=== PATIENT | female | born 1990 | race Caucasian/White ===

== ENCOUNTER 2023-02-01 15:27 | Outpatient (OUT) | payer BC, SELFPAY ==
--- NOTE | 2023-02-01 15:45 | XR_ITS ---
[address] [address] Patient Name: ELENI MATA MRN: [id number] date: 1990 Sex: F Assigned Patient Location: RAD Current Patient Location: [facility] Accession/Order Number: [id number] Exam Date: 02/01/2023 15:32 Report Date: 02/01/2023 16:05 At the request of: ROBERTO HICKMAN Procedure: XR ankle RT min 3V PROCEDURE: XR ankle RT min 3V DATE: 02/01/2023 2:32 PM CDT COMPARISONS: None CLINICAL INDICATION: Ankle Injury, S99.919A FINDINGS: There is no evidence of fractures or other osseous abnormalities. The ankle mortise is intact. IMPRESSION: Right ankle radiographs show no evidence of abnormalities. Electronically authenticated by: MADHURI DOMINGUEZ Date: 02/01/2023 16:05
--- NOTE | 2023-02-01 15:45 | XR_ITS ---
[address] [address] Patient Name: ELENI MATA MRN: [id number] date: 1990 Sex: F Assigned Patient Location: RAD Current Patient Location: [facility] Accession/Order Number: [id number] Exam Date: 02/01/2023 15:32 Report Date: 02/01/2023 16:06 At the request of: ROBERTO HICKMAN Procedure: XR foot RT min 3V PROCEDURE: XR foot RT min 3V DATE: 02/01/2023 2:32 PM CDT COMPARISONS: None CLINICAL INDICATION: Foot Injury, M99.929A FINDINGS: There is no evidence of fractures or other osseous abnormalities. IMPRESSION: Right foot radiographs show no evidence of abnormalities. Electronically authenticated by: MADHURI DOMINGUEZ Date: 02/01/2023 16:06
== END 2023-02-01 15:28 ==
PROVIDERS: PCP Nurse Practitioner; Visit Provider Nurse Practitioner
DX: S99.921A Unspecified injury of right foot, initial encounter (principal); S99.911A Unspecified injury of right ankle, initial encounter
CPT/HCPCS: 73610; 73630

== ENCOUNTER 2023-05-31 20:55 | Outpatient (REF) | payer OTHER, SELFPAY ==
[2023-06-05 15:08] LABS: Age Gdln ACOG Testing Note (.); HPV Aptima Negative (Negative); IGP, Aptima HPV, rfx 16/18,45 Note (.)
== END 2023-05-31 20:56 | disposition home or self-care (01) ==
LOC: LAB 20:55
PROVIDERS: PCP Nurse Practitioner; Visit Provider Obstetrics & Gynecology
DX: Z12.4 Encounter for screening for malignant neoplasm of cervix (principal)
CPT/HCPCS: 87624; G0145

== ENCOUNTER 2023-06-08 10:06 | Outpatient (OUT) | payer OTHER, SELFPAY ==
--- NOTE | 2023-06-08 10:14 | US_ITS ---
[address] [address] Patient Name: ELENI MATA MRN: [id number] date: 1990 Sex: F Assigned Patient Location: US Current Patient Location: [place] Accession/Order Number: [id number] Exam Date: 06/08/2023 10:20 Report Date: 06/08/2023 13:01 At the request of: FABIOLA YANCEY Procedure: US pelvis transvaginal EXAMINATION: US pelvis transvaginal HISTORY: Abnormal Uterine Bleeding COMPARISON: Ultrasound pelvis 11/13/2021 TECHNIQUE: Transabdominal and/or transvaginal sonographic examination was performed as indicated by examination type. FINDINGS: UTERUS: Normal size and appearance. Uterus size: 8.0 x 5.5 x 3.7 cm ENDOMETRIUM: Normal homogeneous appearance. Endometrial thickness: 5 mm RIGHT OVARY: Contains multiple small peripherally located follicles. Duplex Doppler demonstrates normal waveform and flow; resistive index 0.6. Ovary size: 3.5 x 2.4 x 2.2 cm LEFT OVARY: Contains several small peripherally located follicles. Duplex Doppler demonstrates normal waveform and flow; resistive index 0.6. Ovary size: 3.9 x 2.6 x 2.4 cm CUL-DE-SAC: Unremarkable. No significant free fluid. BLADDER: Unremarkable. OTHER: None. US/US pelvis transvaginal IMPRESSION: 1. No abnormal or overtly suspicious findings. 2. Both ovaries contain multiple small peripherally located follicles; nonspecific but this can be seen with polycystic ovarian syndrome. Electronically authenticated by: MARK HAYES Date: 06/08/2023 13:01
[2023-06-08 11:11] LABS: Basophils Absolute Auto 0.1 10^3/uL (0.0-0.1); Basophils Percent Auto 1.3 % (0.2-2.0); Eosinophils Absolute Auto 0.2 10^3/uL (0.0-0.7); Eosinophils Percent Auto 2.3 % (0.9-7.0); Hematocrit 41.1 % (36.0-48.0); Hemoglobin 13.1 g/dL (12.0-16.0); Immature Granulocytes Abs Auto 0.02 10^3/uL (0.00-0.03); Immature Granulocytes Pct Auto 0.3 % (0.0-0.5); Lymphocytes Absolute Auto 2.4 10^3/uL (1.2-3.8); Lymphocytes Percent Auto 33.7 % (20.5-60.0); Mean Corpuscular HGB Conc 31.9 g/dL (29.9-35.2); Mean Corpuscular Hemoglobin 27.5 pg (26.7-34.0); Mean Corpuscular Volume 86.2 fL (81.0-99.0); Mean Platelet Volume 9.9 fL (9.5-13.5); Monocytes Absolute Auto 0.4 10^3/uL (0.3-0.8); Monocytes Percent Auto 5.7 % (1.7-12.0); Neutrophils Percent Auto 56.7 % (43.0-75.0); Platelet Count 341 10^3/uL (150-450); Red Blood Count 4.77 10^6/uL (4.20-5.40); Red Cell Distribution Width 11.9 % (11.0-15.0)
[2023-06-08 11:33] LABS: HCG Quantitative <1 mIU/mL; Thyroid Stimulating Hormone 2.294 uIU/mL (0.358-3.740)
[2023-06-08 11:37] LABS: Estimated Average Glucose 103 mg/dL; Glycohemoglobin A1C 5.2 % (4.5-6.2)
[2023-06-08 11:53] LABS: Free T4 1.04 ng/dL (0.76-1.46)
[2023-06-09 08:12] LABS: FSH 5.8 mIU/mL (.); Luteinizing Hormone(LH) 12.6 mIU/mL (.)
[2023-06-14 05:07] LABS: DHEA, Serum 333 ng/dL (31-701)
== END 2023-06-08 10:07 | disposition home or self-care (01) ==
LOC: US 10:06
PROVIDERS: PCP Nurse Practitioner; Visit Provider Obstetrics & Gynecology
DX: N93.9 Abnormal uterine and vaginal bleeding, unspecified (principal)
CPT/HCPCS: 36415; 76830; 82626; 82627; 83001; 83002; 83036; 84439; 84443; 84702; 85025

== ENCOUNTER 2024-01-30 12:24 | Outpatient (RCR) | payer OTHER, SELFPAY ==
[2024-01-30 13:16] LABS: HCG Quantitative 5436 mIU/mL
[2024-02-02 15:11] LABS: HCG Quantitative 9333 mIU/mL
[2024-02-05 13:28] LABS: HCG Quantitative 14032 mIU/mL
== END 2024-02-11 23:59 | disposition home or self-care (01) ==
LOC: LAB 12:24
PROVIDERS: PCP Nurse Practitioner; Visit Provider Obstetrics & Gynecology
DX: Z87.59 Personal history of other complications of pregnancy, childbirth and the puerperium (principal)
CPT/HCPCS: 36415; 84702

== ENCOUNTER 2024-02-04 20:38 | Emergency (ER) | payer OTHER, SELFPAY ==
[2024-02-04 20:44] VITALS: BP 120/82; PULSE 88; O2SAT 100; BMI 26.6
--- OUTSIDE RECORDS SUMMARY | 2024-02-04 20:48 | XMS_ITS ---
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 Name Role Phone BC, DR HICKS Consulting Unavailable MARSH, DR SAKINA Sosa Primary Care Unavailable BC, DR HICKS Attending Unavailable BC, DR HICKS Admitting Unavailable Zieber, DR Winston Consulting Unavailable SAMIR, DR FELIPA Monzon Consulting Unavailable BC, DR HICKS Attending Unavailable BC, DR HICKS Admitting Unavailable MARSH, DR SAKINA Sosa Primary Care Unavailable BC, DR HICKS Consulting Unavailable AGUBOSIM, CASSI Consulting Unavailable KIERA, CHRIS Consulting Unavailable BC, DR HICKS Consulting Unavailable LAUREN, DR SAKINA Sosa Primary Care Unavailable BC, DR HICKS Attending Unavailable BC, DR HICKS Admitting Unavailable BC, DR HICKS Consulting Unavailable MARSH, DR SAKINA Sosa Primary Care Unavailable BC, DR HICKS Attending Unavailable BC, DR HICKS Admitting Unavailable BC, DR HICKS Consulting Unavailable MARSH, DR SAKINA Sosa Primary Care Unavailable BC, DR HICKS Attending Unavailable BC, DR HICKS Admitting Unavailable BC, DR HICKS Consulting Unavailable LAUREN, DR SAKINA Sosa Primary Care Unavailable BC, DR HICKS Attending Unavailable BC, DR HICKS Admitting Unavailable BC, DR HICKS Consulting Unavailable MARSH, DR SAIKNA Sosa Primary Care Unavailable BC, DR HICKS Attending Unavailable BC, DR HICKS Admitting Unavailable BC, DR HICKS Consulting Unavailable LAUREN, DR SAKINA Sosa Primary Care Unavailable BC, DR HICKS Attending Unavailable BC, DR HICKS Admitting Unavailable BC, DR HICKS Consulting Unavailable LAUREN, DR SAKINA Sosa Primary Care Unavailable BC, DR HICKS Attending Unavailable BC, DR HICKS Admitting Unavailable BC, DR HICKS Consulting Unavailable MARSH, DR SAKINA Sosa Primary Care Unavailable BC, DR HICKS Attending Unavailable BC, DR FABIOLA Admitting Unavailable Tessy Cornell Attending Unavailable Allergies Allergy Classification Reported Allergen(s) Allergy Type Date of Onset Reaction(s) Facility (1 source) No Known Medication Allergies; Translations: [No Known Medication Allergies] Propensity to adverse reactions (disorder) [facility] Repository Encounters Encounter Date Encounter Type Care Provider Facility Start: 01-31-2023 End: 02-01-2023 ambulatory Tessy Cornell Facility:[facility] Start: 01-31-2023 ambulatory Tessy Cornell Facility:[facility] [place] Start: 05-25-2022 End: 05-25-[address] FABIOLA GANDHI Facility:[facility] Start: 12-09-2021 End: 12-10-[address] FABIOLA GANDHI Facility:[facility] Start: 11-29-2021 End: 11-30-[address] FABIOLA GANDHI Facility:[facility] Start: 11-23-2021 End: 11-24-[address] FABIOLA GANDHI Facility:[facility] Start: 11-13-2021 End: 11-14-[address] FABIOLA GANDHI Facility:[facility] Start: 11-12-2021 End: 11-13-[address] FABIOLA GANDHI Facility:[facility] Start: 11-08-2021 End: 11-09-[address] FABIOLA GANDHI Facility:[facility] Start: 11-06-2021 End: 11-06-[address] FABIOLA GANDHI Facility:[facility] Start: 11-03-2021 End: 11-04-[address] FABIOLA GANDHI Facility:[facility] Start: 10-30-2021 End: 10-30-[address] FELIPA NASH Facility:[facility] Payers Date Payer Category Payer Unknown [id number] 2.16.84 [id number] 1990 Unknown [id number] 2.16.84 [id number] 1990 Unknown [id number] 2.16.84 [id number] 1990 Unknown [id number] 2.16.84 [id number] 1990 Unknown [id number] 2.16.84 [id number] 1990 Unknown [id number] 2.16.84 [id number] 1990 Unknown [id number] 2.16.84 [id number] 1990 Unknown [id number] 2.16.84 [id number] 1990 Unknown [id number] 2.16.84 [id number] 1990 Unknown [id number] 2.16.84 [id number] 1990 Unknown [id number] 2.16.8 [id number] 1957 Unknown [id number] Unknown [id number] Problems Active Problems Problem Classification Problem Date Documented Date Episodic/Chronic Immunizations and screening for infectious disease (1 source) Encounter for screening for human papillomavirus (HPV); Translations: [ENC SCREENING HUMAN PAPILLOMAVIRUS] Onset: 05-26-2022 Episodic Other endocrine disorders (1 source) Polycystic ovarian syndrome; Translations: [POLYCYSTIC OVARIAN SYNDROME] Onset: 11-11-2021 Chronic Other screening for suspected conditions (not mental disorders or infectious disease) (4 sources) Encounter for screening for malignant neoplasm of cervix; Translations: [ENC SCREENING MALIG NEOPLASM CERV] Onset: 05-25-2022 Episodic Unclassified (1 source) CONTACT W/AND (SUSP) EXPOS COVID-19; Translations: [CONTACT W/AND (SUSP) EXPOS COVID-19] Onset: 11-11-2021 Past or Other Problems Problem Classification Problem Date Documented Date Episodic/Chronic Abdominal pain (4 sources) Right lower quadrant pain; Translations: [Pelvic and perineal pain] Onset: 10-30-2021 Episodic Deficiency and other anemia (1 source) Anemia, unspecified; Translations: [ANEMIA UNSPECIFIED] Onset: 11-11-2021 Episodic Ovarian cyst (1 source) Unspecified ovarian cyst, right side; Translations: [UNSPECIFIED OVARIAN CYST RIGHT SIDE] Onset: 11-17-2021 Episodic Residual codes; unclassified (4 sources) Other specified postprocedural states; Translations: [OTH SPECIFIED POSTPROCEDURAL STATES] Onset: 12-09-2021 Episodic Residual codes; unclassified (5 sources) Personal history of other complications of , childbirth and the puerperium; Translations: [PERS HX OTH COMP PG CHILDBIRTH AND PP] Onset: 11-13-2021 Episodic Results Test Name Value Interpretation Reference Range Facil ity RAD - Ultrasound Reporton RAD - Ultrasound Report [id number] 0TIFF [facility] RAD - MISCon 02-02-2023 RAD - MISC [id number]#1.00 CD:127 [facility] RAD - MISC [id number]. 00CD:127 [facility] Ambulatory Visit Summaryon 0 01-31-2023 Ambulatory Visit Summary ELENI MATA :1990 Visit Date:01/31/2023 Ambulatory Visit Instructions Your Diagnosis BMI 26.0-26.9,adult Non-smoker Your Care Team Attending Physician - Tessy Salinas Primary Care Physician - Cassi Green MD Discharge Vitals Heart Rate (Peripheral) 80 Respiratory Rate 18 Blood Pressure 124/88 Height 161.5 cm Height 64 in Weight 67.9 kg Weight 149.38 lb BMI 26.03 Allergies No Known Medication Allergies [facility] Family Medicine Office/Clini c Noteon 01-31-2023 Family Medicine Office/Clinic Note Chief Complaint Establish care HPI Staff Haider is a 32 year old female presenting with establish care Establish Care: History: Any previous diagnosis: no History of seeing any specialist: no When was your last doctors visit: Last provider: Dr Marsh Any recent labs: no Health Maintenance UTD: Colonoscopy: no Mammogram: no Pelvic/Pap: Acute: Current issues/complaints: Right foot pain Started having pain the her right foot a couple of days ago. Right outside foot with pain radiating up to the top part of the foot. Pain only happens when patient is walking or standing. Pain is aching and sharp, pain is 8/10. No other the counter medications taken, attempted to soak her foot but did not help. Claims no injury happen, states that she did jump off of a swing. When patient landed she did not feel any pain. History of Present Illness pt presets today with right foot pain that radiates to her ankle Review of Systems PHQ Score Initial Depression Screen Score: 0 ROS - Provider Constitutional: no fever, no chills, no sweats, no fatigue Respiratory: no shortness of breath, no cough, no orthopnea, no wheezing. Cardiovascular: no chest pain, no palpitations, no edema. Neurologic: no headache, no dizziness, no numbness, no weakness. musculoskeletal: right foot pain that goes to ankle Physical Exam Vitals & Measurements HR: 80(Peripheral) RR: 18 BP: 124/88 SpO2: 99% HT: 64 in HT: 161.5 cm WT: 67.9 kg WT: 149.38 lb BMI: 26.03 General: alert, no acute distress ENMT: oral mucosa moist, no pharyngeal erythema or exudate Cardiovascular: regular rate and rhythm, normal peripheral perfusion Respiratory: Lungs CTA, respirations non labored Extremities: no deformity, mild trauma right foot pain starts at bottom of foot radiates up to anlkle Neurological: oriented x 4, LOC appropriate for age, CN II-XII intact, motor strength equal & normal bilaterally, speech normal Assessment/Plan 1. Ankle injury (S99.919A: Unspecified injury of unspecified ankle, initial encounter) pt presents today with right foot pain. starts at bottom of her foot and radiates up to her ankle. she was on a swing on Monday and jumped off of it and landed funny. she now has pain when on her feet too long. no swelling noted on exam. but foot is tender to touch. will order x ray and meds. will notify pt of results when they are in. will refer to Dr. Townsend if needed all questions answered. RTC as needed 2. Foot injury (S99.929A: Unspecified injury of unspecified foot, initial encounter) see above 3. BMI 26.0-26.9,adult (Z68.26: Body mass index [BMI] 26.0-26.9, adult) BMI education complete Ordered: methylPREDNISolone, = 1 packet(s), Oral, As Directed, as directed on package labeling, X 6 day(s), # 21 tab(s), Refills(s) 0, Pharmacy: [facility]/pharmacy #[id number], 161.5, cm, 01/31/23 14:55:00 EDT, Height/Length Dosing, 67.9, kg, 01/31/23 14:55:00 EDT, Weight Dosing naproxen, 500 mg = 1 tab(s), Oral, BID, # 30 tab(s), Refills(s) 0, Pharmacy: [facility]/pharmacy #[id number], 161.5, cm, 01/31/23 14:55:00 EDT, Height/Length Dosing, 67.9, kg, 01/31/23 14:55:00 EDT, Weight Dosing 4. Non-smoker (Z78.9: Other specified health status) continue not smoking Ordered: methylPREDNISolone, = 1 packet(s), Oral, As Directed, as directed on package labeling, X 6 day(s), # 21 tab(s), Refills(s) 0, Pharmacy: [facility]/pharmacy #[id number], 161.5, cm, 01/31/23 14:55:00 EDT, Height/Length Dosing, 67.9, kg, 01/31/23 14:55:00 EDT, Weight Dosing naproxen, 500 mg = 1 tab(s), Oral, BID, # 30 tab(s), Refills(s) 0, Pharmacy: [facility]/pharmacy #[id number], 161.5, cm, 01/31/23 14:55:00 EDT, Height/Length Dosing, 67.9, kg, 01/31/23 14:55:00 EDT, Weight Dosing Follow-up No qualifying data available Problem List/Past Medical History Ongoing Ankle injury Foot injury Historical No qualifying data Medications Medrol 4 mg Tab, 1 packet(s), Oral, As Directed naproxen 500 mg oral enteric coated tablet, 500 mg= 1 tab(s), Oral, BID Allergies No Known Medication Allergies Social History Tobacco - No Risk, 01/31/2023 Former smoker, quit more than 30 days ago Tobacco Use:. Cigarettes, Household tobacco concerns: No., 01/31/2023 Family History Family history is negative Normal [facility] Comment on above: Result Comment: Elec tronically Signed By: Aneta SHULTZ, Tessy Gandhi\.br\Date and Time Signed: 01/31/23 15:15 EDT PAP ACOG PANEL 2: 21 to 29on 06-01-2022 . . Normal [facility] Comment on above: Performed By: #### P REGQNT #### [facility] [address] [address] [address] Ed Amaral Age Gdln ACOG Testing - [facility] Comment on above: Performed By: #### P REGQNT #### [facility] [address] [address] [address] Ed Amaral DIAGNOSIS: Comment [facility] Comment on above: Result Comment: NEGA TIVE FOR INTRAEPITHELIAL LESION OR MALIGNANCY. Performed By: #### P REGQNT #### [facility] [address] [address] [address] Ed Amaral Methodology: Comment [facility] Comment on above: Result Comment: This liquid based ThinPrep(R) pap test was screened with the use of an image guided system. Performed By: #### P REGQNT #### [facility] [address] [address] [address] Ed Amaral Note: Comment [facility] Comment on above: Result Comment: The Pap smear is a screening test designed to aid in the detection of premalignant and malignant conditions of the uterine cervix. It is not a diagnostic procedure and should not be used as the sole means of detecting cervical cancer. Both false-positive and false-negative reports do occur. . Performed By: #### P REGQNT #### [facility] [address] [address] [address] Ed Amaral Performed by: Comment Normal [facility] Comment on above: Result Comment: Ignacio Pleitez, Marine Water Tender (ASCP) Performed By: #### P REGQNT #### [facility] [address] [place] [address] Dr. Ed Amaral Reflex Criteria: Comment Normal [facility] Comment on above: Result Comment: The HPV DNA reflex criteria were not met with this specimen result therefore, no HPV testing was performed. . Performed By: #### P REGQNT #### [facility] [address] [place] [address] Dr. Ed Amaral Specimen adequacy: Comment Normal [facility] Comment on above: Result Comment: Sati sfactory for evaluation. Endocervical and/or squamous metaplastic cells (endocervical component) are present. Performed By: #### P REGQNT #### [facility] [address] [place] [address] Dr. Ed Amaral PREG QUANT HCGon 12-09-2021 HCG QUANT 2 mIU/mL [facility] Comment on above: Performed By: #### P REGQNT #### [facility] [address] [place] [address] Dr. Ed Amaral HCG RANGE SEE BELOW [facility] Comment on above: Result Comment: 5-50 0-1 WEEK 40-300 1-2 WEEKS 100-1,000 2-3 WEEKS 500-6,000 3-4 WEEKS 5,000-200,000 1-2 MONTHS 10,000-100,000 2-3 MONTHS 3,000-50,000 2ND TRIMESTER 1,000-50,000 3RD TRIMESTER Performed By: #### P REGQNT #### [facility] [address] [place] [address] Dr. Ed Amaral PREG QUANT HCGon 11-29-2021 HCG QUANT 83 mIU/mL [facility] Comment on above: Performed By: #### P REGQNT #### [facility] [address] [place] [address] Dr. Ed Amaral HCG RANGE SEE BELOW [facility] Comment on above: Result Comment: 5-50 0-1 WEEK 40-300 1-2 WEEKS 100-1,000 2-3 WEEKS 500-6,000 3-4 WEEKS 5,000-200,000 1-2 MONTHS 10,000-100,000 2-3 MONTHS 3,000-50,000 2ND TRIMESTER 1,000-50,000 3RD TRIMESTER Performed By: #### P REGQNT #### [facility] [address] [address] [address] Ed Amaral PREG QUANT HCGon 11-23-2021 HCG QUANT 80 mIU/mL Normal [facility] Comment on above: Performed By: #### P REGQNT #### [facility] [address] [address] [address] Ed Amaral HCG RANGE SEE BELOW Normal [facility] Comment on above: Result Comment: 5-50 0-1 WEEK 40-300 1-2 WEEKS 100-1,000 2-3 WEEKS 500-6,000 3-4 WEEKS 5,000-200,000 1-2 MONTHS 10,000-100,000 2-3 MONTHS 3,000-50,000 2ND TRIMESTER 1,000-50,000 3RD TRIMESTER Performed By: #### P REGQNT #### [facility] [address] [address] [address] Ed Amaral US PELVIS AND TRANSVAGon US PELVIS AND TRANSVAG EXAMINATION: US PELVIS AND TRANSVAG HISTORY: History of complication of , childbirth and/or puerperium COMPARISON: Ultrasound transvaginal 10/29/2021 TECHNIQUE: Transabdominal and transvaginal sonographic examination. FINDINGS: UTERUS: Normal size and appearance. Uterus size: 8.4 x 4.6 x 3.7 cm ENDOMETRIUM: Normal homogeneous appearance. Endometrial thickness: 4 mm RIGHT OVARY: Contains several small follicles and a 1.4 cm round hypoechoic/heterogeneo us structure likely representing a hemorrhagic cyst. Adjacent to the ovary is a 1.1 cm anechoic simple appearing cyst. Duplex Doppler demonstrates normal waveform and flow; resistive index 0.57. Ovary size: 3.6 x 2.8 x 2.1 cm LEFT OVARY: Normal size and appearance. Duplex Doppler demonstrates normal waveform and flow; resistive index 0.51. Ovary size: 3.5 x 2.4 x 2.3 cm CUL-DE-SAC: Unremarkable. No significant free fluid. BLADDER: Unremarkable. OTHER: None. IMPRESSION: 1. No ultrasound evidence of intrauterine or ectopic . Follow-up should be based on beta hCG levels. 2. Small complex cyst within right ovary, and adjacent cysts likely exophytic simple cyst. Electronically authenticated by: MARK FERMINOMARJAELYN Date: 2021-11-16 07:02 Normal [facility] PREG QUANT HCGon 11-12-2021 HCG QUANT 236 mIU/mL Normal [facility] Comment on above: Performed By: #### P REGQNT #### [facility] [address] [address] [address] Ed Amaral HCG RANGE SEE BELOW Normal [facility] Comment on above: Result Comment: 5-50 0-1 WEEK 40-300 1-2 WEEKS 100-1,000 2-3 WEEKS 500-6,000 3-4 WEEKS 5,000-200,000 1-2 MONTHS 10,000-100,000 2-3 MONTHS 3,000-50,000 2ND TRIMESTER 1,000-50,000 3RD TRIMESTER Performed By: #### P REGQNT #### [facility] [address] [place] [address] Dr. Ed Amaral PREG QUANT HCGon 11-08-2021 HCG QUANT 335 mIU/mL Normal [facility] Comment on above: Performed By: #### P REGQNT #### [facility] [address] [place] [address] Dr. Ed Amaral HCG RANGE SEE BELOW Normal [facility] Comment on above: Result Comment: 5-50 0-1 WEEK 40-300 1-2 WEEKS 100-1,000 2-3 WEEKS 500-6,000 3-4 WEEKS 5,000-200,000 1-2 MONTHS 10,000-100,000 2-3 MONTHS 3,000-50,000 2ND TRIMESTER 1,000-50,000 3RD TRIMESTER Performed By: #### P REGQNT #### [facility] [address] [address] [address] Ed Amaral PREG QUANT HCGon 11-06-2021 HCG QUANT 324 mIU/mL Normal [facility] Comment on above: Performed By: #### P REGQNT #### [facility] [address] [place] [address] Dr. Ed Amaral HCG RANGE SEE BELOW Normal [facility] Comment on above: Result Comment: 5-50 0-1 WEEK 40-300 1-2 WEEKS 100-1,000 2-3 WEEKS 500-6,000 3-4 WEEKS 5,000-200,000 1-2 MONTHS 10,000-100,000 2-3 MONTHS 3,000-50,000 2ND TRIMESTER 1,000-50,000 3RD TRIMESTER Performed By: #### P REGQNT #### [facility] [address] [place] [address] Dr. Ed Amaral PREG QUANT HCGon 11-03-2021 HCG QUANT 189 mIU/mL Normal [facility] Comment on above: Performed By: #### P REGQNT #### [facility] [address] [place] [address] Dr. Ed Amaral HCG RANGE SEE BELOW Normal [facility] Comment on above: Result Comment: 5-50 0-1 WEEK 40-300 1-2 WEEKS 100-1,000 2-3 WEEKS 500-6,000 3-4 WEEKS 5,000-200,000 1-2 MONTHS 10,000-100,000 2-3 MONTHS 3,000-50,000 2ND TRIMESTER 1,000-50,000 3RD TRIMESTER Performed By: #### P REGQNT #### [facility] [address] [place] [address] Dr. Ed Amaral CBC AUTO DIFFon 10-30-2021 BASO # 0.1 103/ul Normal 0.0-0.1 [facility] Comment on above: Performed By: #### C BC #### [facility] [address] [place] [address] Dr. Ed Amaral BASO # 0.1 103/ul Normal 0.0-0.1 [facility] Comment on above: Performed By: #### C BC #### [facility] [address] [place] [address] Dr. Ed Amaral Basophils/100 WBC (Bld) 0.8 % Normal 0.2-2.0 [facility] Comment on above: Performed By: #### C BC #### [facility] [address] [place] [address] Dr. Ed Amaral Basophils/100 WBC (Bld) 0.9 % Normal 0.2-2.0 [facility] Comment on above: Performed By: #### C BC #### [facility] [address] [place] [address] Dr. Ed Amaral EO # 0.2 103/ul Normal 0.0-0.7 [facility] Comment on above: Performed By: #### C BC #### [facility] [address] [place] [address] Dr. Ed Amaral EO # 0.1 103/ul Normal 0.0-0.7 [facility] Comment on above: Performed By: #### C BC #### [facility] [address] [place] [address] Dr. Ed Amaral Eosinophils/100 WBC (Bld) 2.1 % Normal 0.9-7.0 [facility] Comment on above: Performed By: #### C BC #### [facility] [address] [place] [address] Dr. Ed Amaral Eosinophils/100 WBC (Bld) 0.8 % Critically low 0.9-7.0 [facility] Comment on above: Performed By: #### C BC #### [facility] [address] [place] [address] Dr. Ed Amaral Erythrocyte distribution width (RBC) [Ratio] 12.2 % Normal 11.0-15.0 [facility] Comment on above: Performed By: #### C BC #### [facility] [address] [place] [address] Dr. Ed Amaral Erythrocyte distribution width (RBC) [Ratio] 12.2 % Normal 11.0-15.0 [facility] Comment on above: Performed By: #### C BC #### [facility] [address] [place] [address] Dr. Ed Amaral Hematocrit (Bld) [Volume fraction] 39.2 % Normal 36.0-48.0 [facility] Comment on above: Performed By: #### C BC #### [facility] [address] [place] [address] Dr. Ed Amaral Hematocrit (Bld) [Volume fraction] 35.3 % Critically low 36.0-48.0 [facility] Comment on above: Performed By: #### C BC #### [facility] [address] [place] [address] Dr. Ed Amaral Hemoglobin (Bld) [Mass/Vol] 12.8 g/dL Normal 12.0-16.0 [facility] Comment on above: Performed By: #### C BC #### [facility] [address] [place] [address] Dr. Ed Amaral Hemoglobin (Bld) [Mass/Vol] 11.5 g/dL Critically low 12.0-16.0 [facility] Comment on above: Performed By: #### C BC #### [facility] [address] [place] [address] Dr. Ed Amaral IG # 0.03 10e3/ul Normal 0.00-0.03 [facility] Comment on above: Performed By: #### C BC #### [facility] [address] [place] [address] Dr. Ed Amaral IG # 0.01 10e3/ul Normal 0.00-0.03 [facility] Comment on above: Performed By: #### C BC #### [facility] [address] [place] [address] Dr. Ed Amaral IG % 0.3 % Normal 0.0-0.5 [facility] Comment on above: Performed By: #### C BC #### [facility] [address] [place] [address] Dr. Ed Amaral IG % 0.1 % Normal 0.0-0.5 [facility] Comment on above: Performed By: #### C BC #### [facility] [address] [place] [address] Dr. Ed Amaral LYMPH # 4.5 103/ul Critically high 1.2-3.8 [facility] Comment on above: Performed By: #### C BC #### [facility] [address] [place] [address] Dr. Ed mAaral LYMPH # 2.5 103/ul Normal 1.2-3.8 [facility] Comment on above: Performed By: #### C BC #### [facility] [address] [address] [address] Ed Amaral Lymphocytes/100 WBC (Bld) 40.5 % Normal 20.5-60.0 [facility] Comment on above: Performed By: #### C BC #### [facility] [address] [place] [address] Dr. Ed Amaral Lymphocytes/100 WBC (Bld) 32.4 % Normal 20.5-60.0 [facility] Comment on above: Performed By: #### C BC #### [facility] [address] [place] [address] Dr. Ed Amaral MANUAL DIFF REQ NO Normal [facility] Comment on above: Performed By: #### C BC #### [facility] [address] [place] [address] Dr. Ed Amaral MANUAL DIFF REQ NO Normal [facility] Comment on above: Performed By: #### C BC #### [facility] [address] [place] [address] Dr. Ed Amaral MCH (RBC) [Entitic mass] 27.6 pg Normal 26.7-34.0 [facility] Comment on above: Performed By: #### C BC #### [facility] [address] [place] [address] Dr. Ed Amaral MCH (RBC) [Entitic mass] 27.4 pg Normal 26.7-34.0 [facility] Comment on above: Performed By: #### C BC #### [facility] [address] [place] [address] Dr. Ed Amaral MCHC (RBC) [Mass/Vol] 32.7 g/dL Normal 29.9-35.2 [facility] Comment on above: Performed By: #### C BC #### [facility] [address] [place] [address] Dr. Ed VAZQUEZC (RBC) [Mass/Vol] 32.6 g/dL Normal 29.9-35.2 [facility] Comment on above: Performed By: #### C BC #### [facility] [address] [address] [address] Ed Amaral MCV (RBC) [Entitic vol] 84.7 fL Normal 81.0-99.0 [facility] Comment on above: Performed By: #### C BC #### [facility] [address] [place] [address] Dr. Ed Amaral MCV (RBC) [Entitic vol] 84.0 fL Normal 81.0-99.0 [facility] Comment on above: Performed By: #### C BC #### [facility] [address] [place] [address] Dr. Ed Amaral MONO # 0.7 103/ul Normal 0.3-0.8 [facility] Comment on above: Performed By: #### C BC #### [facility] [address] [place] [address] Dr. Ed Amaral MONO # 0.5 103/ul Normal 0.3-0.8 [facility] Comment on above: Performed By: #### C BC #### [facility] [address] [place] [address] Dr. Ed Amaral Monocytes/100 WBC (Bld) 6.2 % Normal 1.7-12.0 [facility] Comment on above: Performed By: #### C BC #### [facility] [address] [place] [address] Dr. Ed Amaral Monocytes/100 WBC (Bld) 5.9 % Normal 1.7-12.0 [facility] Comment on above: Performed By: #### C BC #### [facility] [address] [place] [address] Dr. Ed Amaral NEUT # 5.6 103/ul Normal 1.4-6.5 [facility] Comment on above: Performed By: #### C BC #### [facility] [address] [place] [address] Dr. Ed Amaral NEUT # 4.5 103/ul Normal 1.4-6.5 [facility] Comment on above: Performed By: #### C BC #### [facility] [address] [place] [address] Dr. Ed Amaral Neutrophils/100 WBC (Bld) 50.1 % Normal 43.0-75.0 [facility] Comment on above: Performed By: #### C BC #### [facility] [address] [place] [address] Dr. Ed Amaral Neutrophils/100 WBC (Bld) 59.9 % Normal 43.0-75.0 [facility] Comment on above: Performed By: #### C BC #### [facility] [address] [place] [address] Dr. Ed Amaral Platelet mean volume (Bld) [Entitic vol] 9.9 fL Normal 9.5-13.5 [facility] Comment on above: Performed By: #### C BC #### [facility] [address] [place] [address] Dr. Ed Amaral Platelet mean volume (Bld) [Entitic vol] 9.8 fL Normal 9.5-13.5 [facility] Comment on above: Performed By: #### C BC #### [facility] [address] [place] [address] Dr. Ed mAaral PLT 359 103/ul Normal 150-450 [facility] Comment on above: Performed By: #### C BC #### [facility] [address] [place] [address] Dr. Ed Amaral PLT 277 103/ul Normal 150-450 [facility] Comment on above: Performed By: #### C BC #### [facility] [address] [place] [address] Dr. Ed Amaral RBC 4.63 106/ul Normal 4.20-5.40 [facility] Comment on above: Performed By: #### C BC #### [facility] [address] [place] [address] Dr. Ed Amaral RBC 4.20 106/ul Normal 4.20-5.40 [facility] Comment on above: Performed By: #### C BC #### [facility] [address] [place] [address] Dr. Ed Amaral WBC 11.1 103/ul Critically high 4.0-11.0 [facility] Comment on above: Performed By: #### C BC #### [facility] [address] [place] [address] Dr. Ed Amaral WBC 7.6 103/ul Normal 4.0-11.0 [facility] Comment on above: Performed By: #### C BC #### [facility] [address] [place] [address] Dr. Ed Amaral CULTURE URINEon 10-30-2021 CULTURE URINE Culture Observations : LIGHT GROWTH OF MIXED GENITAL MYRA. NO POTENTIAL PATHOGENS SEEN. Normal [facility] Comment on above: Performed By: #### P REGQNT #### [facility] [address] [place] [address] Dr. Ed Amaral [facility]12 SARS-CoV-2 (COVID-19) RNA NHAUM+probe Ql (Unsp spec) Not detected Normal NOT DETECTED [facility] Comment on above: Result Comment: When diagnostic testing is negative, the possibility of a false negative should be considered in the context of a patient's recent exposures and the presence of clinical signs and symptoms consistent with SARS-CoV-2. This test is not yet approved or cleared by the [place] FDA. When there are no FDA-approved or cleared tests available, and other criteria are met, FDA can make tests available under an emergency access mechanism called an Emergency Use Authorization (EUA). The EUA for this test is supported by the Learning Coordinator of Health and Human Service's declaration that circumstances exist to justify the emergency use of in vitro diagnostics for the detection and/or diagnosis of the virus that causes COVID-19. This EUA will remain in effect for the duration of the COVID-19 declaration justifying emergency of IVDs, unless it is terminated or revoked by the FDA (after which the test may no longer be used). Performed By: #### P REGQNT #### [facility] [address] [place] [address] Dr. Ed Amaral ER URINE PROFILEon Bilirubin Ql (U) Negative Normal NEGATIVE [facility] Comment on above: Performed By: #### P REGQNT #### [facility] [address] [address] [address] Ed Amaral Clarity (U) CLEAR Normal CLEAR [facility] Comment on above: Performed By: #### P REGQNT #### [facility] [address] [address] [address] Ed Amaral Color (U) LT. YELLOW Normal YELLOW [facility] Comment on above: Performed By: #### P REGQNT #### [facility] [address] [address] [address] Ed OROURKE A micrscopic examination will be performed if indicated. Normal [facility] Comment on above: Performed By: #### P REGQNT #### [facility] [address] [place] [address] Dr. Ed Amaral Glucose Ql (U) Negative Normal NEGATIVE [facility] Comment on above: Performed By: #### P REGQNT #### [facility] [address] [place] [address] Dr. Ed Amaral Hemoglobin Ql (U) Negative Normal NEGATIVE [facility] Comment on above: Performed By: #### P REGQNT #### [facility] [address] [place] [address] Dr. Ed Amaral Ketones Ql (U) Negative Normal NEGATIVE [facility] Comment on above: Performed By: #### P REGQNT #### [facility] [address] [address] [address] Ed Amaral LEUKOCYTES Negative Normal NEGATIVE [facility] Comment on above: Performed By: #### P REGQNT #### [facility] [address] [address] [address] Ed Amaral Nitrite Ql (U) Positive Abnormal NEGATIVE [facility] Comment on above: Performed By: #### P REGQNT #### [facility] [address] [place] [address] Dr. Ed Amaral pH (U) 5.5 [pH] Normal 5-9 [facility] Comment on above: Performed By: #### P REGQNT #### [facility] [address] [address] [address] Ed Amaral SPEC GRAVITY 1.005 Normal 1.005-<=1.025 [facility] Comment on above: Performed By: #### P REGQNT #### [facility] [address] [place] [address] Dr. Ed Amaral UA PROTEIN Negative Normal NEGATIVE/ TRACE [facility] Comment on above: Performed By: #### P REGQNT #### [facility] [address] [place] [address] Dr. Ed Amaral UR MICRO IND INDICATED Normal [facility] Comment on above: Performed By: #### P REGQNT #### [facility] [address] [place] [address] Dr. Ed Amaral Urobilinogen Qn (U) 0.2 {Michela'U}/dL Normal 0.2 - 1.0 [facility] Comment on above: Performed By: #### P REGQNT #### [facility] [address] [place] [address] Dr. Ed Amaral LACTATE/LACTIC ACIDon 2021 Lactate [Moles/Vol] 0.9 mmol/L Normal 0.7-2.0 [facility] Comment on above: Performed By: #### L ACT #### [facility] [address] [place] [address] Dr. Ed Amaral PREG QUANT HCGon 10-30-2021 HCG QUANT 150 mIU/mL Normal [facility] Comment on above: Performed By: #### P REGQNT #### [facility] [address] [place] [address] Dr. Ed Amaral HCG QUANT 112 mIU/mL Normal [facility] Comment on above: Performed By: #### P REGQNT #### [facility] [address] [place] [address] Dr. Ed Amaral HCG RANGE SEE BELOW Normal [facility] Comment on above: Result Comment: 5-50 0-1 WEEK 40-300 1-2 WEEKS 100-1,000 2-3 WEEKS 500-6,000 3-4 WEEKS 5,000-200,000 1-2 MONTHS 10,000-100,000 2-3 MONTHS 3,000-50,000 2ND TRIMESTER 1,000-50,000 3RD TRIMESTER Performed By: #### P REGQNT #### [facility] [address] [place] [address] Dr. Ed Amaral HCG RANGE SEE BELOW Normal [facility] Comment on above: Result Comment: 5-50 0-1 WEEK 40-300 1-2 WEEKS 100-1,000 2-3 WEEKS 500-6,000 3-4 WEEKS 5,000-200,000 1-2 MONTHS 10,000-100,000 2-3 MONTHS 3,000-50,000 2ND TRIMESTER 1,000-50,000 3RD TRIMESTER Performed By: #### P REGQNT #### [facility] [address] [place] [address] Dr. Ed Amaral URon 10-30-2021 , QUAL Positive Abnormal NEGATIVE [facility] Comment on above: Performed By: #### P REGQNT #### [facility] [address] [place] [address] Dr. Ed Amaral PROF 14(COMP METB)on 022 Albumin [Mass/Vol] 4.3 g/dL Normal 3.4-5.0 [facility] Comment on above: Performed By: #### C MP #### [facility] [address] [place] [address] Dr. Ed Amaral Albumin/Globulin [Mass ratio] 1.4 {ratio} Normal [facility] Comment on above: Performed By: #### C MP #### [facility] [address] [place] [address] Dr. Ed Amaral ALP [Catalytic activity/Vol] 69 U/L Normal 46-116 [facility] Comment on above: Performed By: #### C MP #### [facility] [address] [place] [address] Dr. Ed Amaral ALT [Catalytic activity/Vol] 11 U/L Critically low 14-59 [facility] Comment on above: Performed By: #### C MP #### [facility] [address] [address] [address] Ed Amaral Anion gap [Moles/Vol] 12.5 mmol/L Normal [facility] Comment on above: Performed By: #### C MP #### [facility] [address] [address] [address] Ed Amaral AST [Catalytic activity/Vol] 9 U/L Critically low 15-37 [facility] Comment on above: Performed By: #### C MP #### [facility] [address] [address] [address] Ed Amaral Bilirubin [Mass/Vol] 0.8 mg/dL Normal 0.2-1.3 [facility] Comment on above: Performed By: #### C MP #### [facility] [address] [place] [address] Dr. Ed Amaral Calcium [Mass/Vol] 8.8 mg/dL Normal 8.5-10.1 [facility] Comment on above: Performed By: #### C MP #### [facility] [address] [place] [address] Dr. Ed Amaral Chloride [Moles/Vol] 103 mmol/L Normal 98-107 [facility] Comment on above: Performed By: #### C MP #### [facility] [address] [place] [address] Dr. Ed Amaral CO2 [Moles/Vol] 25.9 mmol/L Normal 22.0-30.0 [facility] Comment on above: Performed By: #### C MP #### [facility] [address] [place] [address] Dr. Ed Amaral Creatinine [Mass/Vol] 0.82 mg/dL Normal 0.52-1.04 [facility] Comment on above: Performed By: #### C MP #### [facility] [address] [address] [address] Ed Amaral EGFR-AF [place] >60 Normal >=60 [facility] Comment on above: Performed By: #### C MP #### [facility] [address] [place] [address] Dr. Ed Amaral EGFR-NON AF [place] >60 Normal >=60 [facility] Comment on above: Performed By: #### C MP #### [facility] [address] [address] [address] Ed Amaral Globulin (S) [Mass/Vol] 3.1 g/dL Normal [facility] Comment on above: Performed By: #### C MP #### [facility] [address] [address] [address] Ed Amaral Glucose [Mass/Vol] 108 mg/dL Critically high 74-106 T [facility] Comment on above: Performed By: #### C MP #### [facility] [address] [address] [address] Ed Amaral Potassium [Moles/Vol] 3.4 mmol/L Normal 3.4-5.0 [facility] Comment on above: Performed By: #### C MP #### [facility] [address] [address] [address] Ed Amaral Protein [Mass/Vol] 7.4 g/dL Normal 6.1-8.2 [facility] Comment on above: Performed By: #### C MP #### [facility] [address] [place] [address] Dr. Ed Amaral Sodium [Moles/Vol] 138 mmol/L Normal 137-145 [facility] Comment on above: Performed By: #### C MP #### [facility] [address] [address] [address] Ed Amaral Urea nitrogen [Mass/Vol] 12.0 mg/dL Normal 7.0-18.0 [facility] Comment on above: Performed By: #### C MP #### [facility] [address] [address] [address] Ed Amaral Urea nitrogen/Creatinin e [Mass ratio] 14.6 mg/mg Normal [facility] Comment on above: Performed By: #### C MP #### [facility] [address] [address] [address] Ed Amaral TYPE AND SCREENon 10-30-2021 TYPE AND SCREEN Negative Normal [facility] Comment on above: Performed By: #### P REGQNT #### [facility] [address] [address] [address] Ed Amaral URINE MICROSCOPIC ONLYon BACTERIA NONE SEEN Normal NONE SEEN [facility] Comment on above: Performed By: #### P REGQNT #### [facility] [address] [address] [address] Ed Amaral Bacteria identified Cx Nom (U) INDICATED Normal [facility] Comment on above: Performed By: #### P REGQNT #### [facility] [address] [address] [address] Ed Amaral CAST NONE SEEN Normal NONE SEEN [facility] Comment on above: Performed By: #### P REGQNT #### [facility] [address] [place] [address] Dr. Ed Amaral Crystals LM Nom (Urine sed) NONE SEEN Normal NONE SEEN [facility] Comment on above: Performed By: #### P REGQNT #### [facility] [address] [place] [address] Dr. Ed Amaral Epithelial cells LM Ql (Urine sed) RARE Normal NONE SEEN /RARE [facility] Comment on above: Performed By: #### P REGQNT #### [facility] [address] [place] [address] Dr. Ed Amaral MUCOUS NONE SEEN Normal NONE SEEN [facility] Comment on above: Performed By: #### P REGQNT #### [facility] [address] [address] [address] Ed Amaral RBC NONE SEEN Abnormal 0-2 [facility] Comment on above: Performed By: #### P REGQNT #### [facility] [address] [place] [address] Dr. Ed Amaral WBC NONE SEEN Normal NONE SEEN [facility] Comment on above: Performed By: #### P REGQNT #### [facility] [address] [place] [address] Dr. Ed Amaral US APPENDIXon 10-30-2021 US APPENDIX EXAM: US APPENDIX HISTORY: Pain COMPARISON: None. TECHNIQUE: Ultrasound evaluation of the right lower quadrant was performed for evaluation of appendicitis. FINDINGS: Free fluid is seen within the right lower quadrant. What appears to be a normal appendix is seen. IMPRESSION: 1. What appears to be a normal appendix is seen. 2. Free fluid within the right lower quadrant. Electronically authenticated by: Celia VILLAGRAN Date: 2021-10-30 00:28 Normal [facility] US PREG TVon 10-30-2021 US PREG TV EXAM: US PREG TV HISTORY: Pain COMPARISON: None. TECHNIQUE: Transvaginal ultrasound of the pelvis was performed using Duplex Doppler. FINDINGS: No intrauterine gestational sac is seen. The right ovary measures up to 3.7 x 2.4 x 2.8 cm, and the left ovary measures up to 3.9 x 2.1 x 2.1 cm. There is a small cystic area within the right ovary, possibly representing a corpus luteal cyst of . Blood flow is noted in both ovaries. There is a moderate amount of complex free fluid in the pelvis. IMPRESSION: 1. No intrauterine gestational sac is seen. There is a moderate amount of complex free fluid in the pelvis. These findings could represent a ruptured ectopic . Recommend follow-up beta hCG and serial ultrasound examinations as clinically indicated. 2. A suspected corpus luteal cyst is seen within the right ovary. The findings were discussed with Dr. Nash by Dr. Villagran at 12:24 AM on 10/30/2021. 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 PREOPERATIVE DIAGNOSIS: Pelvis pain, suspect ectopic . POSTOPERATIVE DIAGNOSIS: Pelvis pain, suspect ectopic . ANESTHESIA: General. SURGEON: Fabiola Gandhi D.O. APPLE THINNER: ERMA Frias URINE OUTPUT: Yellow and clear. BLOOD LOSS: 500 mL. FINDINGS: Products of conception as well as blood products in the patient's abdomen, approximately 500 mL. Normal appearing ovaries, uterus and tubes. PROCEDURE: Patient was taken back to the Operating Room where she was placed in dorsal lithotomy position after given general anesthesia. The patient was prepped and draped in normal sterile fashion. A sponge stick was placed into the patient's vagina. Attention was turned to the patient's abdomen, where a small umbilical incision was made. The fascia was tented using Daysi clamps and the fascia was entered sharply. Confirmation of intra-abdominal placement of the 10 mm port was confirmed under direct visualization using a laparoscope. The patient's abdomen was then insufflated using CO2 gas with approximately 4 liters. A second port was placed lt laterally, this was done under direct visualization with a 5 mm port. Survey of the patient's abdomen demonstrated normal liver and gallbladder. Survey of the patient's pelvic anatomy demonstrated normal appearing ovaries and tubes as well as normal appearing uterus, however it appears products of conception was expelled from the end of the rt tube as it was adjacent and superior to the tube. a total of 500ml of blood and poc were removed from the pelvis. No endometrial implants could be noted, no evidence of any pelvic disease was seen, normal appearing pelvic cavity. All instruments were removed from the patient's abdomen. The patient's abdomen was insufflated using CO2 gas. The patient tolerated the procedure well. Sponge stick was removed from the patient's vagina. The patient's infraumbilical fascia was closed using #0 Vicryl on a GI needle. The patient's skin was closed suprapubically and infraumbilically using 4-0 Vicryl. The patient tolerated the procedure well. Sponge, lap and needle counts were correct x 2. The patient taken to Recovery Room in stable condition. : Electronically Authenticated and Edited by: Fabiola Gandhi DO on 11/02/2021 07:58 AM EDT [facility] Signed and Approved by: DR FABIOLA GANDHI . 11/02/2021 07:58:00 [facility] Summary Purpose Family History No Family History Records FoundNo Family History Records Found Advance Directives No Advanced Directives Records FoundNo Advanced Directives Records Found Additional Source Comments INFORMATION SOURCE (unrecogn ized section and content) DATE CREATED AUTHOR 06/06/2022 [facility] DATE CREATED AUTHOR AUTHOR'S RYAN DRAKE 06/16/2023 [facility] FOR RECORDS PERTAINING TO PATIENTS WHO ARE OR HAVE BEEN ENROLLED IN A CHEMICAL DEPENDENCY/SUBSTANCEABUSE PROGRAM, SOME INFORMATION MAY BE OMITTED. This clinical summary was aggregated from multiple sources. Caution should be exercised in using it in the provision of clinical care. This summary normalizes information from multiple sources, and as a consequence, information in this document may materially change the coding, format and clinical context of patient data. In addition, data may be omitted in some cases. CLINICAL DECISIONS SHOULD BE BASED ON THE PRIMARY CLINICAL RECORDS. [facility] [place], [facility]. provides no warranty or guarantee of the accuracy or completeness of information in this document.
== END 2024-02-04 21:36 | disposition left against medical advice (07) ==
PROVIDERS: Emergency Provider Internal Medicine; PCP Nurse Practitioner
DX: Z53.21 Procedure and treatment not carried out due to patient leaving prior to being seen by health care provider (principal)

== ENCOUNTER 2024-02-07 12:46 | Outpatient (OUT) | payer OTHER, SELFPAY ==
--- NOTE | 2024-02-07 12:48 | US_ITS ---
[address] [address] Patient Name: ELENI MATA MRN: [id number] date: 1990 Sex: F Assigned Patient Location: [facility] Current Patient Location: [facility] Accession/Order Number: [id number] Exam Date: 02/07/2024 12:49 Report Date: 02/07/2024 14:03 At the request of: FABIOLA YANCEY Procedure: US OB transvaginal EXAMINATION: US OB transvaginal HISTORY: MISSED MENSES, VIABILITY COMPARISON: No relevant comparison available. FINDINGS: Mcnally intrauterine gestation Gestational sac: 1.26 cm, 5 weeks 3 days CRL: 0.63 cm, 6 weeks 3 days Yolk sac: 2.4 mm Heart rate: 129 beats minute Cervix: Closed, 3.3 cm The uterus is normal, anteverted, anteflexed The ovaries are normal Clinical age: 16 weeks 3 days Clinical MYNOR: 07/21/2024 Ultrasound age: 6 weeks 3 days Ultrasound MYNOR: 09/29/2024 US/US OB transvaginal IMPRESSION: Viable mcnally intrauterine gestation measuring 6 weeks 3 days Electronically authenticated by: MATHIEU PEREZ Date: 02/07/2024 14:03
== END 2024-02-07 12:47 | disposition home or self-care (01) ==
LOC: NOMS 12:47
PROVIDERS: PCP Nurse Practitioner; Visit Provider Obstetrics & Gynecology
DX: Z34.91 Encounter for supervision of normal pregnancy, unspecified, first trimester (principal); Z3A.01 Less than 8 weeks gestation of pregnancy; N92.6 Irregular menstruation, unspecified
CPT/HCPCS: 76817

== ENCOUNTER 2024-03-14 12:58 | Outpatient (OUT) | payer OTHER, SELFPAY ==
[2024-03-14 13:36] LABS: Basophils Absolute Auto 0.1 10^3/uL (0.0-0.1); Basophils Percent Auto 0.6 % (0.2-2.0); Eosinophils Absolute Auto 0.3 10^3/uL (0.0-0.7); Eosinophils Percent Auto 2.7 % (0.9-7.0); Hematocrit 38.5 % (36.0-48.0); Hemoglobin 12.6 g/dL (12.0-16.0); Immature Granulocytes Abs Auto 0.07 10^3/uL (0.00-0.03); Immature Granulocytes Pct Auto 0.7 % (0.0-0.5); Lymphocytes Absolute Auto 2.2 10^3/uL (1.2-3.8); Lymphocytes Percent Auto 23.2 % (20.5-60.0); Mean Corpuscular HGB Conc 32.7 g/dL (29.9-35.2); Mean Corpuscular Hemoglobin 27.4 pg (26.7-34.0); Mean Corpuscular Volume 83.7 fL (81.0-99.0); Mean Platelet Volume 10.1 fL (9.5-13.5); Monocytes Absolute Auto 0.5 10^3/uL (0.3-0.8); Monocytes Percent Auto 5.3 % (1.7-12.0); Neutrophils Absolute Auto 6.4 10^3/uL (1.4-6.5); Neutrophils Percent Auto 67.5 % (43.0-75.0); Platelet Count 300 10^3/uL (150-450); Red Cell Distribution Width 12.4 % (11.0-15.0); White Blood Count 9.5 10^3/uL (4.0-11.0)
[2024-03-14 15:59] LABS: Estimated Average Glucose 97 mg/dL
[2024-03-15 06:10] LABS: HBsAg Screen Negative (Negative); HCV Ab Non Reactive (Non Reactive); HIV Ab/p24 Ag Screen Non Reactive (Non Reactive); Rubella Antibodies, IgG <0.90 index (Immune >0.99)
[2024-03-15 11:09] LABS: Rapid Plasma Reagin, Quant Non Reactive titer (NonRea<1:1)
== END 2024-03-14 12:59 | disposition home or self-care (01) ==
LOC: LAB 12:58
PROVIDERS: PCP Nurse Practitioner; Visit Provider Obstetrics & Gynecology
DX: O09.299 Supervision of pregnancy with other poor reproductive or obstetric history, unspecified trimester (principal); Z3A.00 Weeks of gestation of pregnancy not specified
CPT/HCPCS: 36415; 83036; 85025; 86592; 86762; 86803; 86850; 86900; 86901; 87086; 87340; 87389

== ENCOUNTER 2024-04-03 11:12 | Outpatient (OUT) | payer OTHER, SELFPAY ==
--- NOTE | 2024-04-03 11:14 | US_ITS ---
[address] [address] Patient Name: ELENI MATA MRN: [id number] date: 1990 Sex: F Assigned Patient Location: [facility] Current Patient Location: [facility] Accession/Order Number: [id number] Exam Date: 04/03/2024 11:14 Report Date: 04/03/2024 11:52 At the request of: FABIOLA YANCEY Procedure: US OB transvaginal EXAMINATION: US OB transvaginal HISTORY: BLEEDING IN EARLY COMPARISON: Ultrasound OB transvaginal 02/07/2024 FINDINGS: GESTATIONAL SAC: Present and normal appearing. YOLK SAC: Absent POLE: Present and normal appearing. CARDIAC: 166 bpm UTERUS: Subchorionic hematoma, 4.5 x 3.3 x 3.1 cm OVARIES: Right: Not seen. Left: Not seen. CERVIX: Not evaluated. CUL-DE-SAC: Normal. OTHER: None. AGE BY LMP: 14 weeks 3 days [facility] BY LMP: 09/29/2024 AGE BY US CRL: 14 weeks 5 days [facility] BY US CRL: 09/27/2024 US/US OB transvaginal IMPRESSION: 1. Single live intrauterine 14 weeks 5 days by today's ultrasound. 2. Prominent subchorionic hematoma. Otherwise no findings to suggest impending . Electronically authenticated by: MARK HAYES Date: 04/03/2024 11:52
--- OUTSIDE RECORDS SUMMARY | 2024-04-03 11:37 | XMS_ITS | CCD ---
Author Organization [facility] Care Team Providers Care Technical Services Coordinator Name Role Phone BC, DR HICKS Consulting Unavailable LAUREN, DR SAKINA Sosa Primary Care Unavailable BC, DR HICKS Attending Unavailable BC, DR HICKS Admitting Unavailable Zieber, DR Winston Consulting Unavailable SAMIR, DR FELIPA Monzon Consulting Unavailable CB, DR HICKS Attending Unavailable BC, DR HICKS Admitting Unavailable MARSH, DR SAKINA Sosa Primary Care Unavailable BC, DR HICKS Consulting Unavailable AGUBOSIM, CASSI Consulting Unavailable CHRIS VILLAGRAN Consulting Unavailable BC, DR HICKS Consulting Unavailable [...] DR SAKINA Sosa Primary Care Unavailable BC, FABIOLA Attending Unavailable DR FABIOLA GANDHI Admitting Unavailable Tessy Cornell Attending Unavailable Allergies Allergy Classification Reported Allergen(s) Allergy Type Date of Onset Reaction(s) Facility (1 source) No Known Medication Allergies; Translations: [No Known Medication Allergies] Propensity to adverse reactions (disorder) [facility] Repository Problems Active Problems Problem Classification Problem Date [...] - Ultrasound Reporton RAD - Ultrasound Report [id number] 0TIFF Normal [facility] RAD - MISCon 02-02-2023 [facility] [id number]:127 Normal [facility] [id number] CD:127 Normal [facility] Ambulatory Visit Summaryon 0 01-31-2023 Ambulatory Visit Summary MELIZA MATA :1990 Visit Date:01/31/2023 Ambulatory Visit Instructions Your Diagnosis BMI 26.0-26.9,adult Non-smoker Your Care Team Attending Physician - Tessy Salinas Primary Care Physician - Peter SHARMA, Cassi Ortega Vitals Heart Rate (Peripheral) 80 Respiratory Rate 18 Blood Pressure 124/88 Height 161.5 cm Height 64 in Weight 67.9 kg Weight 149.38 lb BMI 26.03 Allergies No Known Medication Allergies Normal [facility] Family Medicine Office/Clini c Noteon 01-31-2023 Family Medicine Office/Clinic Note Chief Complaint Establish care HPI Staff Meliza is a 32 year old female presenting [...] day(s), # 21 tab(s), Refills(s) 0, Pharmacy: [facility]/pharmacy #[id number], 161.5, cm, 01/31/23 14:55:00 EDT, Height/Length Dosing, 67.9, kg, 01/31/23 14:55:00 EDT, Weight Dosing naproxen, 500 mg = 1 tab(s), Oral, BID, # 30 tab(s), Refills(s) 0, Pharmacy: [facility]/pharmacy #[id number], 161.5, cm, 01/31/23 14:55:00 EDT, Height/Length Dosing, 67.9, kg, 01/31/23 14:55:00 EDT, Weight Dosing 4. Non-smoker (Z78.9: Other specified health status) continue not smoking Ordered: methylPREDNISolone, = 1 packet(s), Oral, As Directed, as directed on package labeling, X 6 day(s), # 21 tab(s), Refills(s) 0, Pharmacy: [facility]/pharmacy #[id number], 161.5, cm, 01/31/23 14:55:00 EDT, Height/Length Dosing, 67.9, kg, 01/31/23 14:55:00 EDT, Weight Dosing naproxen, 500 mg = 1 tab(s), Oral, BID, # 30 tab(s), Refills(s) 0, Pharmacy: [facility]/pharmacy #[id number], 161.5, cm, 01/31/23 14:55:00 EDT, Height/Length [...] Family History Family history is negative Normal [facility] Comment on above: Result Comment: Elec tronically Signed By: Tessy Salinas\.br\Date and Time Signed: 01/31/23 15:15 EDT PAP ACOG PANEL 2: 23 to 31on 06-01-2022 . . [facility] Comment on above: Performed By: #### P REGQNT #### [facility] [address] [address] [address] Ed Amaral Age Gdln ACOG Testing - [facility] Comment on above: Performed By: #### P REGQNT #### [facility] [address] [address] [address] Ed Amaral DIAGNOSIS: Comment Normal [facility] Comment on above: Result Comment: NEGA TIVE FOR INTRAEPITHELIAL LESION OR MALIGNANCY. Performed By: #### P REGQNT #### [facility] [address] [place] [address] Dr. Ed Amaral Methodology: Comment Normal [facility] Comment on above: Result Comment: This liquid based ThinPrep(R) pap test was screened with the use of an image guided system. Performed By: #### P REGQNT #### [facility] [address] [address] [address] Ed Amaral Note: Comment Normal [facility] Comment on above: Result Comment: The Pap smear is a screening test designed to aid in the detection of premalignant and malignant conditions of the uterine cervix. It is not a diagnostic procedure and should not be used as the sole means of detecting cervical cancer. Both false-positive and false-negative reports do occur. . Performed By: #### P REGQNT #### [facility] [address] [place] [address] Dr. Ed Amaral Performed by: Comment Normal [facility] Comment on above: Result Comment: Ignacio Pleitez, Flat Knitter (ASCP) Performed By: #### P REGQNT #### [facility] [address] [place] [address] Dr. Ed Amaral Reflex Criteria: Comment Normal [facility] Comment on above: Result Comment: The HPV DNA reflex criteria were not met with this specimen result therefore, no HPV testing was performed. . Performed By: #### P REGQNT #### [facility] [address] [address] [address] Ed Amaral Specimen adequacy: Comment Normal [facility] Comment on above: Result Comment: Sati sfactory for evaluation. Endocervical and/or squamous metaplastic cells (endocervical component) are present. Performed By: #### P REGQNT #### [facility] [address] [place] [address] Dr. Ed Amaral PREG QUANT HCGon 04-28-2022 HCG QUANT 2 mIU/mL Normal [facility] Comment on above: Performed By: #### P REGQNT #### [facility] [address] [place] [address] Dr. Ed Amaral HCG RANGE SEE BELOW Normal [facility] Comment on above: Result Comment: 50 0-1 WEEK 40-300 1-2 WEEKS 100-1,000 2-3 WEEKS 500-6,000 3-4 WEEKS 5,000-200,000 1-2 MONTHS 10,000-100,000 2-3 MONTHS 3,000-50,000 2ND TRIMESTER 1,000-50,000 3RD TRIMESTER Performed By: #### P REGQNT #### [facility] [address] [place] [address] Dr. Ed Amaral PREG QUANT HCGon 11-29-2021 HCG QUANT 83 mIU/mL Normal [facility] Comment on above: Performed By: #### P REGQNT #### [facility] [address] [place] [address] Dr. Ed Amaral HCG RANGE SEE BELOW Normal [facility] Comment on above: Result Comment: 50 0-1 WEEK 40-300 1-2 WEEKS 100-1,000 2-3 WEEKS 500-6,000 3-4 WEEKS 5,000-200,000 1-2 MONTHS 10,000-100,000 2-3 MONTHS 3,000-50,000 2ND TRIMESTER 1,000-50,000 3RD TRIMESTER Performed By: #### P REGQNT #### [facility] [address] [place] [address] Dr. Ed Amaral PREG QUANT HCGon 11-23-2021 HCG QUANT 80 mIU/mL Normal [facility] Comment on above: Performed By: #### P REGQNT #### [facility] [address] [place] [address] Dr. Ed Amaral HCG RANGE SEE BELOW Normal [facility] Comment on above: Result Comment: 5-50 0-1 WEEK 40-300 1-2 WEEKS 100-1,000 2-3 WEEKS 500-6,000 3-4 WEEKS 5,000-200,000 1-2 MONTHS 10,000-100,000 2-3 MONTHS 3,000-50,000 2ND TRIMESTER 1,000-50,000 3RD TRIMESTER Performed By: #### P REGQNT #### [facility] [address] [address] [address] Ed Amaral US PELVIS AND TRANSVAGon [...] exophytic simple cyst. Electronically authenticated by: MARK HAYES Date: 2021-11-16 07:02 Normal [facility] PREG QUANT HCGon 11-12-2021 HCG QUANT 236 mIU/mL Normal [facility] Comment on above: Performed By: #### P REGQNT #### [facility] [id number] Ed Amaral HCG RANGE SEE BELOW Normal [facility] Comment on above: Result Comment: 5-50 0-1 WEEK 40-300 1-2 WEEKS 100-1,000 2-3 WEEKS 500-6,000 3-4 WEEKS 5,000-200,000 1-2 MONTHS 10,000-100,000 2-3 MONTHS 3,000-50,000 2ND TRIMESTER 1,000-50,000 3RD TRIMESTER Performed By: #### P REGQNT #### [facility] [address] [place] [address] Dr. Ed Amaral PREG QUANT HCGon 11-08-2021 HCG QUANT 335 mIU/mL Normal [facility] Comment on above: Performed By: #### P REGQNT #### [facility] [address] [address] [address] Ed Amaral HCG RANGE SEE BELOW Normal [facility] Comment on above: Result Comment: 5-50 0-1 WEEK 40-300 1-2 WEEKS 100-1,000 2-3 WEEKS 500-6,000 3-4 WEEKS 5,000-200,000 1-2 MONTHS 10,000-100,000 2-3 MONTHS 3,000-50,000 2ND TRIMESTER 1,000-50,000 3RD TRIMESTER Performed By: #### P REGQNT #### [facility] [address] [place] [address] Dr. Ed Amaral PREG QUANT HCGon 11-06-2021 HCG QUANT 324 mIU/mL Normal [facility] Comment on above: Performed By: #### P REGQNT #### [facility] [address] [place] [address] Dr. Ed Amaral HCG RANGE SEE BELOW [facility] Comment on above: Result Comment: 50 0-1 WEEK 40-300 1-2 WEEKS 100-1,000 2-3 WEEKS 500-6,000 3-4 WEEKS 5,000-200,000 1-2 MONTHS 10,000-100,000 2-3 MONTHS 3,000-50,000 2ND TRIMESTER 1,000-50,000 3RD TRIMESTER Performed By: #### P REGQNT #### [facility] [address] [place] [address] Dr. Ed Amaral PREG QUANT HCGon 11-03-2021 HCG QUANT 189 mIU/mL Normal [facility] Comment on above: Performed By: #### P REGQNT #### [facility] [address] [place] [address] Dr. Ed Amaral HCG RANGE SEE BELOW Normal [facility] Comment on above: Result Comment: 5-50 0-1 WEEK 40-300 1-2 WEEKS 100-1,000 2-3 WEEKS 500-6,000 3-4 WEEKS 5,000-200,000 1-2 MONTHS 10,000-100,000 2-3 MONTHS 3,000-50,000 2ND TRIMESTER 1,000-50,000 3RD TRIMESTER Performed By: #### P REGQNT #### [facility] [address] [place] [address] Dr. Ed Amaral CBC AUTO DIFFon 10-30-2021 BASO # 0.1 103/ul Normal 0.0-0.1 [facility] Comment on above: Performed By: #### C BC #### [facility] [address] [place] [address] Dr. Ed Amaral Basophils/100 WBC (Bld) 0.9 % Normal 0.2-2.0 [facility] Comment on above: Performed By: #### C BC #### [facility] [address] [place] [address] Dr. Ed Amaral EO # 0.1 103/ul Normal 0.0-0.7 [facility] Comment on above: Performed By: #### C BC #### [facility] [address] [place] [address] Dr. Ed Amaral Eosinophils/100 WBC (Bld) 0.8 % Critically low 0.9-7.0 [facility] Comment on above: Performed By: #### C BC #### [facility] [address] [place] [address] Dr. Ed Amaral Erythrocyte distribution width (RBC) [Ratio] 12.2 % Normal 11.0-15.0 [facility] Comment on above: Performed By: #### C BC #### [facility] [address] [place] [address] Dr. Ed Amaral Hematocrit (Bld) [Volume fraction] 35.3 % Critically low 36.0-48.0 [facility] Comment on above: Performed By: #### C BC #### [facility] [address] [place] [address] Dr. Ed Amaral Hemoglobin (Bld) [Mass/Vol] 11.5 g/dL Critically low 12.0-16.0 [facility] Comment on above: Performed By: #### C BC #### [facility] [address] [place] [address] Dr. Ed Amaral IG # 0.01 10e3/ul Normal 0.00-0.03 [facility] Comment on above: Performed By: #### C BC #### [facility] [address] [place] [address] Dr. Ed Amaral IG % 0.1 % Normal 0.0-0.5 [facility] Comment on above: Performed By: #### C BC #### [facility] [address] [place] [address] Dr. Ed Amaral LYMPH # 2.5 103/ul Normal 1.2-3.8 [facility] Comment on above: Performed By: #### C BC #### [facility] [address] [place] [address] Dr. Ed Amaral Lymphocytes/100 WBC (Bld) 32.4 % Normal 20.5-60.0 [facility] Comment on above: Performed By: #### C BC #### [facility] [address] [place] [address] Dr. Ed Amaral MANUAL DIFF REQ NO Normal [facility] Comment on above: Performed By: #### C BC #### [facility] [address] [place] [address] Dr. Ed Amaral MCH (RBC) [Entitic mass] 27.4 pg Normal 26.7-34.0 [facility] Comment on above: Performed By: #### C BC #### [facility] [address] [place] [address] Dr. Ed Amaral MCHC (RBC) [Mass/Vol] 32.6 g/dL Normal 29.9-35.2 [facility] Comment on above: Performed By: #### C BC #### [facility] [address] [place] [address] Dr. Ed Amaral MCV (RBC) [Entitic vol] 84.0 fL Normal 81.0-99.0 [facility] Comment on above: Performed By: #### C BC #### [facility] [address] [place] [address] Dr. Ed Amaral MONO # 0.5 103/ul Normal 0.3-0.8 [facility] Comment on above: Performed By: #### C BC #### [facility] [address] [place] [address] Dr. Ed Amaral Monocytes/100 WBC (Bld) 5.9 % Normal 1.7-12.0 [facility] Comment on above: Performed By: #### C BC #### [facility] [address] [place] [address] Dr. Ed Amaral NEUT # 4.5 103/ul Normal 1.4-6.5 [facility] Comment on above: Performed By: #### C BC #### [facility] [address] [place] [address] Dr. Ed Amaral Neutrophils/100 WBC (Bld) 59.9 % Normal 43.0-75.0 [facility] Comment on above: Performed By: #### C BC #### [facility] [address] [place] [address] Dr. Ed Amaral Platelet mean volume (Bld) [Entitic vol] 9.8 fL Normal 9.5-13.5 [facility] Comment on above: Performed By: #### C BC #### [facility] [address] [place] [address] Dr. Ed Amaral PLT 277 103/ul Normal 150-450 [facility] Comment on above: Performed By: #### C BC #### [facility] [address] [place] [address] Dr. Ed Amaral RBC 4.20 106/ul Normal 4.20-5.40 [facility] Comment on above: Performed By: #### C BC #### [facility] [address] [place] [address] Dr. Ed Amaral WBC 7.6 103/ul Normal 4.0-11.0 [facility] Comment on above: Performed By: #### C BC #### [facility] [address] [address] [address] Ed Amaral BASO # 0.1 103/ul Normal 0.0-0.1 [facility] Comment on above: Performed By: #### C BC #### [facility] [address] [address] [address] Ed Amaral Basophils/100 WBC (Bld) 0.8 % Normal 0.2-2.0 [facility] Comment on above: Performed By: #### C BC #### [facility] [address] [address] [address] Ed Amaral EO # 0.2 103/ul Normal 0.0-0.7 [facility] Comment on above: Performed By: #### C BC #### [facility] [address] [place] [address] Dr. Ed Amaral Eosinophils/100 WBC (Bld) 2.1 % Normal 0.9-7.0 [facility] Comment on above: Performed By: #### C BC #### [facility] [address] [place] [address] Dr. Ed Amaral Erythrocyte distribution width (RBC) [Ratio] 12.2 % Normal 11.0-15.0 [facility] Comment on above: Performed By: #### C BC #### [facility] [address] [place] [address] Dr. Ed Amaral Hematocrit (Bld) [Volume fraction] 39.2 % Normal 36.0-48.0 [facility] Comment on above: Performed By: #### C BC #### [facility] [address] [place] [address] Dr. Ed Amaral Hemoglobin (Bld) [Mass/Vol] 12.8 g/dL Normal 12.0-16.0 [facility] Comment on above: Performed By: #### C BC #### [facility] [address] [place] [address] Dr. Ed Amaral IG # 0.03 10e3/ul Normal 0.00-0.03 [facility] Comment on above: Performed By: #### C BC #### [facility] [address] [place] [address] Dr. Ed Amaral IG % 0.3 % Normal 0.0-0.5 [facility] Comment on above: Performed By: #### C BC #### [facility] [address] [place] [address] Dr. Ed Amaral LYMPH # 4.5 103/ul Critically high 1.2-3.8 [facility] Comment on above: Performed By: #### C BC #### [facility] [address] [place] [address] Dr. Ed Amaral Lymphocytes/100 WBC (Bld) 40.5 % Normal 20.5-60.0 [facility] Comment on above: Performed By: #### C BC #### [facility] [address] [place] [address] Dr. Ed Amaral MANUAL DIFF REQ NO Normal [facility] Comment on above: Performed By: #### C BC #### [facility] [address] [place] [address] Dr. Ed Amaral MCH (RBC) [Entitic mass] 27.6 pg Normal 26.7-34.0 [facility] Comment on above: Performed By: #### C BC #### [facility] [address] [place] [address] Dr. Ed Amaral MCHC (RBC) [Mass/Vol] 32.7 g/dL Normal 29.9-35.2 [facility] Comment on above: Performed By: #### C BC #### [facility] [address] [place] [address] Dr. Ed Amaral MCV (RBC) [Entitic vol] 84.7 fL Normal 81.0-99.0 [facility] Comment on above: Performed By: #### C BC #### [facility] [address] [place] [address] Dr. Ed Amaral MONO # 0.7 103/ul Normal 0.3-0.8 [facility] Comment on above: Performed By: #### C BC #### [facility] [address] [place] [address] Dr. Ed Amaral Monocytes/100 WBC (Bld) 6.2 % Normal 1.7-12.0 [facility] Comment on above: Performed By: #### C BC #### [facility] [address] [place] [address] Dr. Ed Amaral NEUT # 5.6 103/ul Normal 1.4-6.5 [facility] Comment on above: Performed By: #### C BC #### [facility] [address] [place] [address] Dr. Ed Amaral Neutrophils/100 WBC (Bld) 50.1 % Normal 43.0-75.0 [facility] Comment on above: Performed By: #### C BC #### [facility] [address] [place] [address] Dr. Ed Amaral Platelet mean volume (Bld) [Entitic vol] 9.9 fL Normal 9.5-13.5 [facility] Comment on above: Performed By: #### C BC #### [facility] [address] [place] [address] Dr. Ed Amaral PLT 359 103/ul Normal 150-450 [facility] Comment on above: Performed By: #### C BC #### [facility] [address] [place] [address] Dr. Ed Amaral RBC 4.63 106/ul Normal 4.20-5.40 [facility] Comment on above: Performed By: #### C BC #### [facility] [address] [place] [address] Dr. Ed Amaral WBC 11.1 103/ul Critically high 4.0-11.0 [facility] Comment on above: Performed By: #### C BC #### [facility] [address] [place] [address] Dr. Ed Amaral CULTURE URINEon 10-30-2021 CULTURE URINE Culture Observations : LIGHT GROWTH OF MIXED GENITAL MYRA. NO POTENTIAL PATHOGENS SEEN. Normal [facility] Comment on above: Performed By: #### P REGQNT #### [facility] [address] [place] [address] Dr. Ed Amaral Covid-19 PCR (CVDTBH)on 10-12 SARS-CoV-2 (COVID-19) RNA NAHUM+probe Ql (Unsp spec) Not detected Normal NOT DETECTED [facility] Comment on above: Result Comment: When [...] for this test is supported by the [place] of [employer]'s declaration that [...] used). Performed By: #### P REGQNT #### [facility] [address] [place] [address] Dr. Ed Amaral ER URINE PROFILEon 2 Bilirubin Ql (U) Negative Normal NEGATIVE [facility] Comment on above: Performed By: #### P REGQNT #### [facility] [address] [place] [address] Dr. Ed Amaral Clarity (U) CLEAR Normal CLEAR [facility] Comment on above: Performed By: #### P REGQNT #### [facility] [address] [place] [address] Dr. Ed Amaral Color (U) LT. YELLOW Normal YELLOW [facility] Comment on above: Performed By: #### P REGQNT #### [facility] [address] [place] [address] Dr. Ed Amaral ERUAHD A micrscopic examination will be performed if indicated. Normal [facility] Comment on above: Performed By: #### P REGQNT #### [facility] [address] [address] [address] Ed Amaral Glucose Ql (U) Negative Normal NEGATIVE [facility] Comment on above: Performed By: #### P REGQNT #### [facility] [address] [address] [address] Ed Amaral Hemoglobin Ql (U) Negative Normal NEGATIVE [facility] Comment on above: Performed By: #### P REGQNT #### [facility] [address] [address] [address] Ed Amaral Ketones Ql (U) Negative Normal NEGATIVE [facility] Comment on above: Performed By: #### P REGQNT #### [facility] [address] [place] [address] Dr. Ed Amaral LEUKOCYTES Negative Normal NEGATIVE [facility] Comment on above: Performed By: #### P REGQNT #### [facility] [address] [place] [address] Dr. Ed Amaral Nitrite Ql (U) Positive Abnormal NEGATIVE [facility] Comment on above: Performed By: #### P REGQNT #### [facility] [address] [place] [address] Dr. Ed Amaral pH (U) 5.5 [pH] Normal 5-9 [facility] Comment on above: Performed By: #### P REGQNT #### [facility] [address] [place] [address] Dr. Ed Amaral SPEC GRAVITY 1.005 Normal 1.005-<=1.025 [facility] Comment on above: Performed By: #### P REGQNT #### [facility] [address] [place] [address] Dr. Ed Amaral UA PROTEIN Negative Normal NEGATIVE/ TRACE [facility] Comment on above: Performed By: #### P REGQNT #### [facility] [address] [place] [address] Dr. Ed Amaral UR MICRO IND INDICATED Normal [facility] Comment on above: Performed By: #### P REGQNT #### [facility] [address] [place] [address] Dr. Ed Amaral Urobilinogen Qn (U) 0.2 {Michela'U}/dL Normal 0.2 - 1.0 [facility] Comment on above: Performed By: #### P REGQNT #### [facility] [address] [place] [address] Dr. Ed Amaral LACTATE/LACTIC ACIDon 2021 Lactate [Moles/Vol] 0.9 mmol/L Normal 0.7-2.0 [facility] Comment on above: Performed By: #### L ACT #### [facility] [address] [place] [address] Dr. Ed Amaral PREG QUANT HCGon 10-30-2021 HCG QUANT 112 mIU/mL Normal [facility] Comment on above: Performed By: #### P REGQNT #### [facility] [address] [place] [address] Dr. Ed Amaral HCG RANGE SEE BELOW Normal [facility] Comment on above: Result Comment: 5-50 0-1 WEEK 40-300 1-2 WEEKS 100-1,000 2-3 WEEKS 500-6,000 3-4 WEEKS 5,000-200,000 1-2 MONTHS 10,000-100,000 2-3 MONTHS 3,000-50,000 2ND TRIMESTER 1,000-50,000 3RD TRIMESTER Performed By: #### P REGQNT #### [facility] [address] [place] [address] Dr. Ed Amaral HCG QUANT 150 mIU/mL Normal [facility] Comment on above: Performed By: #### P REGQNT #### [facility] [address] [place] [address] Dr. Ed Amaral HCG RANGE SEE BELOW Normal [facility] Comment on above: Result Comment: 5-50 0-1 WEEK 40-300 1-2 WEEKS 100-1,000 2-3 WEEKS 500-6,000 3-4 WEEKS 5,000-200,000 1-2 MONTHS 10,000-100,000 2-3 MONTHS 3,000-50,000 2ND TRIMESTER 1,000-50,000 3RD TRIMESTER Performed By: #### P REGQNT #### [facility] [address] [place] [address] Dr. Ed Amaral URon 10-30-2021 , QUAL Positive Abnormal NEGATIVE [facility] Comment on above: Performed By: #### P REGQNT #### [facility] [address] [place] [address] Dr. Ed Amaral PROF 14(COMP METB)on 022 Albumin [Mass/Vol] 4.3 g/dL Normal 3.4-5.0 [facility] Comment on above: Performed By: #### C MP #### [facility] [address] [place] [address] Dr. Ed Amaral Albumin/Globulin [Mass ratio] 1.4 {ratio} Normal [facility] Comment on above: Performed By: #### C MP #### [facility] [address] [place] [address] Dr. Ed Amaral ALP [Catalytic activity/Vol] 69 U/L Normal 46-116 [facility] Comment on above: Performed By: #### C MP #### [facility] [address] [place] [address] Dr. Ed Amaral ALT [Catalytic activity/Vol] 11 U/L Critically low 14-59 [facility] Comment on above: Performed By: #### C MP #### [facility] [address] [place] [address] Dr. Ed Amaral Anion gap [Moles/Vol] 12.5 mmol/L Normal [facility] Comment on above: Performed By: #### C MP #### [facility] [address] [place] [address] Dr. Ed Amaral AST [Catalytic activity/Vol] 9 U/L Critically low 15-37 [facility] Comment on above: Performed By: #### C MP #### [facility] [address] [place] [address] Dr. Ed Amaral Bilirubin [Mass/Vol] 0.8 mg/dL Normal 0.2-1.3 [facility] Comment on above: Performed By: #### C MP #### [facility] [address] [place], [place] [id number] Dr. Ed Amaral Calcium [Mass/Vol] 8.8 mg/dL Normal 8.5-10.1 [facility] Comment on above: Performed By: #### C MP #### [facility] [address] [place] [address] Dr. Ed Amaral Chloride [Moles/Vol] 103 mmol/L Normal 98-107 [facility] Comment on above: Performed By: #### C MP #### [facility] [address] [place] [address] Dr. Ed Amaral CO2 [Moles/Vol] 25.9 mmol/L Normal 22.0-30.0 [facility] Comment on above: Performed By: #### C MP #### [facility] [address] [place] [address] Dr. Ed Amaral Creatinine [Mass/Vol] 0.82 mg/dL Normal 0.52-1.04 [facility] Comment on above: Performed By: #### C MP #### [facility] [address] [place] [address] Dr. Ed Amaral EGFR-AF PRYDEINIG >60 Normal >=60 [facility] Comment on above: Performed By: #### C MP #### [facility] [address] [place] [address] Dr. Ed Amaral EGFR-NON AF PRYDEINIG >60 Normal >=60 [facility] Comment on above: Performed By: #### C MP #### [facility] [address] [place] [address] Dr. Ed Amaral Globulin (S) [Mass/Vol] 3.1 g/dL Normal [facility] Comment on above: Performed By: #### C MP #### [facility] [address] [place] [address] Dr. Ed Amaral Glucose [Mass/Vol] 108 mg/dL Critically high 74-106 [facility] Comment on above: Performed By: #### C MP #### [facility] [address] [place] [address] Dr. Ed Amaral Potassium [Moles/Vol] 3.4 mmol/L Normal 3.4-5.0 [facility] Comment on above: Performed By: #### C MP #### [facility] [address] [address] [address] Ed Amaral Protein [Mass/Vol] 7.4 g/dL Normal 6.1-8.2 [facility] Comment on above: Performed By: #### C MP #### [facility] [address] [address] [address] Ed Amaral Sodium [Moles/Vol] 138 mmol/L Normal 137-145 [facility] Comment on above: Performed By: #### C MP #### [facility] [address] [address] [address] Ed Amaral Urea nitrogen [Mass/Vol] 12.0 mg/dL Normal 7.0-18.0 [facility] Comment on above: Performed By: #### C MP #### [facility] [address] [place] [address] Dr. Ed Amaral Urea nitrogen/Creatinin e [Mass ratio] 14.6 mg/mg Normal [facility] Comment on above: Performed By: #### C MP #### [facility] [address] [place] [address] Dr. Ed Amaral TYPE AND SCREENon 10-30-2021 TYPE AND SCREEN Negative Normal [facility] Comment on above: Performed By: #### P REGQNT #### [facility] [address] [place] [address] Dr. Ed Amaral URINE MICROSCOPIC ONLYon BACTERIA NONE SEEN Normal NONE SEEN [facility] Comment on above: Performed By: #### P REGQNT #### [facility] [address] [address] [address] Ed Amaral Bacteria identified Cx Nom (U) INDICATED Normal [facility] Comment on above: Performed By: #### P REGQNT #### [facility] [address] [place] [address] Dr. Ed Amaral CAST NONE SEEN Normal NONE SEEN [facility] Comment on above: Performed By: #### P REGQNT #### [facility] [address] [address] [address] Ed Amaral Crystals LM Nom (Urine sed) NONE SEEN Normal NONE SEEN [facility] Comment on above: Performed By: #### P REGQNT #### [facility] [address] [place] [address] Dr. Ed Amaral Epithelial cells LM Ql (Urine sed) RARE Normal NONE SEEN /RARE [facility] Comment on above: Performed By: #### P REGQNT #### [facility] [address] [place] [address] Dr. Ed Amaral MUCOUS NONE SEEN Normal NONE SEEN [facility] Comment on above: Performed By: #### P REGQNT #### [facility] [address] [place] [address] Dr. Ed Amaral RBC NONE SEEN Abnormal 0-2 [facility] Comment on above: Performed By: #### P REGQNT #### [facility] [address] [place] [address] Dr. Ed Amaral WBC NONE SEEN Normal NONE SEEN [facility] Comment on above: Performed By: #### P REGQNT #### [facility] [address] [place] [address] Dr. Ed Amaral US APPENDIXon 10-30-2021 US [...] Celia VILLAGRAN Date: 2021-10-30 00:28 Normal [facility] US PREG TVon 10-30-2021 US PREG [...] by: Celia VILLAGRAN Date: 2021-10-30 00:32 Normal [facility] Encounters Encounter Date Encounter Type Care Provider Facility Start: 01-31-2023 End: 02-01-2023 [facility] Start: 01-31-[facility] Start: 05-25-2022 End: 05-25-[address] FABIOLA [...] Facility:[facility] Payers Date Payer Category Payer Unknown [id number] 2.16.84 [id number] 1992 Unknown [id number] 2.16.84 [id number] 1992 Unknown [id number] 2.16.84 [id number] 1992 Unknown [id number] 2.16.84 [id number] 1992 Unknown [id number] 2.16.84 [id number] 1992 Unknown [id number] 2.16.84 [id number] 1992 Unknown [id number] 2.16.84 [id number] 1992 Unknown [id number] 2.16.84 [id number] 1992 Unknown [id number] 2.16.84 [id number] 1992 Unknown [id number] 2.16.84 [id number] 1992 Unknown [id number] 2.16.8 [id number] 1959 Unknown [id number] Unknown [id number] Clinical Note 10-30-2021 Note Date & Type Note Facility 10-30-2021 Note The [place], [place] NAME: MELIZA MATA DATE OF : MEDICAL REC#: [id number] SURVEYING TEACHER: [id number] AMANDA WEAVER, TRANSADMIT DATE: 10/30/2021 01:50:00 PLUGGER DATE: 10/31/2021 23:00 DICTATING PHYSICIAN: FABIOLA GANDHI DICTATION DATE: 10/30/2021 11:00 OPERATIVE NOTE PROCEDURE: Diagnostic laparoscopy with removal of approximately 500 mL of blood, along with what we though was products of conception expulsed from the tube. PREOPERATIVE DIAGNOSIS: Pelvis pain, suspect ectopic . POSTOPERATIVE DIAGNOSIS: Pelvis pain, suspect ectopic . ANESTHESIA: General. SURGEON: Fabiola Gandhi D.O. FOOD EDITOR: ERMA Frias URINE OUTPUT: Yellow and clear. [...] Gandhi DO on 11/02/2021 07:58 AM EDT [facility] Signed and Approved by: DR FABIOLA GANDHI . 11/02/2021 07:58:00 [facility] Summary Purpose Family History No Family History Records FoundNo Family History Records Found Advance Directives No Advanced Directives Records FoundNo Advanced Directives Records Found Additional Source Comments INFORMATION SOURCE (unrecogn ized section and content) DATE CREATED AUTHOR 06/06/2022 [facility] g[facility] DATE CREATED AUTHOR 'S RYAN DRAKE 06/16/2023 [facility] FOR RECORDS PERTAINING TO PATIENTS WHO ARE [...] BE BASED ON THE PRIMARY CLINICAL RECORDS. [facility] [employer] [facility]. provides no warranty or guarantee of the accuracy or completeness of information in this document.
== END 2024-04-03 11:13 | disposition home or self-care (01) ==
LOC: NOMS 11:12
PROVIDERS: PCP Nurse Practitioner; Visit Provider Obstetrics & Gynecology
DX: O20.9 Hemorrhage in early pregnancy, unspecified (principal); Z87.59 Personal history of other complications of pregnancy, childbirth and the puerperium; Z3A.14 14 weeks gestation of pregnancy
CPT/HCPCS: 76817

== ENCOUNTER 2024-04-08 01:52 | Emergency (ER) | payer OTHER, SELFPAY ==
[2024-04-08 01:55] VITALS: BP 135/82; PULSE 125; TEMP 36.5; O2SAT 96; BMI 29.6
--- OUTSIDE RECORDS SUMMARY | 2024-04-08 02:01 | XMS_ITS | CCD ---
Author Organization [facility] Care Team Providers Care Foundry Superintendant Name Role Phone BC, DR HICKS Consulting [...] Medication Allergies] Propensity to adverse reactions (disorder) [facility] Repository Problems Active Problems Problem Classification [...] - Ultrasound Reporton RAD - Ultrasound Report [id number] 0TIFF Normal [facility] RAD - MISCon 02-02-2023 [facility] [id number]#1. 00CD:[address] [facility] [id number]#1.00 CD:127 Normal [facility] Ambulatory Visit Summaryon 0 01-31-2023 Ambulatory [...] 26.03 Allergies No Known Medication Allergies Normal [facility] Family Medicine Office/Clini c Noteon 01-31-2023 [...] day(s), # 21 tab(s), Refills(s) 0, Pharmacy: [facility]/pharmacy #[id number], 161.5, cm, 01/31/23 14:55:00 EDT, Height/Length Dosing, 67.9, kg, 01/31/23 14:55:00 EDT, Weight Dosing naproxen, 500 mg = 1 tab(s), Oral, BID, # 30 tab(s), Refills(s) 0, Pharmacy: [facility]/pharmacy #[id number], 161.5, cm, 01/31/23 14:55:00 EDT, Height/Length Dosing, 67.9, kg, 01/31/23 14:55:00 EDT, Weight Dosing 4. Non-smoker (Z78.9: Other specified health status) continue not smoking Ordered: methylPREDNISolone, = 1 packet(s), Oral, As Directed, as directed on package labeling, X 6 day(s), # 21 tab(s), Refills(s) 0, Pharmacy: [facility]/pharmacy #[id number], 161.5, cm, 01/31/23 14:55:00 EDT, Height/Length Dosing, 67.9, kg, 01/31/23 14:55:00 EDT, Weight Dosing naproxen, 500 mg = 1 tab(s), Oral, BID, # 30 tab(s), Refills(s) 0, Pharmacy: [facility]/pharmacy #[id number], 161.5, cm, 01/31/23 14:55:00 EDT, Height/Length [...] Family History Family history is negative Normal [facility] Comment on above: Result Comment: Elec tronically Signed By: Tessy Salinas\.br\Date and Time Signed: 01/31/23 15:15 EDT PAP ACOG PANEL 2: 23 to 31on 06-01-[address] [facility] Comment on above: Performed By: #### P REGQNT #### [facility] [address] [address] [address] Ed Amaral Age Gdln ACOG Testing - [facility] Comment on above: Performed By: #### P REGQNT #### [facility] [address] [address] [address] Ed Amaral DIAGNOSIS: Comment Normal [facility] Comment on above: Result Comment: NEGA TIVE FOR INTRAEPITHELIAL LESION OR MALIGNANCY. Performed By: #### P REGQNT #### [facility] [address] [place] [address] Dr. Ed Amaral Methodology: Comment Normal [facility] Comment on above: Result Comment: This liquid based ThinPrep(R) pap test was screened with the use of an image guided system. Performed By: #### P REGQNT #### [facility] [address] [address] [address] Ed Amaral Note: Comment Normal [facility] Comment on above: Result Comment: The Pap smear is a screening test designed to aid in the detection of premalignant and malignant conditions of the uterine cervix. It is not a diagnostic procedure and should not be used as the sole means of detecting cervical cancer. Both false-positive and false-negative reports do occur. . Performed By: #### P REGQNT #### [facility] [address] [place] [address] Dr. Ed Amaral Performed by: Comment Normal [facility] Comment on above: Result Comment: Ignacio Pleitez, Transmission Technician (ASCP) Performed By: #### P REGQNT #### [facility] [address] [place] [address] Dr. Ed Amaral Reflex Criteria: Comment Normal [facility] Comment on above: Result Comment: The HPV DNA reflex criteria were not met with this specimen result therefore, no HPV testing was performed. . Performed By: #### P REGQNT #### [facility] [address] [address] [address] Ed Amaral Specimen adequacy: Comment Normal [facility] Comment on above: Result Comment: Sati sfactory for evaluation. Endocervical and/or squamous metaplastic cells (endocervical component) are present. Performed By: #### P REGQNT #### [facility] [address] [place] [address] Dr. Ed Amaral PREG QUANT HCGon 04-28-2022 HCG QUANT 2 mIU/mL Normal [facility] Comment on above: Performed By: #### P REGQNT #### [facility] [address] [place] [address] Dr. Ed Amaral HCG RANGE SEE BELOW Normal [facility] Comment on above: Result Comment: 50 0-1 WEEK 40-300 1-2 WEEKS 100-1,000 2-3 WEEKS 500-6,000 3-4 WEEKS 5,000-200,000 1-2 MONTHS 10,000-100,000 2-3 MONTHS 3,000-50,000 2ND TRIMESTER 1,000-50,000 3RD TRIMESTER Performed By: #### P REGQNT #### [facility] [address] [place] [address] Dr. Ed Amaral PREG QUANT HCGon 11-29-2021 HCG QUANT 83 mIU/mL Normal [facility] Comment on above: Performed By: #### P REGQNT #### [facility] [address] [place] [address] Dr. Ed Amaral HCG RANGE SEE BELOW Normal [facility] Comment on above: Result Comment: 50 0-1 WEEK 40-300 1-2 WEEKS 100-1,000 2-3 WEEKS 500-6,000 3-4 WEEKS 5,000-200,000 1-2 MONTHS 10,000-100,000 2-3 MONTHS 3,000-50,000 2ND TRIMESTER 1,000-50,000 3RD TRIMESTER Performed By: #### P REGQNT #### [facility] [address] [place] [address] Dr. Ed Amaral PREG QUANT HCGon 11-23-2021 HCG QUANT 80 mIU/mL Normal [facility] Comment on above: Performed By: #### P REGQNT #### [facility] [address] [place] [address] Dr. Ed Amaral HCG RANGE SEE BELOW Normal [facility] Comment on above: Result Comment: 5-50 0-1 WEEK 40-300 1-2 WEEKS 100-1,000 2-3 WEEKS 500-6,000 3-4 WEEKS 5,000-200,000 1-2 MONTHS 10,000-100,000 2-3 MONTHS 3,000-50,000 2ND TRIMESTER 1,000-50,000 3RD TRIMESTER Performed By: #### P REGQNT #### [facility] [address] [address] [address] Ed Amaral US PELVIS AND TRANSVAGon [...] MARK HAYES Date: 2021-11-16 07:02 Normal [facility] PREG QUANT HCGon 11-12-2021 HCG QUANT 236 mIU/mL Normal [facility] Comment on above: Performed By: #### P REGQNT #### [facility] [address] [id number] Ed Amaral HCG RANGE SEE BELOW Normal [facility] Comment on above: Result Comment: 5-50 0-1 WEEK 40-300 1-2 WEEKS 100-1,000 2-3 WEEKS 500-6,000 3-4 WEEKS 5,000-200,000 1-2 MONTHS 10,000-100,000 2-3 MONTHS 3,000-50,000 2ND TRIMESTER 1,000-50,000 3RD TRIMESTER Performed By: #### P REGQNT #### [facility] [address] [place] [address] Dr. Ed Amaral PREG QUANT HCGon 11-08-2021 HCG QUANT 335 mIU/mL Normal [facility] Comment on above: Performed By: #### P REGQNT #### [facility] [address] [address] [address] Ed Amaral HCG RANGE SEE BELOW Normal [facility] Comment on above: Result Comment: 5-50 0-1 WEEK 40-300 1-2 WEEKS 100-1,000 2-3 WEEKS 500-6,000 3-4 WEEKS 5,000-200,000 1-2 MONTHS 10,000-100,000 2-3 MONTHS 3,000-50,000 2ND TRIMESTER 1,000-50,000 3RD TRIMESTER Performed By: #### P REGQNT #### [facility] [address] [place] [address] Dr. Ed Amaral PREG QUANT HCGon 11-06-2021 HCG QUANT 324 mIU/mL Normal [facility] Comment on above: Performed By: #### P REGQNT #### [facility] [address] [place] [address] Dr. Ed Amaral HCG RANGE SEE BELOW [facility] Comment on above: Result Comment: 50 0-1 WEEK 40-300 1-2 WEEKS 100-1,000 2-3 WEEKS 500-6,000 3-4 WEEKS 5,000-200,000 1-2 MONTHS 10,000-100,000 2-3 MONTHS 3,000-50,000 2ND TRIMESTER 1,000-50,000 3RD TRIMESTER Performed By: #### P REGQNT #### [facility] [address] [place] [address] Dr. Ed Amaral PREG QUANT HCGon 11-03-2021 HCG QUANT 189 mIU/mL Normal [facility] Comment on above: Performed By: #### P REGQNT #### [facility] [address] [place] [address] Dr. Ed Amaral HCG RANGE SEE BELOW Normal [facility] Comment on above: Result Comment: 5-50 0-1 WEEK 40-300 1-2 WEEKS 100-1,000 2-3 WEEKS 500-6,000 3-4 WEEKS 5,000-200,000 1-2 MONTHS 10,000-100,000 2-3 MONTHS 3,000-50,000 2ND TRIMESTER 1,000-50,000 3RD TRIMESTER Performed By: #### P REGQNT #### [facility] [address] [place] [address] Dr. Ed Amaral CBC AUTO DIFFon 10-30-2021 BASO # 0.1 103/ul Normal 0.0-0.1 [facility] Comment on above: Performed By: #### C BC #### [facility] [address] [place] [address] Dr. Ed Amaral Basophils/100 WBC (Bld) 0.9 % Normal 0.2-2.0 [facility] Comment on above: Performed By: #### C BC #### [facility] [address] [place] [address] Dr. Ed Amaral EO # 0.1 103/ul Normal 0.0-0.7 [facility] Comment on above: Performed By: #### C BC #### [facility] [address] [place] [address] Dr. Ed Amaral Eosinophils/100 WBC (Bld) 0.8 % Critically low 0.9-7.0 [facility] Comment on above: Performed By: #### C BC #### [facility] [address] [place] [address] Dr. Ed Amaral Erythrocyte distribution width (RBC) [Ratio] 12.2 % Normal 11.0-15.0 [facility] Comment on above: Performed By: #### C BC #### [facility] [address] [place] [address] Dr. Ed Amaral Hematocrit (Bld) [Volume fraction] 35.3 % Critically low 36.0-48.0 [facility] Comment on above: Performed By: #### C BC #### [facility] [address] [place] [address] Dr. Ed Amaral Hemoglobin (Bld) [Mass/Vol] 11.5 g/dL Critically low 12.0-16.0 [facility] Comment on above: Performed By: #### C BC #### [facility] [address] [place] [address] Dr. Ed Amaral IG # 0.01 10e3/ul Normal 0.00-0.03 [facility] Comment on above: Performed By: #### C BC #### [facility] [address] [place] [address] Dr. Ed Amaral IG % 0.1 % Normal 0.0-0.5 [facility] Comment on above: Performed By: #### C BC #### [facility] [address] [place] [address] Dr. Ed Amaral LYMPH # 2.5 103/ul Normal 1.2-3.8 [facility] Comment on above: Performed By: #### C BC #### [facility] [address] [place] [address] Dr. Ed Amaral Lymphocytes/100 WBC (Bld) 32.4 % Normal 20.5-60.0 [facility] Comment on above: Performed By: #### C BC #### [facility] [address] [place] [address] Dr. Ed Amaral MANUAL DIFF REQ NO Normal [facility] Comment on above: Performed By: #### C BC #### [facility] [address] [place] [address] Dr. Ed Amaral MCH (RBC) [Entitic mass] 27.4 pg Normal 26.7-34.0 [facility] Comment on above: Performed By: #### C BC #### [facility] [address] [place] [address] Dr. Ed Amaral MCHC (RBC) [Mass/Vol] 32.6 g/dL Normal 29.9-35.2 [facility] Comment on above: Performed By: #### C BC #### [facility] [address] [place] [address] Dr. Ed Amaral MCV (RBC) [Entitic vol] 84.0 fL Normal 81.0-99.0 [facility] Comment on above: Performed By: #### C BC #### [facility] [address] [place] [address] Dr. Ed Amaral MONO # 0.5 103/ul Normal 0.3-0.8 [facility] Comment on above: Performed By: #### C BC #### [facility] [address] [place] [address] Dr. Ed Amaral Monocytes/100 WBC (Bld) 5.9 % Normal 1.7-12.0 [facility] Comment on above: Performed By: #### C BC #### [facility] [address] [place] [address] Dr. Ed Amaral NEUT # 4.5 103/ul Normal 1.4-6.5 [facility] Comment on above: Performed By: #### C BC #### [facility] [address] [place] [address] Dr. Ed Amaral Neutrophils/100 WBC (Bld) 59.9 % Normal 43.0-75.0 [facility] Comment on above: Performed By: #### C BC #### [facility] [address] [place] [address] Dr. Ed Amaral Platelet mean volume (Bld) [Entitic vol] 9.8 fL Normal 9.5-13.5 [facility] Comment on above: Performed By: #### C BC #### [facility] [address] [place] [address] Dr. Ed Amaral PLT 277 103/ul Normal 150-450 [facility] Comment on above: Performed By: #### C BC #### [facility] [address] [place] [address] Dr. Ed Amaral RBC 4.20 106/ul Normal 4.20-5.40 [facility] Comment on above: Performed By: #### C BC #### [facility] [address] [place] [address] Dr. Ed Amaral WBC 7.6 103/ul Normal 4.0-11.0 [facility] Comment on above: Performed By: #### C BC #### [facility] [address] [address] [address] Ed Amaral BASO # 0.1 103/ul Normal 0.0-0.1 [facility] Comment on above: Performed By: #### C BC #### [facility] [address] [address] [address] Ed Amaral Basophils/100 WBC (Bld) 0.8 % Normal 0.2-2.0 [facility] Comment on above: Performed By: #### C BC #### [facility] [address] [address] [address] Ed Amaral EO # 0.2 103/ul Normal 0.0-0.7 [facility] Comment on above: Performed By: #### C BC #### [facility] [address] [place] [address] Dr. Ed Amaral Eosinophils/100 WBC (Bld) 2.1 % Normal 0.9-7.0 [facility] Comment on above: Performed By: #### C BC #### [facility] [address] [place] [address] Dr. Ed Amaral Erythrocyte distribution width (RBC) [Ratio] 12.2 % Normal 11.0-15.0 [facility] Comment on above: Performed By: #### C BC #### [facility] [address] [place] [address] Dr. Ed Amaral Hematocrit (Bld) [Volume fraction] 39.2 % Normal 36.0-48.0 [facility] Comment on above: Performed By: #### C BC #### [facility] [address] [place] [address] Dr. Ed Amaral Hemoglobin (Bld) [Mass/Vol] 12.8 g/dL Normal 12.0-16.0 [facility] Comment on above: Performed By: #### C BC #### [facility] [address] [place] [address] Dr. Ed Amaral IG # 0.03 10e3/ul Normal 0.00-0.03 [facility] Comment on above: Performed By: #### C BC #### [facility] [address] [place] [address] Dr. Ed Amaral IG % 0.3 % Normal 0.0-0.5 [facility] Comment on above: Performed By: #### C BC #### [facility] [address] [place] [address] Dr. Ed Amaral LYMPH # 4.5 103/ul Critically high 1.2-3.8 [facility] Comment on above: Performed By: #### C BC #### [facility] [address] [place] [address] Dr. Ed Amaral Lymphocytes/100 WBC (Bld) 40.5 % Normal 20.5-60.0 [facility] Comment on above: Performed By: #### C BC #### [facility] [address] [place] [address] Dr. Ed Amaral MANUAL DIFF REQ NO Normal [facility] Comment on above: Performed By: #### C BC #### [facility] [address] [place] [address] Dr. Ed Amaral MCH (RBC) [Entitic mass] 27.6 pg Normal 26.7-34.0 [facility] Comment on above: Performed By: #### C BC #### [facility] [address] [place] [address] Dr. Ed Amaral MCHC (RBC) [Mass/Vol] 32.7 g/dL Normal 29.9-35.2 [facility] Comment on above: Performed By: #### C BC #### [facility] [address] [place] [address] Dr. Ed Amaral MCV (RBC) [Entitic vol] 84.7 fL Normal 81.0-99.0 [facility] Comment on above: Performed By: #### C BC #### [facility] [address] [place] [address] Dr. Ed Amaral MONO # 0.7 103/ul Normal 0.3-0.8 [facility] Comment on above: Performed By: #### C BC #### [facility] [address] [place] [address] Dr. Ed Amaral Monocytes/100 WBC (Bld) 6.2 % Normal 1.7-12.0 [facility] Comment on above: Performed By: #### C BC #### [facility] [address] [place] [address] Dr. Ed Amaral NEUT # 5.6 103/ul Normal 1.4-6.5 [facility] Comment on above: Performed By: #### C BC #### [facility] [address] [place] [address] Dr. Ed Amaral Neutrophils/100 WBC (Bld) 50.1 % Normal 43.0-75.0 [facility] Comment on above: Performed By: #### C BC #### [facility] [address] [place] [address] Dr. Ed Amaral Platelet mean volume (Bld) [Entitic vol] 9.9 fL Normal 9.5-13.5 [facility] Comment on above: Performed By: #### C BC #### [facility] [address] [place] [address] Dr. Ed Amaral PLT 359 103/ul Normal 150-450 [facility] Comment on above: Performed By: #### C BC #### [facility] [address] [place] [address] Dr. Ed Amaral RBC 4.63 106/ul Normal 4.20-5.40 [facility] Comment on above: Performed By: #### C BC #### [facility] [address] [place] [address] Dr. Ed Amaral WBC 11.1 103/ul Critically high 4.0-11.0 [facility] Comment on above: Performed By: #### C BC #### [facility] [address] [place] [address] Dr. Ed Amaral CULTURE URINEon 10-30-2021 CULTURE URINE Culture Observations : LIGHT GROWTH OF MIXED GENITAL MYRA. NO POTENTIAL PATHOGENS SEEN. Normal [facility] Comment on above: Performed By: #### P REGQNT #### [facility] [address] [place] [address] Dr. Ed Amaral Covid-19 PCR (CVDTBH)on 10-12 SARS-CoV-2 (COVID-19) RNA NAHUM+probe Ql (Unsp spec) Not detected Normal NOT DETECTED [facility] Comment on above: Result Comment: When diagnostic [...] for this test is supported by the [place] of Health and Human Service's declaration that [...] used). Performed By: #### P REGQNT #### [facility] [address] [place] [address] Dr. Ed Amaral ER URINE PROFILEon 2 Bilirubin Ql (U) Negative Normal NEGATIVE [facility] Comment on above: Performed By: #### P REGQNT #### [facility] [address] [place] [address] Dr. Ed Amaral Clarity (U) CLEAR Normal CLEAR [facility] Comment on above: Performed By: #### P REGQNT #### [facility] [address] [place] [address] Dr. Ed Amaral Color (U) LT. YELLOW Normal YELLOW [facility] Comment on above: Performed By: #### P REGQNT #### [facility] [address] [place] [address] Dr. Ed Amaral ERUAHD A micrscopic examination will be performed if indicated. Normal [facility] Comment on above: Performed By: #### P REGQNT #### [facility] [address] [address] [address] Ed Amaral Glucose Ql (U) Negative Normal NEGATIVE [facility] Comment on above: Performed By: #### P REGQNT #### [facility] [address] [address] [address] Ed Amaral Hemoglobin Ql (U) Negative Normal NEGATIVE [facility] Comment on above: Performed By: #### P REGQNT #### [facility] [address] [address] [address] Ed Amaral Ketones Ql (U) Negative Normal NEGATIVE [facility] Comment on above: Performed By: #### P REGQNT #### [facility] [address] [place] [address] Dr. Ed Amaral LEUKOCYTES Negative Normal NEGATIVE [facility] Comment on above: Performed By: #### P REGQNT #### [facility] [address] [place] [address] Dr. Ed Amaral Nitrite Ql (U) Positive Abnormal NEGATIVE [facility] Comment on above: Performed By: #### P REGQNT #### [facility] [address] [place] [address] Dr. Ed Amaral pH (U) 5.5 [pH] Normal 5-9 [facility] Comment on above: Performed By: #### P REGQNT #### [facility] [address] [place] [address] Dr. Ed Amaral SPEC GRAVITY 1.005 Normal 1.005-<=1.025 [facility] Comment on above: Performed By: #### P REGQNT #### [facility] [address] [place] [address] Dr. Ed Amaral UA PROTEIN Negative Normal NEGATIVE/ TRACE [facility] [facility] Comment on above: Performed By: #### P REGQNT #### [facility] [address] [place] [address] Dr. Ed Amaral UR MICRO IND INDICATED Normal [facility] Comment on above: Performed By: #### P REGQNT #### [facility] [address] [place] [address] Dr. Ed Amaral Urobilinogen Qn (U) 0.2 {Michela'U}/dL Normal 0.2 - 1.0 [facility] Comment on above: Performed By: #### P REGQNT #### [facility] [address] [place] [address] Dr. Ed Amaral LACTATE/LACTIC ACIDon 2021 Lactate [Moles/Vol] 0.9 mmol/L Normal 0.7-2.0 [facility] Comment on above: Performed By: #### L ACT #### [facility] [address] [place] [address] Dr. Ed Amaral PREG QUANT HCGon 10-30-2021 HCG QUANT 112 mIU/mL Normal [facility] Comment on above: Performed By: #### P REGQNT #### [facility] [address] [place] [address] Dr. Ed Amaral HCG RANGE SEE BELOW Normal [facility] Comment on above: Result Comment: 5-50 0-1 WEEK 40-300 1-2 WEEKS 100-1,000 2-3 WEEKS 500-6,000 3-4 WEEKS 5,000-200,000 1-2 MONTHS 10,000-100,000 2-3 MONTHS 3,000-50,000 2ND TRIMESTER 1,000-50,000 3RD TRIMESTER Performed By: #### P REGQNT #### [facility] [address] [place] [address] Dr. Ed Amaral HCG QUANT 150 mIU/mL Normal [facility] Comment on above: Performed By: #### P REGQNT #### [facility] [address] [place] [address] Dr. Ed Amaral HCG RANGE SEE BELOW Normal [facility] Comment on above: Result Comment: 5-50 0-1 WEEK 40-300 1-2 WEEKS 100-1,000 2-3 WEEKS 500-6,000 3-4 WEEKS 5,000-200,000 1-2 MONTHS 10,000-100,000 2-3 MONTHS 3,000-50,000 2ND TRIMESTER 1,000-50,000 3RD TRIMESTER Performed By: #### P REGQNT #### [facility] [address] [place] [address] Dr. Ed Amaral URon 10-30-2021 , QUAL Positive Abnormal NEGATIVE [facility] Comment on above: Performed By: #### P REGQNT #### [facility] [address] [place] [address] Dr. Ed Amaral PROF 14(COMP METB)on 022 Albumin [Mass/Vol] 4.3 g/dL Normal 3.4-5.0 [facility] Comment on above: Performed By: #### C MP #### [facility] [address] [place] [address] Dr. Ed Amaral Albumin/Globulin [Mass ratio] 1.4 {ratio} Normal [facility] Comment on above: Performed By: #### C MP #### [facility] [address] [place] [address] Dr. Ed Amaral ALP [Catalytic activity/Vol] 69 U/L Normal 46-116 [facility] Comment on above: Performed By: #### C MP #### [facility] [address] [place] [address] Dr. Ed Amaral ALT [Catalytic activity/Vol] 11 U/L Critically low 14-59 [facility] Comment on above: Performed By: #### C MP #### [facility] [address] [place] [address] Dr. Ed Amaral Anion gap [Moles/Vol] 12.5 mmol/L Normal [facility] Comment on above: Performed By: #### C MP #### [facility] [address] [place] [address] Dr. Ed Amaral AST [Catalytic activity/Vol] 9 U/L Critically low 15-37 [facility] Comment on above: Performed By: #### C MP #### [facility] [address] [place] [address] Dr. Ed Amaral Bilirubin [Mass/Vol] 0.8 mg/dL Normal 0.2-1.3 [facility] Comment on above: Performed By: #### C MP #### [facility] [address] [place], [place] [id number] Dr. Ed Amaral Calcium [Mass/Vol] 8.8 mg/dL Normal 8.5-10.1 [facility] Comment on above: Performed By: #### C MP #### [facility] [address] [place] [address] Dr. Ed Amaral Chloride [Moles/Vol] 103 mmol/L Normal 98-107 [facility] Comment on above: Performed By: #### C MP #### [facility] [address] [place] [address] Dr. Ed Amaral CO2 [Moles/Vol] 25.9 mmol/L Normal 22.0-30.0 [facility] Comment on above: Performed By: #### C MP #### [facility] [address] [place] [address] Dr. Ed Amaral Creatinine [Mass/Vol] 0.82 mg/dL Normal 0.52-1.04 [facility] Comment on above: Performed By: #### C MP #### [facility] [address] [place] [address] Dr. Ed Amaral EGFR-AF GUAMANIAN >60 Normal >=60 [facility] Comment on above: Performed By: #### C MP #### [facility] [address] [place] [address] Dr. Ed Amaral EGFR-NON AF GUAMANIAN >60 Normal >=60 [facility] Comment on above: Performed By: #### C MP #### [facility] [address] [place] [address] Dr. Ed Amaral Globulin (S) [Mass/Vol] 3.1 g/dL Normal [facility] Comment on above: Performed By: #### C MP #### [facility] [address] [place] [address] Dr. Ed Amaral Glucose [Mass/Vol] 108 mg/dL Critically high 74-106 [facility] Comment on above: Performed By: #### C MP #### [facility] [address] [place] [address] Dr. Ed Amaral Potassium [Moles/Vol] 3.4 mmol/L Normal 3.4-5.0 [facility] Comment on above: Performed By: #### C MP #### [facility] [address] [address] [address] Ed Amaral Protein [Mass/Vol] 7.4 g/dL Normal 6.1-8.2 [facility] Comment on above: Performed By: #### C MP #### [facility] [address] [address] [address] Ed Amaral Sodium [Moles/Vol] 138 mmol/L Normal 137-145 [facility] Comment on above: Performed By: #### C MP #### [facility] [address] [address] [address] Ed Amaral Urea nitrogen [Mass/Vol] 12.0 mg/dL Normal 7.0-18.0 [facility] Comment on above: Performed By: #### C MP #### [facility] [address] [place] [address] Dr. Ed Amaral Urea nitrogen/Creatinin e [Mass ratio] 14.6 mg/mg Normal [facility] Comment on above: Performed By: #### C MP #### [facility] [address] [place] [address] Dr. Ed Amaral TYPE AND SCREENon 10-30-2021 TYPE AND SCREEN Negative Normal [facility] Comment on above: Performed By: #### P REGQNT #### [facility] [address] [place] [address] Dr. Ed Amaral URINE MICROSCOPIC ONLYon BACTERIA NONE SEEN Normal NONE SEEN [facility] Comment on above: Performed By: #### P REGQNT #### [facility] [address] [address] [address] Ed Amaral Bacteria identified Cx Nom (U) INDICATED Normal [facility] Comment on above: Performed By: #### P REGQNT #### [facility] [address] [place] [address] Dr. Ed Amaral CAST NONE SEEN Normal NONE SEEN [facility] Comment on above: Performed By: #### P REGQNT #### [facility] [address] [address] [address] Ed Amaral Crystals LM Nom (Urine sed) NONE SEEN Normal NONE SEEN [facility] Comment on above: Performed By: #### P REGQNT #### [facility] [address] [place] [address] Dr. Ed Amaral Epithelial cells LM Ql (Urine sed) RARE Normal NONE SEEN /RARE [facility] Comment on above: Performed By: #### P REGQNT #### [facility] [address] [place] [address] Dr. Ed Amaral MUCOUS NONE SEEN Normal NONE SEEN [facility] Comment on above: Performed By: #### P REGQNT #### [facility] [address] [place] [address] Dr. Ed Amaral RBC NONE SEEN Abnormal 0-2 [facility] Comment on above: Performed By: #### P REGQNT #### [facility] [address] [place] [address] Dr. Ed Amaral WBC NONE SEEN Normal NONE SEEN [facility] Comment on above: Performed By: #### P REGQNT #### [facility] [address] [place] [address] Dr. Ed Amaral US APPENDIXon 10-30-2021 US [...] Celia VILLAGRAN Date: 2021-10-30 00:28 Normal [facility] US PREG TVon 10-30-2021 US PREG TV [...] by: Celia VILLAGRAN Date: 2021-10-30 00:32 Normal [facility] Encounters Encounter Date Encounter Type Care Provider Facility Start: 01-31-2023 End: 02-01-2023 [facility] Start: 01-31-[facility]23 ambulatory Tessy Cornell [facility] Start: 05-25-2022 End: 05-25-[address] FABIOLA [...] Facility:[facility] Payers Date Payer Category Payer Unknown [id number] 2.16.84 [id number] 1990 Unknown [id number] 2.16.84 [id number] 1992 Unknown [id number] 2.16.84 [id number] 1992 Unknown [id number] 2.16.84 [id number] 1992 Unknown [id number] 2.16.84 [id number] 1992 Unknown [id number] 2.16.84 [id number] 1992 Unknown [id number] 2.16.84 [id number] 1992 Unknown [id number] 2.16.84 [id number] 1992 Unknown [id number] 2.16.84 [id number] 1992 Unknown [id number] 2.16.84 [id number] 1992 Unknown [id number] 2.16.8 [id number] 1959 Unknown [id number] Unknown [id number] Clinical Note 10-30-2021 Note Date & Type Note Facility 10-30-2021 Note [facility] [place], [place] NAME: MELIZA MATA DATE OF : MEDICAL REC#: [id number] 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 PREOPERATIVE DIAGNOSIS: Pelvis pain, suspect ectopic . POSTOPERATIVE DIAGNOSIS: Pelvis pain, suspect ectopic . ANESTHESIA: General. SURGEON: Fabiola Gandhi D.O. COMPANY MARKER: ERMA Frias URINE OUTPUT: Yellow and clear. [...] Gandhi DO on 11/02/2021 07:58 AM EDT [facility] Signed and Approved by: DR FABIOLA GANDHI . 11/02/2021 07:58:00 [facility] Summary Purpose Family History No Family History Records FoundNo Family History Records Found Advance Directives No Advanced Directives Records FoundNo Advanced Directives Records Found Additional Source Comments INFORMATION SOURCE (unrecogn ized section and content) DATE CREATED AUTHOR 06/06/2022 [facility] DATE CREATED AUTHOR 'S RYAN DRAKE 06/16/2023 [facility] FOR RECORDS PERTAINING TO PATIENTS WHO ARE [...] BE BASED ON THE PRIMARY CLINICAL RECORDS. [facility] [employer] [facility]. provides no warranty or guarantee of the accuracy or completeness of information in this document.
--- NOTE | 2024-04-08 02:11 | ED_ITS ---
HPI - Female Genitourinary General Chief complaint: Vaginal Bleeding Stated complaint: 15 WKS PREG ISSUES Time Seen by Provider: 04/08/24 01:56 Source: patient Mode of arrival: Wheelchair Limitations: no limitations History of Present Illness HPI Narrative: This 33-year-old female G6, P1 who has had 4 miscarriages presents for evaluation of vaginal bleeding and abdominal pain. She stated to the financial reserve clerk that she was miscarrying and went to the bathroom in the lobby and delivered a stillborn fetus approximately 15 weeks of age. She has been having vaginal bleeding throughout this but has been told that she had a subchorionic bleed. She had an ultrasound on April 03, 5 days ago that was essentially normal at that time. Her RAILRO[employer] PURCHASING AGENT is Dr. Gandhi. Related Data Allergies Allergy/AdvReac Type Severity Reaction Status Date / Time No Known Drug Allergies Allergy Verified 04/08/24 02:09 Review of Systems ROS Status of ROS 10 or more systems reviewed and unremark able except as noted in history and below Exam Narrative Exam Narrative: Vital signs and Nursing Notes reviewed: Patient is afebrile, she is tachycardic with a pulse of 125, she has a normal blood pressure, she is not hypoxic with pulse ox of 96% on room air General: Awake, alert, oriented, uncomfortable but nontoxic and tearful female, no respiratory distress HEENT: Normocephalic atraumatic, mucous membranes are moist and pink, eyes are clear, normal conjunctiva, vision is grossly intact Chest: Lungs are clear to auscultation with good air entry, there is no wheezing rhonchi or rales appreciated no accessory muscle use, patient is speaking in complete sentences-no chest wall tenderness to palpation CVS: Regular rate and rhythm S1-S2, no murmurs rubs or gallops, pulses are brisk and equal bilaterally ABD: Soft, nondistended, nontender, no rebound guarding or rigidity, bowel sounds are normal, no pulsatile masses appreciated : Patient delivered an intact fetus and small amount of placenta with some clots, limited pelvic exam does not reveal any large amount of bleeding or tissue in the vaginal introitus Extremities: Moving all extremities, no lower extremity tenderness or swelling noted, negative Homans' sign, pulses are brisk and equal bilaterally Skin: Normal in appearance without rash,pallor, petechiae or purpura Neuro: No focal deficits Constitutional Vital Signs, click to edit/add: Last Vital Signs Temp 97.7 F 04/08/24 01:55 Pulse 125 H 04/08/24 01:55 Resp 20 04/08/24 01:55 BP 135/82 04/08/24 01:55 Pulse Ox 96 04/08/24 01:55 O2 Del Method Room Air 04/08/24 01:55 Course Vital Signs Vital signs: Vital Signs Temperature 97.7 F 04/08/24 01:55 Pulse Rate 125 H 04/08/24 01:55 Respiratory Rate 20 04/08/24 01:55 Blood Pressure 135/82 04/08/24 01:55 Pulse Oximetry 96 04/08/24 01:55 Oxygen Delivery Method Room Air 04/08/24 01:55 Temperature 97.7 F 04/08/24 01:55 Pulse Rate 125 H 04/08/24 01:55 Respiratory Rate 20 04/08/24 01:55 Blood Pressure 135/82 04/08/24 01:55 Pulse Oximetry 96 04/08/24 01:55 Oxygen Delivery Method Room Air 04/08/24 01:55 MDM - Female Genitourinary MDM Narrative Medical decision making narrative: This 33-year-old female G6, P1 who has had 4 miscarriages in the past presents for evaluation of lower abdominal pain with vaginal bleeding. She states she has been bleeding throughout the entire . She had an ultrasound done on April 03 which was essentially normal. Upon presentation the patient went to the bathroom in the [facility] and miscarried her 15-week old fetus in addition to the fetus there was a large amount of tissue that appeared to be the placenta. The products of conception were sent to the lab. Her pain and bleeding ceased after the miscarriage. An IV was placed and routine labs were ordered. Her white count is elevated at 15.5. She has a stable hemoglobin of 10.7 Electrolytes are normal. Her blood type is B+ indicating she does not need RhoGAM. An IV was placed and she was medicated with IV fluids and I ordered morphine and Zofran for her which she declined. She did take the Zofran but requested ibuprofen instead of morphine as her pain was under control. She has gone to the bathroom and passed some small clots but has not had any hemorrhage after passing the fetus. She does have an appointment at [address] Gandhi which I strongly encouraged her to keep as he may wish to examine her more completely in his office. She was encouraged to return to the emergency department for fever, worsening abdominal pain, heavy vaginal bleeding or any sign of hemorrhage. She is here with her mother and will be released with her mother. She declined the need for any prescriptions for pain medication including ibuprofen stating that her pain is not really that bad at this time and she does not require anything stronger for pain. Lab Data Attestation: I reviewed the patient's lab results. Labs: Lab Results 04/08/24 Range/Units 02:20 WBC 15.4 H (4.0-11.0) 10^3/uL RBC 3.84 L (4.20-5.40) 10^6/uL Hgb 10.7 L (12.0-16.0) g/dL Hct 32.6 L (36.0-48.0) % MCV 84.9 (81.0-99.0) fL MCH 27.9 (26.7-34.0) pg MCHC 32.8 (29.9-35.2) g/dL RDW 13.0 (11.0-15.0) % Plt Count 260 (150-450) 10^3/uL MPV 10.6 (9.5-13.5) fL Neut % (Auto) 80.6 H (43.0-75.0) % Lymph % (Auto) 12.1 L (20.5-60.0) % Mcnairy % (Auto) 4.7 (1.7-12.0) % Eos % (Auto) 1.4 (0.9-7.0) % Baso % (Auto) 0.5 (0.2-2.0) % Neut # (Auto) 12.4 H (1.4-6.5) 10^3/uL Lymph # (Auto) 1.9 (1.2-3.8) 10^3/uL Mcnairy # (Auto) 0.7 (0.3-0.8) 10^3/uL Eos # (Auto) 0.2 (0.0-0.7) 10^3/uL Baso # (Auto) 0.1 (0.0-0.1) 10^3/uL Abs Immat Gran (auto) 0.11 H (0.00-0.03) 10^3/uL Imm/Tot Granulo (auto) 0.7 H (0.0-0.5) % PT 10.2 (9.0-11.6) sec INR 0.96 Sodium 135 L (136-145) mmol/L Potassium 3.3 L (3.5-5.1) mmol/L Chloride 100 (98-107) mmol/L Carbon Dioxide 23.7 (21.0-32.0) mmol/L Anion Gap 14.6 BUN 11.0 (7.0-18.0) mg/dL Creatinine 0.67 (0.55-1.02) mg/dL Est GFR ( Amer) >60 (>=60) Est GFR (Non-Af Amer) >60 (>=60) BUN/Creatinine Ratio 16.4 Glucose 99 (74-106) mg/dL Calcium 8.6 (8.5-10.1) mg/dL Total Bilirubin 0.4 (0.2-1.0) mg/dL AST 13 L (15-37) U/L ALT 14 (14-59) U/L Alkaline Phosphatase 66 (46-116) U/L Total Protein 6.4 (6.4-8.2) g/dL Albumin 2.9 L (3.4-5.0) g/dL Globulin 3.5 g/dL Albumin/Globulin Ratio 0.8 Blood Type B Positive Discharge Plan Discharge Stand Alone Forms: Work/School Release, Portal Instructions Chief Complaint: Vaginal Bleeding Clinical Impression: Miscarriage at 8 to 28 weeks gestation Patient Disposition: Home, Self-Care Time of Disposition Decision: 03:48 Condition: Good Print Language: Danish Instructions: Miscarriage (ED) Additional Instructions: Follow up with Dr Gandhi this morning. Return to the emergency department for severe pain, heavy vaginal bleeding or any concerns for hemorrhage, dizziness, chest pain, fever or any concerns. Referrals: ROBERTO HICKMAN [Primary Care Provider] - 1 week
[2024-04-08] MEDS: 0.9 % SODIUM CHLORIDE 1,000 ML 1000 ML IV (02:56)
[2024-04-08] MEDS: ONDANSETRON PF 4 MG/2 ML VIAL IV (02:59)
[2024-04-08 03:11] LABS: Basophils Absolute Auto 0.1 10^3/uL (0.0-0.1); Basophils Percent Auto 0.5 % (0.2-2.0); Eosinophils Absolute Auto 0.2 10^3/uL (0.0-0.7); Eosinophils Percent Auto 1.4 % (0.9-7.0); Hematocrit 32.6 % (36.0-48.0); Hemoglobin 10.7 g/dL (12.0-16.0); Immature Granulocytes Abs Auto 0.11 10^3/uL (0.00-0.03); Immature Granulocytes Pct Auto 0.7 % (0.0-0.5); Lymphocytes Absolute Auto 1.9 10^3/uL (1.2-3.8); Lymphocytes Percent Auto 12.1 % (20.5-60.0); Mean Corpuscular HGB Conc 32.8 g/dL (29.9-35.2); Mean Corpuscular Hemoglobin 27.9 pg (26.7-34.0); Mean Corpuscular Volume 84.9 fL (81.0-99.0); Mean Platelet Volume 10.6 fL (9.5-13.5); Monocytes Absolute Auto 0.7 10^3/uL (0.3-0.8); Monocytes Percent Auto 4.7 % (1.7-12.0); Neutrophils Absolute Auto 12.4 10^3/uL (1.4-6.5); Neutrophils Percent Auto 80.6 % (43.0-75.0); Platelet Count 260 10^3/uL (150-450); Red Blood Count 3.84 10^6/uL (4.20-5.40); White Blood Count 15.4 10^3/uL (4.0-11.0)
[2024-04-08 03:27] LABS: INR 0.96; Prothrombin Time 10.2 sec (9.0-11.6)
[2024-04-08 03:28] LABS: Alanine Aminotransferase 14 U/L (14-59); Albumin Globulin Ratio 0.8; Albumin Level 2.9 g/dL (3.4-5.0); Alkaline Phosphatase 66 U/L (46-116); Anion Gap 14.6; Aspartate Amino Transferase 13 U/L (15-37); BUN Creatinine Ratio 16.4; Bilirubin Total 0.4 mg/dL (0.2-1.0); Calcium 8.6 mg/dL (8.5-10.1); Carbon Dioxide 23.7 mmol/L (21.0-32.0); Chloride 100 mmol/L (98-107); Estimated GFR (African America >60 (>=60); Estimated GFR (Non-African Ame >60 (>=60); Globulin 3.5 g/dL; Glucose 99 mg/dL (74-106); Potassium 3.3 mmol/L (3.5-5.1); Sodium 135 mmol/L (136-145); Total Protein 6.4 g/dL (6.4-8.2)
[2024-04-08] MEDS: IBUPROFEN 600 MG TABLET PO (03:41)
--- NOTE | 2024-04-08 04:34 | PC.NURSE ---
Patient 15 weeks . Started having pain earlier in the evening at her mothers house, cramping and bleeding started just prior to arrival. She used the bathroom in the waiting room and called out for help, registration called the nurses station and KYLE Marx went to the waiting room to assist the patient. Patient was sitting on the toilet and was passing the fetus. Araseli was able to catch the fetus in a basin, followed by the placenta. Patient is then taken to room 8 by wheelchair. Fetus is placed in a large specimen container and given to patient who requested to hold it. She spent some time with it, then it was taken away and prints were taken for her. the fetus was taken to the lab. patient was given fluids and Ibuprofen, then decided she was ready to go. She is encouraged to follow up with Dr Gandhi today as scheduled.
== END 2024-04-08 04:05 | disposition home or self-care (01) ==
PROVIDERS: Emergency Provider Emergency Medicine; PCP Nurse Practitioner
DX: O03.9 Complete or unspecified spontaneous abortion without complication (principal)
CPT/HCPCS: 36415; 80053; 85025; 85610; 86900; 86901; 88307; 96374; 99284; J2405

== ENCOUNTER 2024-04-10 11:28 | Outpatient (OUT) | payer OTHER, SELFPAY ==
--- NOTE | 2024-04-10 | US_ITS ---
The [address] [address] Patient Name: ELENI MATA MRN: [id number] date: 1990 Sex: F Assigned Patient Location: US Current Patient Location: Accession/Order Number: [id number] Exam Date: 04/10/2024 11:30 Report Date: 04/11/2024 07:21 At the request of: FABIOLA YANCEY Procedure: US pelvis EXAMINATION: US pelvis HISTORY: FOLLOW UP MISCARRIAGE FOR RETAINED PRODUCTS COMPARISON: 04/03/2024 FINDINGS: The uterus is enlarged in size heterogeneous in echotexture consistent with the patient's state. The uterus measures 16.4 x 7.3 x 6.4 cm. No focal myometrial mass. The uterus is anteverted. Endometrium measures 9 mm, normal. Color flow was not utilized The ovaries are not visualized US/US pelvis IMPRESSION: Normal appearance of the endometrial cavity. Electronically authenticated by: MATHIEU PEREZ Date: 04/11/2024 07:21
--- OUTSIDE RECORDS SUMMARY | 2024-04-10 11:50 | XMS_ITS | CCD ---
Author Organization [facility] Team Providers Care Skip Hoist Engineer Name Role Phone BC, DR HICKS Consulting Unavailable LAUREN, DR SAKINA Sosa Primary Care Unavailable BC, DR HICKS Attending Unavailable BC, DR HICKS Admitting Unavailable Zieber, DR Winston Consulting Unavailable SAMIR, DR FELIPA Monzon Consulting Unavailable BC, DR HICKS Attending Unavailable BC, DR HICKS Admitting Unavailable LAUREN, DR SAKINA Sosa Primary Care [...] Unavailable BC, DR HICKS Consulting Unavailable MARSH, SAKINA E Primary Care Unavailable DR FABIOLA GANDHI Attending Unavailable DR FABIOLA GANDHI Admitting Unavailable Tessy Cornell Attending Unavailable FABIOLA GANDHI Attending Unavailable Allergies Allergy Classification Reported Allergen(s) Allergy Type Date of Onset Reaction(s) Facility (1 source) No Known Medication Allergies; Translations: [No Known Medication Allergies] Propensity to adverse reactions (disorder) [facility] Repository Problems Active Problems Problem Classification [...] - Ultrasound Reporton RAD - Ultrasound Report [id number] 0TIFF Normal [facility] RAD - MISCon 02-02-2023 RAD - MIS [id number]. 00CD:127 Normal [facility] MIS [id number]#[id number] CD:127 Normal [facility] Ambulatory Visit Summaryon 0 01-31-2023 Ambulatory Visit Summary MELIZA MATA :1990 Visit Date:01/31/2023 Ambulatory Visit Instructions Your Diagnosis BMI 26.0-26.9,adult Non-smoker Your Care Team Attending Physician - Aneta SHULTZ, Tessy Gandhi Primary Care Physician - Peter SHARMA, Cassi Trevino Discharge Vitals Heart Rate (Peripheral) 80 Respiratory Rate 18 Blood Pressure 124/88 Height 161.5 cm Height 64 in Weight 67.9 kg Weight 149.38 lb BMI 26.03 Allergies No Known Medication Allergies Normal [facility] Family Medicine Office/Clini c Noteon 01-31-2023 [...] day(s), # 21 tab(s), Refills(s) 0, Pharmacy: [facility]/pharmacy #[id number], 161.5, cm, 01/31/23 14:55:00 EDT, Height/Length Dosing, 67.9, kg, 01/31/23 14:55:00 EDT, Weight Dosing naproxen, 500 mg = 1 tab(s), Oral, BID, # 30 tab(s), Refills(s) 0, Pharmacy: [facility]/pharmacy #[id number], 161.5, cm, 01/31/23 14:55:00 EDT, Height/Length Dosing, 67.9, kg, 01/31/23 14:55:00 EDT, Weight Dosing 4. Non-smoker (Z78.9: Other specified health status) continue not smoking Ordered: methylPREDNISolone, = 1 packet(s), Oral, As Directed, as directed on package labeling, X 6 day(s), # 21 tab(s), Refills(s) 0, Pharmacy: [facility]/pharmacy #[id number], 161.5, cm, 01/31/23 14:55:00 EDT, Height/Length Dosing, 67.9, kg, 01/31/23 14:55:00 EDT, Weight Dosing naproxen, 500 mg = 1 tab(s), Oral, BID, # 30 tab(s), Refills(s) 0, Pharmacy: [facility]/pharmacy #[id number], 161.5, cm, 01/31/23 14:55:00 EDT, Height/Length [...] Family History Family history is negative Normal [facility] Comment on above: Result Comment: Elec tronically Signed By: Tessy Salinas\.br\Date and Time Signed: 01/31/23 15:15 EDT PAP ACOG PANEL 2: 23 to 29on 06-01-2022 . . Normal [facility] Comment on above: Performed By: #### P REGQNT #### [facility] [address] [address] [address] Ed Amaral Age Gdln ACOG Testing 21-29 Normal [facility] Comment on above: Performed By: #### P REGQNT #### [facility] [address] [address] [address] Ed Amaral DIAGNOSIS: Comment Normal [facility] Comment on above: Result Comment: NEGA TIVE FOR INTRAEPITHELIAL LESION OR MALIGNANCY. Performed By: #### P REGQNT #### [facility] [address] [address] [address] Ed Amaral Methodology: Comment Normal [facility] Comment on above: Result Comment: This liquid based ThinPrep(R) pap test was screened with the use of an image guided system. Performed By: #### P REGQNT #### [facility] [address] [place] [address] Dr. Ed Amaral Note: Comment Normal [facility] Comment on above: Result Comment: The Pap smear is a screening test designed to aid in the detection of premalignant and malignant conditions of the uterine cervix. It is not a diagnostic procedure and should not be used as the sole means of detecting cervical cancer. Both false-positive and false-negative reports do occur. . Performed By: #### P REGQNT #### [facility] [address] [place] [address] Dr. Ed Amaral Performed by: Comment Normal [facility] Comment on above: Result Comment: Ignacio Pleitez, Mill Feeder (ASCP) Performed By: #### P REGQNT #### [facility] [address] [place] [address] Dr. Ed Amaral Reflex Criteria: Comment Normal [facility] Comment on above: Result Comment: The HPV DNA reflex criteria were not met with this specimen result therefore, no HPV testing was performed. . Performed By: #### P REGQNT #### [facility] [address] [address] [address] Ed Amaral Specimen adequacy: Comment Normal [facility] Comment on above: Result Comment: Sati sfactory for evaluation. Endocervical and/or squamous metaplastic cells (endocervical component) are present. Performed By: #### P REGQNT #### [facility] [address] [address] [address] Ed Amaral PREG QUANT HCGon 12-09-2021 HCG QUANT 2 mIU/mL Normal [facility] Comment on above: Performed By: #### P REGQNT #### [facility] [address] [place] [address] Dr. Ed Amaral HCG RANGE SEE BELOW Normal [facility] Comment on above: Result Comment: 5-50 0-1 WEEK 40-300 1-2 WEEKS 100-1,000 2-3 WEEKS 500-6,000 3-4 WEEKS 5,000-200,000 1-2 MONTHS 10,000-100,000 2-3 MONTHS 3,000-50,000 2ND TRIMESTER 1,000-50,000 3RD TRIMESTER Performed By: #### P REGQNT #### [facility] [address] [place] [address] Dr. Ed Amaral PREG QUANT HCGon 11-29-2021 HCG QUANT 83 mIU/mL Normal [facility] Comment on above: Performed By: #### P REGQNT #### [facility] [address] [place] [address] Dr. Ed Amaral HCG RANGE SEE BELOW Normal [facility] Comment on above: Result Comment: 5-50 0-1 WEEK 40-300 1-2 WEEKS 100-1,000 2-3 WEEKS 500-6,000 3-4 WEEKS 5,000-200,000 1-2 MONTHS 10,000-100,000 2-3 MONTHS 3,000-50,000 2ND TRIMESTER 1,000-50,000 3RD TRIMESTER Performed By: #### P REGQNT #### [facility] [address] [place] [address] Dr. Ed Amaral PREG QUANT HCGon 11-23-2021 HCG QUANT 80 mIU/mL Normal [facility] Comment on above: Performed By: #### P REGQNT #### [facility] [address] [place] [address] Dr. Ed Amaral HCG RANGE SEE BELOW Normal [facility] Comment on above: Result Comment: 5-50 0-1 WEEK 40-300 1-2 WEEKS 100-1,000 2-3 WEEKS 500-6,000 3-4 WEEKS 5,000-200,000 1-2 MONTHS 10,000-100,000 2-3 MONTHS 3,000-50,000 2ND TRIMESTER 1,000-50,000 3RD TRIMESTER Performed By: #### P REGQNT #### [facility] [address] [address] [address] Ed Amaral US PELVIS AND TRANSVAGon [...] MARK HAYES Date: 2021-11-16 07:02 Normal [facility] PREG QUANT HCGon 11-12-2021 HCG QUANT 236 mIU/mL Normal [facility] Comment on above: Performed By: #### P REGQNT #### [facility] [address] [address] [address] Ed Amaral HCG RANGE SEE BELOW Normal [facility] Comment on above: Result Comment: 5-50 0-1 WEEK 40-300 1-2 WEEKS 100-1,000 2-3 WEEKS 500-6,000 3-4 WEEKS 5,000-200,000 1-2 MONTHS 10,000-100,000 2-3 MONTHS 3,000-50,000 2ND TRIMESTER 1,000-50,000 3RD TRIMESTER Performed By: #### P REGQNT #### [facility] [address] [place] [address] Dr. Ed Amaral PREG QUANT HCGon 11-08-2021 HCG QUANT 335 mIU/mL Normal [facility] Comment on above: Performed By: #### P REGQNT #### [facility] [address] [place] [address] Dr. Ed Amaral HCG RANGE SEE BELOW Normal [facility] Comment on above: Result Comment: 5-50 0-1 WEEK 40-300 1-2 WEEKS 100-1,000 2-3 WEEKS 500-6,000 3-4 WEEKS 5,000-200,000 1-2 MONTHS 10,000-100,000 2-3 MONTHS 3,000-50,000 2ND TRIMESTER 1,000-50,000 3RD TRIMESTER Performed By: #### P REGQNT #### [facility] [address] [place] [address] Dr. Ed Amaral PREG QUANT HCGon 11-06-2021 HCG QUANT 324 mIU/mL Normal [facility] Comment on above: Performed By: #### P REGQNT #### [facility] [address] [place] [address] Dr. Ed Amaral HCG RANGE SEE BELOW Normal [facility] Comment on above: Result Comment: 5-50 0-1 WEEK 40-300 1-2 WEEKS 100-1,000 2-3 WEEKS 500-6,000 3-4 WEEKS 5,000-200,000 1-2 MONTHS 10,000-100,000 2-3 MONTHS 3,000-50,000 2ND TRIMESTER 1,000-50,000 3RD TRIMESTER Performed By: #### P REGQNT #### [facility] [address] [place] [address] Dr. Ed Amaral PREG QUANT HCGon 11-03-2021 HCG QUANT 189 mIU/mL Normal [facility] Comment on above: Performed By: #### P REGQNT #### [facility] [address] [place] [address] Dr. Ed Amaral HCG RANGE SEE BELOW Normal [facility] Comment on above: Result Comment: 5-50 0-1 WEEK 40-300 1-2 WEEKS 100-1,000 2-3 WEEKS 500-6,000 3-4 WEEKS 5,000-200,000 1-2 MONTHS 10,000-100,000 2-3 MONTHS 3,000-50,000 2ND TRIMESTER 1,000-50,000 3RD TRIMESTER Performed By: #### P REGQNT #### [facility] [address] [place] [address] Dr. Ed Amaral CBC AUTO DIFFon 10-30-2021 BASO # 0.1 103/ul Normal 0.0-0.1 [facility] Comment on above: Performed By: #### C BC #### [facility] [address] [place] [address] Dr. Ed Amaral Basophils/100 WBC (Bld) 0.9 % Normal 0.2-2.0 [facility] Comment on above: Performed By: #### C BC #### [facility] [address] [place] [address] Dr. Ed Amaral EO # 0.1 103/ul Normal 0.0-0.7 [facility] Comment on above: Performed By: #### C BC #### [facility] [address] [place] [address] Dr. Ed Amaral Eosinophils/100 WBC (Bld) 0.8 % Critically low 0.9-7.0 [facility] Comment on above: Performed By: #### C BC #### [facility] [address] [place] [address] Dr. Ed Amaral Erythrocyte distribution width (RBC) [Ratio] 12.2 % Normal 11.0-15.0 [facility] Comment on above: Performed By: #### C BC #### [facility] [address] [place] [address] Dr. Ed Amaral Hematocrit (Bld) [Volume fraction] 35.3 % Critically low 36.0-48.0 [facility] Comment on above: Performed By: #### C BC #### [facility] [address] [place] [address] Dr. Ed mAaral Hemoglobin (Bld) [Mass/Vol] 11.5 g/dL Critically low 12.0-16.0 [facility] Comment on above: Performed By: #### C BC #### [facility] [address] [place] [address] Dr. Ed Amaral IG # 0.01 10e3/ul Normal 0.00-0.03 [facility] Comment on above: Performed By: #### C BC #### [facility] [address] [place] [address] Dr. Ed Amaral IG % 0.1 % Normal 0.0-0.5 [facility] Comment on above: Performed By: #### C BC #### [facility] [address] [place] [address] Dr. Ed Amaral LYMPH # 2.5 103/ul Normal 1.2-3.8 [facility] Comment on above: Performed By: #### C BC #### [facility] [address] [place] [address] Dr. Ed Amaral Lymphocytes/100 WBC (Bld) 32.4 % Normal 20.5-60.0 [facility] Comment on above: Performed By: #### C BC #### [facility] [address] [place] [address] Dr. Ed Amaral MANUAL DIFF REQ NO Normal [facility] Comment on above: Performed By: #### C BC #### [facility] [address] [place] [address] Dr. Ed Amaral MCH (RBC) [Entitic mass] 27.4 pg Normal 26.7-34.0 [facility] Comment on above: Performed By: #### C BC #### [facility] [address] [place] [address] Dr. Ed Amaral MCHC (RBC) [Mass/Vol] 32.6 g/dL Normal 29.9-35.2 [facility] Comment on above: Performed By: #### C BC #### [facility] [address] [place] [address] Dr. Ed Amaral MCV (RBC) [Entitic vol] 84.0 fL Normal 81.0-99.0 [facility] Comment on above: Performed By: #### C BC #### [facility] [address] [place] [address] Dr. Ed Amaral MONO # 0.5 103/ul Normal 0.3-0.8 [facility] Comment on above: Performed By: #### C BC #### [facility] [address] [place] [address] Dr. Ed Amaral Monocytes/100 WBC (Bld) 5.9 % Normal 1.7-12.0 [facility] Comment on above: Performed By: #### C BC #### [facility] [address] [place] [address] Dr. Ed Amaral NEUT # 4.5 103/ul Normal 1.4-6.5 [facility] Comment on above: Performed By: #### C BC #### [facility] [address] [place] [address] Dr. Ed Amaral Neutrophils/100 WBC (Bld) 59.9 % Normal 43.0-75.0 [facility] Comment on above: Performed By: #### C BC #### [facility] [address] [place] [address] Dr. Ed Amaral Platelet mean volume (Bld) [Entitic vol] 9.8 fL Normal 9.5-13.5 [facility] Comment on above: Performed By: #### C BC #### [facility] [address] [place] [address] Dr. Ed Amaral PLT 277 103/ul Normal 150-450 [facility] Comment on above: Performed By: #### C BC #### [facility] [address] [place] [address] Dr. Ed Amaral RBC 4.20 106/ul Normal 4.20-5.40 [facility] Comment on above: Performed By: #### C BC #### [facility] [address] [place] [address] Dr. Ed Amaral WBC 7.6 103/ul Normal 4.0-11.0 [facility] Comment on above: Performed By: #### C BC #### [facility] [address] [address] [address] Ed ALLAN # 0.1 103/ul Normal 0.0-0.1 [facility] Comment on above: Performed By: #### C BC #### [facility] [address] [address] [address] Ed Amaral Basophils/100 WBC (Bld) 0.8 % Normal 0.2-2.0 [facility] Comment on above: Performed By: #### C BC #### [facility] [address] [address] [address] Ed Amaral EO # 0.2 103/ul Normal 0.0-0.7 [facility] Comment on above: Performed By: #### C BC #### [facility] [address] [address] [address] Ed Amaral Eosinophils/100 WBC (Bld) 2.1 % Normal 0.9-7.0 [facility] Comment on above: Performed By: #### C BC #### [facility] [address] [address] [address] Ed Amaral Erythrocyte distribution width (RBC) [Ratio] 12.2 % Normal 11.0-15.0 [facility] Comment on above: Performed By: #### C BC #### [facility] [address] [address] [address] Ed Amaral Hematocrit (Bld) [Volume fraction] 39.2 % Normal 36.0-48.0 [facility] Comment on above: Performed By: #### C BC #### [facility] [address] [address] [address] Ed Amaral Hemoglobin (Bld) [Mass/Vol] 12.8 g/dL Normal 12.0-16.0 [facility] Comment on above: Performed By: #### C BC #### [facility] [address] [address] [address] Ed Amaral IG # 0.03 10e3/ul Normal 0.00-0.03 [facility] Comment on above: Performed By: #### C BC #### [facility] [address] [place] [address] Dr. Ed Amaral IG % 0.3 % Normal 0.0-0.5 [facility] Comment on above: Performed By: #### C BC #### [facility] [address] [place] [address] Dr. Ed Amaral LYMPH # 4.5 103/ul Critically high 1.2-3.8 [facility] Comment on above: Performed By: #### C BC #### [facility] [address] [place] [address] Dr. Ed Amaral Lymphocytes/100 WBC (Bld) 40.5 % Normal 20.5-60.0 [facility] Comment on above: Performed By: #### C BC #### [facility] [address] [place] [address] Dr. Ed Amaral MANUAL DIFF REQ NO Normal [facility] Comment on above: Performed By: #### C BC #### [facility] [address] [place] [address] Dr. Ed Amaral MCH (RBC) [Entitic mass] 27.6 pg Normal 26.7-34.0 [facility] Comment on above: Performed By: #### C BC #### [facility] [address] [place] [address] Dr. Ed Amaral MCHC (RBC) [Mass/Vol] 32.7 g/dL Normal 29.9-35.2 [facility] Comment on above: Performed By: #### C BC #### [facility] [address] [place] [address] Dr. Ed Amaral MCV (RBC) [Entitic vol] 84.7 fL Normal 81.0-99.0 [facility] Comment on above: Performed By: #### C BC #### [facility] [address] [place] [address] Dr. Ed Amaral MONO # 0.7 103/ul Normal 0.3-0.8 [facility] Comment on above: Performed By: #### C BC #### [facility] [address] [place] [address] Dr. Ed Amaral Monocytes/100 WBC (Bld) 6.2 % Normal 1.7-12.0 [facility] Comment on above: Performed By: #### C BC #### [facility] [address] [place] [address] Dr. Ed Amaral NEUT # 5.6 103/ul Normal 1.4-6.5 [facility] Comment on above: Performed By: #### C BC #### [facility] [address] [place] [address] Dr. Ed Amaral Neutrophils/100 WBC (Bld) 50.1 % Normal 43.0-75.0 [facility] Comment on above: Performed By: #### C BC #### [facility] [address] [place] [address] Dr. Ed Amaral Platelet mean volume (Bld) [Entitic vol] 9.9 fL Normal 9.5-13.5 [facility] Comment on above: Performed By: #### C BC #### [facility] [address] [place] [address] Dr. Ed Amaral PLT 359 103/ul Normal 150-450 [facility] Comment on above: Performed By: #### C BC #### [facility] [address] [place] [address] Dr. Ed Amaral RBC 4.63 106/ul Normal 4.20-5.40 [facility] Comment on above: Performed By: #### C BC #### [facility] [address] [place] [address] Dr. Ed Amaral WBC 11.1 103/ul Critically high 4.0-11.0 [facility] Comment on above: Performed By: #### C BC #### [facility] [address] [place] [address] Dr. Ed Amaral CULTURE URINEon 10-30-2021 CULTURE URINE Culture Observations : LIGHT GROWTH OF MIXED GENITAL MYRA. NO POTENTIAL PATHOGENS SEEN. Normal [facility] Comment on above: Performed By: #### P REGQNT #### [facility] [address] [place] [address] Dr. Ed Amaral Covid-19 PCR (CVDTB)on 10-12 SARS-CoV-2 (COVID-19) RNA NAHUM+probe Ql (Unsp spec) Not detected Normal NOT DETECTED [facility] Comment on above: Result Comment: When [...] for this test is supported by the [place] of Health and Human Service's declaration that [...] used). Performed By: #### P REGQNT #### [facility] [address] [place] [address] Dr. dE Amaral ER URINE PROFILEon 2 Bilirubin Ql (U) Negative Normal NEGATIVE [facility] Comment on above: Performed By: #### P REGQNT #### [facility] [address] [place] [address] Dr. Ed Amaral Clarity (U) CLEAR Normal CLEAR [facility] Comment on above: Performed By: #### P REGQNT #### [facility] [address] [place] [address] Dr. Ed Amaral Color (U) LT. YELLOW Normal YELLOW [facility] Comment on above: Performed By: #### P REGQNT #### [facility] [address] [place] [address] Dr. Ed Amaral ERUAHD A micrscopic examination will be performed if indicated. Normal [facility] Comment on above: Performed By: #### P REGQNT #### [facility] [address] [address] [address] Ed Amaral Glucose Ql (U) Negative Normal NEGATIVE [facility] Comment on above: Performed By: #### P REGQNT #### [facility] [address] [address] [address] Ed Amaral Hemoglobin Ql (U) Negative Normal NEGATIVE [facility] Comment on above: Performed By: #### P REGQNT #### [facility] [address] [address] [address] Ed Amaral Ketones Ql (U) Negative Normal NEGATIVE [facility] Comment on above: Performed By: #### P REGQNT #### [facility] [address] [place] [address] Dr. Ed Amaral LEUKOCYTES Negative Normal NEGATIVE [facility] Comment on above: Performed By: #### P REGQNT #### [facility] [address] [address] [address] Ed Amaral Nitrite Ql (U) Positive Abnormal NEGATIVE [facility] Comment on above: Performed By: #### P REGQNT #### [facility] [address] [place] [address] Dr. Ed Amaral pH (U) 5.5 [pH] Normal 5-9 [facility] Comment on above: Performed By: #### P REGQNT #### [facility] [address] [place] [address] Dr. Ed Amaral SPEC GRAVITY 1.005 Normal 1.005-<=1.025 [facility] Comment on above: Performed By: #### P REGQNT #### [facility] [address] [address] [address] Ed Amaral UA PROTEIN Negative Normal NEGATIVE/ TRACE [facility] Comment on above: Performed By: #### P REGQNT #### [facility] [address] [place] [address] Dr. Ed Amaral UR MICRO IND INDICATED Normal [facility] Comment on above: Performed By: #### P REGQNT #### [facility] [address] [place] [address] Dr. Ed Amaral Urobilinogen Qn (U) 0.2 {Michela'U}/dL Normal 0.2 - 1.0 [facility] Comment on above: Performed By: #### P REGQNT #### [facility] [address] [place] [address] Dr. Ed Amaral LACTATE/LACTIC ACIDon 2021 Lactate [Moles/Vol] 0.9 mmol/L Normal 0.7-2.0 [facility] Comment on above: Performed By: #### L ACT #### [facility] [address] [place] [address] Dr. Ed Amaral PREG QUANT HCGon 10-30-2021 HCG QUANT 112 mIU/mL Normal [facility] Comment on above: Performed By: #### P REGQNT #### [facility] [address] [place] [address] Dr. Ed Amaral HCG RANGE SEE BELOW Normal [facility] Comment on above: Result Comment: 50 0-1 WEEK 40-300 1-2 WEEKS 100-1,000 2-3 WEEKS 500-6,000 3-4 WEEKS 5,000-200,000 1-2 MONTHS 10,000-100,000 2-3 MONTHS 3,000-50,000 2ND TRIMESTER 1,000-50,000 3RD TRIMESTER Performed By: #### P REGQNT #### [facility] [address] [place] [address] Dr. Ed Amaral HCG QUANT 150 mIU/mL Normal [facility] Comment on above: Performed By: #### P REGQNT #### [facility] [address] [place] [address] Dr. Ed Amaral HCG RANGE SEE BELOW Normal [facility] Comment on above: Result Comment: 50 0-1 WEEK 40-300 1-2 WEEKS 100-1,000 2-3 WEEKS 500-6,000 3-4 WEEKS 5,000-200,000 1-2 MONTHS 10,000-100,000 2-3 MONTHS 3,000-50,000 2ND TRIMESTER 1,000-50,000 3RD TRIMESTER Performed By: #### P REGQNT #### [facility] [address] [address] [address] Ed Amaral URon 10-30-2021 , QUAL Positive Abnormal NEGATIVE [facility] Comment on above: Performed By: #### P REGQNT #### [facility] [address] [address] [address] Ed Amaral PROF 14(COMP METB)on 022 Albumin [Mass/Vol] 4.3 g/dL Normal 3.4-5.0 [facility] Comment on above: Performed By: #### C MP #### [facility] [address] [place] [address] Dr. Ed Amaral Albumin/Globulin [Mass ratio] 1.4 {ratio} Normal [facility] Comment on above: Performed By: #### C MP #### [facility] [address] [place] [address] Dr. Ed Amaral ALP [Catalytic activity/Vol] 69 U/L Normal 46-116 [facility] Comment on above: Performed By: #### C MP #### [facility] [address] [place] [address] Dr. Ed Amaral ALT [Catalytic activity/Vol] 11 U/L Critically low 14-59 [facility] Comment on above: Performed By: #### C MP #### [facility] [address] [place] [address] Dr. Ed Amaral Anion gap [Moles/Vol] 12.5 mmol/L Normal [facility] Comment on above: Performed By: #### C MP #### [facility] [address] [address] [address] Ed Amaral AST [Catalytic activity/Vol] 9 U/L Critically low 15-37 [facility] Comment on above: Performed By: #### C MP #### [facility] [address] [address] [address] Ed Amaral Bilirubin [Mass/Vol] 0.8 mg/dL Normal 0.2-1.3 [facility] Comment on above: Performed By: #### C MP #### [facility] [address] [address] [address] Ed Amaral Calcium [Mass/Vol] 8.8 mg/dL Normal 8.5-10.1 [facility] Comment on above: Performed By: #### C MP #### [facility] [address] [address] [address] Ed Amaral Chloride [Moles/Vol] 103 mmol/L Normal 98-107 [facility] Comment on above: Performed By: #### C MP #### [facility] [address] [address] [address] Ed Amaral CO2 [Moles/Vol] 25.9 mmol/L Normal 22.0-30.0 [facility] Comment on above: Performed By: #### C MP #### [facility] [address] [place] [address] Dr. Ed Amaral Creatinine [Mass/Vol] 0.82 mg/dL Normal 0.52-1.04 [facility] Comment on above: Performed By: #### C MP #### [facility] [address] [place] [address] Dr. Ed Amaral EGFR-AF MARTINIQUAIS >60 Normal >=60 [facility] Comment on above: Performed By: #### C MP #### [facility] [address] [place] [address] Dr. Ed Amaral EGFR-NON AF MARTINIQUAIS >60 Normal >=60 [facility] Comment on above: Performed By: #### C MP #### [facility] [address] [place] [address] Dr. Ed Amaral Globulin (S) [Mass/Vol] 3.1 g/dL Normal [facility] Comment on above: Performed By: #### C MP #### [facility] [address] [place] [address] Dr. Ed Amaral Glucose [Mass/Vol] 108 mg/dL Critically high 74-106 [facility] Comment on above: Performed By: #### C MP #### [facility] [address] [place] [address] Dr. Ed Amaral Potassium [Moles/Vol] 3.4 mmol/L Normal 3.4-5.0 [facility] Comment on above: Performed By: #### C MP #### [facility] [address] [place] [address] Dr. Ed Amaral Protein [Mass/Vol] 7.4 g/dL Normal 6.1-8.2 [facility] Comment on above: Performed By: #### C MP #### [facility] [address] [address] [address] Ed Amaral Sodium [Moles/Vol] 138 mmol/L Normal 137-145 [facility] Comment on above: Performed By: #### C MP #### [facility] [address] [place] [address] Dr. Ed Amaral Urea nitrogen [Mass/Vol] 12.0 mg/dL Normal 7.0-18.0 [facility] Comment on above: Performed By: #### C MP #### [facility] [address] [place] [address] Dr. Ed Amaral Urea nitrogen/Creatinin e [Mass ratio] 14.6 mg/mg Normal [facility] Comment on above: Performed By: #### C MP #### [facility] [address] [place] [address] Dr. Ed Amaral TYPE AND SCREENon 10-30-2021 TYPE AND SCREEN Negative Normal [facility] Comment on above: Performed By: #### P REGQNT #### [facility] [address] [place] [address] Dr. Ed Amaral URINE MICROSCOPIC ONLYon BACTERIA NONE SEEN Normal NONE SEEN [facility] Comment on above: Performed By: #### P REGQNT #### [facility] [address] [place] [address] Dr. Ed Amaral Bacteria identified Cx Nom (U) INDICATED Normal [facility] Comment on above: Performed By: #### P REGQNT #### [facility] [address] [place] [address] Dr. Ed Amaral CAST NONE SEEN Normal NONE SEEN [facility] Comment on above: Performed By: #### P REGQNT #### [facility] [address] [address] [address] Ed Amaral Crystals LM Nom (Urine sed) NONE SEEN Normal NONE SEEN [facility] Comment on above: Performed By: #### P REGQNT #### [facility] [address] [place] [address] Dr. Ed Amaral Epithelial cells LM Ql (Urine sed) RARE Normal NONE SEEN /RARE [facility] Comment on above: Performed By: #### P REGQNT #### [facility] [address] [place] [address] Dr. Ed Amaral MUCOUS NONE SEEN Normal NONE SEEN [facility] Comment on above: Performed By: #### P REGQNT #### [facility] [address] [place] [address] Dr. Ed Amaral RBC NONE SEEN Abnormal 0-2 [facility] Comment on above: Performed By: #### P REGQNT #### [facility] [address] [place] [address] Dr. Ed Amaral WBC NONE SEEN Normal NONE SEEN [facility] Comment on above: Performed By: #### P REGQNT #### [facility] [address] [place] [address] Dr. Ed Amaral US APPENDIXon 10-30-2021 US [...] Celia VILLAGRAN Date: 2021-10-30 00:28 Normal [facility] US PREG TVon 10-30-2021 US PREG [...] by: Celia VILLAGRAN Date: 2021-10-30 00:32 Normal [facility] Encounters Encounter Date Encounter Type Care Provider Facility Start: 04-08-2024 End: 04-08-2024 ambulatory FABIOLA GANDHI Not Available Start: 03-08-2024 End: 03-08-2024 ambulatory FABIOLA GANDHI Not Available Start: 01-31-2023 End: 02-01-2023 ambulatory Tessy L Aneta Facility:[facility] Start: 01-31-2023 ambulatory Tessy Aneta Facility:[facility] [place] Start: 05-25-2022 End: 05-25-[address] FABIOLA [...] Facility:[facility] Payers Date Payer Category Payer Unknown [id number] 1990 Unknown [id number] 2.16.84 [id number] 1990 Unknown [id number] 2.16.84 [id number] 1992 Unknown [id number] 2.16.84 [id number] 1992 Unknown [id number] 2.16.84 [id number] 1992 Unknown [id number] 2.16.84 [id number] 1992 Unknown [id number] 2.16.84 [id number] 1992 Unknown [id number] 2.16.84 [id number] 1992 Unknown [id number] 2.16.84 [id number] 1992 Unknown [id number] 2.16.84 [id number] 1992 Unknown [id number] 2.16.84 [id number] 1992 Unknown [id number] 2.16.8 [id number] 1992 Unknown [id number] 2.16.84 [id number] 1992 Unknown [id number] 2.16.84 [id number] 1959 Unknown [id number] Unknown [id number] Clinical Note 10-30-2021 Note Date & Type Note Facility 10-30-2021 Note [facility] [place], [place] NAME: MELIZA MATA DATE OF : MEDICAL REC#: [id number] SPOT MACHINE OPERATOR: [id number] [facility]ANS[facility] DATE: 10/30/2021 01:50:00 MECHANICAL ENGINEERING PROFESSOR DATE: 10/31/2021 23:00 DICTATING PHYSICIAN: FABIOLA GANDHI DICTATION DATE: 10/30/2021 11:00 OPERATIVE NOTE PROCEDURE: Diagnostic laparoscopy with removal of approximately 500 mL of blood, along with what we though was products of conception expulsed from the tube. PREOPERATIVE DIAGNOSIS: Pelvis pain, suspect ectopic . POSTOPERATIVE DIAGNOSIS: Pelvis pain, suspect ectopic . ANESTHESIA: General. SURGEON: Fabiola Gandhi D.O. ADAPTED PHYSICAL EDUCATION SPECIALIST: ERMA Frias URINE OUTPUT: Yellow and clear. [...] Gandhi DO on 11/02/2021 07:58 AM EDT IF Signed and Approved by: DR FABIOLA GANDHI . 11/02/2021 07:58:00 [facility] Summary Purpose Family History No Family History Records FoundNo Family History Records FoundNo Family History Records Found Advance Directives No Advanced Directives Records FoundNo Advanced Directives Records FoundNo Advanced Directives Records Found Additional Source Comments INFORMATION SOURCE (unrecogn ized section and content) DATE CREATED AUTHOR 06/06/2022 [facility] DATE CREATED AUTHOR AUTHOR'S ORGANIZ ATION 06/16/2023 [facility] DATE CREATED AUTHOR AUTHOR'S ORGANIZ ATION 04/09/2024 [facility] FOR RECORDS PERTAINING TO PATIENTS WHO ARE [...] BE BASED ON THE PRIMARY CLINICAL RECORDS. [facility]. provides no warranty or guarantee of the accuracy or completeness of information in this document.
== END 2024-04-10 11:29 | disposition home or self-care (01) ==
LOC: US 11:28
PROVIDERS: PCP Nurse Practitioner; Visit Provider Obstetrics & Gynecology
DX: O03.9 Complete or unspecified spontaneous abortion without complication (principal); Z51.89 Encounter for other specified aftercare
CPT/HCPCS: 76856

== ENCOUNTER 2024-12-05 20:23 | Outpatient (REF) | payer BC, SELFPAY ==
[2024-12-10 15:12] LABS: Age Gdln ACOG Testing Note (.); HPV Aptima Negative (Negative); IGP, Aptima HPV, rfx 16/18,45 Note (.)
== END 2024-12-05 20:24 | disposition home or self-care (01) ==
LOC: LAB 20:23
PROVIDERS: PCP Nurse Practitioner; Visit Provider Obstetrics & Gynecology
DX: Z01.419 Encounter for gynecological examination (general) (routine) without abnormal findings (principal)
CPT/HCPCS: 87624; 88175

== ENCOUNTER 2025-05-06 12:45 | Outpatient (RCR) | payer BC, SELFPAY ==
--- OUTSIDE RECORDS SUMMARY | 2025-05-06 12:49 | XMS_ITS | Encounter Summary ---
Author Organization [facility] Address [address] [place] [address] Care Team Providers Care Subsurface Augmentee Elint Operator Name Role Phone Robert Green MD Primary Care Provider [phone] Encounter Details Date Type Department Care Team (Late st Contact Info) Description 04/11/2024 Clinisync Result Encounter [facility] External Department Unsolicited Fabiola Gandhi, DO [address] [address] Social History Tobacco Use Types Packs/Day Years Used Date Smoking Tobacco: Never Assessed Comments No Sex and Gender Information Value Date Recorded Sex Assigned at Not on file Legal Sex Female 11:47 PM EDT Gender Identity Not on file Sexual Orientation Not on file documented as of this encounter Plan of Treatment Upcoming Encounters Date Type Department Care Team (Late st Contact Info) Description 12/10/2025 11:00 AM EDT Office Visit [facility] [address] [place] [address] [place] [phone] Fabiola Gandhi DO [address] [place] [address] documented as of this encounter Procedures Procedure Name Priority Date/Time Associated Diagnosis Comments US PELVIS 04/11/2024 7:21 AM EDT documented in this encounter Results * US PELVIS (04/11/2024 7:21 AM EDT) Anatomical Region Laterality Modality Other 04/11/2024 7:21 AM EDT Narrative 04/11/2024 7:23 [place] [address] Ultrasound Report Signed Patient: MELIZA HARLEY MR#: [id number] : 1990 Acct:[id number] Age/Sex: 33 / F ADM Date: 04/10/24 Loc: US Attending Dr: Fabiola Gandhi D.O. Ordering Physician: Fabiola Gandhi D.O. Date of Service: 04/10/24 Procedure(s): US pelvis Accession Number(s): [id number] cc: Fabiola Gandhi D.O.; ROBERTO HICKMAN [address] [place] [id number] Patient Name: MELIZA HARLEY MRN: [id number] date: 1990 Sex: F Assigned Patient Location: US Current Patient Location: Accession/Order Number: [id number] Exam Date: 04/10/2024 11:30 Report Date: 04/11/2024 07:21 At the request of: FABIOLA GANDHI Procedure: US pelvis EXAMINATION: US pelvis HISTORY: FOLLOW UP MISCARRIAGE FOR RETAINED PRODUCTS COMPARISON: 04/03/2024 FINDINGS: The uterus is enlarged in size heterogeneous in echotexture consistent with the patient's state. The uterus measures 16.4 x 7.3 x 6.4 cm. No focal myometrial mass. The uterus is anteverted. Endometrium measures 9 mm, normal. Color flow was not utilized The ovaries are not visualized US/US pelvis IMPRESSION: Normal appearance of the endometrial cavity. Electronically authenticated by: MATHIEU PEREZ Date: 04/11/2024 07:21 Dictated By: Mathieu Perez M.D. Signed By: 04/11/24722 DD/ 0 TD/TT: Envelope Patternmaker: Procedure Note Radiology, Radiologist, - 04/11/2024 [place] [address] Ultrasound Report Signed Patient: MELIZA HARLEY RMR#: [id number] : 1990Acct:[id number] Age/Sex: 33 / FADM Date: 04/10/24 Loc: US Attending Dr: Fabiola Gandhi D.O. Ordering Physician: Fabiola Gandhi D.O. Date of Service: 04/10/24 Procedure(s): US pelvis Accession Number(s): [id number] cc: Fabiola Gandhi D.O.; ROBERTO HICKMAN [address] [id number] Patient Name: MELIZA HARLEY MRN: [id number] date: 1990 Sex: F Assigned Patient Location: US Current Patient Location: Accession/Order Number: [id number] Exam Date: 04/10/2024 11:30 Report Date: 04/11/2024 07:21 At the request of: FABIOLA GANDHI Procedure: US pelvis EXAMINATION: US pelvis HISTORY: FOLLOW UP MISCARRIAGE FOR RETAINED PRODUCTS COMPARISON: 04/03/2024 FINDINGS: The uterus is enlarged in size heterogeneous in echotexture consistentwith the patient's state. The uterus measures 16.4 x 7.3 x 6.4 cm. Nofocal myometrial mass. The uterus is anteverted. Endometrium measures 9 mm, normal. Color flow was not utilized The ovaries are not visualized US/US pelvis IMPRESSION: Normal appearance of the endometrial cavity. Electronically authenticated by: MATHIEU PEREZ Date: 04/11/2024 07:21 Dictated By: Mathieu Perez M.D. Signed By:04/11/24722 DD/ 0 TD/TT: Envelope Patternmaker: us Fabiola Gandhi DO [facility] Final Result documented in this encounter Visit Diagnoses Not on filedocumented in this encounter Care Teams Subsurface Augmentee Elint Operator Relationship Specialty Start Date End Date Robert Green MD [address] [place] [address] PCP - General Family Medicine 05/31/23 documented as of this encounter
--- OUTSIDE RECORDS SUMMARY | 2025-05-06 12:49 | XMS_ITS | Encounter Summary ---
Author Organization [facility] Address [address] [place] [address] Care Team Providers Care Wheel Cutter Name Role Phone Robert Green MD Primary Care Provider [phone] Encounter Details Date Type Department Care Team (Late st Contact Info) Description 04/03/2024 Clinisync Result Encounter [facility] External Department Unsolicited Fabiola Gandhi, DO [address] [place] [address] Social History Tobacco Use Types Packs/Day Years Used Date Smoking Tobacco: Never Assessed Comments Yes Sex and Gender Information Value Date Recorded Sex Assigned at Not on file Legal Sex Female 11:47 PM EDT Gender Identity Not on file Sexual Orientation Not on file documented as of this encounter Plan of Treatment Upcoming Encounters Date Type Department Care Team (Late st Contact Info) Description 12/10/2025 11:00 AM EDT Office Visit [facility] [address] [place] [address] [place] [phone] Fabiola Gandhi DO [address] [place] [address] documented as of this encounter Procedures Procedure Name Priority Date/Time Associated Diagnosis Comments US OB TRANSVAGINAL 04/03/2024 11 :52 AM EDT documented in this encounter Results * US OB TRANSVAGINAL (04/03/2024 11:52 AM EDT) Anatomical Region Laterality Modality Other 04/03/2024 11:5 2 AM EDT Narrative 04/03/2024 11:54 [place] [address] Ultrasound Report Signed Patient: MELIZA HARLEY MR#: [id number] : 1990 Acct:[id number] Age/Sex: 33 / F ADM Date: 04/03/24 Loc: [facility] Attending Dr: Fabiola Gandhi D.O. Ordering Physician: Fabiola Gandhi D.O. Date of Service: 04/03/24 Procedure(s): US OB transvaginal Accession Number(s): [id number] cc: Fabiola Gandhi D.O.; ROBERTO HICKMAN [place] [address] Patient Name: MELIZA HARLEY MRN: [id number] date: 1990 Sex: F Assigned Patient Location: [facility] Current Patient Location: [facility] Accession/Order Number: [id number] Exam Date: 04/03/2024 11:14 Report Date: 04/03/2024 11:52 At the request of: FABIOLA GANDHI Procedure: US OB transvaginal EXAMINATION: US OB transvaginal HISTORY: BLEEDING IN EARLY COMPARISON: Ultrasound OB transvaginal 02/07/2024 FINDINGS: GESTATIONAL SAC: Present and normal appearing. YOLK SAC: Absent POLE: Present and normal appearing. CARDIAC: 166 bpm UTERUS: Subchorionic hematoma, 4.5 x 3.3 x 3.1 cm OVARIES: Right: Not seen. Left: Not seen. CERVIX: Not evaluated. CUL-DE-SAC: Normal. OTHER: None. AGE BY LMP: 14 weeks 3 days MYNOR BY LMP: 09/29/2024 AGE BY US CRL: 14 weeks 5 days MYNOR BY US CRL: 09/27/2024 US/US OB transvaginal IMPRESSION: 1. Single live intrauterine 14 weeks 5 days by today's ultrasound. 2. Prominent subchorionic hematoma. Otherwise no findings to suggest impending . Electronically authenticated by: CATRACHITO STEEN Date: 04/03/2024 11:52 Dictated By: Catrachito Steen M.D. Signed By: 04/03/24 1154 DD/ 1152 TD/TT: Drencher: Procedure Note Radiology, Radiologist, MD - 04/03/2024 [place] [address] Ultrasound Report Signed Patient: MELIZA HARLEY RMR#: [id number] : 1990Acct:[id number] Age/Sex: 33 / FADM Date: 04/03/24 Loc: [facility] Attending Dr: Fabiola Gandhi D.O. Ordering Physician: Fabiola Gandhi D.O. Date of Service: 04/03/24 Procedure(s): US OB transvaginal Accession Number(s): [id number] cc: Fabiola Gandhi D.O.; ROBERTO HICKMAN [place] [id number] Patient Name: MELIZA HARLEY MRN: [id number] date: 1990 Sex: F Assigned Patient Location: [facility] Current Patient Location: [facility] Accession/Order Number: [id number] Exam Date: 04/03/2024 11:14 Report Date: 04/03/2024 11:52 At the request of: FABIOLA GANDHI Procedure: US OB transvaginal EXAMINATION: US OB transvaginal HISTORY: BLEEDING IN EARLY COMPARISON: Ultrasound OB transvaginal 02/07/2024 FINDINGS: GESTATIONAL SAC: Present and normal appearing. YOLK SAC: Absent POLE: Present and normal appearing. CARDIAC: 166 bpm UTERUS: Subchorionic hematoma, 4.5 x 3.3 x 3.1 cm OVARIES: Right: Not seen. Left: Not seen. CERVIX: Not evaluated. CUL-DE-SAC: Normal. OTHER: None. AGE BY LMP: 14 weeks 3 days MYNOR BY LMP: 09/29/2024 AGE BY US CRL: 14 weeks 5 days MYNOR BY US CRL: 09/27/2024 US/US OB transvaginal IMPRESSION: 1. Single live intrauterine 14 weeks 5 days by today'sultrasound. 2. Prominent subchorionic hematoma. Otherwise no findings to suggestimpending . Electronically authenticated by: CATRACHITO STEEN Date: 04/03/2024 11:52 Dictated By: Catrachito Steen M.D. Signed By:04/03/24 1154 DD/ 1152 TD/TT: Drencher: us Fabiola Gandhi DO [facility] Final Result documented in this encounter Visit Diagnoses Not on filedocumented in this encounter Care Teams Wheel Cutter Relationship Specialty Start Date End Date Robert Green MD [address] [place] [address] PCP - General Family Medicine 05/31/23 documented as of this encounter
--- OUTSIDE RECORDS SUMMARY | 2025-05-06 12:49 | XMS_ITS | Encounter Summary ---
Author Organization [facility] Address [address] [place] [address] Care Team Providers Care Tobacco Sample Puller Name Role Phone Robert Green MD Primary Care Provider [phone] Encounter Details Date Type Department Care Team (Late Contact Info) Description 02/01/2024 Abstract [facility] [place] [address] Daljit Gandhi DO [address] [place] [address] [place] [address] Social History Tobacco Use Types Packs/Day Years Used Date Smoking Tobacco: Never Assessed Comments Unknown Sex and Gender Information Value Date Recorded Sex Assigned at Not on file Legal Sex Female 11:47 PM EDT Gender Identity Not on file Sexual Orientation Not on file documented as of this encounter Plan of Treatment Upcoming Encounters Date Type Department Care Team (Late Contact Info) Description 12/10/2025 11:00 AM EDT Office Visit [facility] [place] [address] Daljit Gandhi DO [address] [facility] [address] [place] [phone] documented as of this encounter Visit Diagnoses Not on filedocumented in this encounter Care Teams Tobacco Sample Puller Relationship Specialty Start Date End Date Robert Green MD [address] [place] [phone] PCP - General Family Medicine 05/31/23 documented as of this encounter
--- OUTSIDE RECORDS SUMMARY | 2025-05-06 12:49 | XMS_ITS | Clinical Summary ---
Author Organization [facility] Address [address] [place] [address] Care Team Providers Care Abap Developer Name Role Phone Robert Green MD Primary Care Provider [phone] Allergies No known active allergies Medications Progesterone 200 MG suppositoryIndi cations:History of miscarriage Insert 200 mg into the vagina at bedtime Insert suppository vaginally every night at bedtime until 12 weeks gestation 30 suppository 2 04/29/20 25 025 Active Encounters Date Type Department Care Team Description 04/29/2025 Telephone [facility] [address] [place] [address] [place] [address] Peri Jolley MA from Last 3 Months Family History Relation Name Status Comments Father Alive Mother Alive Social History Tobacco Use Types Packs/Day Years Used Date Smoking Tobacco: Never Assessed Comments No Sex and Gender Information Value Date Recorded Sex Assigned at Not on file Legal Sex Female 11:47 PM EDT Gender Identity Not on file Sexual Orientation Not on file Last Filed Vital Signs Vital Sign Reading Time Taken Comments Blood Pressure 138/76 12/05/2024 11:14 AM EDT Pulse - - Temperature - - Respiratory Rate - - Oxygen Saturation - - Inhaled Oxygen Concentration - - Weight 85.5 kg (188 lb 8 oz) 12/05/2024 11:14 AM EDT Height 160 cm (5' 3 ) 05/31/2023 3:09 PM EDT Body Mass Index 33.39 05/31/2023 3:09 PM EDT Plan of Treatment Upcoming Encounters Date Type Department Care Team (Late st Contact Info) Description 12/10/2025 11:00 AM EDT Office Visit [facility] [address] [facility] [address] Daljit Gandhi DO [address] [facility] [place] [address] Insurance [employer] Care Teams Abap Developer Relationship Specialty Start Date End Date Robert Green MD [address] [place] [address] PCP - General Family Medicine 05/31/23
--- OUTSIDE RECORDS SUMMARY | 2025-05-06 12:49 | XMS_ITS | Encounter Summary ---
Author Organization [facility] Address [address] [place] [address] Phone Care Team Providers Care Manager Nc Name Role Phone Unavailable Primary Care Provider Unavailabl e Encounter Details Date Type Department Care Team (Late st Contact Info) Description 03/12/2020 Orders Only [facility] [address] [place] [address] Conversion, Onbase Social History Tobacco Use Types Packs/Day Years Used Date Smoking Tobacco: Never Assessed Comments Unknown Sex and Gender Information Value Date Recorded Sex Assigned at Not on file Legal Sex Female 12:15 PM EST Gender Identity Not on file Sexual Orientation Not on file documented as of this encounter Plan of Treatment Scheduled Orders Name Type Priority Associated Diagnoses Orde r Schedule OUTSIDE LAB SCAN Lab Ordered: 03/12/2020 documented as of this encounter Visit Diagnoses Not on filedocumented in this encounter
--- OUTSIDE RECORDS SUMMARY | 2025-05-06 12:49 | XMS_ITS | Patient Health Record ---
Author Organization [facility] Address [address] [place] [address] Support Name Relationship Address Phone COLBY MATA Emergency Contact [address] [place] [address] AD [address] [place] [phone] ELENI MATA Guarantor Unknown [phone] Reason For Referral No Information Problems Problem Type SNOMED Code ICD Code Onset Dates Problem Status W/U Status Risk Notes Problem Posttraumatic stress disorder (60465503) PTSD (post-traumatic stress disorder) (F43.10) Active confirmed Problem Episodic mood disorder (74242109789045) Episodic mood disorder (F39) Active confirmed Problem Dissociative disorder (02536277) 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
--- OUTSIDE RECORDS SUMMARY | 2025-05-06 12:49 | XMS_ITS | Clinical Summary ---
Author Organization [facility] Address [address] [place] [address] Phone Care Team Providers Care Resident Service Coordinator Name Role Phone Unavailable Primary Care Provider Unavailabl e Social History Tobacco Use Types Packs/Day Years Used Date Smoking Tobacco: Never Assessed Comments Unknown Sex and Gender Information Value Date Recorded Sex Assigned at Not on file Legal Sex Female 12:15 PM EST Gender Identity Not on file Sexual Orientation Not on file Plan of Treatment Not on file
--- OUTSIDE RECORDS SUMMARY | 2025-05-06 12:49 | XMS_ITS | Encounter Summary ---
Author Organization [facility] Address [address] [place] [address] Care Team Providers Care Cement Mixer Name Role Phone Robert Green MD Primary Care Provider [phone] Encounter Details Date Type Department Care Team (Late Contact Info) Description 05/09/2024 Abstract [facility]to MO[facility] [place] [address] Daljit Gandhi DO [address] [place] [address] [place] [address] Social History Tobacco Use Types Packs/Day Years [...] 11:00 AM EDT Office Visit CATALINO MOE [facility] [place] [address] Daljit Gandhi DO [address] [facility] [address] [place] [id number] documented as of this encounter Visit Diagnoses Not on filedocumented in this encounter Care Teams Cement Mixer Relationship Specialty Start Date End Date Robert Green MD [address] [place] [id number] PCP - General Family Medicine 05/31/23 documented as of this encounter
--- OUTSIDE RECORDS SUMMARY | 2025-05-06 12:49 | XMS_ITS | Encounter Summary ---
Author Organization [facility] Address [address] [place] [address] Care Team Providers Care Lifter Driver Name Role Phone Robert Green MD Primary Care Provider [phone] Reason for Visit * Reason Onset Date Comments Med Refill 02/05/2024 Encounter Details Date Type Department Care Team (Late st Contact Info) Description 02/05/2024 Refill NOMRoberto MOE [address] [place] [id number] Daljit Gandhi DO [address], [place] [address] History of miscarriage Social History Tobacco Use Types Packs/Day Years Used Date Smoking Tobacco: Never Assessed Comments Unknown Sex and Gender Information Value Date Recorded Sex Assigned at Not on file Legal Sex Female 11:47 PM EDT Gender Identity Not on file Sexual Orientation Not on file documented as of this encounter Miscellaneous Notes * Telephone Encounter - Cheyanne Plunkett LPN - 02/06/2024 10:19 AM EDT Approving, but needs appt for additional refills. documented in this encounter Plan of Treatment Upcoming Encounters Date Type Department Care Team (Late st Contact Info) Description 12/10/2025 11:00 AM EDT Office Visit NOMRoberto MOE [address] [place] [address] Hiram, Daljit, [address] [place] [address] documented as of this encounter Visit Diagnoses Diagnosis History of miscarriage Personal history of other genital system and obstetric disorders documented in this encounter Care Teams Lifter Driver Relationship Specialty Start Date End Date Robert Green MD [address] [place] [address] PCP - General Family Medicine 05/31/23 documented as of this encounter
--- OUTSIDE RECORDS SUMMARY | 2025-05-06 12:49 | XMS_ITS | Encounter Summary ---
Author Organization [facility] Address [address] [place] [address] Care Team Providers Care Customer Solutions Representative Name Role Phone Robert Green MD Primary Care Provider [phone] Encounter Details Date Type Department Care Team (Late Contact Info) Description 04/09/2024 Abstract [facility]Roberto MOE [facility] [place] [address] Daljit Gandhi DO [address] [place] [address] [place] [address] Social History Tobacco Use Types Packs/Day Years [...] 11:00 AM EDT Office Visit CATALINO MOE [facility] [place] [address] Daljit Gandhi DO [address] [facility] [address] [place] [id number] documented as of this encounter Visit Diagnoses Not on filedocumented in this encounter Care Teams Customer Solutions Representative Relationship Specialty Start Date End Date Robert Green MD [address] [place] [id number] PCP - General Family Medicine 05/31/23 documented as of this encounter
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
--- OUTSIDE RECORDS SUMMARY | 2025-05-06 12:49 | XMS_ITS | Encounter Summary ---
Author Organization [facility] Address [address] [place] [address] Care Team Providers Care Forest Fire Warden Name Role Phone Robert Green MD Primary Care Provider [phone] Encounter Details Date Type Department Care Team (Late st Contact Info) Description 06/08/2023 Clinisync Result Encounter NOMS External Department Unsolicited Fabiola Gandhi, DO [address] [place] [address] Social History Tobacco Use Types Packs/Day Years [...] 11:00 AM EDT Office Visit NOMRoberto MOE [address] [place] [address] [place] [address] Fabiola Gandhi DO [address] [place] [address] documented as of this encounter Procedures Procedure Name Priority Date/Time Associated Diagnosis Comments US PELVIS TRANSVAGINAL 1:01 PM EDT ALL LUTEINIZING HORMONE Routine 06/08/20 10:59 AM EDT ALL FOLLICLE STIMULATING HORMONE Routine 06/08/2023 10:59 AM EDT ALL DHEA SULFATE Routine 06/08/2023 10:59 AM EDT ALL DEHYDROEPIANDROSTERONE Routine 06/08 10:59 AM EDT documented in this encounter Results * US PELVIS TRANSVAGINAL (06/08/2023 1:01 PM EDT) Anatomical Region Laterality Modality Other 06/08/2023 1:01 PM EDT Narrative 06/08/2023 1:01 [place] [address] Ultrasound Report Signed Patient: MELIZA HARLEY MR#: [id number] : 1990 Acct:[id number] Age/Sex: 32 / F ADM Date: 06/08/23 Loc: US Attending Dr: Fabiola Gandhi D.O. Ordering Physician: Fabiola Gandhi D.O. Date of Service: 06/08/23 Procedure(s): US pelvis transvaginal Accession Number(s): [id number] cc: Fabiola Gandhi D.O.; ROBERTO HICKMAN [place] [id number] Patient Name: MELIZA HARLEY MRN: [id number] date: 1990 Sex: F Assigned Patient Location: US Current Patient Location: US Accession/Order Number: [id number] Exam Date: 06/08/2023 10:20 Report Date: 06/08/2023 13:01 At the request of: FABIOLA GANDHI Procedure: US pelvis transvaginal EXAMINATION: US pelvis transvaginal HISTORY: Abnormal Uterine Bleeding COMPARISON: Ultrasound pelvis 11/13/2021 TECHNIQUE: Transabdominal and/or transvaginal sonographic examination was performed as indicated by examination type. FINDINGS: UTERUS: Normal size and appearance. Uterus size: 8.0 x 5.5 x 3.7 cm ENDOMETRIUM: Normal homogeneous appearance. Endometrial thickness: 5 mm RIGHT OVARY: Contains multiple small peripherally located follicles. Duplex Doppler demonstrates normal waveform and flow; resistive index 0.6. Ovary size: 3.5 x 2.4 x 2.2 cm LEFT OVARY: Contains several small peripherally located follicles. Duplex Doppler demonstrates normal waveform and flow; resistive index 0.6. Ovary size: 3.9 x 2.6 x 2.4 cm CUL-DE-SAC: Unremarkable. No significant free fluid. BLADDER: Unremarkable. OTHER: None. US/US pelvis transvaginal IMPRESSION: 1. No abnormal or overtly suspicious findings. 2. Both ovaries contain multiple small peripherally located follicles; nonspecific but this can be seen with polycystic ovarian syndrome. Electronically authenticated by: CATRACHITO STEEN Date: 06/08/2023 13:01 Dictated By: Catrachito Steen M.D. Signed By: 06/08/231302 DD/ 130 TD/TT: Research Chief Engineer: Procedure Note Radiology, Radiologist, MD - 06/08/2023 [place] [address] Ultrasound Report Signed Patient: MELIZA HARLEY RMR#: [id number] : 1990Acct:[id number] Age/Sex: 32 / FADM Date: 06/08/23 Loc: US Attending Dr: Fabiola Gandhi D.O. Ordering Physician: Fabiola Gandhi D.O. Date of Service: 06/08/23 Procedure(s): US pelvis transvaginal Accession Number(s): [id number] cc: Fabiola Gandhi D.O.; ROBERTO HICKMAN [place] [id number] Patient Name: MELIZA HARLEY MRN: [id number] date: 1990 Sex: F Assigned Patient Location: US Current Patient Location: US Accession/Order Number: [id number] Exam Date: 06/08/2023 10:20 Report Date: 06/08/2023 13:01 At the request of: FABIOLA GANDHI Procedure: US pelvis transvaginal EXAMINATION: US pelvis transvaginal HISTORY: Abnormal Uterine Bleeding COMPARISON: Ultrasound pelvis 11/13/2021 TECHNIQUE: Transabdominal and/or transvaginal sonographic examination was performed as indicated by examination type. FINDINGS: UTERUS: Normal size and appearance. Uterus size: 8.0 x 5.5 x 3.7 cm ENDOMETRIUM: Normal homogeneous appearance. Endometrial thickness: 5 mm RIGHT OVARY: Contains multiple small peripherally located follicles.Duplex Doppler demonstrates normal waveform and flow; resistive index 0.6. Ovary size: 3.5 x 2.4 x 2.2 cm LEFT OVARY: Contains several small peripherally located follicles. Duplex Doppler demonstrates normal waveform and flow; resistive index 0.6. Ovary size: 3.9 x 2.6 x 2.4 cm CUL-DE-SAC: Unremarkable. No significant free fluid. BLADDER: Unremarkable. OTHER: None. US/US pelvis transvaginal IMPRESSION: 1. No abnormal or overtly suspicious findings. 2. Both ovaries contain multiple small peripherally located follicles; nonspecific but this can be seen with polycystic ovarian syndrome. Electronically authenticated by: CATRACHITO STEEN Date: 06/08/2023 13:01 Dictated By: Catrachito Steen M.D. Signed By:06/08/23 1303 DD/ 1301 TD/TT: Research Chief Engineer: Fabiola Hiram DO [facility] Final Result * ALL DEHYDROEPIANDROSTERONE (06/08/2023 10:59 AM EDT) DHEA, SERUM 333 31 - 701 ng/dL [facility] Comment: This test was developed and its performance characteristics determined by [facility]. It has not been cleared or approved by the Food and Drug Administration. Performed at: [address] [id number] Automation Control Integrator: Denice Delaney MD, Phone: [phone] 06/08/2023 10:5 9 AM EDT 06/08/2023 11:02 AM EDT Narrative CLINISYNC - 06/14/2023 5:07 AM EDT us Fabiola Hiram DO CLINIS[facility] Final Result Performing Organization Address [facility] de Phone Number [facility] * ALL FOLLICLE STIMULATING HORMONE (06/08/2023 10:59 AM EDT) FSH 5.8 . mIU/mL [facility] Comment: Adult Female: Follicular phase 3.5 - 12.5 Ovulation phase 4.7 - 21.5 Luteal phase 1.7 - 7.7 Postmenopausal 25.8 - 134.8 Performed at: [address] [id number] Automation Control Integrator: Ryan Devine PhD, Phone: [phone] 06/08/2023 10:5 9 AM EDT 06/08/2023 11:02 AM EDT Narrative CLINISYNC - 06/09/2023 8:12 AM EDT Fabiola Hiram DO CLINISYNC Final Result Performing Organization Address [facility] de Phone Number [facility] * ALL LUTEINIZING HORMONE (06/08/2023 10:59 AM EDT) LUTEINIZING HORMONE(LH) 12.6 . mIU/mL [facility] Comment: Adult Female: Follicular phase 2.4 - 12.6 Ovulation phase 14.0 - 95.6 Luteal phase 1.0 - 11.4 Postmenopausal 7.7 - 58.5 06/08/2023 10:5 9 AM EDT 06/08/2023 11:02 AM EDT Narrative CLINISYNC - 06/09/2023 8:12 AM EDT Fabiola Hiram DO CLINISYNC Final Result Performing Organization Address City/[facility] de Phone Number [facility] * ALL DHEA SULFATE (06/08/2023 10:59 AM EDT) DHEA-SULFATE 260.0 84.8 - 378.0 ug/dL [facility] 06/08/2023 10:5 9 AM EDT 06/08/2023 11:02 AM EDT Narrative CLINISYNC - 06/09/2023 8:12 AM EDT us Fabiola Gandhi DO CLINIS[facility]NC Final Result [facility] documented in this encounter Visit Diagnoses Not on filedocumented in this encounter Care Teams Forest Fire Warden Relationship Specialty Start Date End Date Robert Green MD [address] [place] [address] PCP - General Family Medicine 05/31/23 documented as of this encounter
--- OUTSIDE RECORDS SUMMARY | 2025-05-06 12:49 | XMS_ITS | Encounter Summary ---
Author Organization [facility] [employer] [facility] tem Address [id number] [address] [place] [address] Care Team Providers Care Fisher Trammel Net Name Role Phone Shireen Marsh MD Primary Care Provider [phone] Encounter Details Date Type Department Care Team (Late st Contact Info) Description 08/27/2020 Orders Only Maternal- Medicine at [facility] [address] [place] [id number] External, Scanning Provider Social History Tobacco Use Types Packs/Day Years Used Date Smoking Tobacco: Never Alcohol Use Standard Drinks/Week Comments Not Currently 0 (1 standard drink = 0.6 oz pur e alcohol) Childcare Answer Date Recorded Childcare Unknown 08/27/2020 Employment Answer Date Recorded Employment Unknown 08/27/2020 Purpose - Life Answer Date Recorded Purpose and direction in life Unknown Comments Yes Sex and Gender Information Value Date Recorded Sex Assigned at Not on file Legal Sex Female 11:49 AM EST Gender Identity Not on file Sexual Orientation Not on file COVID-19 Exposure Response Date Recorded In the last month, have you been in contact with someone who was confirmed or suspected to have Coronavirus / COVID-19? No / Unsure 08/28/2020 11:26 AM EST documented as of this encounter Plan of Treatment Not on file documented as of this encounter Procedures Procedure Name Priority Date/Time Associated Diagnosis Comments US PREG LMTD 1 OR MORE FETUS Routine 2020 US PREG LMTD 1 OR MORE FETUS Routine 08/12/2020 US PREG LMTD 1 OR MORE FETUS Routine 07/28/2020 US PREG LMTD 1 OR MORE FETUS Routine 07/14/2020 US PREG LMTD 1 OR MORE FETUS Routine 05/12/2020 US PREG LMTD 1 OR MORE FETUS Routine 04/23/2020 documented in this encounter Results * Ultrasound limited 1 or more fetus (2020) Anatomical Region Laterality Modality OB-MICROBIOLOGY LAB TECHNICIAN Ultrasound Narrative 2020 See attached report us Scanning Provider External IMG US ORDERABLES Paco kylie Result - Final * Ultrasound limited 1 or more fetus (08/12/2020) Anatomical Region Laterality Modality OB-MICROBIOLOGY LAB TECHNICIAN Ultrasound Narrative 08/12/2020 See attached report us Scanning Provider External IMG US ORDERABLES Paco kylie Result - Final * Ultrasound limited 1 or more fetus (07/28/2020) Anatomical Region Laterality Modality OB-MICROBIOLOGY LAB TECHNICIAN Ultrasound Narrative 07/28/2020 See attached report us Scanning Provider External IMG US ORDERABLES Paco kylie Result - Final * Ultrasound limited 1 or more fetus (07/14/2020) Anatomical Region Laterality Modality OB-MICROBIOLOGY LAB TECHNICIAN Ultrasound Narrative 07/14/2020 See attached report us Scanning Provider External IMG US ORDERABLES Paco kylie Result - Final * Ultrasound limited 1 or more fetus (05/12/2020) Anatomical Region Laterality Modality OB-MICROBIOLOGY LAB TECHNICIAN Ultrasound Narrative 05/12/2020 See attached report us Scanning Provider External IMG US ORDERABLES Paco kylie Result - Final * Ultrasound limited 1 or more fetus (04/23/2020) Anatomical Region Laterality Modality OB-MICROBIOLOGY LAB TECHNICIAN Ultrasound Narrative 04/23/2020 See attached report us Scanning Provider External IMG US ORDERABLES Paco kylie Result - Final documented in this encounter Visit Diagnoses Not on filedocumented in this encounter Care Teams Fisher Trammel Net Relationship Specialty Start Date End Date Shireen Marsh MD PCP - General Family Medicine 08/28/20 documented as of this encounter
--- OUTSIDE RECORDS SUMMARY | 2025-05-06 12:49 | XMS_ITS | Encounter Summary ---
Author Organization [facility] Address [address] [place] [address] Care Team Providers Care Advertisement Compositor Name Role Phone Robert Green MD Primary Care Provider [phone] Encounter Details Date Type Department Care Team (Late Contact Info) Description 05/31/2023 Abstract [facility]Roberto MOE [facility] [place] [address] Daljit Gandhi DO [address] [place] [address] [place] [address] Social History Tobacco Use Types Packs/Day Years [...] 11:00 AM EDT Office Visit CATALINO MOE [facility] [place] [address] Daljit Gandhi DO [address] [facility] [address] [place] [id number] documented as of this encounter Visit Diagnoses Not on filedocumented in this encounter Care Teams Advertisement Compositor Relationship Specialty Start Date End Date Robert Green MD [address] [place] [id number] PCP - General Family Medicine 05/31/23 documented as of this encounter
--- OUTSIDE RECORDS SUMMARY | 2025-05-06 12:49 | XMS_ITS | Encounter Summary ---
Author Organization [facility] Address [address] [place] [address] Care Team Providers Care Tunnel Heading Supervisor Name Role Phone Robert Green MD Primary Care Provider [phone] Encounter Details Date Type Department Care Team (Late st Contact Info) Description 02/07/2024 Clinisync Result Encounter [facility] External Department Unsolicited Fabiola Gandhi, DO [address] [place] [address] Social History Tobacco Use Types Packs/Day Years [...] 11:00 AM EDT Office Visit [facility] [address] [place] [address] [place] [phone] Fabiola Gandhi, DO [address] [place] [address] documented as of this encounter Procedures Procedure Name Priority Date/Time Associated Diagnosis Comments US OB TRANSVAGINAL 02/07/2024 2: 03 PM EDT documented in this encounter Results * US OB TRANSVAGINAL (02/07/2024 2:03 PM EDT) Anatomical Region Laterality Modality Other 02/07/2024 2:03 PM EDT Narrative 02/07/2024 2:06 [place] [address] Ultrasound Report Signed Patient: MELIZA HARLYE MR#: [id number] : 1990 Acct:[id number] Age/Sex: 33 / F ADM Date: 02/07/24 Loc: [facility] Attending Dr: Fabiola Gandhi D.O. Ordering Physician: Fabiola Gandhi D.O. Date of Service: 02/07/24 Procedure(s): US OB transvaginal Accession Number(s): [id number] cc: Fabiola Gandhi D.O.; ROBERTO HICKMAN [place] [address] Patient Name: MELIZA HARLEY MRN: [id number] date: 1990 Sex: F Assigned Patient Location: [facility] Current Patient [facility]: [facility] Accession/Order Number: [id number] Exam Date: 02/07/2024 12:49 Report Date: 02/07/2024 14:03 At the request of: FABIOLA GANDHI Procedure: US OB transvaginal EXAMINATION: US OB transvaginal HISTORY: MISSED MENSES, VIABILITY COMPARISON: No relevant comparison available. FINDINGS: Mcnally intrauterine gestation Gestational sac: 1.26 cm, 5 weeks 3 days CRL: 0.63 cm, 6 weeks 3 days Yolk sac: 2.4 mm Heart rate: 129 beats minute Cervix: Closed, 3.3 cm The uterus is normal, anteverted, anteflexed The ovaries are normal Clinical age: 16 weeks 3 days Clinical MYNOR: 07/21/2024 Ultrasound age: 6 weeks 3 days Ultrasound MYNOR: 09/29/2024 US/US OB transvaginal IMPRESSION: Viable mcnally intrauterine gestation measuring 6 weeks 3 days Electronically authenticated by: MATHIEU PEREZ Date: 02/07/2024 14:03 Dictated By: Mathieu Perez M.D. Signed By: 02/07/24 1406 DD/ 1403 TD/TT: Ticket Dispenser Changer: Procedure Note Radiology, Radiologist, - 02/07/2024 [place] [address] Ultrasound Report Signed Patient: MELIZA HARLEY RMR#: [id number] : 1990Acct:[id number] Age/Sex: 33 / FADM Date: 02/07/24 Loc: [facility] Attending Dr: Fabiola Gandhi D.O. Ordering Physician: Fabiola Gandhi D.O. Date of Service: 02/07/24 Procedure(s): US OB transvaginal Accession Number(s): [id number] cc: Fabiola Gandhi D.O.; ROBERTO HICKMAN [place] [address] Patient Name: MELIZA HARLEY MRN: [id number] date: 1990 Sex: F Assigned Patient Location: [facility] Current Patient Location: [facility] Accession/Order Number: [id number] Exam Date: 02/07/2024 12:49 Report Date: 02/07/2024 14:03 At the request of: FABIOLA GANDHI Procedure: US OB transvaginal EXAMINATION: US OB transvaginal HISTORY: MISSED MENSES, VIABILITY COMPARISON: No relevant comparison available. FINDINGS: Mcnally intrauterine gestation Gestational sac: 1.26 cm, 5 weeks 3 days CRL: 0.63 cm, 6 weeks 3 days Yolk sac: 2.4 mm Heart rate: 129 beats minute Cervix: Closed, 3.3 cm The uterus is normal, anteverted, anteflexed The ovaries are normal Clinical age: 16 weeks 3 days Clinical MYNOR: 07/21/2024 Ultrasound age: 6 weeks 3 days Ultrasound MYNOR: 09/29/2024 US/US OB transvaginal IMPRESSION: Viable mcnally intrauterine gestation measuring 6 weeks 3 days Electronically authenticated by: MATHIEU PEREZ Date: 02/07/2024 14:03 Dictated By: Mathieu Perez M.D. Signed By:02/07/24 1406 DD/ 02 TD/TT: Ticket Dispenser Changer: us Fabiola Hiram DO [facility] Final Result documented in this encounter Visit Diagnoses Not on filedocumented in this encounter Care Teams Tunnel Heading Supervisor Relationship Specialty Start Date End Date Robert Green MD [address] [place] [address] PCP - General Family Medicine 05/31/23 documented as of this encounter
--- OUTSIDE RECORDS SUMMARY | 2025-05-06 12:49 | XMS_ITS | Encounter Summary ---
Author Organization [facility] Address [address] [place] [address] Care Team Providers Care Med Dir Name Role Phone Robert Green MD Primary Care Provider [phone] Encounter Details Date Type Department Care Team (Late Contact Info) Description 04/10/2024 Abstract [facility] [place] [address] Daljit Gandhi DO [address] [place] [address] [place] [address] Social History Tobacco Use Types Packs/Day Years [...] 11:00 AM EDT Office Visit [facility] [place] [address] Daljit Gandhi DO [address] [facility] [address] [place] [id number] documented as of this encounter Visit Diagnoses Not on filedocumented in this encounter Care Teams Med Dir Relationship Specialty Start Date End Date Robert Green MD [address] [place] [id number] PCP - General Family Medicine 05/31/23 documented as of this encounter
--- OUTSIDE RECORDS SUMMARY | 2025-05-06 12:50 | XMS_ITS | Encounter Summary ---
Author Organization [facility] Address [address] [place] [address] Care Team Providers Care Labor Contractor Name Role Phone Robert Green MD Primary Care Provider [phone] Encounter Details Date Type Department Care Team (Late Contact Info) Description 03/12/2024 Abstract [facility] [employer] [facility] [place] [place] [address] Daljit Gandhi DO [address] [place] [address] [place] [address] Social History Tobacco Use Types Packs/Day Years [...] 11:00 AM EDT Office Visit [facility] [employer] [facility] [place] [address] Daljit Gandhi DO [address] [place] [id number] documented as of this encounter Visit Diagnoses Not on filedocumented in this encounter Care Teams Labor Contractor Relationship Specialty Start Date End Date Robert Green MD [address] [place] [id number] PCP - General Family Medicine 05/31/23 documented as of this encounter
--- OUTSIDE RECORDS SUMMARY | 2025-05-06 12:50 | XMS_ITS | Encounter Summary ---
Author Organization [facility] Address [address] [place] [address] Care Team Providers Care Public Health Aides Teacher Name Role Phone Robert Green MD Primary Care Provider [phone] Encounter Details Date Type Department Care Team (Late Contact Info) Description 03/26/2024 Abstract [facility] [address] [employer] [place] [address] Elysia Davis LPN [address] [place] [address] Social History Tobacco Use Types Packs/Day Years [...] 11:00 AM EDT Office Visit [facility]INO [facility]E [address] [place] [address] Daljit Gandhi DO [address] [place] [id number] documented as of this encounter Visit Diagnoses Not on filedocumented in this encounter Care Teams Public Health Aides Teacher Relationship Specialty Start Date End Date Robert Green MD [address] [place] [phone] PCP - General Family Medicine 05/31/23 documented as of this encounter
--- OUTSIDE RECORDS SUMMARY | 2025-05-06 12:50 | XMS_ITS | Encounter Summary ---
Author Organization [facility] Address [address] [facility] [place] [address] Care Team Providers Care Robotic Welder Name Role Phone Robert Green MD Primary Care Provider [phone] Encounter Details Date Type Department Care Team (Late st Contact Info) Description 12/18/2024 Orders Only [facility] [place] [place] [address] Cheyanne Plunkett LPN [address] [employer] [facility] [place] [address] Social History Tobacco Use Types Packs/Day Years [...] AM EDT Office Visit [facility] [address] [place] [address] Daljit Gandhi DO [address] [employer] [address] [place], [place] [phone] documented as of this encounter Procedures Procedure Name Priority Date/Time Associated Diagnosis Comments PAP SMEAR Routine 12/05/2024 12:00 AM EDT documented in this encounter Results * Pap Smear (12/05/2024 12:00 AM EDT) Swab Cervical swab / Unknown us Hiram Nurse [facility] Ob LAB CYTOLOGY ORDERABLES Final Result EXTERNAL LAB documented in this encounter Visit Diagnoses Not on filedocumented in this encounter Care Teams Robotic Welder Relationship Specialty Start Date End Date Robert Green MD [address] [place] [address] PCP - General Family Medicine 05/31/23 documented as of this encounter
--- OUTSIDE RECORDS SUMMARY | 2025-05-06 12:50 | XMS_ITS | Encounter Summary ---
Author Organization [facility] Address [address] [place] [address] Care Team Providers Care Analysis Consultant Name Role Phone Robert Green MD Primary Care Provider [phone] Encounter Details Date Type Department Care Team (Late st Contact Info) Description 04/29/2025 Telephone [facility] [address] [address] [place] [phone] Vadim Dejesus MA [address] [place] [address] Social History Tobacco Use Types Packs/Day Years Used Date Smoking Tobacco: Never Assessed Comments No Sex and Gender Information Value Date Recorded Sex Assigned at Not on file Legal Sex Female 11:47 PM EDT Gender Identity Not on file Sexual Orientation Not on file documented as of this encounter Miscellaneous Notes * Addendum Note - Vadim Dejesus MA - 04/29/2025 10:42 AM EDTAddended by: VADIM DEJESUS on: 04/29/2025 10:42 AM Modules accepted: Orders * Telephone Encounter - Vadim Dejesus MA - 04/29/2025 10:33 AM EDT Patients called and is on HIPAA and wanted to have HCG labs sent to determine . I advised Abel labs will be sent to [facility] and to have go today and repeat again in 2 days. also requested progesterone suppositories to be sent to [facility] for her as well. 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 I advised Abel I will send it now. documented in this encounter Plan of Treatment Upcoming Encounters Date Type Department Care Team (Late st Contact Info) Description 12/10/2025 11:00 AM EDT Office Visit [facility] [place] [facility] [address] [facility] [address] Daljit Gandhi DO [address] [facility] [place] [address] Scheduled Orders Name Type Priority Associated Diagnoses Orde r Schedule hCG, quantitative, Lab Routine Positive urine test ([facility]) Expected: 04/29/2025 (Approximate), Expires: 04/29/2026 documented as of this encounter Visit Diagnoses Diagnosis Positive urine test ([facility]) History of miscarriage Personal history of other genital system and obstetric disorders documented in this encounter Care Teams Analysis Consultant Relationship Specialty Start Date End Date Robert Green MD [address] [place] [address] PCP - General Family Medicine 05/31/23 documented as of this encounter
--- OUTSIDE RECORDS SUMMARY | 2025-05-06 12:50 | XMS_ITS | Encounter Summary ---
Author Organization [facility] Address [address] [place] [address] Care Team Providers Care Nursing Program Chair Name Role Phone Robert Green MD Primary Care Provider [phone] Encounter Details Date Type Department Care Team (Late Contact Info) Description 03/18/[address] [facility] [place] [address] Daljit Gandhi DO [address] [place] [address] [place] [address] Social History Tobacco Use Types Packs/Day Years [...] 11:00 AM EDT Office Visit [facility]ALINO [facility] [place] [address] Daljit Gandhi DO [address] [place] [phone] documented as of this encounter Visit Diagnoses Not on filedocumented in this encounter Care Teams Nursing Program Chair Relationship Specialty Start Date End Date Robert Green MD [address] [place] [phone] PCP - General Family Medicine 05/31/23 documented as of this encounter
--- OUTSIDE RECORDS SUMMARY | 2025-05-06 12:55 | XMS_ITS | CCD ---
Author Organization [facility] Care Team Providers Care Technical Publications Manager Name Role Phone HIRAM, DR HICKS Consulting Unavailable LAUREN, DR SAKINA Sosa Primary Care Unavailable HIRAM, DR HICKS Attending Unavailable HIRAM, DR HICKS Admitting Unavailable Zieber, DR Winston Consulting Unavailable SAMIR, DR FELIPA Monzon Consulting Unavailable HIRAM, DR HICKS Attending Unavailable HIRAM, DR HICKS Admitting Unavailable MARSH, DR SAKINA Sosa Primary Care Unavailable HIRAM, DR HICKS Consulting Unavailable AGUBOSIM, CASSI Consulting Unavailable CHRIS VILLAGRAN Consulting Unavailable HIRAM, DR HICKS Consulting Unavailable LAUREN, DR SAKINA Sosa Primary Care Unavailable HIRAM, DR HICKS Attending Unavailable HIRAM, DR HICKS Admitting Unavailable HIRAM, DR HICKS Consulting Unavailable LAUREN, DR SAKINA Sosa Primary Care Unavailable HIRAM, DR HICKS Attending Unavailable HIRAM, DR HICKS Admitting Unavailable HIRAM, DR HICKS Consulting Unavailable MARSH, DR SAKINA Sosa Primary Care Unavailable HIRAM, DR HICKS Attending Unavailable HIRAM, DR HICKS Admitting Unavailable HIRAM, DR HICKS Consulting Unavailable MARSH, DR SAKINA Sosa Primary Care Unavailable HIRAM, DR HICKS Attending Unavailable HIRAM, DR HICKS Admitting Unavailable HIRAM, DR HICKS Consulting Unavailable LAUREN, DR SAKINA Sosa Primary Care Unavailable HIRAM, DR HICKS Attending Unavailable HIRAM, DR HICKS Admitting Unavailable HIRAM, DR HICKS Consulting Unavailable MARSH, DR SAKINA Sosa Primary Care Unavailable HIRAM, DR HICKS Attending Unavailable HIRAM, DR HICKS Admitting Unavailable HIRAM, DR HICKS Consulting Unavailable LAUREN, DR SAKINA Sosa Primary Care Unavailable HIRAM, DR HICKS Attending Unavailable HIRAM, DR HICKS Admitting Unavailable HIRAM, DR HICKS Consulting Unavailable MARSH, DR SAKINA Sosa Primary Care Unavailable DR FABIOLA GANDHI Attending Unavailable DR FABIOLA GANDHI Admitting Unavailable Tessy Cornell Attending Unavailable Cassi Green MD Primary Care Provider FABIOLA GANDHI Attending Unavailable FABIOLA GANDHI Attending Unavailable FABIOLA GANDHI Attending Unavailable Allergies Allergy Classification Reported Allergen(s) Allergy Type Date of Onset Reaction(s) Facility (1 source) No Known Medication Allergies; Translations: [No Known Medication Allergies] Propensity to adverse reactions (disorder) [facility] Repository Medications Completed/Discontinued Medications Medication Drug Class(es) Dates Sig (Normalized) Sig (Original) progesterone 200 mg oral capsule (3 sources) Progesterone Start: 02-08-2024 End: 05-08-2024 take 1 capsule by mouth once daily progesterone 200 MG capsule Indications: History of miscarriage Take 1 capsule (200 mg) by mouth Daily 30 capsule 2 02/08/2024 04/08/2024 Discontinued Problems Active Problems Problem Classification Problem Date Documented Date Episodic/Chronic Immunizations and screening for infectious disease (1 source) Encounter for screening for human papillomavirus (HPV); Translations: [ENC SCREENING HUMAN PAPILLOMAVIRUS] Onset: 05-26-2022 Episodic Other aftercare (4 sources) H/O: miscarriage; Translations: [Encounter for other specified aftercare] 04-08-2024 Episodic Other endocrine disorders (1 source) Polycystic ovarian syndrome; Translations: [POLYCYSTIC OVARIAN SYNDROME] Onset: 11-11-2021 Chronic Other nutritional; endocrine; and metabolic disorders (2 sources) Weight increased; Translations: [Abnormal weight gain] 12-05-2024 Episodic Other screening for suspected conditions (not mental [...] PG CHILDBIRTH AND PP] Onset: 11-13-2021 Episodic Spontaneous (2 sources) Miscarriage; Translations: [Complete or unspecified spontaneous without complication] 04-08-2024 Episodic Results Test Name Value Interpretation Reference Range Facility IGP,APTIMA HPV,AGE GDLNon AGE GDLN ACOG TESTING Note . [facility] Comment on above: TESTS RESULT FLAG UN ITS REF RANGE LAB Clinician Provided Cytology Information Source.............Cervix;Endocervix No. of containers..01 ThinPrep Vial Age Algo ACOG Maureen... 30-65 01 FLAG LEGEND: L-Low Normal,H-High Normal,LL-Alert Low,HH-Alert High <-Panic Low,>-Panic High,A-Abnormal,AA-Critical Abnormal Performed at: 01 =G [address] [address] Suzie Hoskins MD, HPV APTIMA Negative Negative [facility] Comment on above: This nucleic acid am plification test detects fourteen high- risk HPV types (16,18,31,33,35,39,45,51,52,56,58,59,66,68) without differentiation. Performed at: =G - [facility] [address] [place] [id number] [employer] Advisors: Suzie Hoskins MD, Phone: [phone] Performed at: - [facility] [place] [address] [facility], [place] [id number] [employer] Advisors: Suzie Hoskins MD, Phone: [phone] IGP, APTIMA HPV, RFX 16/18,45 Note . [facility] Comment on above: TESTS RESULT FLAG UN ITS REF RANGE LAB DIAGNOSIS: 02 NEGATIVE FOR INTRAEPITHELIAL LESION OR MALIGNANCY. Specimen adequacy: 02 Satisfactory for evaluation. Endocervical and/or squamous metaplastic cells (endocervical component) are present. Performed by: Danuta Nash, Wire Strander . 02 Note: Note 02 The Pap smear is a screening test designed to aid in the detection of premalignant and malignant conditions of the uterine cervix. It is not a diagnostic procedure and should not be used as the sole means of detecting cervical cancer. Both false-positive and false-negative reports do occur. Test Methodology: Note 02 This liquid based ThinPrep(R) pap test was screened with the use of an image guided system. HPV Genotype Reflex Note 02 Criteria not met, HPV Genotype not performed. FLAG LEGEND: L-Low Normal,H-High Normal,LL-Alert Low,HH-Alert High <-Panic Low,>-Panic High,A-Abnormal,AA-Critical Abnormal Performed at: 02 [address] [facility] [place] [address] [place] [address] Suzie Hoskins MD, BRUSH-SPATULA CERVIX ENDOCERVIX [facility] RAD - Ultrasound Reporton RAD - Ultrasound Report [id number] 0TIFF Normal [facility] Cytology Cervical or vaginal smear or scraping studyOrdered By: Prei Jolley on 05-31-2023 [facility] RAD - MISCon 02-02-2023 RAD - MISC [id number]. 00CD:127 Normal [facility] RAD - MISC [id number] CD:127 Normal [facility] Ambulatory Visit Summaryon 0 01-31-2023 Ambulatory Visit Summary MELIZA HARLEY :1990 Visit Date:01/31/2023 Ambulatory Visit Instructions Your Diagnosis BMI 26.0-26.9,adult Non-smoker Your Care Team Attending Physician - Tessy Salinas Primary Care Physician - Peter SHARMA, Cassi Trevino Discharge Vitals Heart Rate (Peripheral) 80 Respiratory Rate 18 Blood Pressure 124/88 Height 161.5 cm Height 64 in Weight 67.9 kg Weight 149.38 lb BMI 26.03 Allergies No Known Medication Allergies Normal [facility] Family Medicine Office/Clini c Noteon [...] day(s), # 21 tab(s), Refills(s) 0, Pharmacy: [facility]/pharmacy #[id number], 161.5, cm, 01/31/23 14:55:00 EDT, Height/Length Dosing, 67.9, kg, 01/31/23 14:55:00 EDT, Weight Dosing naproxen, 500 mg = 1 tab(s), Oral, BID, # 30 tab(s), Refills(s) 0, Pharmacy: [facility]/pharmacy #[id number], 161.5, cm, 01/31/23 14:55:00 EDT, Height/Length Dosing, 67.9, kg, 01/31/23 14:55:00 EDT, Weight Dosing 4. Non-smoker (Z78.9: Other specified health status) continue not smoking Ordered: methylPREDNISolone, = 1 packet(s), Oral, As Directed, as directed on package labeling, X 6 day(s), # 21 tab(s), Refills(s) 0, Pharmacy: [facility]/pharmacy #[id number], 161.5, cm, 01/31/23 14:55:00 EDT, Height/Length Dosing, 67.9, kg, 01/31/23 14:55:00 EDT, Weight Dosing naproxen, 500 mg = 1 tab(s), Oral, BID, # 30 tab(s), Refills(s) 0, Pharmacy: [facility]/pharmacy #[id number], 161.5, cm, 01/31/23 14:55:00 EDT, [...] Family History Family history is negative Normal [facility] Comment on above: Result Comment: Elec tronically Signed By: Aneta SHULTZ, Tessy Gandhi\.br\Date and Time Signed: 01/31/23 15:15 EDT PAP ACOG PANEL 2: 21 to 29on 06-01-2022 . . Normal [facility] Comment on above: Performed By: #### P REGQNT #### [facility] [address] [address] [address] Ed Amaral Age Gdln ACOG Testing - [facility] Comment on above: Performed By: #### P REGQNT #### [facility] [address] [address] [address] Ed Amaral DIAGNOSIS: Comment [facility] Comment on above: Result Comment: NEGA TIVE FOR INTRAEPITHELIAL LESION OR MALIGNANCY. Performed By: #### P REGQNT #### [facility] [address] [address] [address] Ed Amaral Methodology: Comment [facility] Comment on above: Result Comment: This liquid based ThinPrep(R) pap test was screened with the use of an image guided system. Performed By: #### P REGQNT #### [facility] [address] [address] [address] Ed Amaral Note: Comment [facility] Comment on above: Result Comment: The Pap smear is a screening test designed to aid in the detection of premalignant and malignant conditions of the uterine cervix. It is not a diagnostic procedure and should not be used as the sole means of detecting cervical cancer. Both false-positive and false-negative reports do occur. . Performed By: #### P REGQNT #### [facility] [address] [place] [address] Dr. Ed Amaral Performed by: Comment [facility] Comment on above: Result Comment: Ignacio Pleitez, Spool Carrier (ASCP) Performed By: #### P REGQNT #### [facility] [address] [place] [address] Dr. Ed Amaral Reflex Criteria: Comment Normal [facility] Comment on above: Result Comment: The HPV DNA reflex criteria were not met with this specimen result therefore, no HPV testing was performed. . Performed By: #### P REGQNT #### [facility] [address] [place] [address] Dr. Ed Amaral Specimen adequacy: Comment Normal [facility] Comment on above: Result Comment: Sati sfactory for evaluation. Endocervical and/or squamous metaplastic cells (endocervical component) are present. Performed By: #### P REGQNT #### [facility] [address] [place] [address] Dr. Ed Amaral PREG QUANT HCGon 12-09-2021 HCG QUANT 2 mIU/mL Normal [facility] Comment on above: Performed By: #### P REGQNT #### [facility] [address] [place] [address] Dr. Ed Amaral HCG RANGE SEE BELOW Normal [facility] Comment on above: Result Comment: 5-50 0-1 WEEK 40-300 1-2 WEEKS 100-1,000 2-3 WEEKS 500-6,000 3-4 WEEKS 5,000-200,000 1-2 MONTHS 10,000-100,000 2-3 MONTHS 3,000-50,000 2ND TRIMESTER 1,000-50,000 3RD TRIMESTER Performed By: #### P REGQNT #### [facility] [address] [place] [address] Dr. Ed Amaral PREG QUANT HCGon 11-29-2021 HCG QUANT 83 mIU/mL [facility] Comment on above: Performed By: #### P REGQNT #### [facility] [address] [place] [address] Dr. Ed Amaral HCG RANGE SEE BELOW Normal [facility] Comment on above: Result Comment: 5-50 0-1 WEEK 40-300 1-2 WEEKS 100-1,000 2-3 WEEKS 500-6,000 3-4 WEEKS 5,000-200,000 1-2 MONTHS 10,000-100,000 2-3 MONTHS 3,000-50,000 2ND TRIMESTER 1,000-50,000 3RD TRIMESTER Performed By: #### P REGQNT #### [facility] [address] [place] [address] Dr. Ed Amaral PREG QUANT HCGon 11-23-2021 HCG QUANT 80 mIU/mL Normal [facility] Comment on above: Performed By: #### P REGQNT #### [facility] [address] [place] [address] Dr. Ed Amaral HCG RANGE SEE BELOW Normal [facility] Comment on above: Result Comment: 5-50 0-1 WEEK 40-300 1-2 WEEKS 100-1,000 2-3 WEEKS 500-6,000 3-4 WEEKS 5,000-200,000 1-2 MONTHS 10,000-100,000 2-3 MONTHS 3,000-50,000 2ND TRIMESTER 1,000-50,000 3RD TRIMESTER Performed By: #### P REGQNT #### [facility] [address] [place] [address] Dr. Ed Amaral US PELVIS AND TRANSVAGon [...] MARK HAYES Date: 2021-11-16 07:02 Normal [facility] PREG QUANT HCGon 11-12-2021 HCG QUANT 236 mIU/mL Normal [facility] Comment on above: Performed By: #### P REGQNT #### [facility] [address] [place] [address] Dr. Ed Amaral HCG RANGE SEE BELOW Normal [facility] Comment on above: Result Comment: 5-50 0-1 WEEK 40-300 1-2 WEEKS 100-1,000 2-3 WEEKS 500-6,000 3-4 WEEKS 5,000-200,000 1-2 MONTHS 10,000-100,000 2-3 MONTHS 3,000-50,000 2ND TRIMESTER 1,000-50,000 3RD TRIMESTER Performed By: #### P REGQNT #### [facility] [address] [place] [address] Dr. Ed Amaral PREG QUANT HCGon 11-08-2021 HCG QUANT 335 mIU/mL Normal [facility] Comment on above: Performed By: #### P REGQNT #### [facility] [address] [place] [address] Dr. Ed Amaral HCG RANGE SEE BELOW Normal [facility] Comment on above: Result Comment: 5-50 0-1 WEEK 40-300 1-2 WEEKS 100-1,000 2-3 WEEKS 500-6,000 3-4 WEEKS 5,000-200,000 1-2 MONTHS 10,000-100,000 2-3 MONTHS 3,000-50,000 2ND TRIMESTER 1,000-50,000 3RD TRIMESTER Performed By: #### P REGQNT #### [facility] [address] [place] [address] Dr. Ed Amaral PREG QUANT HCGon 11-06-2021 HCG QUANT 324 mIU/mL Normal [facility] Comment on above: Performed By: #### P REGQNT #### [facility] [address] [place] [address] Dr. Ed Amaral HCG RANGE SEE BELOW Normal [facility] Comment on above: Result Comment: 5-50 0-1 WEEK 40-300 1-2 WEEKS 100-1,000 2-3 WEEKS 500-6,000 3-4 WEEKS 5,000-200,000 1-2 MONTHS 10,000-100,000 2-3 MONTHS 3,000-50,000 2ND TRIMESTER 1,000-50,000 3RD TRIMESTER Performed By: #### P REGQNT #### [facility] [address] [place] [address] Dr. Ed Amaral PREG QUANT HCGon 11-03-2021 HCG QUANT 189 mIU/mL Normal [facility] Comment on above: Performed By: #### P REGQNT #### [facility] [address] [place] [address] Dr. Ed Amaral HCG RANGE SEE BELOW Normal [facility] Comment on above: Result Comment: 5-50 0-1 WEEK 40-300 1-2 WEEKS 100-1,000 2-3 WEEKS 500-6,000 3-4 WEEKS 5,000-200,000 1-2 MONTHS 10,000-100,000 2-3 MONTHS 3,000-50,000 2ND TRIMESTER 1,000-50,000 3RD TRIMESTER Performed By: #### P REGQNT #### [facility] [address] [place] [address] Dr. Ed Amaral CBC AUTO DIFFon 10-30-2021 BASO # 0.1 103/ul Normal 0.0-0.1 [facility] Comment on above: Performed By: #### C BC #### [facility] [address] [place] [address] Dr. Ed Amaral Basophils/100 WBC (Bld) 0.9 % Normal 0.2-2.0 [facility] Comment on above: Performed By: #### C BC #### [facility] [address] [place] [address] Dr. Ed Amaral EO # 0.1 103/ul Normal 0.0-0.7 [facility] Comment on above: Performed By: #### C BC #### [facility] [address] [place] [address] Dr. Ed Amaral Eosinophils/100 WBC (Bld) 0.8 % Critically low 0.9-7.0 [facility] Comment on above: Performed By: #### C BC #### [facility] [address] [place] [address] Dr. Ed Amaral Erythrocyte distribution width (RBC) [Ratio] 12.2 % Normal 11.0-15.0 [facility] Comment on above: Performed By: #### C BC #### [facility] [address] [place] [address] Dr. Ed Amaral Hematocrit (Bld) [Volume fraction] 35.3 % Critically low 36.0-48.0 [facility] Comment on above: Performed By: #### C BC #### [facility] [address] [place] [address] Dr. Ed Amaral Hemoglobin (Bld) [Mass/Vol] 11.5 g/dL Critically low 12.0-16.0 [facility] Comment on above: Performed By: #### C BC #### [facility] [address] [place] [address] Dr. Ed Amaral IG # 0.01 10e3/ul Normal 0.00-0.03 [facility] Comment on above: Performed By: #### C BC #### [facility] [address] [place] [address] Dr. Ed Amaral IG % 0.1 % Normal 0.0-0.5 [facility] Comment on above: Performed By: #### C BC #### [facility] [address] [place] [address] Dr. Ed Amaral LYMPH # 2.5 103/ul Normal 1.2-3.8 [facility] Comment on above: Performed By: #### C BC #### [facility] [address] [place] [address] Dr. dE Amaral Lymphocytes/100 WBC (Bld) 32.4 % Normal 20.5-60.0 [facility] Comment on above: Performed By: #### C BC #### [facility] [address] [place] [address] Dr. Ed Amaral MANUAL DIFF REQ NO Normal [facility] Comment on above: Performed By: #### C BC #### [facility] [address] [place] [address] Dr. Ed Amaral MCH (RBC) [Entitic mass] 27.4 pg Normal 26.7-34.0 [facility] Comment on above: Performed By: #### C BC #### [facility] [address] [place] [address] Dr. Ed Amaral MCHC (RBC) [Mass/Vol] 32.6 g/dL Normal 29.9-35.2 [facility] Comment on above: Performed By: #### C BC #### [facility] [address] [place] [address] Dr. Ed Amaral MCV (RBC) [Entitic vol] 84.0 fL Normal 81.0-99.0 [facility] Comment on above: Performed By: #### C BC #### [facility] [address] [place] [address] Dr. Ed Amaral MONO # 0.5 103/ul Normal 0.3-0.8 [facility] Comment on above: Performed By: #### C BC #### [facility] [address] [place] [address] Dr. Ed Amaral Monocytes/100 WBC (Bld) 5.9 % Normal 1.7-12.0 [facility] Comment on above: Performed By: #### C BC #### [facility] [address] [place] [address] Dr. Ed Amaral NEUT # 4.5 103/ul Normal 1.4-6.5 [facility] Comment on above: Performed By: #### C BC #### [facility] [address] [place] [address] Dr. Ed Amaral Neutrophils/100 WBC (Bld) 59.9 % Normal 43.0-75.0 [facility] Comment on above: Performed By: #### C BC #### [facility] [address] [place] [address] Dr. Ed Amaral Platelet mean volume (Bld) [Entitic vol] 9.8 fL Normal 9.5-13.5 [facility] Comment on above: Performed By: #### C BC #### [facility] [address] [place] [address] Dr. Ed Amaral PLT 277 103/ul Normal 150-450 [facility] Comment on above: Performed By: #### C BC #### [facility] [address] [place] [address] Dr. Ed Amaral RBC 4.20 106/ul Normal 4.20-5.40 [facility] Comment on above: Performed By: #### C BC #### [facility] [address] [place] [address] Dr. Ed Amaral WBC 7.6 103/ul Normal 4.0-11.0 [facility] Comment on above: Performed By: #### C BC #### [facility] [address] [place] [address] Dr. Ed Amaral BASO # 0.1 103/ul Normal 0.0-0.1 [facility] Comment on above: Performed By: #### C BC #### [facility] [address] [place] [address] Dr. Ed Amaral Basophils/100 WBC (Bld) 0.8 % Normal 0.2-2.0 [facility] Comment on above: Performed By: #### C BC #### [facility] [address] [place] [address] Dr. Ed Amaral EO # 0.2 103/ul Normal 0.0-0.7 [facility] Comment on above: Performed By: #### C BC #### [facility] [address] [place] [address] Dr. Ed Amaral Eosinophils/100 WBC (Bld) 2.1 % Normal 0.9-7.0 [facility] Comment on above: Performed By: #### C BC #### [facility] [address] [place] [address] Dr. Ed Amaral Erythrocyte distribution width (RBC) [Ratio] 12.2 % Normal 11.0-15.0 [facility] Comment on above: Performed By: #### C BC #### [facility] [address] [place] [address] Dr. Ed Amaral Hematocrit (Bld) [Volume fraction] 39.2 % Normal 36.0-48.0 [facility] Comment on above: Performed By: #### C BC #### [facility] [address] [place] [address] Dr. Ed Amaral Hemoglobin (Bld) [Mass/Vol] 12.8 g/dL Normal 12.0-16.0 [facility] Comment on above: Performed By: #### C BC #### [facility] [address] [place] [address] Dr. Ed Amaral IG # 0.03 10e3/ul Normal 0.00-0.03 [facility] Comment on above: Performed By: #### C BC #### [facility] [address] [place] [address] Dr. Ed Amaral IG % 0.3 % Normal 0.0-0.5 [facility] Comment on above: Performed By: #### C BC #### [facility] [address] [place] [address] Dr. Ed Amaral LYMPH # 4.5 103/ul Critically high 1.2-3.8 [facility] Comment on above: Performed By: #### C BC #### [facility] [address] [place] [address] Dr. Ed Amaral Lymphocytes/100 WBC (Bld) 40.5 % Normal 20.5-60.0 [facility] Comment on above: Performed By: #### C BC #### [facility] [address] [place] [address] Dr. Ed Amaral MANUAL DIFF REQ NO Normal [facility] Comment on above: Performed By: #### C BC #### [facility] [address] [place] [address] Dr. dE Amaral MCH (RBC) [Entitic mass] 27.6 pg Normal 26.7-34.0 [facility] Comment on above: Performed By: #### C BC #### [facility] [address] [address] [address] Ed Amaral MCHC (RBC) [Mass/Vol] 32.7 g/dL Normal 29.9-35.2 [facility] Comment on above: Performed By: #### C BC #### [facility] [address] [address] [address] Ed Amaral MCV (RBC) [Entitic vol] 84.7 fL Normal 81.0-99.0 [facility] Comment on above: Performed By: #### C BC #### [facility] [address] [place] [address] Dr. Ed Amaral MONO # 0.7 103/ul Normal 0.3-0.8 [facility] Comment on above: Performed By: #### C BC #### [facility] [address] [place] [address] Dr. Ed Amaral Monocytes/100 WBC (Bld) 6.2 % Normal 1.7-12.0 [facility] Comment on above: Performed By: #### C BC #### [facility] [address] [place] [address] Dr. Ed Amaral NEUT # 5.6 103/ul Normal 1.4-6.5 [facility] Comment on above: Performed By: #### C BC #### [facility] [address] [place] [address] Dr. Ed Amaral Neutrophils/100 WBC (Bld) 50.1 % Normal 43.0-75.0 [facility] Comment on above: Performed By: #### C BC #### [facility] [address] [place] [address] Dr. Ed Amaral Platelet mean volume (Bld) [Entitic vol] 9.9 fL Normal 9.5-13.5 [facility] Comment on above: Performed By: #### C BC #### [facility] [address] [place] [address] Dr. Ed Amaral PLT 359 103/ul Normal 150-450 [facility] Comment on above: Performed By: #### C BC #### [facility] [address] [address] [address] Ed Amaral RBC 4.63 106/ul Normal 4.20-5.40 [facility] Comment on above: Performed By: #### C BC #### [facility] [address] [address] [address] Ed Amaral WBC 11.1 103/ul Critically high 4.0-11.0 [facility] [facility] Comment on above: Performed By: #### C BC #### [facility] [address] [place] [address] Dr. Ed Amaral CULTURE URINEon 10-30-2021 CULTURE URINE Culture Observations : LIGHT GROWTH OF MIXED GENITAL MYRA. NO POTENTIAL PATHOGENS SEEN. Normal [facility] Comment on above: Performed By: #### P REGQNT #### [facility] [address] [place] [address] Dr. Ed Amaral [facility]12 SARS-CoV-2 (COVID-19) RNA NAHUM+probe Ql (Unsp spec) Not detected Normal NOT DETECTED [facility] Comment on above: Result Comment: [...] for this test is supported by the [employer] of Health and Human Service's declaration that [...] used). Performed By: #### P REGQNT #### [facility] [address] [place] [address] Dr. Ed Amaral ER URINE PROFILEon 2 Bilirubin Ql (U) Negative Normal NEGATIVE [facility] Comment on above: Performed By: #### P REGQNT #### [facility] [address] [place] [address] Dr. Ed Amaral Clarity (U) CLEAR Normal CLEAR [facility] Comment on above: Performed By: #### P REGQNT #### [facility] [address] [place] [address] Dr. Ed Amaral Color (U) LT. YELLOW Normal YELLOW [facility] Comment on above: Performed By: #### P REGQNT #### [facility] [address] [place] [address] Dr. Ed OROURKE A micrscopic examination will be performed if indicated. Normal [facility] Comment on above: Performed By: #### P REGQNT #### [facility] [address] [place] [address] Dr. Ed Amaral Glucose Ql (U) Negative Normal NEGATIVE [facility] Comment on above: Performed By: #### P REGQNT #### [facility] [address] [place] [address] Dr. Ed Amaral Hemoglobin Ql (U) Negative Normal NEGATIVE [facility] Comment on above: Performed By: #### P REGQNT #### [facility] [address] [place] [address] Dr. Ed Amaral Ketones Ql (U) Negative Normal NEGATIVE [facility] Comment on above: Performed By: #### P REGQNT #### [facility] [address] [place] [address] Dr. Ed Amaral LEUKOCYTES Negative Normal NEGATIVE [facility] Comment on above: Performed By: #### P REGQNT #### [facility] [address] [place] [address] Dr. Ed Amaral Nitrite Ql (U) Positive Abnormal NEGATIVE [facility] Comment on above: Performed By: #### P REGQNT #### [facility] [address] [place] [address] Dr. Ed Amaral pH (U) 5.5 [pH] Normal 5-9 [facility] Comment on above: Performed By: #### P REGQNT #### [facility] [address] [address] [address] Ed Amaral SPEC GRAVITY 1.005 Normal 1.005-<=1.025 [facility] Comment on above: Performed By: #### P REGQNT #### [facility] [address] [address] [address] Ed Amaral UA PROTEIN Negative Normal NEGATIVE/ TRACE [facility] Comment on above: Performed By: #### P REGQNT #### [facility] [address] [address] [address] Ed Amaral UR MICRO IND INDICATED Normal [facility] Comment on above: Performed By: #### P REGQNT #### [facility] [address] [place] [address] Dr. Ed Amaral Urobilinogen Qn (U) 0.2 {Michela'U}/dL Normal 0.2 - 1.0 [facility] Comment on above: Performed By: #### P REGQNT #### [facility] [address] [place] [address] Dr. Ed Amaral LACTATE/LACTIC ACIDon 2021 Lactate [Moles/Vol] 0.9 mmol/L Normal 0.7-2.0 [facility] Comment on above: Performed By: #### L ACT #### [facility] [address] [place] [address] Dr. Ed Amaral PREG QUANT HCGon 10-30-2021 HCG QUANT 112 mIU/mL Normal [facility] Comment on above: Performed By: #### P REGQNT #### [facility] [address] [place] [address] Dr. Ed Amaral HCG RANGE SEE BELOW Normal [facility] Comment on above: Result Comment: 5-50 0-1 WEEK 40-300 1-2 WEEKS 100-1,000 2-3 WEEKS 500-6,000 3-4 WEEKS 5,000-200,000 1-2 MONTHS 10,000-100,000 2-3 MONTHS 3,000-50,000 2ND TRIMESTER 1,000-50,000 3RD TRIMESTER Performed By: #### P REGQNT #### [facility] [address] [address] [address] Ed Amaral HCG QUANT 150 mIU/mL Normal [facility] Comment on above: Performed By: #### P REGQNT #### [facility] [address] [address] [address] Ed Amaral HCG RANGE SEE BELOW Normal [facility] Comment on above: Result Comment: 5-50 0-1 WEEK 40-300 1-2 WEEKS 100-1,000 2-3 WEEKS 500-6,000 3-4 WEEKS 5,000-200,000 1-2 MONTHS 10,000-100,000 2-3 MONTHS 3,000-50,000 2ND TRIMESTER 1,000-50,000 3RD TRIMESTER Performed By: #### P REGQNT #### [facility] [address] [place] [address] Dr. Ed Amaral URon 10-30-2021 , QUAL Positive Abnormal NEGATIVE [facility] Comment on above: Performed By: #### P REGQNT #### [facility] [address] [address] [address] Ed Amaral PROF 14(COMP METB)on 022 Albumin [Mass/Vol] 4.3 g/dL Normal 3.4-5.0 [facility] Comment on above: Performed By: #### C MP #### [facility] [address] [address] [address] Ed Amaral Albumin/Globulin [Mass ratio] 1.4 {ratio} Normal [facility] Comment on above: Performed By: #### C MP #### [facility] [address] [address] [address] Ed Amaral ALP [Catalytic activity/Vol] 69 U/L Normal 46-116 [facility] Comment on above: Performed By: #### C MP #### [facility] [address] [address] [address] Ed Amaral ALT [Catalytic activity/Vol] 11 U/L Critically low 14-59 [facility] Comment on above: Performed By: #### C MP #### [facility] [address] [address] [address] Ed Amaral Anion gap [Moles/Vol] 12.5 mmol/L Normal [facility] Comment on above: Performed By: #### C MP #### [facility] [address] [address] [address] Ed Amaral AST [Catalytic activity/Vol] 9 U/L Critically low 15-37 [facility] Comment on above: Performed By: #### C MP #### [facility] [address] [address] [address] Ed Amaral Bilirubin [Mass/Vol] 0.8 mg/dL Normal 0.2-1.3 [facility] Comment on above: Performed By: #### C MP #### [facility] [address] [address] [address] Ed Amaral Calcium [Mass/Vol] 8.8 mg/dL Normal 8.5-10.1 [facility] Comment on above: Performed By: #### C MP #### [facility] [address] [address] [address] Ed Amaral Chloride [Moles/Vol] 103 mmol/L Normal 98-107 [facility] Comment on above: Performed By: #### C MP #### [facility] [address] [address] [address] Ed Amaral CO2 [Moles/Vol] 25.9 mmol/L Normal 22.0-30.0 [facility] Comment on above: Performed By: #### C MP #### [facility] [address] [address] [address] Ed Amaral Creatinine [Mass/Vol] 0.82 mg/dL Normal 0.52-1.04 [facility] Comment on above: Performed By: #### C MP #### [facility] [address] [address] [address] Ed Amaral EGFR-AF [place] >60 Normal >=60 [facility] Comment on above: Performed By: #### C MP #### [facility] [address] [place] [address] Dr. Ed Amaral EGFR-NON AF [place] >60 Normal >=60 [facility] Comment on above: Performed By: #### C MP #### [facility] [address] [place] [address] Dr. Ed Amaral Globulin (S) [Mass/Vol] 3.1 g/dL Normal [facility] Comment on above: Performed By: #### C MP #### [facility] [address] [address] [address] Ed Amaral Glucose [Mass/Vol] 108 mg/dL Critically high 74-106 [facility] Comment on above: Performed By: #### C MP #### [facility] [address] [place] [address] Dr. Ed Amaral Potassium [Moles/Vol] 3.4 mmol/L Normal 3.4-5.0 [facility] Comment on above: Performed By: #### C MP #### [facility] [address] [place] [address] Dr. Ed Amaral Protein [Mass/Vol] 7.4 g/dL Normal 6.1-8.2 [facility] Comment on above: Performed By: #### C MP #### [facility] [address] [place] [address] Dr. Ed Amaral Sodium [Moles/Vol] 138 mmol/L Normal 137-145 [facility] Comment on above: Performed By: #### C MP #### [facility] [address] [address] [address] Ed Amaral Urea nitrogen [Mass/Vol] 12.0 mg/dL Normal 7.0-18.0 [facility] Comment on above: Performed By: #### C MP #### [facility] [address] [place] [address] Dr. Ed Amaral Urea nitrogen/Creatinin e [Mass ratio] 14.6 mg/mg Normal [facility] Comment on above: Performed By: #### C MP #### [facility] [address] [place] [address] Dr. Ed Amaral TYPE AND SCREENon 10-30-2021 TYPE AND SCREEN Negative Normal [facility] Comment on above: Performed By: #### P REGQNT #### [facility] [address] [place] [address] Dr. Ed Amaral URINE MICROSCOPIC ONLYon BACTERIA NONE SEEN Normal NONE SEEN [facility] Comment on above: Performed By: #### P REGQNT #### [facility] [address] [place] [address] Dr. Ed Amaral Bacteria identified Cx Nom (U) INDICATED Normal [facility] Comment on above: Performed By: #### P REGQNT #### [facility] [address] [place] [address] Dr. Ed Amaral CAST NONE SEEN Normal NONE SEEN [facility] Comment on above: Performed By: #### P REGQNT #### [facility] [address] [place] [address] Dr. Ed Amaral Crystals LM Nom (Urine sed) NONE SEEN Normal NONE SEEN [facility] Comment on above: Performed By: #### P REGQNT #### [facility] [address] [place] [address] Dr. Ed Amaral Epithelial cells LM Ql (Urine sed) RARE Normal NONE SEEN /RARE [facility] Comment on above: Performed By: #### P REGQNT #### [facility] [address] [place] [address] Dr. Ed Amaral MUCOUS NONE SEEN Normal NONE SEEN [facility] Comment on above: Performed By: #### P REGQNT #### [facility] [address] [place] [address] Dr. Ed Amaral RBC NONE SEEN Abnormal 0-2 [facility] Comment on above: Performed By: #### P REGQNT #### [facility] [address] [place] [address] Dr. dE Amaral WBC NONE SEEN Normal NONE SEEN [facility] Comment on above: Performed By: #### P REGQNT #### [facility] [address] [place] [address] Dr. Ed Amaral US APPENDIXon 10-30-2021 US [...] by: Celia VILLAGRAN Date: 2021-10-30 00:28 Normal [facility] US PREG TVon 10-30-2021 US PREG [...] by: Celia VILLAGRAN Date: 2021-10-30 00:32 Normal [facility] Vital Signs Date Time Vital Sign Value Performing Clinician Faci lity 12-05-2024 11:140400 Body mass index (BMI) [Ratio] 33.39 kg/m2 [employer] Work Phone: [facility] 12-05-2024 11:14040 Body weight 85.5 kg [employer] Work Phone: [facility] 12-05-2024 11:14-040 Diastolic blood pressure 76 mm[Hg] [employer] Work Phone: [facility] 12-05-2024 11:14-0400 Systolic blood pressure 138 mm[Hg] Fabiola Hiram DO Work Phone: [facility] 05-02-2024 10:57-0400 Body mass index (BMI) [Ratio] 31.02 kg/m2 Fabiola Hiram DO Work Phone: [facility] 05-02-2024 10:57-0400 Body weight 79.43 kg Fabiola Hiram DO Work Phone: [facility] 05-02-2024 10:57-0400 Diastolic blood pressure 68 mm[Hg] Fabiola Hiram DO Work Phone: [facility] 05-02-2024 10:57-0400 Systolic blood pressure 110 mm[Hg] Fabiola Hiram DO Work Phone: [facility] Encounters Encounter Date Encounter Type Care Provider Facility Start: 12-05-2024 End: 12-05-2024 Bamboo flowsheet Fabiola Hiram DO Work Phone: [facility] Start: 12-05-2024 End: 12-10-2024 Bamboo flowsheet Fabiola Hiram DO Work Phone: [facility] Start: 12-05-2024 End: 12-10-2024 Clinisync Result Encounter Fabiola Hiram DO Work Phone: [facility] External Department Unsolicited Start: 12-05-2024 End: 12-05-2024 Patient encounter procedure Fabiola Hiram DO Work Phone: [facility] Start: 12-05-2024 End: 12-05-2024 Periodic preventive med est patient 18-39 yrs Fabiola Hiram DO Work Phone: [facility] Comment on above: Well woman exam with routine gynecological exam; Weight gain Start: 12-05-2024 End: 12-05-2024 ambulatory FABIOLA HIRAM Not Available Start: 05-02-2024 End: 05-02-2024 Bamboo flowsheet Fabiola Hiram DO Work Phone: [facility] Start: 05-02-2024 End: 05-02-2024 Bamboo flowsheet Fabiola Hiram DO Work Phone: [facility] Start: 05-02-2024 End: 05-02-2024 ambulatory FABIOLA HIRAM Not Available Start: 05-02-2024 End: 05-02-2024 Office outpatient visit 15 minutes Fabiola Hiram DO Work Phone: [facility] Comment on above: Follow-up visit afte r miscarriage Start: 04-08-2024 End: 04-08-2024 Bamboo flowsheet Fabiola Hiram DO Work Phone: [facility] Start: 04-08-2024 End: 04-08-2024 Bamboo flowsheet Fabiola Hiram DO Work Phone: [facility] Start: 04-08-2024 End: 04-08-2024 ambulatory AFBIOLA HIRAM Not Available Start: 04-08-2024 End: 04-08-2024 Office outpatient visit 15 minutes Fabiola Hiram DO Work Phone: [facility] Comment on above: Follow-up visit afte r miscarriage; Spontaneous Start: 03-08-2024 End: 03-08-2024 ambulatory FABIOLA HIRAM Not Available Start: 01-31-2023 End: 02-01-2023 ambulatory Tessy L Aneta Facility:[facility] Start: 01-31-2023 ambulatory Tessy Aneta Facility:[facility] Start: 05-25-2022 End: 05-25-[address] FABIOLA [...] End: 10-30-[address] FELIPA NASH Facility:[facility] Procedures Date Procedure Procedure Detail Performing Clinician Start: 12-05-2024 IGP,APTIMA HPV,AGE GDLN Fabiola Gandhi DO Work Phone: Start: 05-31-2023 Cytp cerv/vag auto t hin layer prep mnl screen Fabiola Gandhi DO Work Phone: Plan of Treatment Date Care Activity Detail Author Start: 12-10-2025 End: 12-10-2025 Patient encounter procedure 12/10/2025 11:00 AM EDT Office Visit [facility] [address] [place] [address] Fabiola Gandhi, DO [address], [place] [id number] [facility] Start: 12-05-2024 End: 12-05-2024 Patient encounter procedure 12/05/2024 11:00 AM EDT Office Visit [facility] [address] [place] [address] Fabiola Gandhi DO [address] [place] [address] Arrived [facility] Comment on above: Arrived Start: 05-02-2024 End: 05-02-2024 Patient encounter procedure 05/02/2024 10:50 AM EDT Office Visit [facility] [address] [place] [address] Fabiola Gandhi, DO [address] [place] [address] [facility] Start: 04-10-2024 End: 04-10-2025 US Pelvis US pelvis Imaging Routine Follow-up visit after miscarriage Expected: 04/10/2024 (Approximate), Expires: 04/10/2025 [facility] Comment on above: Expected: 04/10/2024 (Approximate), Expires: 04/10/2025 Start: 04-08-2024 End: 04-08-2025 US for US PELVIS-TRANSVAG IF INDICATED Imaging Routine Spontaneous Expected: 04/08/2024 (Approximate), Expires: 04/08/2025 [facility] Work Phone: Comment on above: Expected: 04/08/2024 (Approximate), Expires: 04/08/2025 Cytology Cervical or vaginal smear or scraping study Pap Smear Pathology and Cytology Routine Well woman exam with routine gynecological exam Ordered: 12/05/2024 [facility] Work Phone: Comment on above: Ordered: 12/05/2024 Hemoglobin A1c/Hemoglobin.total in Blood Hemoglobin A1c Lab Routine Well woman exam with routine gynecological exam Weight gain Ordered: 12/05/2024 [facility] Comment on above: Ordered: 12/05/2024 Human papilloma viru s DNA [Presence] in Unspecified specimen by Probe with amplification HPV DNA probe, amplified Microbiology Routine Well woman exam with routine gynecological exam Ordered: 12/05/2024 [facility] Comment on above: Ordered: 12/05/2024 Thyrotropin [Units/volume] in Serum or Plasma TSH Lab Routine Well woman exam with routine gynecological exam Weight gain Ordered: 12/05/2024 [facility] Comment on above: Ordered: 12/05/2024 Payers Date Payer Category [facility] [id number] 2024 Unknown [id number] 2023 Unknown [employer] [id number] 2023-Present [address] [place] [address] [id number] 2023 Unknown [id number] 1992 Unknown [id number] [id number]. 593 1992 Unknown [id number] 2.16.840.1.890431.3.579.2. 593 1992 Unknown [id number] 2.16.840.1.084433.3.579.2. 593 1992 Unknown [id number] 2.16.840.1.399295.3.579.2. 593 1992 Unknown [id number] 2.16.840.1.211370.3.579.2. 593 1992 Unknown [id number] 2.16.840.1.595809.3.579.2. 593 1992 Unknown [id number] 2.16.840.1.323384.3.579.2. 593 1992 Unknown [id number] 2.16.840.1.408868.3.579.2. 593 1992 Unknown [id number] 2.16.840.1.891578.3.579.2. 593 1992 Unknown [id number] 2.16.840.1.975052.3.579.2. 593 1992 Unknown [id number] 2.16.840.1.882439.3.579.2. 727 1992 Unknown [id number] 2.16.840.1.901599.3.579.2. 9 1992 Unknown [id number] 2.16.840.1.434259.3.579.2. 9 1992 Unknown [id number] 2.16.840.1.318709.3.579.2. 9 1992 Unknown [id number] 2.16.840.1.530468.3.579.2. 1259 1959 Unknown [id number] Unknown [id number] Social History Date Type Detail Facility Tobacco smoking stat [facility] Tobacco smoking consumption unknown [facility] Start: 01-07-2024 [facility] Start: 1990 Sex assigned at Not on file [facility] Gender identity Not on file [facility] History of Present illness Narrative 12-05-2024 Candace Burgess LPN - 12/05/2024 11:00 AM EDT Note Date & Type Note Facility 12-05-2024 History of Presen t illness Narrative Reason for Appointment: Patient ID: Meliza Harley is a 34 y.o. female who presents for Well Women Visit Patient presents today for Annual Exam. MEDICATIONS No current outpatient medications ALLERGIES No Known Allergies PROBLEMS Active Ambulatory Problems Diagnosis Date Noted No Active Ambulatory Problems Resolved Ambulatory Problems Diagnosis Date Noted No Resolved Ambulatory Problems Past Medical History: Diagnosis Date Abnormal uterine bleeding (AUB) History of multiple miscarriages PCOS (polycystic ovarian syndrome) Pelvic pain HISTORY PAST MEDICAL HISTORY SOCIAL HISTORY Past Medical History: Diagnosis Date Abnormal uterine bleeding (AUB) History of multiple miscarriages PCOS (polycystic ovarian syndrome) Pelvic pain Social History Tobacco Use Smoking status: Not on file Smokeless tobacco: Not on file Substance Use Topics Alcohol use: Not on file Drug use: Not on file FAMILY HISTORY No family history on file. SURGICAL HISTORY Past Surgical History: Procedure Laterality Date PAP SMEAR 03/03/2021 normal REVIEW OF SYSTEMS Review of Systems: Review of Systems Constitutional: Negative. HENT: Negative. Eyes: Negative. Respiratory: Negative. Cardiovascular: Negative. Gastrointestinal: Negative. Genitourinary: Negative. Musculoskeletal: Negative. Skin: Negative. Neurological: Negative. All other systems reviewed and are negative. Hematological: Negative. Endocrine: Negative. Allergic/Immunologic: Negative. OBJECTIVE Objective: Physical Exam Constitutional: Appearance: Normal appearance. She is well-developed. Cardiovascular: Rate and Rhythm: Normal rate and regular rhythm. Pulmonary: Effort: Pulmonary effort is normal. Breath sounds: Normal breath sounds. Abdominal: General: Bowel sounds are normal. There is no distension. Palpations: Abdomen is soft. Tenderness: There is no abdominal tenderness. There is no guarding or rebound. Musculoskeletal: General: No swelling. Normal range of motion. Right lower leg: No edema. Left lower leg: No edema. Neurological: Mental Status: She is alert and oriented to person, place, and time. Skin: General: Skin is warm and dry. Psychiatric: Mood and Affect: Mood normal. Behavior: Behavior normal. Vitals and nursing note reviewed. Exam conducted with a medication care manager present. Vitals: Estimated body mass index is 33.39 kg/m as calculated from the following: Height as of 05/31/23: 5' 3 . Weight as of this encounter: 188 lb 8 oz. BP: 138/76 Patient's last menstrual period was 10/04/2024 (approximate). ASSESSMENT & PLAN ICD-10-CM 1. Well woman exam with routine gynecological exam Z01.419 Pap Smear HPV DNA probe, amplified Hemoglobin A1c TSH 2. Weight gain R63.5 Hemoglobin A1c TSH Annual Exam: Patient presents today for an annual exam. Patient states she is doing well and has complaints of weight gain after miscarriage. Ordered Hba1c and TSH to be drawn. Pap was obtained without difficulty. Orders Placed This Encounter Procedures HPV DNA probe, amplified Hemoglobin A1c TSH Follow Up: Patient is to return in one year for annual unless needed otherwise. Documented by Candace Burgess LPN on behalf of: Fabiola Gandhi DO documented in this encounter [facility] History of Present illness Narrative 05-02-2024 aCndace Burgess LPN - 05/02/2024 10:50 AM EDT Note Date & Type Note Facility 05-02-2024 History of Presen t illness Narrative Reason for Appointment: Patient ID: Meliza Harley is a 33 y.o. female who presents for Recurrent Loss Patient presents today for Consult appointment. MEDICATIONS No current outpatient medications ALLERGIES No Known Allergies PROBLEMS Active Ambulatory Problems Diagnosis Date Noted No Active Ambulatory Problems Resolved Ambulatory Problems Diagnosis Date Noted No Resolved Ambulatory Problems Past Medical History: Diagnosis Date Abnormal uterine bleeding (AUB) History of multiple miscarriages PCOS (polycystic ovarian syndrome) Pelvic pain HISTORY PAST MEDICAL HISTORY SOCIAL HISTORY Past Medical History: Diagnosis Date Abnormal uterine bleeding (AUB) History of multiple miscarriages PCOS (polycystic ovarian syndrome) Pelvic pain Social History Tobacco Use Smoking status: Not on file Smokeless tobacco: Not on file Substance Use Topics Alcohol use: Not on file Drug use: Not on file FAMILY HISTORY No family history on file. SURGICAL HISTORY Past Surgical History: Procedure Laterality Date PAP SMEAR 03/03/2021 normal REVIEW OF SYSTEMS Review of Systems: Review of Systems All other systems reviewed and are negative. OBJECTIVE Objective: Physical Exam Constitutional: Appearance: Normal appearance. She is well-developed. Cardiovascular: Rate and Rhythm: Normal rate and regular rhythm. Pulmonary: Effort: Pulmonary effort is normal. Breath sounds: Normal breath sounds. Abdominal: General: Bowel sounds are normal. There is no distension. Palpations: Abdomen is soft. Tenderness: There is no abdominal tenderness. There is no guarding or rebound. Musculoskeletal: General: No swelling. Normal range of motion. Right lower leg: No edema. Left lower leg: No edema. Neurological: Mental Status: She is alert and oriented to person, place, and time. Skin: General: Skin is warm and dry. Psychiatric: Mood and Affect: Mood normal. Behavior: Behavior normal. Vitals and nursing note reviewed. Exam conducted with a medication care manager present. Vitals: Estimated body mass index is 31.02 kg/m as calculated from the following: Height as of 05/31/23: 5' 3 . Weight as of this encounter: 175 lb 1.9 oz. BP: 110/68 No LMP recorded. ASSESSMENT & PLAN ICD-10-CM 1. Follow-up visit after miscarriage Z51.89 O03.9 Patient and spouse present for follow up miscarriage. Discussed plan of care with patient and future pregnancies. Discussed if in the future if patient desires a cerclage could be placed to assist with preventing dilation. Patient would get placed around 12-13 weeks gestation and pelvic rest for remainder of . Answered patients questions and will reach out to [facility] to get answers in regards to fetus. Patient and spouse do desire future pregnancies and aware that cerclage is an options for patient to have done. Patient to return to clinic for routine annual appointment and as needed. Documented by Candace Burgess LPN on behalf of: Fabiola Gandhi DO documented in this encounter [facility] History of Present illness Narrative 04-08-2024 Candace Burgess LPN - 04/08/2024 10:40 AM EDT Note Date & Type Note Facility 04-08-2024 History of Presen t illness Narrative Reason for Appointment: Patient ID: Meliza Harley is a 33 y.o. female who presents for follow up miscarriage Patient presents today for Follow up appointment to discuss results. MEDICATIONS No current outpatient medications ALLERGIES No Known Allergies PROBLEMS Active Ambulatory Problems Diagnosis Date Noted No Active Ambulatory Problems Resolved Ambulatory Problems Diagnosis Date Noted No Resolved Ambulatory Problems Past Medical History: Diagnosis Date Abnormal uterine bleeding (AUB) History of multiple miscarriages PCOS (polycystic ovarian syndrome) Pelvic pain HISTORY PAST MEDICAL HISTORY SOCIAL HISTORY Past Medical History: Diagnosis Date Abnormal uterine bleeding (AUB) History of multiple miscarriages PCOS (polycystic ovarian syndrome) Pelvic pain Social History Tobacco Use Smoking status: Not on file Smokeless tobacco: Not on file Substance Use Topics Alcohol use: Not on file Drug use: Not on file FAMILY HISTORY No family history on file. SURGICAL HISTORY Past Surgical History: Procedure Laterality Date PAP SMEAR 03/03/2021 normal REVIEW OF SYSTEMS Review of Systems: Review of Systems All other systems reviewed and are negative. OBJECTIVE Objective: Physical Exam Constitutional: Appearance: Normal appearance. She is well-developed. Cardiovascular: Rate and Rhythm: Normal rate and regular rhythm. Pulmonary: Effort: Pulmonary effort is normal. Breath sounds: Normal breath sounds. Abdominal: General: Bowel sounds are normal. There is no distension. Palpations: Abdomen is soft. Tenderness: There is no abdominal tenderness. There is no guarding or rebound. Musculoskeletal: General: No swelling. Normal range of motion. Right lower leg: No edema. Left lower leg: No edema. Neurological: Mental Status: She is alert and oriented to person, place, and time. Skin: General: Skin is warm and dry. Psychiatric: Mood and Affect: Mood normal. Behavior: Behavior normal. Vitals and nursing note reviewed. Exam conducted with a medication care manager present. Vitals: Estimated body mass index is 29.76 kg/m as calculated from the following: Height as of 05/31/23: 5' 3 . Weight as of 03/08/24: 168 lb. BP: No LMP recorded. ASSESSMENT & PLAN ICD-10-CM 1. Follow-up visit after miscarriage Z51.89 O03.9 2. Spontaneous O03.9 US PELVIS-TRANSVAG IF INDICATED Patient presents for follow up stillbirth after delivery in the ER. Discussed with patient having a follow up ultrasound and that with next discuss cerclage. Patient to follow up in office with questions/concerns. Patient is able to have time off work to help deal with loss and recovery. Patients spouse is able to obtain FMLA for intermittent leave as well. Documented by Candace Burgess LPN on behalf of: Fabiola Gandhi DO documented in this encounter [facility] Clinical Note 10-30-2021 Note Date & Type Note Facility 10-30-2021 Note [facility] [place], [place] NAME: MELIZA HARLEY DATE OF : MEDICAL REC#: [id number] POLE SANDER OPERATOR: [address] [facility], TRANSADMIT DATE: 10/30/2021 01:50:00 CREATIVE ART DIRECTOR DATE: 10/31/2021 23:00 DICTATING PHYSICIAN: FABIOLA GANDHI DICTATION DATE: 10/30/2021 11:00 OPERATIVE NOTE PROCEDURE: Diagnostic laparoscopy with removal of approximately 500 mL of blood, along with what we though was products of conception expulsed from the tube. PREOPERATIVE DIAGNOSIS: Pelvis pain, suspect ectopic . POSTOPERATIVE DIAGNOSIS: Pelvis pain, suspect ectopic . ANESTHESIA: General. SURGEON: Fabiola Gandhi D.O. WOOL BATTING WORKER: ERMA Frias URINE OUTPUT: Yellow and clear. [...] Gandhi DO on 11/02/2021 07:58 AM EDT [facility] Signed and Approved by: DR FABIOLA GANDHI . 11/02/2021 07:58:00 [facility] Evaluation note Note Date & Type Note Facility Evaluation note Diagnosis Follow-up visit after miscarriage Spontaneous documented in this encounter [facility] Evaluation note Note Date & Type Note Facility Evaluation note Diagnosis Follow-up visit after miscarriage documented in this encounter [facility] Evaluation note Note Date & Type Note Facility Evaluation note Diagnosis Well woman exam with routine gynecological exam Routine gynecological examination Weight gain Other symptoms concerning nutrition, metabolism, and development documented in this encounter [facility] Summary Purpose Family History No Family History Records FoundNo Family History Records FoundNo Family History Records Found Advance Directives No Advanced Directives Records FoundNo Advanced Directives Records FoundNo Advanced Directives Records Found Additional Source Comments INFORMATION SOURCE (unrecogn ized section and content) DATE CREATED AUTHOR 06/06/2022 [facility] DATE CREATED AUTHOR AUTHOR'S ORGANIZ ATION 06/16/2023 [facility] DATE CREATED AUTHOR AUTHOR'S ORGANIZ ATION 12/06/2024 [facility] Special[facility] EPIC Care Teams (unrecognized sec tion and content) Technical Publications Manager Relationship Specialty Start Date End Date Cassi Green MD [address] [id number] PCP - General Family Medicine 05/31/23 Technical Publications Manager Relationship Specialty Start Date End Date Cassi Green MD [address] [id number] PCP - General Family Medicine 05/31/23 Technical Publications Manager Relationship Specialty Start Date End Date Cassi Green MD [address] [id number] PCP - General Family Medicine 05/31/23 Technical Publications Manager Relationship Specialty Start Date End Date Cassi Green MD [address] [place] [address] PCP - General Family Medicine 05/31/23 Technical Publications Manager Relationship Specialty Start Date End Date Cassi Green MD [address] [place] [address] PCP - General Family Medicine 05/31/23 Technical Publications Manager Relationship Specialty Start Date End Date Cassi Green MD [address] [place] [address] PCP - General Family Medicine 05/31/23 Reason for Visit (unrecogniz ed section and content) Reason Comments follow up miscarriage Reason Comments Recurrent Loss Reason Comments Well Women Visit FOR RECORDS PERTAINING TO PATIENTS WHO ARE [...] BE BASED ON THE PRIMARY CLINICAL RECORDS. [employer] provides no warranty or guarantee of the accuracy or completeness of information in this document.
== END 2025-05-14 08:09 | disposition home or self-care (01) ==
LOC: LAB 12:45
PROVIDERS: PCP Nurse Practitioner; Visit Provider Obstetrics & Gynecology
DX: Z32.01 Encounter for pregnancy test, result positive (principal); Z51.81 Encounter for therapeutic drug level monitoring
CPT/HCPCS: 36415; 84702

== ENCOUNTER 2025-05-16 10:12 | Outpatient (OUT) | payer BC, SELFPAY ==
--- OUTSIDE RECORDS SUMMARY | 2025-05-16 10:15 | XMS_ITS | Encounter Summary ---
Author Organization [facility] Address [address] [place] [address] Care Team Providers Care Tube Worker Name Role Phone Robert Green MD Primary Care Provider [phone] Encounter Details Date Type Department Care Team (Late st Contact Info) Description 05/08/2025 Clinisync Result Encounter [facility] External Department Unsolicited Daljit Gandhi DO [address], [facility]11 Social History Tobacco Use Types Packs/Day Years [...] Care Team (Late st Contact Info) Description 05/16/2025 10:30 AM EDT Initial [facility] [place] [phone] 12/10/2025 11:00 AM EDT Office Visit [facility] [address] [place] [phone] Daljit Gandhi DO [address] [place] [address] documented as of this encounter Procedures Procedure Name Priority Date/Time Associated Diagnosis Comments [facility] PREG QUANT HCG Routine 05/08/2025 1: 28 PM EDT documented in this encounter Results * [facility] PREG QUANT HCG (05/08/2025 1:28 PM EDT) HCG QUANTITATIVE 82,922 mIU/mL [facility] Comment: 5-50 0.2-1 WEEK 50-500 1-2 WEEKS 100-5,000 2-3 WEEKS 500-10,000 3-4 WEEKS 1,000-50,000 4-5 WEEKS 10,000-100,000 5-6 WEEKS 15,000-200,000 6-8 WEEKS 10,000-100,000 2-3 MONTHS 05/08/2025 1:28 PM EDT 05/08/2025 1:29 PM EDT Narrative [facility] - 05/08/2025 2:30 PM EDT us Daljit Hiram DO [facility] Final Result [facility] documented in this encounter Visit Diagnoses Not on filedocumented in this encounter Care Teams Tube Worker Relationship Specialty Start Date End Date Robert Green MD [address] [place] [address] PCP - General Family Medicine 05/31/23 documented as of this encounter
--- OUTSIDE RECORDS SUMMARY | 2025-05-16 10:15 | XMS_ITS | Encounter Summary ---
Author Organization [facility] Address [address] [place] [address] Care Team Providers Care Rheumatologist Name Role Phone Robert Green MD Primary Care Provider [phone] Encounter Details Date Type Department Care Team (Latest Contact Info) Description 05/11/2025 Travel Social History Tobacco Use Types Packs/Day Years [...] 05/16/2025 10:30 AM EDT Initial [facility] [address] [place] [phone] 12/10/2025 11:00 AM EDT Office Visit [facility] [address] [place] [phone] Daljit Gandhi DO [address] [place], [place] [id number] documented as of this encounter Visit Diagnoses Not on filedocumented in this encounter Care Teams Rheumatologist Relationship Specialty Start Date End Date Robert Green MD [address] [place] [address] PCP - General Family Medicine 05/31/23 documented as of this encounter
--- OUTSIDE RECORDS SUMMARY | 2025-05-16 10:15 | XMS_ITS | Encounter Summary ---
Author Organization [facility] Address [address] [place] [address] Care Team Providers Care Electrical Mechanical Technician Name Role Phone Robert Green MD Primary Care Provider [phone] Encounter Details Date Type Department Care Team (Late st Contact Info) Description 04/03/2024 Clinisync Result Encounter [facility]OM[facility] External Department Unsolicited Fabiola Gandhi DO [address], [facility]11 Social History Tobacco Use Types Packs/Day Years [...] Info) Description 05/16/2025 10:30 AM EDT Initial [facility] [place] [phone] 12/10/2025 11:00 AM EDT Office Visit [facility] [address] [place] [address] Fabiola Gandhi DO [address] [place] [address] documented as of this encounter Procedures Procedure Name Priority Date/Time Associated Diagnosis Comments US OB TRANSVAGINAL 04/03/2024 11 :52 AM EDT documented in this encounter Results * US OB TRANSVAGINAL (04/03/2024 11:52 AM EDT) Anatomical Region Laterality Modality Other 04/03/2024 11:5 2 AM EDT Narrative 04/03/2024 11:54 [place] [address] Ultrasound Report Signed Patient: MELIZA HARLEY MR#: [id number] : 1990 Acct:[id number] Age/Sex: 33 / F ADM Date: 04/03/24 Loc: [facility] Attending Dr: Fabiola Gandhi D.O. Ordering Physician: Fabiola Gandhi D.O. Date of Service: 04/03/24 Procedure(s): US OB transvaginal Accession Number(s): [id number] cc: Fabiola Gandhi D.O.; ROBERT[address] [address] Patient Name: MELIZA HARLEY MRN: [id number] date: 1990 Sex: F Assigned Patient Location: [facility] Current Patient Location: [facility] Accession/Order Number: [id number] Exam Date: 04/03/2024 11:14 Report Date: 04/03/2024 [...] Signed By: 04/03/24 1154 DD/ 1152 TD/TT: Donkey Ride Operator: Procedure Note Radiology, Radiologist, MD - 04/03/2024 [place] [address] Ultrasound Report Signed Patient: MELIZA HARLEY RMR#: [id number] : 1990Acct:[id number] Age/Sex: 33 / FADM Date: 04/03/24 Loc: [facility] Attending Dr: Fabiola Gandhi D.O. Ordering Physician: Fabiola Gandhi D.O. Date of Service: 04/03/24 Procedure(s): US OB transvaginal Accession Number(s): [id number] cc: Fabiola Gandhi D.O.; ROBERTO HICKMAN [place] [id number] Patient Name: MELIZA HARLEY MRN: [id number] date: 1990 Sex: F Assigned Patient Location: [facility] Current Patient Location: [facility] Accession/Order Number: [id number] Exam Date: 04/03/2024 11:14 Report Date: 04/03/2024 [...] M.D. Signed By:04/03/24 1154 DD/ 1152 TD/TT: Donkey Ride Operator: [facility] Final Result documented in this encounter Visit Diagnoses Not on filedocumented in this encounter Care Teams Electrical Mechanical Technician Relationship Specialty Start Date End Date Robert Green MD [address] [id number] PCP - General Family Medicine 05/31/23 documented as of this encounter
--- OUTSIDE RECORDS SUMMARY | 2025-05-16 10:15 | XMS_ITS | Encounter Summary ---
Author Organization [facility] Address [address] [place] [address] Care Team Providers Care Inspector Receiving Name Role Phone Robert Green MD Primary Care Provider [phone] Encounter Details Date Type Department Care Team (Late st Contact Info) Description 04/10/2024 [place] [address] Daljit Gandhi, DO [address], [facility]11 Social History Tobacco Use Types Packs/Day Years [...] Description 05/16/2025 10:30 [place] [address] 12/10/2025 11:00 AM [place] [address] Daljit Gandhi, DO [address], [place] [address] documented as of this encounter Visit Diagnoses Not on filedocumented in this encounter Care Teams Inspector Receiving Relationship Specialty Start Date End Date Robert Green MD [address] [phone] PCP - General Family Medicine 05/31/23 documented as of this encounter
--- OUTSIDE RECORDS SUMMARY | 2025-05-16 10:15 | XMS_ITS | Encounter Summary ---
Author Organization [facility] Address [address] [place] [address] Phone Care Team Providers Care Skylights Assembler Name Role Phone Unavailable Primary Care Provider Unavailabl e Encounter Details Date Type Department Care Team (Late st Contact Info) Description 03/12/2020 Orders Only [facility] [address] [place] [address] Conversion, Onbase Social History Tobacco Use Types [...]
--- OUTSIDE RECORDS SUMMARY | 2025-05-16 10:15 | XMS_ITS | Encounter Summary ---
Author Organization [facility] Address [address] [place] [address] Care Team Providers Care Kennel Manager Dog Track Name Role Phone Robert Green MD Primary Care Provider [phone] Encounter Details Date Type Department Care Team (Late st Contact Info) Description 04/09/2024 [place] [address] Daljit Gandhi, DO [address], [facility]11 Social History Tobacco Use Types Packs/Day Years [...] 05/16/2025 10:30 [place] [address] 12/10/2025 11:00 AM [place] [address] Daljit Gandhi, DO [address], [place] [address] documented as of this encounter Visit Diagnoses Not on filedocumented in this encounter Care Teams Kennel Manager Dog Track Relationship Specialty Start Date End Date Robert Green MD [address] [id number] PCP - General Family Medicine 05/31/23 documented as of this encounter
--- OUTSIDE RECORDS SUMMARY | 2025-05-16 10:15 | XMS_ITS | Encounter Summary ---
Author Organization [facility] Address [address] [place] [address] Care Team Providers Care Patternmaker Hand Name Role Phone Robert Green MD Primary Care Provider [phone] Encounter Details Date Type Department Care Team (Late st Contact Info) Description 04/11/2024 Clinisync Result Encounter [facility] External Department Unsolicited Fabiola Gandhi DO [address], [facility]11 Social History Tobacco Use Types Packs/Day [...] 05/16/2025 10:30 [place] [address] 12/10/2025 11:00 AM EDT [place] [address] Fabiola Gandhi DO [address] [place] [address] documented as of this encounter Procedures Procedure Name Priority Date/Time Associated Diagnosis Comments US PELVIS 04/11/2024 7:21 AM EDT documented in this encounter Results * US PELVIS (04/11/2024 7:21 AM EDT) Anatomical Region Laterality Modality Other 04/11/2024 7:21 AM EDT Narrative 04/11/2024 7:23 [place] [address] Ultrasound Report Signed Patient: MELIZA HARLEY MR#: [id number] : 1990 Acct:[id number] Age/Sex: 33 / F ADM Date: 04/10/24 Loc: US Attending Dr: Fabiola Gandhi D.O. Ordering Physician: Fabiola Gandhi D.O. Date of Service: 04/10/24 Procedure(s): US pelvis Accession Number(s): [id number] cc: Fabiola Gandhi D.O.; ROBERTO HICKMAN [place] [id number] Patient Name: MELIZA HARLEY MRN: [id number] date: 1990 Sex: F Assigned Patient Location: US Current Patient Location: Accession/Order Number: [id number] Exam Date: 04/10/2024 11:30 Report Date: 04/11/2024 [...] Dictated By: Mathieu Perez M.D. Signed By: 04/11/24 0723 DD/ TD/TT: Account Installer: Procedure Note Radiology, Radiologist, - 04/11/2024 [place] [address] Ultrasound Report Signed Patient: MELIZA HARLEY RMR#: [id number] : 1990Acct:[id number] Age/Sex: 33 / FADM Date: 04/10/24 Loc: US Attending Dr: Fabiola Gandhi D.O. Ordering Physician: Fabiola Gandhi D.O. Date of Service: 04/10/24 Procedure(s): US pelvis Accession Number(s): [id number] cc: Fabiola Gandhi D.O.; ROBERTO HICKMAN [place] [id number] Patient Name: MELIZA HARLEY MRN: [id number] date: 1990 Sex: F Assigned Patient Location: US Current Patient Location: Accession/Order Number: [id number] Exam Date: 04/10/2024 11:30 Report Date: 04/11/2024 [...] Perez M.D. Signed By:04/11/24722 DD/ 0 TD/TT: Account Installer: us Fabiola Gandhi DO [facility] Final Result documented in this encounter Visit Diagnoses Not on filedocumented in this encounter Care Teams Patternmaker Hand Relationship Specialty Start Date End Date Robert Green MD [address] [place] [address] PCP - General Family Medicine 05/31/23 documented as of this encounter
--- OUTSIDE RECORDS SUMMARY | 2025-05-16 10:15 | XMS_ITS | Encounter Summary ---
Author Organization [facility] Address [address] [place] [address] Care Team Providers Care Slice Cutting Machine Operator Name Role Phone Robert Green MD Primary Care Provider [phone] Encounter Details Date Type Department Care Team (Late st Contact Info) Description 05/08/2025 Telephone [facility] [address] [place] [address] Daljit Gandhi DO [address] [place], [place] [id number] Social History Tobacco Use Types Packs/Day Years Used Date Smoking Tobacco: Never Assessed Comments No Sex and Gender Information Value Date Recorded Sex Assigned at Not on file Legal Sex Female 11:47 PM EDT Gender Identity Not on file Sexual Orientation Not on file documented as of this encounter Miscellaneous Notes * Telephone Encounter - Cheyanne Plunkett LPN - 05/08/2025 3:47 PM EDT Patient was called and made aware that Levels fluctuate at this range and as long as no bleeding wewill have her continue with her appointment next week and not have any additional labs drawn Per Candace. Patient states that no one called her she had saw them on her portal and she was reassured that Quantity of blood doesn't matter its th quality of blood so they could get not a full vial and that theHCG hormone is there it would be noticed. Patient reassure if no bleeding or cramping we will have her not do additional labs and follow up in office for intake and ultrasound. Patient advised is symp mayank start to be evaluated PVU * Telephone Encounter - Cheyanne Plunkett LPN - 05/08/2025 3:37 PM EDT Hi, my name is Abel Harley, I am calling from my Meliza Harley. She went and did a blood work today for her HCG levels and I guess she got a call stating that the HCG levels were dropping. She said that the lady that did her blood draw, I guess she might have poked it in A weird spot in her anika she was saying that there was a very slow flow of blood coming out into the vial and she wantedto know if she is miscarrying that she is getting the exact I guess she wants to do like another blood test because she Feels like the lady might have not drawn the I do not know, but she feels like if she got the right blood drawn like a good vial of it that it might some might change or whatnot. If you can give me a call back, my number is [phone], uh, let me know if we can do something like that or what your thoughts are on it. Thank you. Bye. documented in this encounter Plan of Treatment Upcoming Encounters Date Type Department Care Team (Late st Contact Info) Description 05/16/2025 10:30 AM EDT Initial [facility] [address] [place] [address] 12/10/2025 11:00 AM EDT Office Visit [facility] [address] [place] [address] Daljit Gandhi DO [address] [place] [address] documented as of this encounter Visit Diagnoses Not on filedocumented in this encounter Care Teams Slice Cutting Machine Operator Relationship Specialty Start Date End Date Robert Green MD [address] [place] [address] PCP - General Family Medicine 05/31/23 documented as of this encounter
--- OUTSIDE RECORDS SUMMARY | 2025-05-16 10:15 | XMS_ITS | Patient Health Record ---
Author Organization [facility] Address [address] [place] [address] Support Name Relationship Address Phone COLBY MATA Emergency Contact [address] [place] [address] [place] [address] ELENI MATA Guarantor Unknown [phone] Reason For Referral No Information Problems Problem Type SNOMED Code ICD Code Onset Dates Problem Status W/U Status Risk Notes Problem Posttraumatic stress disorder (93573614) PTSD (post-traumatic stress disorder) (F43.10) Active confirmed Problem Episodic mood disorder (82399115527989) Episodic mood disorder (F39) Active confirmed Problem Dissociative disorder (15851569) 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
--- OUTSIDE RECORDS SUMMARY | 2025-05-16 10:15 | XMS_ITS | Encounter Summary ---
Author Organization [facility] Address [address] [place] [address] Care Team Providers Care Diesel Powerplant Mechanic Name Role Phone Robert Green MD Primary Care Provider [phone] Encounter Details Date Type Department Care Team (Late st Contact Info) Description 05/06/2025 Clinisync Result Encounter [facility]S External Department Unsolicited Daljit Gandhi DO [address], [facility]11 Social History Tobacco Use Types Packs/Day Years [...] 05/16/2025 10:30 AM EDT Initial NOMRoberto MOE [facility] [place] [address] 12/10/2025 11:00 AM EDT Office Visit [facility] T[facility]ka MOE [address] [place] [phone] Daljit Gandhi DO [address] [place] [address] documented as of this encounter Procedures Procedure Name Priority Date/Time Associated Diagnosis Comments TBH PREG QUANT HCG Routine 05/06/2025 12 :55 PM EDT documented in this encounter Results * TBH PREG QUANT HCG (05/06/2025 12:55 PM EDT) HCG QUANTITATIVE 86,075 mIU/mL TBH Comment: 5-50 0.2-1 WEEK 50-500 1-2 WEEKS 100-5,000 2-3 WEEKS 500-10,000 3-4 WEEKS 1,000-50,000 4-5 WEEKS 10,000-100,000 5-6 WEEKS 15,000-200,000 6-8 WEEKS 10,000-100,000 2-3 MONTHS 05/06/2025 12:5 5 PM EDT 05/06/2025 12:57 PM EDT Narrative CLINISYNC - 05/06/2025 2:32 PM EDT us Daljit Hiram DO [facility] Final [facility] documented in this encounter Visit Diagnoses Not on filedocumented in this encounter Care Teams Diesel Powerplant Mechanic Relationship Specialty Start Date End Date Robert Green MD [address] [place] [phone] PCP - General Family Medicine 05/31/23 documented as of this encounter
--- NOTE | 2025-05-16 10:16 | US_ITS ---
[address] [address] Patient Name: ELENI MATA MRN: [id number] date: 1990 Sex: F Assigned Patient Location: US Current Patient Location: US Accession/Order Number: [id number] Exam Date: 05/16/2025 10:20 Report Date: 05/16/2025 14:31 At the request of: FABIOLA YANCEY DO Procedure: US OB transvaginal OB ultrasound. Reason for exam:Missed menses. Comparison:None Technique: Transvaginal imaging of the gravid uterus was obtained. Findings: Single live intrauterine 9 weeks 3 days by CRL MYNOR 12/16/2025. heart rate 168 bpm. No free fluid. Left ovary not visualized. Right ovary appears unremarkable. US/US OB transvaginal Impression: Single live intrauterine 9 weeks 3 days by CRL, MYNOR 12/16/2025 Impression dictated by: Garret Stark Jr., DLitOLit 05/16/2025 2:31 PM Dictation Location: [place] [address] Electronically authenticated by: [id number] Y Date: 05/16/2025 14:31
--- OUTSIDE RECORDS SUMMARY | 2025-05-16 10:16 | XMS_ITS | Clinical Summary ---
Author Organization [facility] Address [address] [place] [address] Care Team Providers Care Doll Wig Maker Rooted Hair Name Role Phone Robert Green MD Primary Care Provider [phone] Allergies No known active allergies Medications Progesterone 200 MG suppositoryIndi cations:History of miscarriage Insert 200 mg into the vagina at bedtime Insert suppository vaginally every night at bedtime until 12 weeks gestation 30 suppository 2 04/29/20 25 025 Active Encounters Date Type Department Care Team Description 05/11/2025 Travel 05/08/2025 Telephone [facility] MOE [address] [place] [address] Daljit Gandhi, DO 05/08/2025 Clinisync Result Encounter NOMS External Department Unsolicited Daljit Gandhi, DO 05/06/2025 Clinisync Result Encounter NOMS External Department Unsolicited Daljit Gandhi, DO 04/29/2025 Telephone [facility]ka MOE [address] [place] [address] Peri Jolley MA from Last 3 [...] 10:30 AM EDT Initial NOMRoberto MOE [address] [place] [phone] 12/10/2025 11:00 AM EDT Office Visit [facility] MOE [address] [place] [address] Daljit Gandhi DO [address], [place] [phone] Procedures Procedure Name Priority Date/Time Associated Diagnosis Comments TBH PREG QUANT HCG Routine 05/08/2025 1: 28 PM EDT TBH PREG QUANT HCG Routine 05/06/2025 12 :55 PM EDT from Last 3 Months Results * TBH PREG QUANT HCG (05/08/2025 1:28 PM EDT) Only the most recent of2 resultswithin the time period is included. HCG QUANTITATIVE 82,922 mIU/mL TBH Comment: 5-50 0.2-1 WEEK 50-500 1-2 WEEKS 100-5,000 2-3 WEEKS 500-10,000 3-4 WEEKS 1,000-50,000 4-5 WEEKS 10,000-100,000 5-6 WEEKS 15,000-200,000 6-8 WEEKS 10,000-100,000 2-3 MONTHS 05/08/2025 1:28 PM EDT 05/08/2025 1:29 PM EDT Narrative CLINISYNC - 05/08/2025 2:30 PM EDT us Daljit Arcezio DO CLINIS[facility]NC Final Result [facility] from Last 3 Months Insurance [facility] Care Teams Doll Wig Maker Rooted Hair Relationship Specialty Start Date End Date Robert Green MD [address] [place] [address] PCP - General Family Medicine 05/31/23
--- OUTSIDE RECORDS SUMMARY | 2025-05-16 10:16 | XMS_ITS | Encounter Summary ---
Author Organization [facility] Address [address] [place] [address] Care Team Providers Care Tankroom Worker Name Role Phone Robert Green MD Primary Care Provider [phone] Encounter Details Date Type Department Care Team (Late st Contact Info) Description 03/26/2024 Abstract [facility] [address] [place] [place] [address] Elysia Davis LPN [address] [place] [phone] Social History Tobacco Use Types Packs/Day Years [...] 10:30 AM EDT Initial NOMRoberto MOE [address] [place] [address] 12/10/2025 11:00 AM EDT Office Visit N[facility]to MOE [address] [place] [address] Daljit Gandhi DO [address] [place] [address] documented as of this encounter Visit Diagnoses Not on filedocumented in this encounter Care Teams Tankroom Worker Relationship Specialty Start Date End Date Robert Green MD [address] [place] [phone] PCP - General Family Medicine 05/31/23 documented as of this encounter
--- OUTSIDE RECORDS SUMMARY | 2025-05-16 10:16 | XMS_ITS | Encounter Summary ---
Author Organization [facility] Address [address] [facility] [place] [address] Care Team Providers Care Press Hand Supervisor Name Role Phone Robert Green MD Primary Care Provider [phone] Encounter Details Date Type Department Care Team (Late st Contact Info) Description 03/18/2024 [place] [address] Daljit Gandhi, DO [address], [facility]11 Social History Tobacco Use Types Packs/Day [...] 05/16/2025 10:30 [place] [phone] 12/10/2025 11:00 AM [place]T [place] [address] Daljit Gandhi DO [address], [place] [address] documented as of this encounter Visit Diagnoses Not on filedocumented in this encounter Care Teams Press Hand Supervisor Relationship Specialty Start Date End Date Robert Green MD [address] [place] [phone] PCP - General Family Medicine 05/31/23 documented as of this encounter
--- OUTSIDE RECORDS SUMMARY | 2025-05-16 10:16 | XMS_ITS | Clinical Summary ---
Author Organization [facility] Address [address] [place] [address] Phone Care Team Providers Care Pharmacy Graduate Intern Name Role Phone Unavailable Primary Care Provider [...]
--- OUTSIDE RECORDS SUMMARY | 2025-05-16 10:16 | XMS_ITS | Encounter Summary ---
Author Organization [facility] Address [address] [facility] [place] [address] Care Team Providers Care Caustic Purification Operator Name Role Phone Robert Green MD Primary Care Provider [phone] Encounter Details Date Type Department Care Team (Late st Contact Info) Description 12/18/2024 Orders Only [facility]ka MOE [address] [facility] [place] [address] Cheyanne Plunkett LPN [address] [facility] [place], [place] [address] Social History Tobacco Use Types Packs/Day Years [...] 10:30 AM EDT Initial [facility] Tameka MOE [address] [place] [address] 12/10/2025 11:00 AM EDT Office Visit [facility] Tameka MOE [address] [place] [address] Daljit Gandhi DO [address] [place], [place] [address] documented as of this encounter Procedures Procedure [...] on filedocumented in this encounter Care Teams Caustic Purification Operator Relationship Specialty Start Date End Date Robert Green MD [address] [place] [address] PCP - General Family Medicine 05/31/23 documented as of this encounter
--- OUTSIDE RECORDS SUMMARY | 2025-05-16 10:16 | XMS_ITS | Encounter Summary ---
Author Organization [facility] Address [address] [place] [address] Care Team Providers Care Bath Steward/Stewardess Name Role Phone Robert Green MD Primary Care Provider [phone] Encounter Details Date Type Department Care Team (Late st Contact Info) Description 02/07/2024 Clinisync Result Encounter NOMS External Department Unsolicited Fabiola Gandhi DO [address], [facility]11 Social History Tobacco Use Types Packs/Day [...] AM EDT Initial [facility] Tameka MOE [address] [place] [address] 12/10/2025 11:00 AM EDT Office Visit [facility] Tameka MOE [address] [place] [address] Fabiola Gandhi DO [address] [place] [address] documented as of this encounter Procedures Procedure Name Priority Date/Time Associated Diagnosis Comments US OB TRANSVAGINAL 02/07/2024 2: 03 PM EDT documented in this encounter Results * US OB TRANSVAGINAL (02/07/2024 2:03 PM EDT) Anatomical Region Laterality Modality Other 02/07/2024 2:03 PM EDT Narrative 02/07/2024 2:06 [place] [address] Ultrasound Report Signed Patient: MELIZA HARLEY MR#: [id number] : 1990 Acct:[id number] Age/Sex: 33 / F ADM Date: 02/07/24 Loc: [facility] Attending Dr: Fabiola Gandhi D.O. Ordering Physician: Fabiola Gandhi D.O. Date of Service: 02/07/24 Procedure(s): US OB transvaginal Accession Number(s): [id number] cc: Fabiola Gandhi D.O.; ROBERTO HICKMAN [place] [address] Patient Name: MELIZA HARLEY MRN: [id number] date: 1990 Sex: F Assigned Patient Location: [facility] Current Patient Location: [facility] Accession/Order Number: [id number] Exam Date: 02/07/2024 12:49 Report Date: 02/07/2024 [...] Perez M.D. Signed By: 02/07/24 1406 DD/ 02 TD/TT: Energy Audit Advisor: Procedure Note Radiology, Radiologist, - 02/07/2024 [place] [address] Ultrasound Report Signed Patient: MELIZA HARLEY RMR#: [id number] : 1990Acct:[id number] Age/Sex: 33 FADM Date: 02/07/24 Loc: [facility] Attending Dr: Fabiola Gandhi D.O. Ordering Physician: Fabiola Gandhi D.O. Date of Service: 02/07/24 Procedure(s): US OB transvaginal Accession Number(s): [id number] cc: Fabiola Gandhi D.O.; ROBERTO HICKMAN [place] [address] Patient Name: MELIZA HARLEY MRN: [id number] date: 1990 Sex: F Assigned Patient Location: [facility] Current Patient Location: [facility] Accession/Order Number: [id number] Exam Date: 02/07/2024 12:49 Report Date: 02/07/2024 [...] Mathieu Perez M.D. Signed By:02/07/24 1406 DD/ 1403 TD/TT: Energy Audit Advisor: us Fabiola Gandhi DO [facility] IMAGING Final Result documented in this encounter Visit Diagnoses Not on filedocumented in this encounter Care Teams Bath Steward/Stewardess Relationship Specialty Start Date End Date Robert Green MD [address] [place] [address] PCP - General Family Medicine 05/31/23 documented as of this encounter
--- OUTSIDE RECORDS SUMMARY | 2025-05-16 10:16 | XMS_ITS | Encounter Summary ---
Author Organization [facility] Address [address] [place] [address] Care Team Providers Care Courtroom Deputy Name Role Phone Robert Green MD Primary Care Provider [phone] Encounter Details Date Type Department Care Team (Late st Contact Info) Description 05/31/2023 [place] [address] Daljit Gandhi, DO [address], [facility]11 Social History Tobacco Use Types Packs/Day [...] 05/16/2025 10:30 [place] [address] 12/10/2025 11:00 AM [place] [address] Daljit Gandhi, DO [address], [place] [address] documented as of this encounter Visit Diagnoses Not on filedocumented in this encounter Care Teams Courtroom Deputy Relationship Specialty Start Date End Date Robert Green MD [address] [place] [phone] PCP - General Family Medicine 05/31/23 documented as of this encounter
--- OUTSIDE RECORDS SUMMARY | 2025-05-16 10:16 | XMS_ITS | Encounter Summary ---
Author Organization [facility] [employer] [facility] tem Address [id number] [address] [place] [address] Care Team Providers Care Application Services Manager Name Role Phone Shireen Marsh MD Primary Care Provider [phone] Encounter Details Date Type Department Care Team (Late st Contact Info) Description 08/27/2020 Orders Only Maternal- Medicine at [facility] [address] [place] [address] External, Scanning Provider Social History Tobacco Use [...] more fetus (2020) Anatomical Region Laterality Modality OB-SENIOR IT ENGINEER Ultrasound Narrative 2020 See attached report us Scanning Provider External IMG US ORDERABLES Paco kylie Result - Final * Ultrasound limited 1 or more fetus (08/12/2020) Anatomical Region Laterality Modality OB-SENIOR IT ENGINEER Ultrasound Narrative 08/12/2020 See attached report us Scanning Provider External IMG US ORDERABLES Paco kylie Result - Final * Ultrasound limited 1 or more fetus (07/28/2020) Anatomical Region Laterality Modality OB-SENIOR IT ENGINEER Ultrasound Narrative 07/28/2020 See attached report us Scanning Provider External IMG US ORDERABLES Paco kylie Result - Final * Ultrasound limited 1 or more fetus (07/14/2020) Anatomical Region Laterality Modality OB-SENIOR IT ENGINEER Ultrasound Narrative 07/14/2020 See attached report us Scanning Provider External IMG US ORDERABLES Paco kylie Result - Final * Ultrasound limited 1 or more fetus (05/12/2020) Anatomical Region Laterality Modality OB-SENIOR IT ENGINEER Ultrasound Narrative 05/12/2020 See attached report us Scanning Provider External IMG US ORDERABLES Paco kylie Result - Final * Ultrasound limited 1 or more fetus (04/23/2020) Anatomical Region Laterality Modality OB-SENIOR IT ENGINEER Ultrasound Narrative 04/23/2020 See attached report us Scanning Provider External IMG US ORDERABLES Paco kylie Result - Final documented in this encounter Visit Diagnoses Not on filedocumented in this encounter Care Teams Application Services Manager Relationship Specialty Start Date End Date Shireen Marsh MD PCP - General Family Medicine 08/28/20 documented as of this encounter
--- OUTSIDE RECORDS SUMMARY | 2025-05-16 10:16 | XMS_ITS | Encounter Summary ---
Author Organization [facility] Address [address] [place] [address] Care Team Providers Care Party Plan Salesperson Name Role Phone Robert Green MD Primary Care Provider [phone] Reason for Visit * Reason Onset Date Comments Med Refill 02/05/2024 Encounter Details Date Type Department Care Team (Late st Contact Info) Description 02/05/2024 Refill CATALINO MOE [facility] [place] [address] Daljit Gandhi, [facility] [email or web address] [address], [place] [address] History of miscarriage Social History Tobacco Use [...] Info) Description 05/16/2025 10:30 AM EDT Initial CATALINO MOE [address] [place] [address] 12/10/2025 11:00 AM EDT Office Visit [facility] Tameka MOE [address] [facility] [place] [address] Daljit Gandhi DO [address] [facility] [address] [place], [place] [address] documented as of this encounter Visit Diagnoses Diagnosis History of miscarriage Personal history of other genital system and obstetric disorders Missed menses Positive urine test ([facility]) documented in this encounter Care Teams Party Plan Salesperson Relationship Specialty Start Date End Date Robert Grene MD [address] [place] [address] PCP - General Family Medicine 05/31/23 documented as of this encounter
--- OUTSIDE RECORDS SUMMARY | 2025-05-16 10:16 | XMS_ITS | Clinical Summary ---
Author Organization [employer] [facility] tem Address [facility] [address] [place] [address] Care Team Providers Care Sheriff Sergeant Name Role Phone Shireen Marsh MD Primary Care Provider [phone] Allergies No known active allergies Medications progesterone [...] on file Insurance [employer] Care Teams Sheriff Sergeant Relationship Specialty Start Date End Date Shireen Marsh MD PCP - General Family Medicine 08/28/20
--- OUTSIDE RECORDS SUMMARY | 2025-05-16 10:16 | XMS_ITS | Encounter Summary ---
Author Organization [facility] Address [address] [place] [address] Care Team Providers Care Helicopter Repairer Name Role Phone Robert Green MD Primary Care Provider [phone] Encounter Details Date Type Department Care Team (Late st Contact Info) Description 06/08/2023 Clinisync Result Encounter NOMS External Department Unsolicited Fabiola Gandhi DO [address] [place] [address] Social History Tobacco Use Types Packs/Day Years [...] 10:30 AM EDT Initial [facility]S Tameka MOE [facility] [place] [address] 12/10/2025 11:00 AM EDT Office Visit [facility] Tameka MOE [address] [place] [address] Fabiola Gandhi DO [address] [place] [address] documented as of this encounter Procedures Procedure [...] PM EDT Narrative 06/08/2023 1:01 [place] [address] Ultrasound Report Signed Patient: MELIZA HARLEY MR#: [id number] : 1990 Acct:[id number] Age/Sex: 32 / F ADM Date: 06/08/23 Loc: US Attending Dr: Fabiola Gandhi D.O. Ordering Physician: Fabiola Gandhi D.O. Date of Service: 06/08/23 Procedure(s): US pelvis transvaginal Accession Number(s): [id number] cc: Fabiola Gandhi D.O.; ROBERTO HICKMAN [place] [id number] Patient Name: MELIZA HARLEY MRN: [id number] date: 1990 Sex: F Assigned Patient Location: US Current Patient Location: US Accession/Order Number: [id number] Exam Date: 06/08/2023 10:20 Report Date: 06/08/2023 [...] Dictated By: Catrachito Steen M.D. Signed By: 06/08/23 1303 DD/ 1301 TD/TT: Controller Mechanic: Procedure Note Radiology, Radiologist, MD - 06/08/2023 [place] [address] Ultrasound Report Signed Patient: MELIZA HARLEY RMR#: [id number] : 1990Acct:[id number] Age/Sex: 32 / FADM Date: 06/08/23 Loc: US Attending Dr: Fabiola Gandhi D.O. Ordering Physician: Fabiola Gandhi D.O. Date of Service: 06/08/23 Procedure(s): US pelvis transvaginal Accession Number(s): [id number] cc: Fabiola Gandhi D.O.; ROBERTO HICKMAN [place] [id number] Patient Name: MELIZA HARLEY MRN: [id number] date: 1990 Sex: F Assigned Patient Location: US Current Patient Location: US Accession/Order Number: [id number] Exam Date: 06/08/2023 10:20 Report Date: 06/08/2023 [...] CATRACHITO STEEN Date: 06/08/2023 13:01 Dictated By: Ctarachito Steen M.D. Signed By:06/08/23 1303 DD/ 1301 TD/TT: Controller Mechanic: us Fabiola Gandhi DO [facility] IMAG[facility] Final Result * ALL DEHYDROEPIANDROSTERONE (06/08/2023 10:59 AM EDT) DHEA, SERUM 333 31 - 701 ng/dL TB Comment: This test was developed and its performance characteristics determined by [employer]. It has not been cleared or approved by the Food and Drug Administration. Performed at: [address] [id number] Steeping Press Operator: Denice Delaney MD, Phone: [phone] 06/08/2023 10:5 9 AM EDT 06/08/2023 11:02 AM EDT Narrative CLINISYNC - 06/14/2023 5:07 AM EDT Fabiola Hiram DO CLINISYNC Final Result Performing Organization Address [facility] Co nv Phone Number [facility] * ALL FOLLICLE STIMULATING HORMONE (06/08/2023 10:59 AM EDT) FSH 5.8 . mIU/mL TBH Comment: Adult Female: Follicular phase 3.5 - 12.5 Ovulation phase 4.7 - 21.5 Luteal phase 1.7 - 7.7 Postmenopausal 25.8 - 134.8 Performed at: [address] [id number] Steeping Press Operator: Ryan Devine PhD, Phone: [phone] 06/08/2023 10:5 9 AM EDT 06/08/2023 11:02 AM EDT Narrative CLINISYNC - 06/09/2023 8:12 AM EDT Fabioal Hiram DO CLINIS[facility] Final Result Performing Organization Address [facility] Phone Number [facility] * ALL LUTEINIZING HORMONE (06/08/2023 10:59 AM EDT) LUTEINIZING HORMONE(LH) 12.6 . mIU/mL TBH Comment: Adult Female: Follicular phase 2.4 - 12.6 Ovulation phase 14.0 - 95.6 Luteal phase 1.0 - 11.4 Postmenopausal 7.7 - 58.5 06/08/2023 10:5 9 AM EDT 06/08/2023 11:02 AM EDT Narrative CLINISYNC - 06/09/2023 8:12 AM EDT Fabiola Hiram DO CLINIS[facility] Final Result Performing Organization Address [facility] Co de Phone Number [facility] * ALL DHEA SULFATE (06/08/2023 10:59 AM EDT) DHEA-SULFATE 260.0 84.8 - 378.0 ug/dL TBH 06/08/2023 10:5 9 AM EDT 06/08/2023 11:02 AM EDT Narrative CLINISYNC - 06/09/2023 8:12 AM EDT us Fabiola Hiram DO CLIN[facility] Final Result [facility] documented in this encounter Visit Diagnoses Not on filedocumented in this encounter Care Teams Helicopter Repairer Relationship Specialty Start Date End Date Robert Green MD [address] [place] [phone] PCP - General Family Medicine 05/31/23 documented as of this encounter
--- OUTSIDE RECORDS SUMMARY | 2025-05-16 10:16 | XMS_ITS | Encounter Summary ---
Author Organization [facility] Address [address] [place] [address] Care Team Providers Care Ambulette Driver Name Role Phone Robert Green MD Primary Care Provider [phone] Encounter Details Date Type Department Care Team (Late st Contact Info) Description 03/12/2024 [place] [address] Daljit Gandhi, DO [address], [facility]11 Social History Tobacco Use Types [...] 05/16/2025 10:30 [place] [address] 12/10/2025 11:00 AM [place] [address] Daljit Gandhi, DO [address], [place] [address] documented as of this encounter Visit Diagnoses Not on filedocumented in this encounter Care Teams Ambulette Driver Relationship Specialty Start Date End Date Robert Green MD [address] [place] [phone] PCP - General Family Medicine 05/31/23 documented as of this encounter
--- OUTSIDE RECORDS SUMMARY | 2025-05-16 10:16 | XMS_ITS | Encounter Summary ---
Author Organization [facility] Address [address] [facility] [place] [address] Care Team Providers Care Business Analyst Project Manager Name Role Phone Robetr Green MD Primary Care Provider [phone] Encounter Details Date Type Department Care Team (Late st Contact Info) Description 02/01/2024 [place] [address] Daljit Gandhi, DO [address], [facility] Social History Tobacco Use Types Packs/Day Years [...] 05/16/2025 10:30 [place] [address] 12/10/2025 11:00 AM [place] [address] Daljit Gandhi, DO [address], [place] [address] documented as of this encounter Visit Diagnoses Not on filedocumented in this encounter Care Teams Business Analyst Project Manager Relationship Specialty Start Date End Date Robert Green MD [address] [place] [phone] PCP - General Family Medicine 05/31/23 documented as of this encounter
--- OUTSIDE RECORDS SUMMARY | 2025-05-16 10:16 | XMS_ITS | Encounter Summary ---
Author Organization [facility] [address] [place] [address] Care Team Providers Care Firer Retort Name Role Phone Robert Green MD Primary Care Provider [phone] Encounter Details Date Type Department Care Team (Late st Contact Info) Description 05/09/2024 [place] [address] Daljit Gandhi, DO [address], [id number] Social History Tobacco Use Types Packs/Day Years [...] 05/16/2025 10:30 [place] [id number] 12/10/2025 11:00 AM [place]T [place] [address] Daljit Gandhi, DO [address], [place] [id number] documented as of this encounter Visit Diagnoses Not on filedocumented in this encounter Care Teams Firer Retort Relationship Specialty Start Date End Date Robert Green MD [address] [id number] PCP - General Family Medicine 05/31/23 documented as of this encounter
--- OUTSIDE RECORDS SUMMARY | 2025-05-16 10:19 | XMS_ITS | CCD ---
Author Organization [facility] InformFormerly [facility] Care Team Providers Care Washer Operator Name Role Phone HIRAM, DR HICKS Consulting Unavailable LAUREN, DR SAKINA Sosa Primary Care Unavailable HIRAM, DR HICKS Attending Unavailable HIRAM, DR HICKS Admitting Unavailable Zieber, DR Winston Consulting Unavailable SMAIR, DR FELIPA Monzon Consulting Unavailable HIRAM, DR [...] Medication Allergies] Propensity to adverse reactions (disorder) [facility] Repository Medications Current Medications Medication Drug Class(es) Dates Sig (Normalized) Sig (Original) Progesterone 200 MG suppository (2 sources) Start: 04-29-2025 End: 05-29-2025 Progesterone 200 MG suppository Indications: History of miscarriage Insert 200 mg into the vagina at bedtime Insert suppository vaginally every night at bedtime until 12 weeks gestation 30 suppository 2 04/29/2025 05/29/2025 Active Completed/Discontinued Medications Medication Drug Class(es) Dates Sig [...] Results Test Name Value Interpretation Reference Range [facility] PREG QUANT HCGon 025 HCG QUANTITATIVE 83676 mIU/mL [facility] Comment on above: 5-50 0.2-1 WEEK 50-500 1-2 WEEKS 100-5,000 2-3 WEEKS 500-10,000 3-4 WEEKS 1,000-50,000 4-5 WEEKS 10,000-100,000 5-6 WEEKS 15,000-200,000 6-8 WEEKS 10,000-100,000 2-3 MONTHS [facility] PREG QUANT HCGon 025 HCG QUANTITATIVE 29696 mIU/mL [facility] Comment on above: 5-50 0.2-1 WEEK 50-500 1-2 WEEKS 100-5,000 2-3 WEEKS 500-10,000 3-4 WEEKS 1,000-50,000 4-5 WEEKS 10,000-100,000 5-6 WEEKS 15,000-200,000 6-8 WEEKS 10,000-100,000 2-3 MONTHS [facility] [employer] [facility] IGP,APTIMA HPV,AGE GDLNon AGE GDLN ACOG TESTING Note . [facility] Comment on above: TESTS RESULT FLAG UN ITS REF RANGE LAB Clinician Provided Cytology Information Source.............Cervix;Endocervix No. of containers..01 ThinPrep Vial Age Algo ACOG Maureen... FLAG LEGEND: L-Low Normal,H-High Normal,LL-Alert Low,HH-Alert High <-Panic Low,>-Panic High,A-Abnormal,AA-Critical Abnormal Performed at: 01 =G [address] [address] Suzie Hoskins MD, HPV APTIMA Negative Negative Eons e Comment on above: This nucleic acid am plification test detects fourteen high- risk HPV types (16,18,31,33,35,39,45,51,52,56,58,59,66,68) without differentiation. Performed at: =[address] [id number] Regrind Mill Operator: Suzie Hoskins MD, Phone: [phone] Performed at: [address] [id number] [employer] Operator: Suzie Hoskins MD, Phone: [phone] IGP, APTIMA HPV, RFX 16/18,45 Note . [facility] Comment on above: TESTS RESULT FLAG U NITS REF RANGE LAB DIAGNOSIS: 02 NEGATIVE FOR INTRAEPITHELIAL LESION OR MALIGNANCY. Specimen adequacy: 02 Satisfactory for evaluation. Endocervical and/or squamous metaplastic cells (endocervical component) are present. Performed by: 02 Rae Nash Carpet Layer Helper . 02 Note: Note 02 The Pap [...] Low,>-Panic High,A-Abnormal,AA-Critical Abnormal Performed at: [address] [facility] [place] [address] Suzie Hoskins MD, BRUSH-SPATULA CERVIX ENDOCERVIX [facility] e RAD - Ultrasound Reporton RAD - Ultrasound Report [id number] 0TIFF Normal [facility] Cytology Cervical or vaginal smear or scraping studyOrdered By: Peri Jolley on 05-31-2023 [facility] RAD - MISCon 02-02-2023 RAD - MISC [id number]. 00CD:127 Normal [facility] RAD - MISC [id number] CD:127 Normal [facility] Ambulatory Visit Summaryon 0 01-31-2023 Ambulatory Visit [...] 26.03 Allergies No Known Medication Allergies Normal [facility] Family Medicine Office/Clini c Noteon 01-31-2023 Family [...] day(s), # 21 tab(s), Refills(s) 0, Pharmacy: [facility]/pharmacy #[id number], 161.5, cm, 01/31/23 14:55:00 EDT, Height/Length Dosing, 67.9, kg, 01/31/23 14:55:00 EDT, Weight Dosing naproxen, 500 mg = 1 tab(s), Oral, BID, # 30 tab(s), Refills(s) 0, Pharmacy: [facility]/pharmacy #[id number], 161.5, cm, 01/31/23 14:55:00 EDT, Height/Length Dosing, 67.9, kg, 01/31/23 14:55:00 EDT, Weight Dosing 4. Non-smoker (Z78.9: Other specified health status) continue not smoking Ordered: methylPREDNISolone, = 1 packet(s), Oral, As Directed, as directed on package labeling, X 6 day(s), # 21 tab(s), Refills(s) 0, Pharmacy: [facility]/pharmacy #[id number], 161.5, cm, 01/31/23 14:55:00 EDT, Height/Length Dosing, 67.9, kg, 01/31/23 14:55:00 EDT, Weight Dosing naproxen, 500 mg = 1 tab(s), Oral, BID, # 30 tab(s), Refills(s) 0, Pharmacy: [facility]/pharmacy #[id number], 161.5, cm, 01/31/23 14:55:00 EDT, [...] Family History Family history is negative Normal [facility] Comment on above: Result Comment: Elec tronically Signed By: Tessy Salinas\.br\Date and Time Signed: 01/31/23 15:15 EDT PAP ACOG PANEL 2: 21 to 29on 06-01-2022 . . Normal [facility] Comment on above: Performed By: #### P REGQNT #### [facility] [address] [place] [address] Dr. Ed Amaral Age Gdln ACOG Testing 21-29 Normal [facility] Comment on above: Performed By: #### P REGQNT #### [facility] [address] [place] [address] Dr. Ed Amaral DIAGNOSIS: Comment [facility] Comment on above: Result Comment: NEGA TIVE FOR INTRAEPITHELIAL LESION OR MALIGNANCY. Performed By: #### P REGQNT #### [facility] [address] [place] [address] Dr. Ed Amaral Methodology: Comment [facility] Comment on above: Result Comment: This liquid based ThinPrep(R) pap test was screened with the use of an image guided system. Performed By: #### P REGQNT #### [facility] [address] [place] [address] Dr. Ed Amaral Note: Comment [facility] Comment on above: Result Comment: The Pap smear is a screening test designed to aid in the detection of premalignant and malignant conditions of the uterine cervix. It is not a diagnostic procedure and should not be used as the sole means of detecting cervical cancer. Both false-positive and false-negative reports do occur. . Performed By: #### P REGQNT #### [facility] [address] [place] [address] Dr. Ed Amaral Performed by: Comment Normal [facility] Comment on above: Result Comment: Ignacio Pleitez, Distribution Center Manager (ASCP) Performed By: #### P REGQNT #### [facility] [address] [place] [address] Dr. Ed Amaral Reflex Criteria: Comment [facility] Comment on above: Result Comment: The HPV DNA reflex criteria were not met with this specimen result therefore, no HPV testing was performed. . Performed By: #### P REGQNT #### [facility] [address] [place] [address] Dr. Ed Amaral Specimen adequacy: Comment Normal [facility] Comment on above: Result Comment: Sati sfactory for evaluation. Endocervical and/or squamous metaplastic cells (endocervical component) are present. Performed By: #### P REGQNT #### [facility] [address] [address] [address] Ed Amaral PREG QUANT HCGon 12-09-2021 HCG QUANT 2 mIU/mL Normal [facility] Comment on above: Performed By: #### P REGQNT #### [facility] [address] [place] [address] Dr. Ed Amaral HCG RANGE SEE BELOW Normal [facility] Comment on above: Result Comment: 5-50 0-1 WEEK 40-300 1-2 WEEKS 100-1,000 2-3 WEEKS 500-6,000 3-4 WEEKS 5,000-200,000 1-2 MONTHS 10,000-100,000 2-3 MONTHS 3,000-50,000 2ND TRIMESTER 1,000-50,000 3RD TRIMESTER Performed By: #### P REGQNT #### [facility] [address] [place] [address] Dr. Ed Amaral PREG QUANT HCGon 11-29-2021 HCG QUANT 83 mIU/mL Normal [facility] Comment on above: Performed By: #### P REGQNT #### [facility] [address] [place] [address] Dr. Ed Amaral HCG RANGE SEE BELOW Normal [facility] Comment on above: Result Comment: 5-50 0-1 WEEK 40-300 1-2 WEEKS 100-1,000 2-3 WEEKS 500-6,000 3-4 WEEKS 5,000-200,000 1-2 MONTHS 10,000-100,000 2-3 MONTHS 3,000-50,000 2ND TRIMESTER 1,000-50,000 3RD TRIMESTER Performed By: #### P REGQNT #### [facility] [address] [place] [address] Dr. Ed Amaral PREG QUANT HCGon 11-23-2021 HCG QUANT 80 mIU/mL Normal [facility] Comment on above: Performed By: #### P REGQNT #### [facility] [address] [place] [address] Dr. Ed Amaral HCG RANGE SEE BELOW Normal [facility] Comment on above: Result Comment: 5-50 0-1 WEEK 40-300 1-2 WEEKS 100-1,000 2-3 WEEKS 500-6,000 3-4 WEEKS 5,000-200,000 1-2 MONTHS 10,000-100,000 2-3 MONTHS 3,000-50,000 2ND TRIMESTER 1,000-50,000 3RD TRIMESTER Performed By: #### P REGQNT #### [facility] [address] [address] [address] Ed Amaral US PELVIS AND TRANSVAGon [...] MARK HAYES Date: 2021-11-16 07:02 Normal [facility] PREG QUANT HCGon 11-12-2021 HCG QUANT 236 mIU/mL Normal [facility] Comment on above: Performed By: #### P REGQNT #### [facility] [address] [id number] [address] Ed Amaral HCG RANGE SEE BELOW Normal [facility] Comment on above: Result Comment: 5-50 0-1 WEEK 40-300 1-2 WEEKS 100-1,000 2-3 WEEKS 500-6,000 3-4 WEEKS 5,000-200,000 1-2 MONTHS 10,000-100,000 2-3 MONTHS 3,000-50,000 2ND TRIMESTER 1,000-50,000 3RD TRIMESTER Performed By: #### P REGQNT #### [facility] [address] [place] [address] Dr. Ed Amaral PREG QUANT HCGon 11-08-2021 HCG QUANT 335 mIU/mL Normal [facility] Comment on above: Performed By: #### P REGQNT #### [facility] [address] [place] [address] Dr. Ed Amaral HCG RANGE SEE BELOW [facility] Comment on above: Result Comment: 5-50 0-1 WEEK 40-300 1-2 WEEKS 100-1,000 2-3 WEEKS 500-6,000 3-4 WEEKS 5,000-200,000 1-2 MONTHS 10,000-100,000 2-3 MONTHS 3,000-50,000 2ND TRIMESTER 1,000-50,000 3RD TRIMESTER Performed By: #### P REGQNT #### [facility] [address] [place] [address] Dr. Ed Amaral PREG QUANT HCGon 11-06-2021 HCG QUANT 324 mIU/mL Normal [facility] Comment on above: Performed By: #### P REGQNT #### [facility] [address] [place] [address] Dr. Ed Amarla HCG RANGE SEE BELOW Normal [facility] Comment on above: Result Comment: 5-50 0-1 WEEK 40-300 1-2 WEEKS 100-1,000 2-3 WEEKS 500-6,000 3-4 WEEKS 5,000-200,000 1-2 MONTHS 10,000-100,000 2-3 MONTHS 3,000-50,000 2ND TRIMESTER 1,000-50,000 3RD TRIMESTER Performed By: #### P REGQNT #### [facility] [address] [place] [address] Dr. Ed Amaral PREG QUANT HCGon 11-03-2021 HCG QUANT 189 mIU/mL Normal [facility] Comment on above: Performed By: #### P REGQNT #### [facility] [address] [place] [address] Dr. Ed Amaral HCG RANGE SEE BELOW Normal [facility] Comment on above: Result Comment: 5-50 0-1 WEEK 40-300 1-2 WEEKS 100-1,000 2-3 WEEKS 500-6,000 3-4 WEEKS 5,000-200,000 1-2 MONTHS 10,000-100,000 2-3 MONTHS 3,000-50,000 2ND TRIMESTER 1,000-50,000 3RD TRIMESTER Performed By: #### P REGQNT #### [facility] [address] [place] [address] Dr. Ed Amaral CBC AUTO DIFFon 10-30-2021 BASO # 0.1 103/ul Normal 0.0-0.1 [facility] Comment on above: Performed By: #### C BC #### [facility] [address] [place] [address] Dr. Ed Amaral Basophils/100 WBC (Bld) 0.9 % Normal 0.2-2.0 [facility] Comment on above: Performed By: #### C BC #### [facility] [address] [place] [address] Dr. Ed Amaral EO # 0.1 103/ul Normal 0.0-0.7 [facility] Comment on above: Performed By: #### C BC #### [facility] [address] [place] [address] Dr. Ed Amaral Eosinophils/100 WBC (Bld) 0.8 % Critically low 0.9-7.0 [facility] Comment on above: Performed By: #### C BC #### [facility] [address] [place] [address] Dr. Ed Amaral Erythrocyte distribution width (RBC) [Ratio] 12.2 % Normal 11.0-15.0 [facility] Comment on above: Performed By: #### C BC #### [facility] [address] [place] [address] Dr. Ed Amaral Hematocrit (Bld) [Volume fraction] 35.3 % Critically low 36.0-48.0 [facility] Comment on above: Performed By: #### C BC #### [facility] [address] [place] [address] Dr. Ed Amaral Hemoglobin (Bld) [Mass/Vol] 11.5 g/dL Critically low 12.0-16.0 [facility] Comment on above: Performed By: #### C BC #### [facility] [address] [place] [address] Dr. Ed Amaral IG # 0.01 10e3/ul Normal 0.00-0.03 [facility] Comment on above: Performed By: #### C BC #### [facility] [address] [place] [address] Dr. Ed Amaral IG % 0.1 % Normal 0.0-0.5 [facility] Comment on above: Performed By: #### C BC #### [facility] [address] [place] [address] Dr. Ed Amaral LYMPH # 2.5 103/ul Normal 1.2-3.8 [facility] Comment on above: Performed By: #### C BC #### [facility] [address] [place] [address] Dr. Ed Amaral Lymphocytes/100 WBC (Bld) 32.4 % Normal 20.5-60.0 [facility] Comment on above: Performed By: #### C BC #### [facility] [address] [place] [address] Dr. Ed Amaral MANUAL DIFF REQ NO Normal [facility] Comment on above: Performed By: #### C BC #### [facility] [address] [place] [address] Dr. Ed Amaral MCH (RBC) [Entitic mass] 27.4 pg Normal 26.7-34.0 [facility] Comment on above: Performed By: #### C BC #### [facility] [address] [place] [address] Dr. Ed Amaral MCHC (RBC) [Mass/Vol] 32.6 g/dL Normal 29.9-35.2 [facility] Comment on above: Performed By: #### C BC #### [facility] [address] [address] [address] Ed Amaral MCV (RBC) [Entitic vol] 84.0 fL Normal 81.0-99.0 [facility] Comment on above: Performed By: #### C BC #### [facility] [address] [address] [address] Ed Amaral MONO # 0.5 103/ul Normal 0.3-0.8 [facility] Comment on above: Performed By: #### C BC #### [facility] [address] [place] [address] Dr. Ed Amaral Monocytes/100 WBC (Bld) 5.9 % Normal 1.7-12.0 [facility] Comment on above: Performed By: #### C BC #### [facility] [address] [place] [address] Dr. Ed Amaral NEUT # 4.5 103/ul Normal 1.4-6.5 [facility] Comment on above: Performed By: #### C BC #### [facility] [address] [place] [address] Dr. Ed Amaral Neutrophils/100 WBC (Bld) 59.9 % Normal 43.0-75.0 [facility] Comment on above: Performed By: #### C BC #### [facility] [address] [place] [address] Dr. Ed Amaral Platelet mean volume (Bld) [Entitic vol] 9.8 fL Normal 9.5-13.5 [facility] Comment on above: Performed By: #### C BC #### [facility] [address] [place] [address] Dr. Ed Amaral PLT 277 103/ul Normal 150-450 [facility] Comment on above: Performed By: #### C BC #### [facility] [address] [place] [address] Dr. Ed Amaral RBC 4.20 106/ul Normal 4.20-5.40 [facility] Comment on above: Performed By: #### C BC #### [facility] [address] [place], [place] [id number] Dr. Ed Amaral WBC 7.6 103/ul Normal 4.0-11.0 [facility] Comment on above: Performed By: #### C BC #### [facility] [address] [address] [address] Ed Amaral BASO # 0.1 103/ul Normal 0.0-0.1 [facility] Comment on above: Performed By: #### C BC #### [facility] [address] [place] [address] Dr. Ed Amaral Basophils/100 WBC (Bld) 0.8 % Normal 0.2-2.0 [facility] Comment on above: Performed By: #### C BC #### [facility] [address] [place] [address] Dr. Ed Amaral EO # 0.2 103/ul Normal 0.0-0.7 [facility] Comment on above: Performed By: #### C BC #### [facility] [address] [place] [address] Dr. Ed Amaral Eosinophils/100 WBC (Bld) 2.1 % Normal 0.9-7.0 [facility] Comment on above: Performed By: #### C BC #### [facility] [address] [place] [address] Dr. Ed Amaral Erythrocyte distribution width (RBC) [Ratio] 12.2 % Normal 11.0-15.0 [facility] Comment on above: Performed By: #### C BC #### [facility] [address] [place] [address] Dr. Ed Amaral Hematocrit (Bld) [Volume fraction] 39.2 % Normal 36.0-48.0 [facility] Comment on above: Performed By: #### C BC #### [facility] [address] [place] [address] Dr. Ed Amaral Hemoglobin (Bld) [Mass/Vol] 12.8 g/dL Normal 12.0-16.0 [facility] Comment on above: Performed By: #### C BC #### [facility] [address] [place] [address] Dr. Ed Amaral IG # 0.03 10e3/ul Normal 0.00-0.03 [facility] Comment on above: Performed By: #### C BC #### [facility] [address] [place] [address] Dr. Ed Amaral IG % 0.3 % Normal 0.0-0.5 [facility] Comment on above: Performed By: #### C BC #### [facility] [address] [place] [address] Dr. Ed Amaral LYMPH # 4.5 103/ul Critically high 1.2-3.8 [facility] Comment on above: Performed By: #### C BC #### [facility] [address] [place] [address] Dr. Ed Amaral Lymphocytes/100 WBC (Bld) 40.5 % Normal 20.5-60.0 [facility] Comment on above: Performed By: #### C BC #### [facility] [address] [place] [address] Dr. Ed Amaral MANUAL DIFF REQ NO Normal [facility] Comment on above: Performed By: #### C BC #### [facility] [address] [place] [address] Dr. Ed Amaral MCH (RBC) [Entitic mass] 27.6 pg Normal 26.7-34.0 [facility] Comment on above: Performed By: #### C BC #### [facility] [address] [place] [address] Dr. Ed Amaral MCHC (RBC) [Mass/Vol] 32.7 g/dL Normal 29.9-35.2 [facility] Comment on above: Performed By: #### C BC #### [facility] [address] [place] [address] Dr. Ed Amaral MCV (RBC) [Entitic vol] 84.7 fL Normal 81.0-99.0 [facility] Comment on above: Performed By: #### C BC #### [facility] [address] [place] [address] Dr. Ed Amaral MONO # 0.7 103/ul Normal 0.3-0.8 [facility] Comment on above: Performed By: #### C BC #### [facility] [address] [place] [address] Dr. Ed Amaral Monocytes/100 WBC (Bld) 6.2 % Normal 1.7-12.0 [facility] Comment on above: Performed By: #### C BC #### [facility] [address] [place] [address] Dr. Ed Amaral NEUT # 5.6 103/ul Normal 1.4-6.5 [facility] Comment on above: Performed By: #### C BC #### [facility] [address] [place] [address] Dr. Ed Amaral Neutrophils/100 WBC (Bld) 50.1 % Normal 43.0-75.0 [facility] Comment on above: Performed By: #### C BC #### [facility] [address] [place] [address] Dr. Ed Amaral Platelet mean volume (Bld) [Entitic vol] 9.9 fL Normal 9.5-13.5 [facility] Comment on above: Performed By: #### C BC #### [facility] [address] [place] [address] Dr. Ed Amaral PLT 359 103/ul Normal 150-450 [facility] Comment on above: Performed By: #### C BC #### [facility] [address] [place] [address] Dr. Ed Amaral RBC 4.63 106/ul Normal 4.20-5.40 [facility] Comment on above: Performed By: #### C BC #### [facility] [address] [place] [address] Dr. Ed Amaral WBC 11.1 103/ul Critically high 4.0-11.0 [facility] Comment on above: Performed By: #### C BC #### [facility] [address] [place] [address] Dr. Ed Amaral CULTURE URINEon 10-30-2021 CULTURE URINE Culture Observations : LIGHT GROWTH OF MIXED GENITAL MYRA. NO POTENTIAL PATHOGENS SEEN. Normal [facility] Comment on above: Performed By: #### P REGQNT #### [facility] [address] [place] [address] Dr. Ed Aamral Covid-19 PCR ([facility])on 10-12 SARS-CoV-2 (COVID-19) RNA NAHUM+probe Ql (Unsp spec) Not detected Normal NOT DETECTED [facility] Comment on above: Result Comment: When diagnostic [...] for this test is supported by the [place] of Health and Human Service's declaration that [...] used). Performed By: #### P REGQNT #### [facility] [address] [place] [address] Dr. Ed Amaral ER URINE PROFILEon 2 Bilirubin Ql (U) Negative Normal NEGATIVE [facility] Comment on above: Performed By: #### P REGQNT #### [facility] [address] [place] [address] Dr. Ed Amaral Clarity (U) CLEAR Normal CLEAR [facility] Comment on above: Performed By: #### P REGQNT #### [facility] [address] [place] [address] Dr. Ed Amaral Color (U) LT. YELLOW Normal YELLOW [facility] Comment on above: Performed By: #### P REGQNT #### [facility] [address] [place] [address] Dr. Yilan Amaral ERUAHD A micrscopic examination will be performed if indicated. Normal [facility] Comment on above: Performed By: #### P REGQNT #### [facility] [address] [place] [address] Dr. Ed Amaral Glucose Ql (U) Negative Normal NEGATIVE [facility] Comment on above: Performed By: #### P REGQNT #### [facility] [address] [address] [address] Ed Amaral Hemoglobin Ql (U) Negative Normal NEGATIVE [facility] Comment on above: Performed By: #### P REGQNT #### [facility] [address] [address] [address] Ed Amaral Ketones Ql (U) Negative Normal NEGATIVE [facility] Comment on above: Performed By: #### P REGQNT #### [facility] [address] [place] [address] Dr. Ed Amaral LEUKOCYTES Negative Normal NEGATIVE [facility] Comment on above: Performed By: #### P REGQNT #### [facility] [address] [place] [address] Dr. Ed Amaral Nitrite Ql (U) Positive Abnormal NEGATIVE [facility] Comment on above: Performed By: #### P REGQNT #### [facility] [address] [place] [address] Dr. Ed Amaral pH (U) 5.5 [pH] Normal 5-9 [facility] Comment on above: Performed By: #### P REGQNT #### [facility] [address] [place] [address] Dr. Ed Amaral SPEC GRAVITY 1.005 Normal 1.005-<=1.025 [facility] Comment on above: Performed By: #### P REGQNT #### [facility] [address] [place] [address] Dr. Ed Amaral UA PROTEIN Negative Normal NEGATIVE/ TRACE [facility] Comment on above: Performed By: #### P REGQNT #### [facility] [address] [place] [address] Dr. Ed Amaral UR MICRO IND INDICATED Normal [facility] Comment on above: Performed By: #### P REGQNT #### [facility] [address] [place] [address] Dr. Ed Amaral Urobilinogen Qn (U) 0.2 {Michela'U}/dL Normal 0.2 - 1.0 [facility] Comment on above: Performed By: #### P REGQNT #### [facility] [address] [place] [address] Dr. Ed Amaral LACTATE/LACTIC ACIDon 2021 Lactate [Moles/Vol] 0.9 mmol/L Normal 0.7-2.0 [facility] Comment on above: Performed By: #### L ACT #### [facility] [address] [place] [address] Dr. Ed Amaral PREG QUANT HCGon 10-30-2021 HCG QUANT 112 mIU/mL Normal [facility] Comment on above: Performed By: #### P REGQNT #### [facility] [address] [place] [address] Dr. Ed Amaral HCG RANGE SEE BELOW Normal [facility] Comment on above: Result Comment: 5-50 0-1 WEEK 40-300 1-2 WEEKS 100-1,000 2-3 WEEKS 500-6,000 3-4 WEEKS 5,000-200,000 1-2 MONTHS 10,000-100,000 2-3 MONTHS 3,000-50,000 2ND TRIMESTER 1,000-50,000 3RD TRIMESTER Performed By: #### P REGQNT #### [facility] [address] [place] [address] Dr. Ed Amaral HCG QUANT 150 mIU/mL Normal [facility] Comment on above: Performed By: #### P REGQNT #### [facility] [address] [place] [address] Dr. Ed Amaral HCG RANGE SEE BELOW Normal [facility] Comment on above: Result Comment: 5-50 0-1 WEEK 40-300 1-2 WEEKS 100-1,000 2-3 WEEKS 500-6,000 3-4 WEEKS 5,000-200,000 1-2 MONTHS 10,000-100,000 2-3 MONTHS 3,000-50,000 2ND TRIMESTER 1,000-50,000 3RD TRIMESTER Performed By: #### P REGQNT #### [facility] [address] [place] [address] Dr. Ed Amaral URon 10-30-2021 , QUAL Positive Abnormal NEGATIVE [facility] Comment on above: Performed By: #### P REGQNT #### [facility] [address] [place] [address] Dr. Ed Amaral PROF 14(COMP METB)on 022 Albumin [Mass/Vol] 4.3 g/dL Normal 3.4-5.0 [facility] Comment on above: Performed By: #### C MP #### [facility] [address] [place] [address] Dr. Ed Amaral Albumin/Globulin [Mass ratio] 1.4 {ratio} Normal [facility] Comment on above: Performed By: #### C MP #### [facility] [address] [place] [address] Dr. Ed Amaral ALP [Catalytic activity/Vol] 69 U/L Normal 46-116 [facility] Comment on above: Performed By: #### C MP #### [facility] [address] [place] [address] Dr. Ed Amaral ALT [Catalytic activity/Vol] 11 U/L Critically low 14-59 [facility] Comment on above: Performed By: #### C MP #### [facility] [address] [place] [address] Dr. Ed Amaral Anion gap [Moles/Vol] 12.5 mmol/L Normal [facility] Comment on above: Performed By: #### C MP #### [facility] [address] [place] [address] Dr. Ed Amaral AST [Catalytic activity/Vol] 9 U/L Critically low 15-37 [facility] Comment on above: Performed By: #### C MP #### [facility] [address] [place] [address] Dr. Ed Amaral Bilirubin [Mass/Vol] 0.8 mg/dL Normal 0.2-1.3 [facility] Comment on above: Performed By: #### C MP #### [facility] [address] [place] [address] Dr. Ed Amaral Calcium [Mass/Vol] 8.8 mg/dL Normal 8.5-10.1 [facility] Comment on above: Performed By: #### C MP #### [facility] [address] [place] [address] Dr. Ed Amaral Chloride [Moles/Vol] 103 mmol/L Normal 98-107 [facility] Comment on above: Performed By: #### C MP #### [facility] [address] [place] [address] Dr. Ed Amaral CO2 [Moles/Vol] 25.9 mmol/L Normal 22.0-30.0 [facility] Comment on above: Performed By: #### C MP #### [facility] [address] [place] [address] Dr. Ed Amaral Creatinine [Mass/Vol] 0.82 mg/dL Normal 0.52-1.04 [facility] Comment on above: Performed By: #### C MP #### [facility] [address] [place] [address] Dr. Ed Amaral EGFR-AF BHUTANESE >60 Normal >=60 [facility] Comment on above: Performed By: #### C MP #### [facility] [address] [place] [address] Dr. Ed Amaral EGFR-NON AF BHUTANESE >60 Normal >=60 [facility] Comment on above: Performed By: #### C MP #### [facility] [address] [place] [address] Dr. Ed Amaral Globulin (S) [Mass/Vol] 3.1 g/dL Normal [facility] Comment on above: Performed By: #### C MP #### [facility] [address] [place] [address] Dr. Ed Amaral Glucose [Mass/Vol] 108 mg/dL Critically high 74-[address] [facility] Comment on above: Performed By: #### C MP #### [facility] [address] [address] [address] Ed Amaral Potassium [Moles/Vol] 3.4 mmol/L Normal 3.4-5.0 [facility] Comment on above: Performed By: #### C MP #### [facility] [address] [address] [address] Ed Amaral Protein [Mass/Vol] 7.4 g/dL Normal 6.1-8.2 [facility] Comment on above: Performed By: #### C MP #### [facility] [address] [address] [address] Ed Amaral Sodium [Moles/Vol] 138 mmol/L Normal 137-145 [facility] Comment on above: Performed By: #### C MP #### [facility] [address] [place] [address] Dr. Ed Amaral Urea nitrogen [Mass/Vol] 12.0 mg/dL Normal 7.0-18.0 [facility] Comment on above: Performed By: #### C MP #### [facility] [address] [address] [address] Ed Amaral Urea nitrogen/Creatinin e [Mass ratio] 14.6 mg/mg Normal [facility] Comment on above: Performed By: #### C MP #### [facility] [address] [place] [address] Dr. Ed Amaral TYPE AND SCREENon 10-30-2021 TYPE AND SCREEN Negative Normal [facility] Comment on above: Performed By: #### P REGQNT #### [facility] [address] [address] [address] Ed Amaral URINE MICROSCOPIC ONLYon BACTERIA NONE SEEN Normal NONE SEEN [facility] Comment on above: Performed By: #### P REGQNT #### [facility] [address] [place] [address] Dr. Ed Amaral Bacteria identified Cx Nom (U) INDICATED Normal [facility] Comment on above: Performed By: #### P REGQNT #### [facility] [address] [place] [address] Dr. Ed Amaral CAST NONE SEEN Normal NONE SEEN [facility] Comment on above: Performed By: #### P REGQNT #### [facility] [address] [place] [address] Dr. Ed Amaral Crystals LM Nom (Urine sed) NONE SEEN Normal NONE SEEN [facility] Comment on above: Performed By: #### P REGQNT #### [facility] [address] [place] [address] Dr. Ed Amaral Epithelial cells LM Ql (Urine sed) RARE Normal NONE SEEN /RARE [facility] Comment on above: Performed By: #### P REGQNT #### [facility] [address] [place] [address] Dr. Ed Amaral MUCOUS NONE SEEN Normal NONE SEEN [facility] Comment on above: Performed By: #### P REGQNT #### [facility] [address] [place] [address] Dr. Ed Amaral RBC NONE SEEN Abnormal 0-2 [facility] Comment on above: Performed By: #### P REGQNT #### [facility] [address] [place] [address] Dr. Ed Amaral WBC NONE SEEN Normal NONE SEEN [facility] Comment on above: Performed By: #### P REGQNT #### [facility] [address] [place] [address] Dr. Ed Amaral US APPENDIXon 10-30-2021 US [...] Celia VILLAGRAN Date: 2021-10-30 00:28 Normal [facility] US PREG TVon 10-30-2021 US PREG TV [...] by: Celia VILLAGRAN Date: 2021-10-30 00:32 Normal [facility] Vital Signs Date Time Vital Sign Value Performing Clinician Faci lity 12-05-2024 11:14-0400 Body mass index (BMI) [Ratio] 33.39 kg/m2 IPM France DO Work Phone: [facility] 12-05-2024 11:14-0400 Body weight 85.5 kg Fabiola [employer] DO Work Phone: [facility] 12-05-2024 11:14-0400 Diastolic blood pressure 76 mm[Hg] Fabiola Hiram DO Work Phone: [facility] 12-05-2024 11:14-0400 Systolic blood pressure 138 mm[Hg] Fabiola Hiram [employer] Work Phone: [facility] 05-02-2024 10:57-0400 Body mass index (BMI) [Ratio] 31.02 kg/m2 Fabiola Hiram DO Work Phone: [facility] 05-02-2024 10:57-0400 Body weight 79.43 kg Fabiola Hiram DO Work Phone: [facility] 05-02-2024 10:57-0400 Diastolic blood pressure 68 mm[Hg] Fabiola Hiram [employer] Work Phone: [facility] 05-02-2024 10:57-0400 Systolic blood pressure 110 mm[Hg] Fabiola Hiram DO Work Phone: [facility] Encounters Encounter Date Encounter Type Care Provider Facility Start: 05-08-2025 End: 05-08-2025 Clinisync Result Encounter Fabiola Hiram DO Work Phone: [facility] Unsolicited Start: 05-08-2025 End: 05-08-2025 Clinisync Result Encounter Fabiola Hiram DO Work Phone: [facility]solic[facility] Start: 05-06-2025 End: 05-06-2025 Clinisync Result Encounter Fabiola Hiram DO Work Phone: [facility]solic[facility] Start: 05-06-2025 End: 05-06-2025 Clinisync Result Encounter Fabiola Hiram DO Work Phone: [facility]solic[facility] Start: 12-05-2024 End: 12-05-2024 Bamboo flowsheet Fabiola Hiram DO Work Phone: [facility] Start: 12-05-2024 End: 12-10-2024 Bamboo flowsheet Fabiola Hiram DO Work Phone: [facility] Start: 12-05-2024 End: 12-10-2024 Clinisync Result Encounter Fabiola Hiram DO Work Phone: [facility] Unsolic[facility] Start: 12-05-2024 End: 12-05-2024 Patient encounter procedure Fabiola Hiram DO Work Phone: [facility] Start: 12-05-2024 End: 12-05-2024 Periodic preventive med est patient 18-39 yrs Fabiola Hiram DO Work Phone: [facility] Comment on above: Well woman exam with routine gynecological exam; Weight gain Start: 12-05-2024 End: 12-05-2024 ambulatory FABIOLA HIRAM Not Available Start: 05-02-2024 End: 05-02-2024 Bamboo flowsheet Fabiola Hiram DO Work Phone: [facility] Start: 05-02-2024 End: 05-02-2024 Bamboo [...] [facility] Start: 04-08-2024 End: 04-08-2024 ambulatory FABIOLA HIRAM Not Available Start: 04-08-2024 End: 04-08-2024 Office outpatient visit 15 minutes Fabiola Hiram DO Work Phone: [facility] Comment on above: Follow-up visit afte r miscarriage; Spontaneous Start: 03-08-2024 End: 03-08-2024 ambulatory FABIOLA HIRAM Not Available Start: 01-31-2023 End: 02-01-2023 ambulatory Tessy L Aneta Facility:[facility] Start: 01-31-2023 ambulatory Tessy Aneta Facility:[facility] Start: 05-25-2022 End: 05-25-[address] FABIOLA [...] Date Procedure Procedure Detail Performing Clinician Start: 05-08-2025 [facility] PREG QUANT HCG Core y Hiram DO Work Phone: Start: 05-06-2025 [facility] PREG QUANT HCG Core y Hiram DO Work Phone: Start: 12-05-2024 IGP,APTIMA HPV,AGE GDLN Fabiola Hiram DO Work Phone: Start: 05-31-2023 Cytp cerv/vag auto t hin layer prep mnl screen Fabiola Hiram DO Work Phone: Plan of Treatment Date Care Activity Detail Author Start: 12-10-2025 End: 12-10-2025 Patient encounter procedure [facility] Start: 05-16-2025 End: 05-16-2025 ambulatory 05/16/2025 10:30 AM EDT Initial [facility] [address] [place] [address] [facility] Start: 05-16-2025 End: 05-16-2025 Professional / ancillary services management 05/16/2025 10:00 AM EDT Ancillary Procedure [facility] [address] [place] [address] [facility] Start: 12-05-2024 End: 12-05-2024 Patient encounter procedure 12/05/2024 11:00 AM EDT Office Visit [facility] [address] [place] [address] Fabiola Gandhi, DO [address] [place] [address] Arrived [facility] Comment on above: Arrived Start: 05-02-2024 End: 05-02-2024 Patient encounter procedure 05/02/2024 10:50 AM EDT Office Visit [facility] [address] [place] [id number] Fabiola Gandhi, DO [address] [place] [address] [facility] Start: 04-10-2024 End: 04-10-2025 US Pelvis US pelvis Imaging Routine Follow-up visit after miscarriage Expected: 04/10/2024 (Approximate), Expires: 04/10/2025 [facility] Comment on above: Expected: 04/10/2024 (Approximate), Expires: 04/10/2025 Start: 04-08-2024 End: 04-08-2025 US for US PELVIS-TRANSVAG IF INDICATED Imaging Routine Spontaneous Expected: 04/08/2024 (Approximate), Expires: 04/08/2025 [facility] Work Phone: Comment on above: Expected: 04/08/2024 (Approximate), Expires: 04/08/2025 Cytology Cervical or vaginal smear or scraping study Pap Smear Pathology and Cytology Routine Well woman exam with routine gynecological exam Ordered: 12/05/2024 [facility] Work Phone: Comment on above: Ordered: 12/05/2024 Hemoglobin A1c/Hemoglobin.total in Blood Hemoglobin A1c Lab Routine Well woman exam with routine gynecological exam Weight gain Ordered: 12/05/2024 [facility] Comment on above: Ordered: 12/05/2024 Human papilloma viru s DNA [Presence] in Unspecified specimen by Probe with amplification HPV DNA probe, amplified Microbiology Routine Well woman exam with routine gynecological exam Ordered: 12/05/2024 [facility] Comment on above: Ordered: 12/05/2024 Thyrotropin [Units/volume] in Serum or Plasma TSH Lab Routine Well woman exam with routine gynecological exam Weight gain Ordered: 12/05/2024 [facility] Comment on above: Ordered: 12/05/2024 Payers Date Payer Category Payer [facility] [id number] 2024 Unknown [id number] 2023 Unknown [employer] [id number] 2023-Present [address] [place] [address] [id number] 2023 Unknown [id number] 1992 Unknown [id number] [id number]. 593 1992 Unknown [id number] 2.16.840.1.374305.3.579.2. 593 1992 Unknown [id number] 2.16.840.1.955713.3.579.2. 593 1992 Unknown [id number] 2.16.840.1.918146.3.579.2. 593 1992 Unknown [id number] 2.16.840.1.574511.3.579.2. 593 1992 Unknown [id number] 2.16.840.1.048495.3.579.2. 593 1992 Unknown [id number] 2.16.840.1.137298.3.579.2. 593 1992 Unknown [id number] 2.16.840.1.753098.3.579.2. 593 1992 Unknown [id number] 2.16.840.1.651200.3.579.2. 593 1992 Unknown [id number] 2.16.840.1.450278.3.579.2. 593 1992 Unknown [id number] 2.16.840.1.956379.3.579.2. 727 1992 Unknown [id number] 2.16.840.1.413621.3.579.2. 1259 1992 Unknown [id number] 2.16.840.1.573544.3.579.2. 1259 1992 Unknown [id number] 2.16.840.1.715181.3.579.2. 1259 1992 Unknown [id number] 2.16.840.1.940949.3.579.2. 1259 1959 Unknown [id number] Unknown [id number] Social History Date Type Detail Facility Tobacco smoking stat [facility] Tobacco smoking consumption unknown [facility] Start: 01-07-2024 [facility] Start: 1990 Sex assigned at Not on file [facility] Gender identity Not on file [facility] History of Present illness Narrative 12-05-2024 [...] nursing note reviewed. Exam conducted with a gaming commissioner present. Vitals: Estimated body mass index is [...] Healthcare History of Present illness Narrative 05-02-2024 Candace Burgess LPN - 05/02/2024 10:50 AM EDT [...] nursing note reviewed. Exam conducted with a gaming commissioner present. Vitals: Estimated body mass index is [...] patients questions and will reach out to [facility] to get answers in regards to fetus. [...] nursing note reviewed. Exam conducted with a gaming commissioner present. Vitals: Estimated body mass index is [...] recovery. Patients spouse is able to obtain [place] for intermittent leave as well. Documented by Candace Burgess LPN on behalf of: Fabiola Gandhi DO documented in this encounter [facility] Clinical Note 10-30-2021 Note Date & Type Note Facility 10-30-2021 Note [facility] [place], [place] NAME: MELIZA HARLEY DATE OF : MEDICAL REC#: [id number] SMOKE INSPECTOR: [id number] AMANDA WEAVER TRANSADMIT DATE: 10/30/2021 01:50:00 LEATHER CLEANER DATE: 10/31/2021 23:00 DICTATING PHYSICIAN: FABIOLA GANDHI DICTATION DATE: 10/30/2021 11:00 OPERATIVE NOTE PROCEDURE: Diagnostic laparoscopy with removal of approximately 500 mL of blood, along with what we though was products of conception expulsed from the tube. PREOPERATIVE DIAGNOSIS: Pelvis pain, suspect ectopic . POSTOPERATIVE DIAGNOSIS: Pelvis pain, suspect ectopic . ANESTHESIA: General. SURGEON: Fabiola Gandhi D.O. INTERVENTIONAL TECH: ERMA Frias URINE OUTPUT: Yellow and clear. [...] Gandhi DO on 11/02/2021 07:58 AM EDT IFC Signed and Approved by: DR FABIOLA GANDHI . 11/02/2021 07:58:00 [facility] Evaluation note Note Date & Type Note Facility Evaluation note Diagnosis Follow-up visit after miscarriage Spontaneous documented in this encounter [facility] Evaluation note Note Date & Type Note Facility Evaluation note Diagnosis Follow-up visit after miscarriage documented in this encounter [facility] Evaluation note Note Date & Type [...] section and content) DATE CREATED AUTHOR 06/06/2022 [facility] DATE CREATED AUTHOR AUTHOR'S ORGANIZ ATION 06/16/2023 [facility] DATE CREATED AUTHOR AUTHOR'S ORGANIZ ATION 12/06/2024 [facility] EPIC Care Teams (unrecognized sec tion and content) Washer Operator Relationship Specialty Start Date End Date Cassi Green MD [address] [place] [address] PCP - General Family Medicine 05/31/23 Washer Operator Relationship Specialty Start Date End Date Cassi Green MD [address] [place] [address] PCP - General Family Medicine 05/31/23 Washer Operator Relationship Specialty Start Date End Date Cassi Green MD [address] [place] [address] PCP - General Family Medicine 05/31/23 Washer Operator Relationship Specialty Start Date End Date Cassi Green MD [address] [place] [address], [place] [id number] PCP - General Family Medicine 05/31/23 Washer Operator Relationship Specialty Start Date End Date Cassi Green MD [address] [place] [address] PCP - General Family Medicine 05/31/23 Washer Operator Relationship Specialty Start Date End Date Cassi Green MD [address] [place], [place] [id number] PCP - General Family Medicine 05/31/23 Washer Operator Relationship Specialty Start Date End Date Cassi Green MD [address] [place], [place] [id number] PCP - General Family Medicine 05/31/23 Reason [...] BE BASED ON THE PRIMARY CLINICAL RECORDS. [facility]. provides no warranty or guarantee of the accuracy or completeness of information in this document.
== END 2025-05-16 10:13 | disposition home or self-care (01) ==
LOC: US 10:13
PROVIDERS: PCP Nurse Practitioner; Visit Provider Obstetrics & Gynecology
DX: Z32.01 Encounter for pregnancy test, result positive (principal); Z3A.09 9 weeks gestation of pregnancy; N92.6 Irregular menstruation, unspecified
CPT/HCPCS: 76817

== ENCOUNTER 2025-05-20 13:16 | Outpatient (OUT) | payer BC, SELFPAY ==
--- OUTSIDE RECORDS SUMMARY | 2025-05-20 13:30 | XMS_ITS | CCD ---
Author Organization [facility] InformFormerly [facility] Care Team Providers Care Pediatric Nephrologist Name Role Phone HIRAM, DR HICKS Consulting [...] SAKINA Sosa Primary Care Unavailable HIRAM, DR HCIKS Attending Unavailable HIRAM, DR HICKS Admitting Unavailable [...] Unavailable DR FABIOLA GANDHI Admitting Unavailable Tessy Hickman Attending Unavailable Cassi Green MD Primary Care Provider FABIOLA GANDHI Attending Unavailable FABIOLA GANDHI Attending Unavailable FABIOLA GANDHI Attending Unavailable Allergies Allergy Classification Reported Allergen(s) Allergy Type Date of Onset Reaction(s) Facility (1 source) No Known Medication Allergies; Translations: [No Known Medication Allergies] Propensity to adverse reactions (disorder) [facility] Repository Medications Current Medications Medication Drug Class(es) Dates Sig (Normalized) Sig (Original) MV-Min-Fe Fum-FA-DHA ( 1 PO) (2 sources) MV-Min- Fe Fum-FA-DHA ( 1 PO) Take 1 each by mouth Daily Active Progesterone 200 MG suppository (4 sources) Start: 04-29-2025 End: 05-29-2025 Progesterone 200 [...] [ENC SCREENING HUMAN PAPILLOMAVIRUS] Onset: 05-26-2022 Episodic Menstrual disorders (1 source) Missed period; Translations: [Irregular menstruation, unspecified] 05-09-2025 Chronic Other aftercare (4 sources) H/O: miscarriage; Translations: [Encounter for other specified aftercare] 04-08-2024 Episodic Other endocrine disorders (1 source) Polycystic ovarian syndrome; Translations: [POLYCYSTIC OVARIAN SYNDROME] Onset: 11-11-2021 Chronic Other nutritional; endocrine; and metabolic disorders (2 sources) Weight increased; Translations: [Abnormal weight gain] 12-05-2024 Episodic Other and delivery including normal (3 sources) Urine test positive; Translations: [Encounter for test, result positive] 05-09-2025 Episodic Other screening for suspected conditions (not [...] Test Name Value Interpretation Reference Range Facility US OB TRANSVAGINALon [address] [place] [address] Ultrasound Report Signed Patient: MELIZA HARLEY MR#: [id number] : 1990 Acct:[id number] Age/Sex: 34 / F ADM Date: 05/16/25 Loc: US Attending Dr: Fabiola Gandhi D.O. Ordering Physician: Fabiola Gandhi D.O. Date of Service: 05/16/25 Procedure(s): US OB transvaginal Accession Number(s): [id number] cc: Fabiola Gandhi D.O.; TESSY HICKMAN [address] [place] [id number] Patient Name: MELIZA HARLEY MRN: [facility]:[id number] date: 1990 Sex: F Assigned Patient Location: US Current Patient Location: US Accession/Order Number: [id number] Exam Date: 05/16/2025 10:20 Report Date: 05/16/2025 14:31 At the request of: FABIOLA GANDHI DO Procedure: US OB transvaginal OB ultrasound. Reason for exam:Missed menses. Comparison:None Technique: Transvaginal imaging of the gravid uterus was obtained. Findings: Single live intrauterine 9 weeks 3 days by CRL MYNOR 12/16/2025. heart rate 168 bpm. No free fluid. Left ovary not visualized. Right ovary appears unremarkable. US/US OB transvaginal Impression: Single live intrauterine 9 weeks 3 days by CRL, MYNOR 12/16/2025 Impression dictated by: Garret Stark Jr., D.O. 05/16/2025 2:31 PM Dictation Location: [place] [address] Electronically authenticated by: [id number] Y Date: 05/16/2025 14:31 Dictated By: Garret Stark M.D. Signed By: 05/16/251432 DD/ 30 TD/TT: Photoengraving Proofer: [facility] Radiology, Radiologist, MD - 05/16/2025 [place] [address] Ultrasound Report Signed Patient: MELIZA HARLEY MR#: [id number] : 1990 Acct:[id number] Age/Sex: 34 / F ADM Date: 05/16/25 Loc: US Attending Dr: Fabiola Gandhi D.O. Ordering Physician: Fabiola Gandhi D.O. Date of Service: 05/16/25 Procedure(s): US OB transvaginal Accession Number(s): [id number] cc: Fabiola Gandhi D.O.; TESSY HICKMAN [place] [address] Patient Name: MELIZA HARLEY MRN: [id number] date: 1990 Sex: F Assigned Patient Location: US Current Patient Location: US Accession/Order Number: [id number] Exam Date: 05/16/2025 10:20 Report Date: 05/16/2025 14:31 At the request of: FABIOLA GANDHI DO Procedure: US OB transvaginal OB ultrasound. Reason for exam:Missed menses. Comparison:None Technique: Transvaginal imaging of the gravid uterus was obtained. Findings: Single live intrauterine 9 weeks 3 days by CRL MYNOR 12/16/2025. heart rate 168 bpm. No free fluid. Left ovary not visualized. Right ovary appears unremarkable. US/US OB transvaginal Impression: Single live intrauterine 9 weeks 3 days by CRL, MYNOR 12/16/2025 Impression dictated by: Garret Stark Jr., D.O. 05/16/2025 2:31 PM Dictation Location: [place] [address] Electronically authenticated by: [id number] Y Date: 05/16/2025 14:31 Dictated By: Garret Stark M.D. Signed By: 05/16/251432 DD/ 30 TD/TT: Photoengraving Proofer: [facility] Radiology Study observation (narrative) [facility] US OB TRANSVAGINALOrdered By : Radiologist Radiology on 05-16-2025 [facility] Work Phone: [facility] PREG QUANT HCGon 025 HCG QUANTITATIVE 33387 mIU/mL [facility] Comment on above: 5-50 0.2-1 WEEK 50-500 1-2 WEEKS 100-5,000 2-3 WEEKS 500-10,000 3-4 WEEKS 1,000-50,000 4-5 WEEKS 10,000-100,000 5-6 WEEKS 15,000-200,000 6-8 WEEKS 10,000-100,000 2-3 MONTHS [facility] PREG QUANT HCGon 05-06- 025 HCG QUANTITATIVE 98794 mIU/mL [facility] Comment on above: 5-50 0.2-1 WEEK 50-500 1-2 WEEKS 100-5,000 2-3 WEEKS 500-10,000 3-4 WEEKS 1,000-50,000 4-5 WEEKS 10,000-100,000 5-6 WEEKS 15,000-200,000 6-8 WEEKS 10,000-100,000 2-3 [facility] IGP,APTIMA HPV,AGE GDLNon AGE GDLN ACOG TESTING Note . [facility] Comment on above: TESTS RESULT FLAG UN ITS REF RANGE LAB Clinician Provided Cytology Information Source.............Cervix;Endocervix No. of containers..01 ThinPrep Vial Age Algo ACOG Maureen... 30-65 01 FLAG LEGEND: L-Low Normal,H-High Normal,LL-Alert Low,HH-Alert High <-Panic Low,>-Panic High,A-Abnormal,AA-Critical Abnormal Performed at: 01 =G [facility] [address] Suzie Hoskins MD, HPV APTIMA Negative Negative [facility] Comment on above: This nucleic acid am plification test detects fourteen high- risk HPV types (16,18,31,33,35,39,45,51,52,56,58,59,66,68) without differentiation. Performed at: =G - [facility], [place] [id number] Shade Classifier: Suzie Hoskins MD, Phone: [phone] Performed at: - [facility], [place] [id number] Shade Classifier: Suzie Hoskins MD, Phone: [phone] IGP, APTIMA HPV, RFX 16/18,45 Note . [facility] Comment on above: TESTS RESULT FLAG UN ITS REF RANGE LAB DIAGNOSIS: 02 NEGATIVE FOR INTRAEPITHELIAL LESION OR MALIGNANCY. Specimen adequacy: 02 Satisfactory for evaluation. Endocervical and/or squamous metaplastic cells (endocervical component) are present. Performed by: Danuta Nash, Audit Tech . 02 Note: Note 02 The Pap [...] <-Panic Low,>-Panic High,A-Abnormal,AA-Critical Abnormal Performed at: 02 [facility] [address] [place] [place] [address] Suzie Hoskins MD, BRUSH-SPATULA CERVIX ENDOCERVIX [facility] RAD - Ultrasound Reporton RAD - Ultrasound Report [id number] #1.00TIFF Normal [facility] Cytology Cervical or vaginal smear or scraping studyOrdered By: Peri Jolley on 05-31-2023 [facility] RAD - MISCon 02-02-2023 RAD - MISC [id number]#1.00CD:127 Normal [facility] RAD - MISC [id number]# 1.00CD:127 Normal [facility] Ambulatory Visit Summaryon 0 01-31-2023 Ambulatory [...] 26.03 Allergies No Known Medication Allergies Normal [facility] Family Medicine Office/Clini c Noteon 01-31-2023 [...] answered. RTC as needed 2. Foot injury (S99.920T: Unspecified injury of unspecified foot, initial encounter) see above 3. BMI 26.0-26.9,adult (Z68.26: Body mass index [BMI] 26.0-26.9, adult) BMI education complete Ordered: methylPREDNISolone, = 1 packet(s), Oral, As Directed, as directed on package labeling, X 6 day(s), # 21 tab(s), Refills(s) 0, Pharmacy: [facility]/pharmacy #[id number], 161.5, cm, 01/31/23 14:55:00 EDT, Height/Length Dosing, 67.9, kg, 01/31/23 14:55:00 EDT, Weight Dosing naproxen, 500 mg = 1 tab(s), Oral, BID, # 30 tab(s), Refills(s) 0, Pharmacy: [facility]/pharmacy #[id number], 161.5, cm, 01/31/23 14:55:00 EDT, Height/Length Dosing, 67.9, kg, 01/31/23 14:55:00 EDT, Weight Dosing 4. Non-smoker (Z78.9: Other specified health status) continue not smoking Ordered: methylPREDNISolone, = 1 packet(s), Oral, As Directed, as directed on package labeling, X 6 day(s), # 21 tab(s), Refills(s) 0, [id number] 161.5, cm, 01/31/23 14:55:00 EDT, Height/Length Dosing, 67.9, kg, 01/31/23 14:55:00 EDT, Weight Dosing naproxen, 500 mg = 1 tab(s), Oral, BID, # 30 tab(s), Refills(s) 0, Pharmacy: [facility]/pharmacy #[id number], 161.5, cm, 01/31/23 14:55:00 EDT, [...] Family History Family history is negative Normal [facility] Comment on above: Result Comment: Elec tronically Signed By: Aneta SHULTZ, Tessy Gandhi\.br\Date and Time Signed: 01/31/23 15:15 EDT PAP ACOG PANEL 2: 21 to 29on 06-01-2022 . . Normal [facility] Comment on above: Performed By: #### P REGQNT #### [facility] [address] [place] [address] [address] Ed Amaral Age Gdln ACOG Testing - Normal [facility] Comment on above: Performed By: #### P REGQNT #### [facility] [address] [place] [address] [address] Ed Amaral DIAGNOSIS: Comment [facility] Comment on above: Result Comment: NEGA TIVE FOR INTRAEPITHELIAL LESION OR MALIGNANCY. Performed By: #### P REGQNT #### [facility] [address] [place] [address] Dr. Ed Amaral Methodology: Comment Normal [facility] Comment on above: Result Comment: This liquid based ThinPrep(R) pap test was screened with the use of an image guided system. Performed By: #### P REGQNT #### [facility] [address] [place] [address] [address] Ed Amaral Note: Comment [facility] Comment on above: Result Comment: The Pap smear is a screening test designed to aid in the detection of premalignant and malignant conditions of the uterine cervix. It is not a diagnostic procedure and should not be used as the sole means of detecting cervical cancer. Both false-positive and false-negative reports do occur. . Performed By: #### P REGQNT #### [facility] [address] [place] [address] [address] Ed Amaral Performed by: Comment Normal [facility] Comment on above: Result Comment: Ignacio Pleitez, Histology Technician (ASCP) Performed By: #### P REGQNT #### [facility] [address] [place] [address] [address] Ed Amaral Reflex Criteria: Comment [facility] Comment on above: Result Comment: The HPV DNA reflex criteria were not met with this specimen result therefore, no HPV testing was performed. . Performed By: #### P REGQNT #### [facility] [address] [place] [address] Dr. Ed Amaral Specimen adequacy: Comment Normal [facility] Comment on above: Result Comment: Sati sfactory for evaluation. Endocervical and/or squamous metaplastic cells (endocervical component) are present. Performed By: #### P REGQNT #### [facility] [address] [place] [address] Dr. Ed Amaral PREG QUANT HCGon 12-09-2021 HCG QUANT 2 mIU/mL Normal [facility] Comment on above: Performed By: #### P REGQNT #### [facility] [address] [place] [address] Dr. Ed Amaral HCG RANGE SEE BELOW Normal [facility] Comment on above: Result Comment: 5-50 0-1 WEEK 40-300 1-2 WEEKS 100-1,000 2-3 WEEKS 500-6,000 3-4 WEEKS 5,000-200,000 1-2 MONTHS 10,000-100,000 2-3 MONTHS 3,000-50,000 2ND TRIMESTER 1,000-50,000 3RD TRIMESTER Performed By: #### P REGQNT #### [facility] [address] [place] [address] Dr. Ed Amaral PREG QUANT HCGon 11-29-2021 HCG QUANT 83 mIU/mL Normal [facility] Comment on above: Performed By: #### P REGQNT #### [facility] [address] [place] [address] Dr. Ed Amaral HCG RANGE SEE BELOW Normal [facility] Comment on above: Result Comment: 5-50 0-1 WEEK 40-300 1-2 WEEKS 100-1,000 2-3 WEEKS 500-6,000 3-4 WEEKS 5,000-200,000 1-2 MONTHS 10,000-100,000 2-3 MONTHS 3,000-50,000 2ND TRIMESTER 1,000-50,000 3RD TRIMESTER Performed By: #### P REGQNT #### [facility] [address] [place] [address] Dr. Ed Amaral PREG QUANT HCGon 11-23-2021 HCG QUANT 80 mIU/mL Normal [facility] Comment on above: Performed By: #### P REGQNT #### [facility] [address] [place] [id number] Ed Amaral HCG RANGE SEE BELOW Normal [facility] Comment on above: Result Comment: 5-50 0-1 WEEK 40-300 1-2 WEEKS 100-1,000 2-3 WEEKS 500-6,000 3-4 WEEKS 5,000-200,000 1-2 MONTHS 10,000-100,000 2-3 MONTHS 3,000-50,000 2ND TRIMESTER 1,000-50,000 3RD TRIMESTER Performed By: #### P REGQNT #### [facility] [address] [id number] Ed Amaral US PELVIS AND TRANSVAGon [...] small follicles and a 1.4 cm round hypoechoic/heterogen eous structure likely representing a hemorrhagic cyst. Adjacent [...] HAYES Date: 2021-11-16 07:02 Normal [facility] PREG QUANT HCGon 11-12-2021 HCG QUANT 236 mIU/mL Normal [facility] Comment on above: Performed By: #### P REGQNT #### [facility] [address] [place] [address] Dr. Ed Amaral HCG RANGE SEE BELOW Normal [facility] Comment on above: Result Comment: 5-50 0-1 WEEK 40-300 1-2 WEEKS 100-1,000 2-3 WEEKS 500-6,000 3-4 WEEKS 5,000-200,000 1-2 MONTHS 10,000-100,000 2-3 MONTHS 3,000-50,000 2ND TRIMESTER 1,000-50,000 3RD TRIMESTER Performed By: #### P REGQNT #### [facility] [address] [place] [address] Dr. Ed Amaral PREG QUANT HCGon 11-08-2021 HCG QUANT 335 mIU/mL Normal [facility] Comment on above: Performed By: #### P REGQNT #### [facility] [address] [place] [address] Dr. Ed Amaral HCG RANGE SEE BELOW Normal [facility] Comment on above: Result Comment: 5-50 0-1 WEEK 40-300 1-2 WEEKS 100-1,000 2-3 WEEKS 500-6,000 3-4 WEEKS 5,000-200,000 1-2 MONTHS 10,000-100,000 2-3 MONTHS 3,000-50,000 2ND TRIMESTER 1,000-50,000 3RD TRIMESTER Performed By: #### P REGQNT #### [facility] [address] [place] [address] Dr. Ed Amaral PREG QUANT HCGon 11-06-2021 HCG QUANT 324 mIU/mL Normal [facility] Comment on above: Performed By: #### P REGQNT #### [facility] [address] [place] [address] Dr. Ed Amaral HCG RANGE SEE BELOW Normal [facility] Comment on above: Result Comment: 5-50 0-1 WEEK 40-300 1-2 WEEKS 100-1,000 2-3 WEEKS 500-6,000 3-4 WEEKS 5,000-200,000 1-2 MONTHS 10,000-100,000 2-3 MONTHS 3,000-50,000 2ND TRIMESTER 1,000-50,000 3RD TRIMESTER Performed By: #### P REGQNT #### [facility] [address] [place] [address] Dr. Ed Amaral PREG QUANT HCGon 11-03-2021 HCG QUANT 189 mIU/mL Normal [facility] Comment on above: Performed By: #### P REGQNT #### [facility] [address] [place] [address] Dr. Ed Amaral HCG RANGE SEE BELOW Normal [facility] Comment on above: Result Comment: 5-50 0-1 WEEK 40-300 1-2 WEEKS 100-1,000 2-3 WEEKS 500-6,000 3-4 WEEKS 5,000-200,000 1-2 MONTHS 10,000-100,000 2-3 MONTHS 3,000-50,000 2ND TRIMESTER 1,000-50,000 3RD TRIMESTER Performed By: #### P REGQNT #### [facility] [address] [place] [address] Dr. Ed Amaral CBC AUTO DIFFon 10-30-2021 BASO # 0.1 103/ul Normal 0.0-0.1 [facility] Comment on above: Performed By: #### C BC #### [facility] [address] [place] [address] Dr. Ed Amaral Basophils/100 WBC (Bld) 0.9 % Normal 0.2-2.0 [facility] Comment on above: Performed By: #### C BC #### [facility] [address] [place] [address] Dr. Ed Amaral EO # 0.1 103/ul Normal 0.0-0.7 [facility] Comment on above: Performed By: #### C BC #### [facility] [address] [place] [address] Dr. Ed Amaral Eosinophils/100 WBC (Bld) 0.8 % Critically low 0.9-7.0 [facility] Comment on above: Performed By: #### C BC #### [facility] [address] [place] [address] Dr. Ed Amaral Erythrocyte distribution width (RBC) [Ratio] 12.2 % Normal 11.0-15.0 [facility] Comment on above: Performed By: #### C BC #### [facility] [address] [place] [address] Dr. Ed Amaral Hematocrit (Bld) [Volume fraction] 35.3 % Critically low 36.0-48.0 [facility] Comment on above: Performed By: #### C BC #### [facility] [address] [place] [address] Dr. Ed Amaral Hemoglobin (Bld) [Mass/Vol] 11.5 g/dL Critically low 12.0-16.0 [facility] Comment on above: Performed By: #### C BC #### [facility] [address] [place] [address] Dr. Ed Amaral IG # 0.01 10e3/ul Normal 0.00-0.03 [facility] Comment on above: Performed By: #### C BC #### [facility] [address] [place] [address] Dr. Ed Amaral IG % 0.1 % Normal 0.0-0.5 [facility] Comment on above: Performed By: #### C BC #### [facility] [address] [place] [address] Dr. Ed Amaral LYMPH # 2.5 103/ul Normal 1.2-3.8 [facility] Comment on above: Performed By: #### C BC #### [facility] [address] [place] [address] Dr. Ed Amaral Lymphocytes/100 WBC (Bld) 32.4 % Normal 20.5-60.0 [facility] Comment on above: Performed By: #### C BC #### [facility] [address] [place] [address] Dr. Ed Amaral MANUAL DIFF REQ NO Normal [facility] Comment on above: Performed By: #### C BC #### [facility] [address] [place] [address] Dr. Ed Amaral MCH (RBC) [Entitic mass] 27.4 pg Normal 26.7-34.0 [facility] Comment on above: Performed By: #### C BC #### [facility] [address] [place] [address] Dr. Ed Amaral MCHC (RBC) [Mass/Vol] 32.6 g/dL Normal 29.9-35.2 [facility] Comment on above: Performed By: #### C BC #### [facility] [address] [place] [address] Dr. Ed Amaral MCV (RBC) [Entitic vol] 84.0 fL Normal 81.0-99.0 [facility] Comment on above: Performed By: #### C BC #### [facility] [address] [place] [address] Dr. Ed Amaral MONO # 0.5 103/ul Normal 0.3-0.8 [facility] Comment on above: Performed By: #### C BC #### [facility] [address] [place] [address] Dr. Ed Amaral Monocytes/100 WBC (Bld) 5.9 % Normal 1.7-12.0 [facility] Comment on above: Performed By: #### C BC #### [facility] [address] [place] [address] Dr. Ed Amaral NEUT # 4.5 103/ul Normal 1.4-6.5 [facility] Comment on above: Performed By: #### C BC #### [facility] [address] [place] [address] Dr. Ed Amaral Neutrophils/100 WBC (Bld) 59.9 % Normal 43.0-75.0 [facility] Comment on above: Performed By: #### C BC #### [facility] [address] [place] [address] Dr. Ed Amaral Platelet mean volume (Bld) [Entitic vol] 9.8 fL Normal 9.5-13.5 [facility] Comment on above: Performed By: #### C BC #### [facility] [address] [place] [address] Dr. Ed Amaral PLT 277 103/ul Normal 150-450 [facility] Comment on above: Performed By: #### C BC #### [facility] [address] [place] [address] Dr. Ed Amaral RBC 4.20 106/ul Normal 4.20-5.40 [facility] Comment on above: Performed By: #### C BC #### [facility] [address] [place] [address] Dr. Ed Amaral WBC 7.6 103/ul Normal 4.0-11.0 [facility] Comment on above: Performed By: #### C BC #### [facility] [address] [place] [address] Dr. Ed Amaral BASO # 0.1 103/ul Normal 0.0-0.1 [facility] Comment on above: Performed By: #### C BC #### [facility] [address] [place] [address] Dr. Ed Amaral Basophils/100 WBC (Bld) 0.8 % Normal 0.2-2.0 [facility] Comment on above: Performed By: #### C BC #### [facility] [address] [place] [address] Dr. Ed Amaral EO # 0.2 103/ul Normal 0.0-0.7 [facility] Comment on above: Performed By: #### C BC #### [facility] [address] [place] [address] Dr. Ed Amaral Eosinophils/100 WBC (Bld) 2.1 % Normal 0.9-7.0 [facility] Comment on above: Performed By: #### C BC #### [facility] [address] [place] [address] Dr. Ed Amaral Erythrocyte distribution width (RBC) [Ratio] 12.2 % Normal 11.0-15.0 [facility] Comment on above: Performed By: #### C BC #### [facility] [address] [place] [address] Dr. Ed Amaral Hematocrit (Bld) [Volume fraction] 39.2 % Normal 36.0-48.0 [facility] Comment on above: Performed By: #### C BC #### [facility] [address] [address] [address] Ed Amaral Hemoglobin (Bld) [Mass/Vol] 12.8 g/dL Normal 12.0-16.0 [facility] Comment on above: Performed By: #### C BC #### [facility] [address] [address] [address] Ed Amaral IG # 0.03 10e3/ul Normal 0.00-0.03 [facility] Comment on above: Performed By: #### C BC #### [facility] [address] [place] [address] Dr. Ed Amaral IG % 0.3 % Normal 0.0-0.5 [facility] Comment on above: Performed By: #### C BC #### [facility] [address] [place] [address] Dr. Ed Amaral LYMPH # 4.5 103/ul Critically high 1.2-3.8 [facility] Comment on above: Performed By: #### C BC #### [facility] [address] [place] [address] Dr. Ed Amaral Lymphocytes/100 WBC (Bld) 40.5 % Normal 20.5-60.0 [facility] Comment on above: Performed By: #### C BC #### [facility] [address] [place] [address] Dr. Ed Amaral MANUAL DIFF REQ NO Normal [facility] Comment on above: Performed By: #### C BC #### [facility] [address] [place] [address] Dr. Ed Amaral MCH (RBC) [Entitic mass] 27.6 pg Normal 26.7-34.0 [facility] Comment on above: Performed By: #### C BC #### [facility] [address] [place] [address] Dr. Ed Amaral MCHC (RBC) [Mass/Vol] 32.7 g/dL Normal 29.9-35.2 [facility] Comment on above: Performed By: #### C BC #### [facility] [address] [address] [address] Ed Amaral MCV (RBC) [Entitic vol] 84.7 fL Normal 81.0-99.0 [facility] Comment on above: Performed By: #### C BC #### [facility] [address] [place] [address] Dr. Ed Amaral MONO # 0.7 103/ul Normal 0.3-0.8 [facility] Comment on above: Performed By: #### C BC #### [facility] [address] [place] [address] Dr. Ed Amaral Monocytes/100 WBC (Bld) 6.2 % Normal 1.7-12.0 [facility] Comment on above: Performed By: #### C BC #### [facility] [address] [place] [address] Dr. Ed Amaral NEUT # 5.6 103/ul Normal 1.4-6.5 [facility] Comment on above: Performed By: #### C BC #### [facility] [address] [place] [address] Dr. Ed Amaral Neutrophils/100 WBC (Bld) 50.1 % Normal 43.0-75.0 [facility] Comment on above: Performed By: #### C BC #### [facility] [address] [place] [address] Dr. Ed Amaral Platelet mean volume (Bld) [Entitic vol] 9.9 fL Normal 9.5-13.5 [facility] Comment on above: Performed By: #### C BC #### [facility] [address] [place] [address] Dr. Ed Amaral PLT 359 103/ul Normal 150-450 [facility] Comment on above: Performed By: #### C BC #### [facility] [address] [place] [address] Dr. Ed Amaral RBC 4.63 106/ul Normal 4.20-5.40 [facility] Comment on above: Performed By: #### C BC #### [facility] [address] [address] [address] Ed Amaral WBC 11.1 103/ul Critically high 4.0-11.0 [facility] Comment on above: Performed By: #### C BC #### [facility] [address] [place] [address] Dr. Ed Amaral CULTURE URINEon 10-30-2021 CULTURE URINE Culture Observations: LIGHT GROWTH OF MIXED GENITAL MYRA. NO POTENTIAL PATHOGENS SEEN. Normal [facility] Comment on above: Performed By: #### P REGQNT #### [facility] [address] [place] [address] Dr. Ed Amaral [facility]12 SARS-CoV-2 (COVID-19) RNA NAHUM+probe Ql (Unsp spec) Not detected Normal NOT DETECTED [facility] Comment on above: Result Comment: When diagnostic [...] for this test is supported by the [place] of Health and Human Service's declaration that [...] Performed By: #### P REGQNT #### [facility] [address] [place], [place] [id number] Dr. Ed Amaral ER URINE PROFILEon 2 Bilirubin Ql (U) Negative Normal NEGATIVE [facility] Comment on above: Performed By: #### P REGQNT #### [facility] [address] [place] [address] Dr. Ed Amaral Clarity (U) CLEAR Normal CLEAR [facility] Comment on above: Performed By: #### P REGQNT #### [facility] [address] [address] [address] Ed Amaral Color (U) LT. YELLOW Normal YELLOW [facility] Comment on above: Performed By: #### P REGQNT #### [facility] [address] [place] [address] Dr. Ed OROURKE A micrscopic examination will be performed if indicated. Normal [facility] Comment on above: Performed By: #### P REGQNT #### [facility] [address] [address] [address] Ed Amaral Glucose Ql (U) Negative Normal NEGATIVE [facility] Comment on above: Performed By: #### P REGQNT #### [facility] [address] [place] [address] Dr. Ed Amaral Hemoglobin Ql (U) Negative Normal NEGATIVE [facility] Comment on above: Performed By: #### P REGQNT #### [facility] [address] [place] [address] Dr. Ed Amaral Ketones Ql (U) Negative Normal NEGATIVE [facility] Comment on above: Performed By: #### P REGQNT #### [facility] [address] [place] [address] Dr. Ed Amaral LEUKOCYTES Negative Normal NEGATIVE [facility] Comment on above: Performed By: #### P REGQNT #### [facility] [address] [address] [address] Ed Amaral Nitrite Ql (U) Positive Abnormal NEGATIVE [facility] Comment on above: Performed By: #### P REGQNT #### [facility] [address] [address] [address] Ed Amaral pH (U) 5.5 [pH] Normal 5-9 [facility] Comment on above: Performed By: #### P REGQNT #### [facility] [address] [place] [address] Dr. Ed Amaral SPEC GRAVITY 1.005 Normal 1.005-<=1.025 [facility] Comment on above: Performed By: #### P REGQNT #### [facility] [address] [place] [address] Dr. Ed Amaral UA PROTEIN Negative Normal NEGATIVE/ TRACE [facility] Comment on above: Performed By: #### P REGQNT #### [facility] [address] [place] [address] Dr. Ed Amaral UR MICRO IND INDICATED Normal [facility] Comment on above: Performed By: #### P REGQNT #### [facility] [address] [place] [address] Dr. Ed Amaral Urobilinogen Qn (U) 0.2 {Michela'U}/dL Normal 0.2 - 1. 0 [facility] Comment on above: Performed By: #### P REGQNT #### [facility] [address] [place] [address] Dr. Ed Amaral LACTATE/LACTIC ACIDon 2021 Lactate [Moles/Vol] 0.9 mmol/L Normal 0.7-2.0 [facility] Comment on above: Performed By: #### L ACT #### [facility] [address] [place] [address] Dr. Ed Amaral PREG QUANT HCGon 10-30-2021 HCG QUANT 112 mIU/mL Normal [facility] Comment on above: Performed By: #### P REGQNT #### [facility] [address] [place] [address] Dr. Ed Amaral HCG RANGE SEE BELOW Normal [facility] Comment on above: Result Comment: 5-50 0-1 WEEK 40-300 1-2 WEEKS 100-1,000 2-3 WEEKS 500-6,000 3-4 WEEKS 5,000-200,000 1-2 MONTHS 10,000-100,000 2-3 MONTHS 3,000-50,000 2ND TRIMESTER 1,000-50,000 3RD TRIMESTER Performed By: #### P REGQNT #### [facility] [address] [place] [address] Dr. Ed Amaral HCG QUANT 150 mIU/mL Normal [facility] Comment on above: Performed By: #### P REGQNT #### [facility] [address] [address] [address] Ed Amaral HCG RANGE SEE BELOW Normal [facility] Comment on above: Result Comment: 5-50 0-1 WEEK 40-300 1-2 WEEKS 100-1,000 2-3 WEEKS 500-6,000 3-4 WEEKS 5,000-200,000 1-2 MONTHS 10,000-100,000 2-3 MONTHS 3,000-50,000 2ND TRIMESTER 1,000-50,000 3RD TRIMESTER Performed By: #### P REGQNT #### [facility] [address] [place] [address] Dr. Ed Amaral URon 10-30-2021 , QUAL Positive Abnormal NEGATIVE [facility] Comment on above: Performed By: #### P REGQNT #### [facility] [address] [address] [address] Ed Amaral PROF 14(COMP METB)on 022 Albumin [Mass/Vol] 4.3 g/dL Normal 3.4-5.0 [facility] Comment on above: Performed By: #### C MP #### [facility] [address] [place] [address] Dr. Ed Amaral Albumin/Globulin [Mass ratio] 1.4 {ratio} Normal [facility] Comment on above: Performed By: #### C MP #### [facility] [address] [place] [address] Dr. Ed Amaral ALP [Catalytic activity/Vol] 69 U/L Normal 46-116 [facility] Comment on above: Performed By: #### C MP #### [facility] [address] [address] [address] Ed Amaral ALT [Catalytic activity/Vol] 11 U/L Critically low 14-59 [facility] Comment on above: Performed By: #### C MP #### [facility] [address] [place] [address] Dr. Ed Amaral Anion gap [Moles/Vol] 12.5 mmol/L Normal [facility] Comment on above: Performed By: #### C MP #### [facility] [address] [address] [address] Ed Amaral AST [Catalytic activity/Vol] 9 U/L Critically low 15-37 [facility] Comment on above: Performed By: #### C MP #### [facility] [address] [address] [address] Ed Amaral Bilirubin [Mass/Vol] 0.8 mg/dL Normal 0.2-1.3 [facility] Comment on above: Performed By: #### C MP #### [facility] [address] [address] [address] Ed Amaral Calcium [Mass/Vol] 8.8 mg/dL Normal 8.5-10.1 [facility] Comment on above: Performed By: #### C MP #### [facility] [address] [address] [address] Ed Amaral Chloride [Moles/Vol] 103 mmol/L Normal 98-107 [facility] Comment on above: Performed By: #### C MP #### [facility] [address] [address] [address] Ed Amaral CO2 [Moles/Vol] 25.9 mmol/L Normal 22.0-30.0 [facility] Comment on above: Performed By: #### C MP #### [facility] [address] [address] [address] Ed Amaral Creatinine [Mass/Vol] 0.82 mg/dL Normal 0.52-1.04 [facility] Comment on above: Performed By: #### C MP #### [facility] [address] [address] [address] Ed Amaral EGFR-AF INDONESIAN >60 Normal >=60 [facility] Comment on above: Performed By: #### C MP #### [facility] [address] [address] [address] Ed Amaral EGFR-NON AF INDONESIAN >60 Normal >=60 [facility] Comment on above: Performed By: #### C MP #### [facility] [address] [address] [address] Ed Amaral Globulin (S) [Mass/Vol] 3.1 g/dL Normal [facility] Comment on above: Performed By: #### C MP #### [facility] [address] [address] [address] Ed Amaral Glucose [Mass/Vol] 108 mg/dL Critically high 74-106 [facility] Comment on above: Performed By: #### C MP #### [facility] [address] [address] [address] Ed Amaral Potassium [Moles/Vol] 3.4 mmol/L Normal 3.4-5.0 [facility] Comment on above: Performed By: #### C MP #### [facility] [address] [place] [address] Dr. Ed Amaral Protein [Mass/Vol] 7.4 g/dL Normal 6.1-8.2 [facility] Comment on above: Performed By: #### C MP #### [facility] [address] [place] [address] Dr. Ed Amaral Sodium [Moles/Vol] 138 mmol/L Normal 137-145 [facility] Comment on above: Performed By: #### C MP #### [facility] [address] [place] [address] Dr. Ed Amaral Urea nitrogen [Mass/Vol] 12.0 mg/dL Normal 7.0-18.0 [facility] Comment on above: Performed By: #### C MP #### [facility] [address] [place] [address] Dr. Ed Amaral Urea nitrogen/Creatinine [Mass ratio] 14.6 mg/mg Normal [facility] Comment on above: Performed By: #### C MP #### [facility] [address] [place] [address] Dr. Ed Amaral TYPE AND SCREENon 10-30-2021 TYPE AND SCREEN Negative Normal [facility] Comment on above: Performed By: #### P REGQNT #### [facility] [address] [place] [address] Dr. Ed Amaral URINE MICROSCOPIC ONLYon BACTERIA NONE SEEN Normal NONE SEEN [facility] Comment on above: Performed By: #### P REGQNT #### [facility] [address] [place] [address] Dr. dE Amaral Bacteria identified Cx Nom (U) INDICATED Normal [facility] Comment on above: Performed By: #### P REGQNT #### [facility] [address] [place] [address] Dr. Ed Amaral CAST NONE SEEN Normal NONE SEEN [facility] Comment on above: Performed By: #### P REGQNT #### [facility] [address] [place] [address] Dr. Ed Amaral Crystals LM Nom (Urine sed) NONE SEEN Normal NONE SEEN [facility] Comment on above: Performed By: #### P REGQNT #### [facility] [address] [place] [address] Dr. Ed Amaral Epithelial cells LM Ql (Urine sed) RARE Normal NONE SEEN /RARE [facility] Comment on above: Performed By: #### P REGQNT #### [facility] [address] [place] [address] Dr. Ed Amaral MUCOUS NONE SEEN Normal NONE SEEN [facility] Comment on above: Performed By: #### P REGQNT #### [facility] [address] [place] [address] Dr. Ed Amaral RBC NONE SEEN Abnormal 0-2 [facility] Comment on above: Performed By: #### P REGQNT #### [facility] [address] [place] [address] Dr. Ed Amaral WBC NONE SEEN Normal NONE SEEN [facility] Comment on above: Performed By: #### P REGQNT #### [facility] [address] [place] [address] Dr. Ed Amaral US APPENDIXon 10-30-2021 US [...] by: Celia VILLAGRAN Date: 2021-10-30 00:28 Normal [facility] US PREG TVon 10-30-2021 US [...] by: Celia VILLAGRAN Date: 2021-10-30 00:32 Normal [facility] Vital Signs Date Time Vital Sign Value Performing Clinician Heraclio valle 05-16-2025 11:22-0400 Body mass index (BMI) [Ratio] 34.21 kg/m2 [facility] 05-16-2025 11:040 Body weight 87.6 kg [facility] 05-16-2025 11:22-0400 Diastolic blood pressure 70 mm[Hg] [facility] 05-16-2025 11:220400 Systolic blood pressure 120 mm[Hg] [facility] 12-05-2024 11:14-0400 Body mass index (BMI) [Ratio] 33.39 kg/m2 [facility] 12-05-2024 11:140400 Body weight 85.5 kg Fabiola Hiram DO Work Phone: [facility] 12-05-2024 11:14-0400 Diastolic blood pressure 76 mm[Hg] Fabiola Hiram DO Work Phone: [facility] 12-05-2024 11:14-0400 Systolic blood pressure 138 mm[Hg] Fabiola Hiram DO Work Phone: [facility] 05-02-2024 10:57-0400 Body mass index (BMI) [Ratio] 31.02 kg/m2 Fabiola Hiram DO Work Phone: [facility] 05-02-2024 10:57-0400 Body weight 79.43 kg Fabiola Hiram DO Work Phone: [facility] 05-02-2024 10:57-0400 Diastolic blood pressure 68 mm[Hg] Fabiola Hiram DO Work Phone: [facility] 05-02-2024 10:57-0400 Systolic blood pressure 110 mm[Hg] Fabiola Hiram DO Work Phone: [facility] Encounters Encounter Date Encounter Type Care Provider Facility Start: 05-16-2025 End: 05-16-2025 Clinisync Result Encounter Fabiola Hiram DO Work Phone: [facility] Unsolicited Start: 05-16-2025 End: 05-16-2025 Clinisync Result Encounter Fabiola Hiram DO Work Phone: [facility] Unsolicited Start: 05-16-2025 End: 05-16-2025 Office outpatient visit 5 minutes Hiram Nurse [facility] Comment on above: GA: 9w3d Start: 05-08-2025 End: 05-08-2025 Clinisync Result Encounter [...] 01-31-2023 ambulatory Tessy Aneta Facility:[facility] Start: 05-25-2022 End: 05-25-[address] FABIOLA [...] Date Procedure Procedure Detail Performing Clinician Start: 05-16-2025 US OB TRANSVAGINAL Core y Hiram DO Work Phone: Start: 05-08-2025 [facility] PREG QUANT HCG Core [...] Patient encounter procedure [facility] Start: 06-19-2025 End: 06-19-2025 Patient encounter procedure 06/19/2025 11:10 AM EST Routine [facility] [address] [address] Hiram, Fabiola, DO [address] [place] [address] [facility] Start: 05-16-2025 End: 05-16-2026 ABO/Rh ABO/Rh Lab Routine Missed menses , unspecified gestational age [facility] Expected: 05/16/2025 (Approximate), Expires: 05/16/2026 [facility] Comment on above: Expected: 05/16/2025 (Approximate), Expires: 05/16/2026 Start: 05-16-2025 End: 05-16-2026 Blood type and Indirect antibody screen panel - Blood Type and screen Lab Routine Missed menses , unspecified gestational age ([facility]) Expected: 05/16/2025 (Approximate), Expires: 05/16/2026 [facility] Comment on above: Expected: 05/16/2025 (Approximate), Expires: 05/16/2026 Start: 05-16-2025 End: 05-16-2026 Drugs of abuse panel - Urine by Screen method Rapid drug screen, urine Lab Routine , unspecified gestational age ([facility]) Encounter for supervision of normal first in first trimester ([facility]) Expected: 05/16/2025 (Approximate), Expires: 05/16/2026 [facility] Comment on above: Expected: 05/16/2025 (Approximate), Expires: 05/16/2026 Start: 05-16-2025 End: 05-16-2025 ambulatory 05/16/2025 10:30 AM EDT Initial [facility] [address] [place] [address] [facility] Start: 05-16-2025 End: 05-16-2025 Professional / ancillary services management 05/16/2025 10:00 AM EDT Ancillary Procedure [facility] [address] [place] [address] [facility] Start: 05-09-2025 End: 08-08-2025 US Pelvis transvaginal US OB transvaginal Imaging Routine Missed menses Positive urine test ([facility]) Expected: 05/09/2025, Expires: 08/08/2025 [facility] Work Phone: Comment on above: Expected: 05/09/2025 , Expires: 08/08/2025 Start: 12-05-2024 End: 12-05-2024 Patient encounter procedure 12/05/2024 11:00 AM EDT Office Visit [facility] [address] [place] [id number] Fabiola Gandhi, DO [address], [place] [address] Arrived [facility] Comment on above: Arrived Start: 05-02-2024 End: 05-02-2024 Patient encounter procedure 05/02/2024 10:50 AM EDT Office Visit [facility] [address] [place] [address] Fabiola Gandhi, [address] [place] [address] [facility] Start: 04-10-2024 End: 04-10-2025 US Pelvis US pelvis Imaging Routine Follow-up visit after miscarriage Expected: 04/10/2024 (Approximate), Expires: 04/10/2025 [facility] Comment on above: Expected: 04/10/2024 (Approximate), Expires: 04/10/2025 Start: 04-08-2024 End: 04-08-2025 US for US PELVIS-TRANSVAG IF INDICATED Imaging Routine Spontaneous Expected: 04/08/2024 (Approximate), Expires: 04/08/2025 [facility] Work Phone: Comment on above: Expected: 04/08/2024 (Approximate), Expires: 04/08/2025 Bacteria identified in Urine by Culture Urine culture Microbiology Routine Missed menses Ordered: 05/16/2025 [facility] Comment on above: Ordered: 05/16/2025 CBC W Auto Different ial panel - Blood CBC and differential Lab Routine Missed menses , unspecified gestational age ([facility]) Ordered: 05/16/2025 [facility] Comment on above: Ordered: 05/16/2025 Cytology Cervical or vaginal smear or scraping study Pap Smear Pathology and Cytology Routine Well woman exam with routine gynecological exam Ordered: 12/05/2024 [facility] Work Phone: Comment on above: Ordered: 12/05/2024 Hemoglobin A1c/Hemoglobin.total in Blood Hemoglobin A1c Lab Routine Well woman exam with routine gynecological exam Weight gain Ordered: 12/05/2024 [facility] Comment on above: Ordered: 12/05/2024 Hemoglobin A1c/Hemoglobin.total in Blood Hemoglobin A1c Lab Routine Missed menses , unspecified gestational age ([facility]) Ordered: 05/16/2025 [facility] Comment on above: Ordered: 05/16/2025 Hepatitis B virus surface Ag [Presence] in Serum or Plasma by Immunoassay Hepatitis B surface antigen Lab Routine Missed menses , unspecified gestational age ([facility]) Ordered: 05/16/2025 [facility] Comment on above: Ordered: 05/16/2025 Hepatitis C virus Ab [Presence] in Serum or Plasma by Immunoassay Hepatitis C antibody Lab Routine Missed menses , unspecified gestational age ([facility]) Ordered: 05/16/2025 [facility] Comment on above: Ordered: 05/16/2025 HIV-1/HIV-2 antigen/antibody combination immunoassay HIV-1 and HIV-2 antibodies Lab Routine Missed menses , unspecified gestational age ([facility]) Ordered: 05/16/2025 [facility] Comment on above: Ordered: 05/16/2025 Human papilloma viru s DNA [Presence] in Unspecified specimen by Probe with amplification HPV DNA probe, amplified Microbiology Routine Well woman exam with routine gynecological exam Ordered: 12/05/2024 [facility] Comment on above: Ordered: 12/05/2024 Reagin Ab [Presence] in Serum by RPR RPR Lab Routine Missed menses , unspecified gestational age ([facility]) Ordered: 05/16/2025 [facility] Comment on above: Ordered: 05/16/2025 Rubella antibody, IgG Rubella an tibody, IgG Lab Routine Missed menses , unspecified gestational age ([facility]) Ordered: 05/16/2025 [facility] Comment on above: Ordered: 05/16/2025 Thyrotropin [Units/volume] in Serum or Plasma TSH Lab Routine Well woman exam with routine gynecological exam Weight gain Ordered: 12/05/2024 [facility] Comment on above: Ordered: 12/05/2024 Payers Date Payer Category [facility] [id number] 2024 Unknown [id number] 2023 Unknown [employer] [id number] 2023-Present [address] [place] [address] [id number] 2023 Unknown [id number] 1992 Unknown [id number] 2.16.840.1.090614.3.579.2. 593 1992 Unknown [id number] 2.16.840.1.609462.3.579.2. 593 1992 Unknown [id number] 2.16.840.1.642522.3.579.2. 593 1992 Unknown [id number] 2.16.840.1.768103.3.579.2. 593 1992 Unknown [id number] 2.16.840.1.496328.3.579.2. 593 1992 Unknown [id number] 2.16.840.1.893129.3.579.2. 593 1992 Unknown [id number] 2.16.840.1.514244.3.579.2. 593 1992 Unknown [id number] 2.16.840.1.460333.3.579.2. 593 1992 Unknown [id number] 2.16.840.1.699383.3.579.2. 593 1992 Unknown [id number] 2.16.840.1.136082.3.579.2. 593 1992 Unknown [id number] 2.16.840.1.365979.3.579.2. 727 1992 Unknown [id number] 2.16.840.1.389347.3.579.2. 1259 1992 Unknown [id number] 2.16.840.1.774983.3.579.2. 1259 1992 Unknown [id number] 2.16.840.1.643184.3.579.2. 1259 1992 Unknown [id number] 2.16.840.1.224054.3.579.2. 1259 1959 Unknown [id number] Unknown [id number] Social History Date Type Detail Facility Tobacco smoking stat [facility] Tobacco smoking consumption unknown [facility] Start: 01-07-2024 [facility] Start: 1990 Sex assigned at Not on file [facility] Gender identity Not on file [facility] History of Present illness Narrative 05-16-2025 Cheyanne Plunkett LPN - 05/16/2025 10:30 AM EDT Note Date & Type Note Facility 05-16-2025 History of Presen t illness Narrative Reason for Appointment: Patient ID: Meliza Harley is a 34 y.o. female who presents for Amenorrhea Patient presents today for a Nurse OB Intake appointment. Patient is 9w3d with a Estimated Date of Delivery: 12/16/25 OB History Para Term AB Living 6 1 1 4 1 SAB IAB Ectopic Multiple Live Births 3 1 # Outcome Date GA Lbr Norman/2nd Weight Sex Type Anes PTL Lv 6 Current 5 SAB 04/08/24 15w1d FD 4 Term 11/20/20 9 lb M Vag-Spont MILAGROS Comments: 2nd degree tear 3 12/2018 2 08/2017 1 AB Current Medications: has a current medication list which includes the following prescription(s): progesterone. Medical History: Active Ambulatory Problems Diagnosis Date Noted No Active Ambulatory Problems Resolved Ambulatory Problems Diagnosis Date Noted No Resolved Ambulatory Problems Past Medical History: Diagnosis Date Abnormal uterine bleeding (AUB) History of multiple miscarriages PCOS (polycystic ovarian syndrome) Pelvic pain No family history on file. Social History Tobacco Use Smoking status: Not on file Smokeless tobacco: Not on file Substance Use Topics Alcohol use: Not on file Drug use: Not on file Past Surgical History: Procedure Laterality Date LAPAROSCOPY DIAGNOSTIC / BIOPSY / ASPIRATION / LYSIS blood clot in tube PAP SMEAR 03/03/2021 normal No Known Allergies Vitals: Estimated body mass index is 34.21 kg/m as calculated from the following: Height as of 23: 5' 3 . Weight as of this encounter: 193 lb 1.9 oz. BP: 120/70 No LMP recorded (approximate). Patient is . Assessment/Plan Diagnoses and all orders for this visit: Missed menses - US OB transvaginal; Future - Type and screen; Future - ABO/Rh; Future - CBC and differential - Hemoglobin A1c - RPR - Rubella antibody, IgG - Hepatitis B surface antigen - Hepatitis C antibody - HIV-1 and HIV-2 antibodies - Urine culture Positive urine test ([facility]) - OB transvaginal; Future , unspecified gestational age ([facility]) - Type and screen; Future - ABO/Rh; Future - CBC and differential - Hemoglobin A1c - RPR - Rubella antibody, IgG - Hepatitis B surface antigen - Hepatitis C antibody - HIV-1 and HIV-2 antibodies - Rapid drug screen, urine; Future Encounter for supervision of normal first in first trimester ([facility]) - Rapid drug screen, urine; Future Nurse Note: OB Intake: Patient presents today for first OB visit. Patients history has been reviewed in great detail including any potential risks. Patient signed consent forms and patient desires testing in both trimesters. Patient currently has no complaints and has been advised to drink 6-8 glasses of water a day, eat no raw or undercooked meat, and stay away from [facility]. Patient has also been advised to not change litter boxes and eat 6 small meals a day. Patient has been consulted regarding the do's and don'ts of . Patient was given labs and all questions and concerns were answered. Patient was given [place] labs to have completed if they decide and advised to have with Initial lab work that is required. Patient states having some nausea and heartburn but did not want anything at this time when asked. Follow Up: Patient is to return in 4 weeks for routine OB appointment. Follow Up: Patient is to have labs drawn at directed and return to office for initial OB appointment with provider. Patient may call office as needed with any concerns or questions. Nurse Visit Completed by: Cheyanne Plunkett LPN documented in this encounter [facility] History of Present illness Narrative 12-05-2024 Candace Burgess, LISA - 12/05/2024 11:00 AM EDT Note Date [...] nursing note reviewed. Exam conducted with a die fitter present. Vitals: Estimated body mass index is 33.39 kg/m as calculated from the following: Height as of 23: 5' 3 . Weight as of this [...] nursing note reviewed. Exam conducted with a die fitter present. Vitals: Estimated body mass index is [...] patients questions and will reach out to [facility] to get answers in regards to [...] nursing note reviewed. Exam conducted with a die fitter present. Vitals: Estimated body mass index is [...] Fabiola Gandhi DO documented in this encounter [facility] Clinical Note 10-30-2021 Note Date & Type Note Facility 10-30-2021 Note [facility] [place], [place] NAME: MELIZA HARLEY DATE OF : MEDICAL REC#: [id number] CLINICAL SOCIAL WORK THERAPIST: 1602 AMANDA WEAVER, TRANSADMIT DATE: 10/30/2021 01:50:00 INDUSTRIAL EDUCATION INSTRUCTOR DATE: 10/31/2021 23:00 DICTATING PHYSICIAN: FABIOLA GANDHI DICTATION DATE: 10/30/2021 11:00 OPERATIVE NOTE PROCEDURE: Diagnostic laparoscopy with removal of approximately 500 mL of blood, along with what we though was products of conception expulsed from the tube. PREOPERATIVE DIAGNOSIS: Pelvis pain, suspect ectopic . POSTOPERATIVE DIAGNOSIS: Pelvis pain, suspect ectopic . ANESTHESIA: General. SURGEON: Fabiola Gandhi D.O. PLATE GRAINER: ERMA Frias URINE OUTPUT: Yellow and clear. [...] by: DR FABIOLA GANDHI . 11/02/2021 07:58:00 [facility] Evaluation note Note Date & Type Note Facility Evaluation note Diagnosis Follow-up visit after miscarriage Spontaneous documented in this encounter [facility] Evaluation note Note Date & Type Note Facility Evaluation note Diagnosis Follow-up visit after miscarriage documented in this encounter [facility] Healthcare Evaluation note Note Date & Type Note Facility Evaluation note Diagnosis Well woman exam with routine gynecological exam Routine gynecological examination Weight gain Other symptoms concerning nutrition, metabolism, and development documented in this encounter [facility] Healthcare Evaluation note Note Date & Type Note Facility Evaluation note Diagnosis Missed menses Positive urine test ([facility]) , unspecified gestational age ([facility]) Encounter for supervision of normal first in first trimester ([facility]) documented in this encounter [facility] Healthcare Summary Purpose Family History No Family History Records FoundNo Family History Records FoundNo Family History Records Found Advance Directives No Advanced Directives Records FoundNo Advanced Directives Records FoundNo Advanced Directives Records Found Additional Source Comments INFORMATION SOURCE (unrecogn ized section and content) DATE CREATED AUTHOR 06/06/[address] [facility] DATE CREATED AUTHOR AUTHOR'S ORGANIZ ATION 06/16/2023 [facility] DATE CREATED AUTHOR AUTHOR'S ORGANIZ ATION 12/06/2024 [facility] [employer] Care Teams (unrecognized sec tion and content) Pediatric Nephrologist Relationship Specialty Start Date End Date Cassi Green MD [address] [place] [address] PCP - General Family Medicine 05/31/23 Pediatric Nephrologist Relationship Specialty Start Date End Date Cassi Green MD [address] [facility] [place] [address] PCP - General Family Medicine 05/31/23 Pediatric Nephrologist Relationship Specialty Start Date End Date Cassi Green MD [address] [facility] [place] [address] PCP - General Family Medicine 05/31/23 Pediatric Nephrologist Relationship Specialty Start Date End Date Cassi Green MD [address] [facility] [place] [address] PCP - General Family Medicine 05/31/23 Pediatric Nephrologist Relationship Specialty Start Date End Date Cassi Green MD [address] [facility] [place] [place] [address] PCP - General Family Medicine 05/31/23 Pediatric Nephrologist Relationship Specialty Start Date End Date Cassi Green MD [address] [facility] [place] [facility] [place] [address] PCP - General Family Medicine 05/31/23 Pediatric Nephrologist Relationship Specialty Start Date End Date Cassi Green MD [address] [facility] [place] [facility] [place] [address] PCP - General Family Medicine 05/31/23 Pediatric Nephrologist Relationship Specialty Start Date End Date Cassi Green MD [address] [facility], [place] [id number] PCP - General Family Medicine 05/31/23 Reason for Visit (unrecogniz ed section and content) Reason Comments follow up miscarriage Reason Comments Recurrent Loss Reason Comments Well Women Visit Reason Comments Amenorrhea FOR RECORDS PERTAINING TO PATIENTS WHO ARE [...] BE BASED ON THE PRIMARY CLINICAL RECORDS. [facility]. provides no warranty or guarantee of the accuracy or completeness of information in this document.
[2025-05-20 13:52] LABS: Hematocrit 35.3 % (36.0-48.0); Hemoglobin 11.9 g/dL (12.0-16.0); Immature Granulocytes Abs Auto 0.04 10^3/uL (0.00-0.03); Immature Granulocytes Pct Auto 0.5 % (0.0-0.5); Lymphocytes Absolute Auto 2.2 10^3/uL (1.2-3.8); Mean Corpuscular HGB Conc 33.7 g/dL (29.9-35.2); Mean Corpuscular Hemoglobin 27.5 pg (26.7-34.0); Mean Corpuscular Volume 81.5 fL (81.0-99.0); Platelet Count 265 10^3/uL (150-450); Red Blood Count 4.33 10^6/uL (4.20-5.40); White Blood Count 8.7 10^3/uL (4.0-11.0)
[2025-05-20 16:01] LABS: Cannabinoid Screen Urine NEGATIVE (NEGATIVE); Methamphetamines Screen Urine NEGATIVE (NEGATIVE); Tricyclic Antidepressant Urine NEGATIVE (NEGATIVE)
[2025-05-21 06:12] LABS: Rubella Antibodies, IgG <0.90 index (Immune >0.99)
[2025-05-21 11:08] LABS: Rapid Plasma Reagin, Quant Non Reactive titer (NonRea<1:1)
== END 2025-05-20 13:17 | disposition home or self-care (01) ==
LOC: LAB 13:17
PROVIDERS: PCP Nurse Practitioner; Visit Provider Obstetrics & Gynecology
DX: N92.6 Irregular menstruation, unspecified (principal); Z34.01 Encounter for supervision of normal first pregnancy, first trimester
CPT/HCPCS: 36415; 80307; 83036; 85025; 86592; 86762; 86803; 86850; 86900; 86901; 87086; 87340; 87389